=== PATIENT | male | born 1930 | race Caucasian/White ===

== ENCOUNTER 2016-08-15 06:58 | Emergency (ER) | payer MEDICARE, MEDICAID ==
[2016-08-15] MEDS ORDERED: Nitroglycerin 0.4 MG Tab.SL SL ONE (07:30)
[2016-08-15] MEDS ORDERED: Sodium Chloride 0.9% 1,000 ML IV ONE (07:30)
[2016-08-15] MEDS: Sodium Chloride 0.9% 5 ML Syringe FLUSH PRN ×2 (07:40→08:25)
[2016-08-15] MEDS ORDERED: Nitroglycerin 0.4 MG Tab.SL ONE (07:45)
[2016-08-15] MEDS ORDERED: Morphine 2 MG/ML Syringe IVPUSH ONE (08:07)
--- NOTE | 2016-08-15 08:24 | EDM.PDOC ---
ED HISTORY OF PRESENT ILLNESS - General Chief Complaint: Chest Pain Stated Complaint: CHEST PAIN Time Seen by Provider: 08/15/16 07:40 Source of Information: Reports: Patient History Limitations: Reports: No limitations - History of Present Illness INITIAL COMMENTS - FREE TEXT/NARRATIVE: PT STATES HE HAS HAD INTERMITTENT LEFT SIDED CHEST PAIN RADIATING TO LEFT ARM. DESCRIBED PRESSURE. TOOK NITRO AT HOME WITHOUT RELIEF. DENIES SOB, N/V/D, MORRISON , FEVER, ABD PAIN, OR DYSURIA. SIMILAR PAIN WHEN HE HAD CP AND CARDIAC STENT PLACED LAST YEAR Symptom Onset Date: 08/14/16 Timing/Duration: Reports: Day(s): Severity: mild Location, General: Reports: chest Quality: Reports: Pressure Improves with: Reports: None Worsens with: Reports: None Context, General: Reports: Other (AT REST) Associated Symptoms (General): Reports: cough, cough w sputum. Denies: fever/ chills, nausea/vomiting, shortness of breath Treatments SECOND CUTTER: Reports: Nitroglycerin - Related Data Allergies/ADRs: Allergies Allergy/AdvReac Type Severity Reaction Status Date / Time atorvastatin calcium Allergy Cannot Verified 08/15/16 07:28 [From Lipitor] Remember ezetimibe [From Zetia] Allergy Joint Pain Verified 08/15/16 07:28 gabapentin Allergy Airway Verified 08/15/16 07:28 Tightness pregabalin [From Lyrica] Allergy Bronchospas Verified 08/15/16 07:28 ms roflumilast [From Daliresp] Allergy Stomach Verified 08/15/16 07:28 Upset Kyeeqjw-Pto-Oip Reductase Allergy Muscle Verified 08/15/16 07:28 Inhibitor Weakness Sulfa (Sulfonamide Allergy Cannot Verified 08/15/16 07:28 Antibiotics) Remember tramadol Allergy Cannot Verified 08/15/16 07:28 Remember Home Meds: Home Meds Albuterol/Ipratropium [DuoNeb 3.0-0.5 MG/3 ML] 1 ampule INH Q6H PRN 03/22/14 [ History] Arformoterol [Brovana] 1 ampule INH BID 03/22/14 [History] Diltiazem [Cardizem CD] 180 mg PO DAILY 03/22/14 [History] Finasteride 5 mg PO DAILY 03/22/14 [History] Furosemide 40 mg PO DAILY 03/22/14 [History] Nitroglycerin [Nitrostat] 0.4 mg SL ASDIRECTED PRN 03/22/14 [History] Tamsulosin [Flomax] 0.4 mg PO BEDTIME 09/10/14 [History] Cholecalciferol (Vitamin D3) [Vitamin D3] 5,000 units PO BEDTIME 01/26/15 [ History] Psyllium with Sucrose [Metamucil] 1 tbsp PO BEDTIME 01/26/15 [History] Warfarin [Coumadin] 2.5 mg PO SUMOTUWETHSA 02/21/15 [History] Clopidogrel [Plavix] 75 mg PO DAILY 04/01/16 [History] Hydrocodone/Acetaminophen [Hydrocodon-Acetaminophen 5-325] 1 each PO BID [History] Meclizine [Antivert] 25 mg PO Q6H PRN 04/01/16 [History] Warfarin [Coumadin] 1.25 mg PO FR 04/01/16 [History] Prednisone [IJD: Prednisone] 10 mg PO DAILY 08/15/16 [History] Past Medical History HEENT History: Reports: Cataract, Impaired vision Cardiovascular History: Reports: Afib, Hypertension, Stents Respiratory History: Reports: Asthma, COPD Other Respiratory History: Home O2. Gastrointestinal History: Reports: Cholelithiasis, Chronic constipation, GERD, Hemorrhoids Genitourinary History: Reports: BPH, Prostate disorder Musculoskeletal History: Reports: Arthritis, Back pain, chronic Other Musculoskeletal History: Paget's disease Endocrine/Metabolic History: Reports: Vitamin D deficiency Hematologic History: Reports: Anemia, Blood transfusion(s) Oncologic (Cancer) History: Reports: Other (see below) Other Oncologic History: previous removal of lump and lymph nodes from neck. 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." Dermatologic History: Reports: Cellulitis - Infectious Disease History Infectious Disease History: Reports: Chicken pox, Measles, Mumps - Past Surgical History HEENT Surgical History: Reports: Cataract surgery Cardiovascular Surgical History: Reports: Carotid stents GI Surgical History: Reports: Cholecystectomy Male Surgical History: Reports: Other (see below) Other Male Surgeries/Procedures: cystoscopy Musculoskeletal Surgical History: Reports: Arthroscopic knee, Knee replacement Social & Family History - Family History Cardiac: Reports: [place] GI: Reports: None : Reports: None Oncologic: Reports: Breast - Tobacco Use Smoking Status *Q: Former Smoker Years of Tobacco use: 50 Packs/Tins Daily: 1 Used Tobacco, but Quit: Yes Month Tobacco Last Used: Quit in 1984 Second Hand Smoke Exposure: No - Caffeine Use Caffeine Use: Reports: Coffee - Alcohol Use Days Per Week of Alcohol Use: 1 Number of Drinks Per Day: 2 Total Drinks Per Week: 2 - Recreational Drug Use Recreational Drug Use: No - Living Situation & Occupation Living situation: Reports: ED ROS GENERAL - Review of Systems Review Of Systems: ROS reveals no pertinent complaints other than HPI. Constitutional: Reports: no symptoms HEENT: Reports: No symptoms Respiratory: Reports: No Symptoms Cardiovascular: Reports: Chest pain Endocrine: Reports: no symptoms GI/Abdominal: Reports: No symptoms : Reports: no symptoms Musculoskeletal: Reports: no symptoms Skin: Reports: no symptoms Neurological: Reports: No Symptoms Psychiatric: Reports: No symptoms Hematologic/Lymphatic: Reports: no symptoms Immunologic: Reports: no symptoms ED EXAM, GENERAL - Physical Exam Exam: See Below Exam Limited By: No limitations General Appearance: alert, WD/WN, no apparent distress Eye Exam: bilateral eye: normal inspection Nose: normal inspection, normal mucosa, no blood Throat/Mouth: Normal inspection, Normal oropharynx, No airway compromise Head: atraumatic, normocephalic Neck: normal inspection, supple, non-tender Respiratory/Chest: no respiratory distress, rhonchi Cardiovascular: regular rate, rhythm, no murmur GI/Abdominal: normal bowel sounds, soft, non tender, no organomegaly, no distention, no abnormal bruit, no mass Back Exam: normal inspection. No: CVA tenderness (L), CVA tenderness (R) Extremities: normal inspection, non-tender, no pedal edema Neurological: alert, oriented, normal cognition Psychiatric: normal affect, normal mood Skin Exam: Warm, Dry, Intact, Normal color, No rash Lymphatic: no adenopathy EKG INTERPRETATION EKG Date: 08/15/16 Time: 07:40 Rate (beats/min): 85 EKG Interpretation Comments: PACED RYTHM AT 85 Course - Vital Signs Last Recorded V/S: Last Vital Signs Temp 99.6 F 08/15/16 07:20 Pulse 87 08/15/16 07:58 Resp 18 08/15/16 07:58 BP 124/68 08/15/16 07:58 Pulse Ox 95 08/15/16 07:58 - Orders/Labs/Meds Orders: Active Orders 24 hr Category Date Time Status Cardiac Monitoring [RC] . DIRECTED Care 08/15/16 07:24 Active EKG Documentation Completion [RC] ASDIRECTED Care 08/15/16 07:27 Active Oxygen Therapy [RC] PRN Care 08/15/16 07:24 Active Chest 1V Frontal [CR] Stat Exams 08/15/16 07:27 Taken B-TYPE NATRIURETIC PEPTIDE,BNP [CHEM] Stat Lab 08/15/16 08:07 Ordered CK W CKMB [CHEM] Stat Lab 08/15/16 07:23 Received COMPREHENSIVE METABOLIC PN,CMP [CHEM] Stat Lab 08/15/16 07:23 Received LIPASE [CHEM] Stat Lab 08/15/16 07:23 Received TROPONIN I [CHEM] Stat Lab 08/15/16 07:23 Received Sodium Chloride 0.9% [Syrex Flush] Med 08/15/16 07:24 Active 5 ml FLUSH Q8HR PRN Saline Lock Insert [OM.PC] Stat Oth 08/15/16 07:24 Ordered EKG 12 Lead [EK] Stat Ther 08/15/16 07:27 Ordered Medication Orders Sodium Chloride (Syrex Flush) 5 ml FLUSH Q8HR PRN PRN Reason: Keep Vein Open Last Admin: 08/15/16 07:40 Dose: 5 ml Labs: Laboratory Tests 08/15/16 08/15/16 Range/Units 07:23 07:23 WBC 15.0 H (5.0-10.0) 10^3/uL RBC 4.56 (4.50-6.00) 10^6/uL Hgb 11.2 L (13.0-17.0) g/dL Hct 34.8 L (40.0-52.0) % MCV 76.3 L (82.0-92.0) fL MCH 24.6 L (27.0-31.0) pg MCHC 32.2 (32.0-36.0) g/dL RDW 17.1 H (11.5-14.5) % Plt Count 249 (150-300) 10^3/uL MPV 8.4 (7.4-10.4) fL Neut % (Auto) 90.4 H (50.0-70.0) % Lymph % (Auto) 5.1 L (20.0-40.0) % Starke % (Auto) 4.0 (2.0-8.0) % Eos % (Auto) 0.4 L (1.0-3.0) % Baso % (Auto) 0.1 (0.0-1.0) % Neut # (Auto) 13.5 H (2.5-7.0) 10^3/uL Lymph # (Auto) 0.8 L (1.0-4.0) 10^3/uL Starke # (Auto) 0.6 (0.1-0.8) 10^3/uL Eos # (Auto) 0.1 (0.1-0.3) 10^3/uL Baso # (Auto) 0.0 (0.0-0.1) 10^3/uL PT 13.1 H (8.9-11.4) SEC INR 1.3 H (0.9-1.1) Meds: Medications Generic Name Dose Route Start Last Admin Trade Name Freq PRN Reason Stop Dose Admin Sodium Chloride 5 ml 08/15/16 07:24 08/15/16 07:40 Syrex Flush FLUSH 5 ml Q8HR PRN Administration Keep Vein Open Discontinued Medications Generic Name Dose Route Start Last Admin Trade Name Freq PRN Reason Stop Dose Admin Morphine Sulfate 2 mg 08/15/16 08:07 Morphine IVPUSH 08/15/16 08:08 ONETIME ONE Nitroglycerin Confirm 08/15/16 07:45 08/15/16 07:50 Nitrostat Administered 08/15/16 07:46 0.4 mg Dose Administration 0.4 mg .ROUTE .STK-MED ONE - Re-Assessments/Exams Free Text/Narrative Re-Assessment/Exam: 08/15/16 08:49 PT AFEBRILE, NONTOXIC APPEARING, PAIN DOWN TO 2/10 FOLLOWING MORPHINE. DISCUSSED CASE WITH DR POE, CARDIOLOGY, AND DR ADAIR, HOSPITALIST AT [facility]. WILL ACCEPT TRANSFER OF CARE Departure - Departure Time of Disposition: 08:52 Disposition: DC/Tfer to [facility] Reason for Transfer *Q: Primary PCI Indicated Condition: fair Clinical Impression: Acute myocardial infarction Qualifiers: Myocardial infarction ST status: non-ST elevation myocardial infarction Qualified Code(s): I21.4 - Non-ST elevation (NSTEMI) myocardial infarction Chest pain Qualifiers: Chest pain type: chest pain due to myocardial ischemia Ischemic chest pain type : unspecified angina pectoris type Qualified Code(s): I20.9 - Angina pectoris, unspecified Forms: ED Department Discharge - My Orders Last 24 Hours: My Active Orders 08/15/16 07:23 CK W CKMB [CHEM] Stat COMPREHENSIVE METABOLIC PN,CMP [CHEM] Stat LIPASE [CHEM] Stat TROPONIN I [CHEM] Stat 08/15/16 07:24 Cardiac Monitoring [RC] . DIRECTED Oxygen Therapy [RC] PRN Sodium Chloride 0.9% [Syrex Flush] 5 ml FLUSH Q8HR PRN Saline Lock Insert [OM.PC] Stat 08/15/16 07:27 EKG Documentation Completion [RC] ASDIRECTED Chest 1V Frontal [CR] Stat EKG 12 Lead [EK] Stat 08/15/16 08:07 B-TYPE NATRIURETIC PEPTIDE,BNP [CHEM] Stat - Assessment/Plan Last 24 Hours: My Active Orders 08/15/16 07:23 CK W CKMB [CHEM] Stat COMPREHENSIVE METABOLIC PN,CMP [CHEM] Stat LIPASE [CHEM] Stat TROPONIN I [CHEM] Stat 08/15/16 07:24 Cardiac Monitoring [RC] . DIRECTED Oxygen Therapy [RC] PRN Sodium Chloride 0.9% [Syrex Flush] 5 ml FLUSH Q8HR PRN Saline Lock Insert [OM.PC] Stat 08/15/16 07:27 EKG Documentation Completion [RC] ASDIRECTED Chest 1V Frontal [CR] Stat EKG 12 Lead [EK] Stat 08/15/16 08:07 B-TYPE NATRIURETIC PEPTIDE,BNP [CHEM] Stat Assessment:: CHEST PAIN / NONSTEMI HI Plan: TRANSFER VIA EMS TO [facility]
[2016-08-15 08:25] LABS: CHLORIDE,CL 101 mmol/L (98-115); SODIUM,NA 140 mmol/L (136-145)
[2016-08-15 08:49] VITALS: BP 143/57
[2016-08-15] MEDS ORDERED: Heparin Sodium 5,000 Units/ML Vial IVPUSH ONE (08:54)
[2016-08-15] MEDS ORDERED: Heparin Sodium 5,000 Units/ML Vial ONE (08:54)
[2016-08-15] MEDS ORDERED: Aspirin 81 MG Tab.Chew PO ONE (09:05)
[2016-08-15] MEDS ORDERED: Sodium Chloride 0.9% 1,000 ML ONE (09:25)
== END 2016-08-15 09:15 ==
LOC: KA.ED 06:58
DX: I21.4 Non-ST elevation (NSTEMI) myocardial infarction (principal); I20.9 Angina pectoris, unspecified; I48.91 Unspecified atrial fibrillation; I10 Essential (primary) hypertension; J45.909 Unspecified asthma, uncomplicated; J44.9 Chronic obstructive pulmonary disease, unspecified; K21.9 Gastro-esophageal reflux disease without esophagitis; M19.90 Unspecified osteoarthritis, unspecified site; Z98.49 Cataract extraction status, unspecified eye; Z90.49 Acquired absence of other specified parts of digestive tract; Z79.01 Long term (current) use of anticoagulants; Z79.899 Other long term (current) drug therapy; Z88.5 Allergy status to narcotic agent; Z88.8 Allergy status to other drugs, medicaments and biological substances; Z86.2 Personal history of diseases of the blood and blood-forming organs and certain disorders involving the immune mechanism; Z87.891 Personal history of nicotine dependence
CPT/HCPCS: 36415; 71010; 80053; 82550; 82553; 83690; 83880; 84484; 85025; 85610; 93005; 96374; 96375; 99285; A9270; J1644; J2270

== ENCOUNTER 2017-08-01 03:28 | Inpatient (IN) | payer MEDICARE, MEDICAID ==
--- NOTE | 2017-08-01 03:59 | EDM.PDOC ---
ED HPI GENERAL MEDICAL PROBLEM - General Chief Complaint: Respiratory Problem Stated Complaint: short of breath Time Seen by Provider: 08/01/17 03:49 Source of Information: Reports: Patient History Limitations: Reports: No Limitations - History of Present Illness INITIAL COMMENTS - FREE TEXT/NARRATIVE: Patient is an 86-year-old gentleman who presents to the emergency department this morning for complaint of shortness of breath. He came with his son and [id number], and states that he woke from sleep at 2 a.m. and had a hard time catching his breath. According to his son he was fine throughout the day and had no recent illness. Patient states that he does have left-sided chest discomfort, but that is of a chronic nature. Patient has a strong cardiac history with multiple stents placed and He was transferred from this emergency department July 2016 for non-STEMI [place]. Patient states that he took 20 mg prednisone this morning, but did not help. Patient does have a history of severe COPD, CHF, hypertension, and pacemaker. Patient denies fever, nausea, vomiting, diarrhea, headache, head injury, blurry vision, or dizziness. 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 Treatments - Related Data Allergies Allergy/AdvReac Type Severity Reaction Status Date / Time atorvastatin calcium Allergy Cannot Verified 08/01/17 03:54 [From Lipitor] Remember ezetimibe [From Zetia] Allergy Joint Pain Verified 08/01/17 03:54 gabapentin Allergy Airway Verified 08/01/17 03:54 Tightness pregabalin [From Lyrica] Allergy Bronchospas Verified 08/01/17 03:54 ms roflumilast [From Daliresp] Allergy Stomach Verified 08/01/17 03:54 Upset Mrpgasn-Rge-Bjy Reductase Allergy Muscle Verified 08/01/17 03:54 Inhibitor Weakness Sulfa (Sulfonamide Allergy Cannot Verified 08/01/17 03:54 Antibiotics) Remember tramadol Allergy Cannot Verified 08/01/17 03:54 Remember Home Meds: Home Meds Albuterol/Ipratropium [DuoNeb 3.0-0.5 MG/3 ML] 1 ampule INH Q6H PRN 03/22/14 [ History] Arformoterol [Brovana] 1 ampule INH BID 03/22/14 [History] Diltiazem [Cardizem CD] 180 mg PO DAILY 03/22/14 [History] Finasteride 5 mg PO DAILY 03/22/14 [History] Furosemide 40 mg PO DAILY 03/22/14 [History] Nitroglycerin [Nitrostat] 0.4 mg SL ASDIRECTED PRN 03/22/14 [History] Tamsulosin [Flomax] 0.4 mg PO BEDTIME 09/10/14 [History] Cholecalciferol (Vitamin D3) [Vitamin D3] 5,000 units PO BEDTIME 01/26/15 [ History] Psyllium with Sucrose [Metamucil] 1 tbsp PO BEDTIME PRN 01/26/15 [History] Warfarin [Coumadin] 2.5 mg PO SUMOTUWETHSA 02/21/15 [History] Clopidogrel [Plavix] 75 mg PO DAILY 04/01/16 [History] Hydrocodone/Acetaminophen [Hydrocodon-Acetaminophen 5-325] 1 each PO BID [History] Meclizine [Antivert] 25 mg PO Q6H PRN 04/01/16 [History] Prednisone [IJD: Prednisone] 10 mg PO DAILY 08/15/16 [History] Past Medical History HEENT History: Reports: Cataract, Impaired Vision Cardiovascular History: Reports: Afib, Hypertension, Stents Respiratory History: Reports: Asthma, COPD Other Respiratory History: Home O2. Gastrointestinal History: Reports: Cholelithiasis, Chronic Constipation, GERD, Hemorrhoids Genitourinary History: Reports: BPH, Prostate Disorder Musculoskeletal History: Reports: Arthritis, Back Pain, Chronic Other Musculoskeletal History: Paget's disease Endocrine/Metabolic History: Reports: Vitamin D Deficiency Hematologic History: Reports: Anemia, Blood Transfusion(s) Oncologic (Cancer) History: Reports: Other (See Below) Other Oncologic History: previous removal of lump and lymph nodes from neck. 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." Dermatologic History: Reports: Cellulitis - Infectious Disease History Infectious Disease History: Reports: Chicken Pox, Measles, Mumps - Past Surgical History HEENT Surgical History: Reports: Cataract Surgery Cardiovascular Surgical History: Reports: Carotid Stents Male Surgical History: Reports: Other (See Below) Musculoskeletal Surgical History: Reports: Arthroscopic Knee, Knee Replacement Social & Family History - Family History Cardiac: Reports: [place] GI: Reports: None : Reports: None Oncologic: Reports: Breast - Tobacco Use Smoking Status *Q: Former Smoker Years of Tobacco use: 50 Packs/Tins Daily: 1 Used Tobacco, but Quit: Yes Month/Year Tobacco Last Used: Quit in 1984 Second Hand Smoke Exposure: No - Caffeine Use Caffeine Use: Reports: Coffee - Alcohol Use Days Per Week of Alcohol Use: 1 Number of Drinks Per Day: 2 Total Drinks Per Week: 2 - Recreational Drug Use Recreational Drug Use: No - Living Situation & Occupation Living situation: Reports: ED ROS GENERAL - Review of Systems Review Of Systems: ROS reveals no pertinent complaints other than HPI. Constitutional: Reports: No Symptoms HEENT: Reports: No Symptoms Respiratory: Reports: Shortness of Breath, Cough Cardiovascular: Reports: Chest Pain Endocrine: Reports: No Symptoms GI/Abdominal: Reports: No Symptoms : Reports: No Symptoms Musculoskeletal: Reports: No Symptoms Skin: Reports: No Symptoms Neurological: Reports: No Symptoms Psychiatric: Reports: No Symptoms Hematologic/Lymphatic: Reports: No Symptoms Immunologic: Reports: No Symptoms ED EXAM, GENERAL - Physical Exam Exam: See Below Exam Limited By: No Limitations General Appearance: Alert, WD/WN, Mild Distress Eye Exam: Bilateral Eye: Normal Inspection Nose: Normal Inspection, Normal Mucosa, No Blood Throat/Mouth: Normal Inspection, Normal Oropharynx, No Airway Compromise Head: Atraumatic, Normocephalic Neck: Normal Inspection Respiratory/Chest: No Respiratory Distress, Decreased Breath Sounds, Rales ( Basilar), Wheezing Cardiovascular: Regular Rate, Rhythm, No Murmur GI/Abdominal: Normal Bowel Sounds, Soft, Non-Tender, No Organomegaly, No Abnormal Bruit Back Exam: Normal Inspection. No: CVA Tenderness (L), CVA Tenderness (R) Extremities: Pedal Edema (2+ bilateral) Neurological: Alert, Oriented, Normal Cognition Psychiatric: Normal Affect, Normal Mood Skin Exam: Warm, Dry, Intact, Normal Color, No Rash EKG INTERPRETATION EKG Date: 08/01/17 Time: 04:05 Rhythm: Other (Paced) Rate (Beats/Min): 71 Course - Orders/Labs/Meds Orders: Active Orders 24 hr Category Date Time Status EKG Documentation Completion [RC] ASDIRECTED Care 08/01/17 03:35 Active Chest 1V Frontal [CR] Stat Exams 08/01/17 03:35 Ordered B-TYPE NATRIURETIC PEPTIDE,BNP [CHEM] Stat Lab 08/01/17 03:33 Ordered CBC WITH AUTO DIFF [HEME] Stat Lab 08/01/17 03:33 Ordered CMP [COMPREHENSIVE METABOLIC PN,CMP] [CHEM] Stat Lab 08/01/17 03:33 Ordered INFLUENZA A+B AG SCREEN [RM] Stat Lab 08/01/17 03:49 Ordered INR,PT,PROTHROMBIN TIME [COAG] Stat Lab 08/01/17 03:49 Ordered TROPONIN I [CHEM] Stat Lab 08/01/17 03:33 Ordered EKG 12 Lead [EK] Routine Ther 08/01/17 03:34 Ordered - Radiology Interpretation Free Text/Narrative:: Chest x-ray shows bilateral lower lobe pneumonia - Re-Assessments/Exams Free Text/Narrative Re-Assessment/Exam: 08/01/17 05:14 Patient afebrile, nontoxic appearing, vital signs stable. Patient given 1 g Rocephin IV and 500 mg Zithromax IV. Discussed case with Dr. Carmencita rivera and patient will be admitted inpatient and followed. Departure - Departure Time of Disposition: 05:18 Disposition: Admitted As Inpatient 66 Condition: Fair Clinical Impression: Pneumonia Qualifiers: Pneumonia type: due to unspecified organism Laterality: right Lung location: lower lobe of lung Qualified Code(s): J18.1 - Lobar pneumonia, unspecified organism Congestive heart failure Qualifiers: Heart failure type: unspecified Heart failure chronicity: acute on chronic Qualified Code(s): I50.9 - Heart failure, unspecified - Discharge Information - My Orders Last 24 Hours: My Active Orders 08/01/17 03:33 B-TYPE NATRIURETIC PEPTIDE,BNP [CHEM] Stat CBC WITH AUTO DIFF [HEME] Stat CMP [COMPREHENSIVE METABOLIC PN,CMP] [CHEM] Stat TROPONIN I [CHEM] Stat 08/01/17 03:34 EKG 12 Lead [EK] Routine 08/01/17 03:35 EKG Documentation Completion [RC] ASDIRECTED Chest 1V Frontal [CR] Stat 08/01/17 03:49 INFLUENZA A+B AG SCREEN [RM] Stat INR,PT,PROTHROMBIN TIME [COAG] Stat - Assessment/Plan Last 24 Hours: My Active Orders 08/01/17 03:33 B-TYPE NATRIURETIC PEPTIDE,BNP [CHEM] Stat CBC WITH AUTO DIFF [HEME] Stat CMP [COMPREHENSIVE METABOLIC PN,CMP] [CHEM] Stat TROPONIN I [CHEM] Stat 08/01/17 03:34 EKG 12 Lead [EK] Routine 08/01/17 03:35 EKG Documentation Completion [RC] ASDIRECTED Chest 1V Frontal [CR] Stat 08/01/17 03:49 INFLUENZA A+B AG SCREEN [RM] Stat INR,PT,PROTHROMBIN TIME [COAG] Stat Assessment:: Pneumonia Plan: Admit inpatient
[2017-08-01] MEDS ORDERED: Albuterol/Ipratropium 3.0-0.5 MG/3 ML Neb Soln NEB ONE (04:06)
[2017-08-01] MEDS ORDERED: Albuterol/Ipratropium 3.0-0.5 MG/3 ML Neb Soln ONE (04:06)
[2017-08-01] MEDS ORDERED: cefTRIAXone 1 GM Vial IVPUSH ONE (04:37)
[2017-08-01] MEDS ORDERED: Azithromycin 500 MG in Sodium Chloride 0.9% 250 ML IV ONE (04:37)
[2017-08-01 04:46] LABS: SODIUM,NA 139 mmol/L (136-145)
[2017-08-01 04:47] LABS: CHLORIDE,CL 99 mmol/L (98-115)
[2017-08-01] MEDS ORDERED: Meclizine 25 MG Tab PO PRN (08:28)
[2017-08-01] MEDS ORDERED: Psyllium Husk Powder Sugar Free 5.85 GM Packet PO PRN (08:28)
[2017-08-01] MEDS ORDERED: Nitroglycerin 0.4 MG Tab.SL SL PRN (08:28)
[2017-08-01] MEDS: Arformoterol 15 MCG/2 ML Neb Soln INH SCH ×2 (11:08→22:08)
[2017-08-01] MEDS: Diltiazem 180 MG Cap.CD PO SCH (11:09)
[2017-08-01] MEDS: Finasteride 5 MG Tab PO SCH (11:10)
[2017-08-01] MEDS: Clopidogrel 75 MG Tab PO SCH (11:10)
[2017-08-01] MEDS: Acetaminophen/HYDROcodone 325-5 MG Tab PO SCH ×2 (11:10→22:06)
[2017-08-01] MEDS: predniSONE 20 MG Tab PO SCH (11:10)
[2017-08-01] MEDS: Furosemide 20 MG Tab PO SCH (11:10)
--- NOTE | 2017-08-01 11:34 | PCM.HP ---
H&P History of Present Illness - General Date of Service: 08/01/17 Admit Problem/Dx: Admission Diagnosis/Problem Admission Diagnosis/Problem Pneumonia Source of Information: Patient, Family, Old Records, Provider (STANISLAV Tijerina (ED provider)), RN, RN Notes Reviewed History Limitations: Reports: No Limitations - History of Present Illness Initial Comments - Free Text/Narative: Mr. Brown reports being in his baseline state of health until 7-10 days ago when he developed some congestions, rhinorrhea, and increased cough from baseline. About 2 weeks ago, his and he has since had decreased amount of rest with several family members around. He states that he has been coping well with the grief and trying to take care of himself, but feels he got a little run down. Last night, he developed shortness of breath and worsening cough so his family brought him into the [facility] ED. In the ED, he was noted to have a borderline low oxygen which improved to the low 90s with 3lpm via nasal cannula. Work-up was notable for WBC 21 and CXR with bilateral lower lobe infiltrates, clinically consistent with pneumonia. He was given IV ceftriaxone and azithromycin. Since admission, Mr. Brown states he has improved, but "isn't up to par yet. " His shortness of breath and wheezing is improved. Cough is productive of dark colored sputum. He denies any chest pain since arrival. Tolerating oral intake without difficulty. Denies any new concerns. Family at bedside states that he seems to be feeling better than last night. No nursing concerns. Left Shoulder Pain Score (Numeric/FACES): 3 - Related Data Allergies/Adverse Reactions: Allergies Allergy/AdvReac Type Severity Reaction Status Date / Time atorvastatin calcium Allergy Cannot Verified 08/01/17 03:54 [From Lipitor] Remember ezetimibe [From Zetia] Allergy Joint Pain Verified 08/01/17 03:54 gabapentin Allergy Airway Verified 08/01/17 03:54 Tightness pregabalin [From Lyrica] Allergy Bronchospas Verified 08/01/17 03:54 ms roflumilast [From Daliresp] Allergy Stomach Verified 08/01/17 03:54 Upset Yfrshlv-Sey-Usw Reductase Allergy Muscle Verified 08/01/17 03:54 Inhibitor Weakness Sulfa (Sulfonamide Allergy Cannot Verified 08/01/17 03:54 Antibiotics) Remember tramadol Allergy Cannot Verified 08/01/17 03:54 Remember Home Medications: Home Meds Albuterol/Ipratropium [DuoNeb 3.0-0.5 MG/3 ML] 1 ampule INH Q6H PRN 03/22/14 [ History] Arformoterol [Brovana] 1 ampule INH BID 03/22/14 [History] Diltiazem [Cardizem CD] 180 mg PO DAILY 03/22/14 [History] Finasteride 5 mg PO DAILY 03/22/14 [History] Furosemide 60 mg PO DAILY 03/22/14 [History] Nitroglycerin [Nitrostat] 0.4 mg SL ASDIRECTED PRN 03/22/14 [History] Tamsulosin [Flomax] 0.4 mg PO BEDTIME 09/10/14 [History] Cholecalciferol (Vitamin D3) [Vitamin D3] 5,000 units PO BEDTIME 01/26/15 [ History] Psyllium with Sucrose [Metamucil] 1 tbsp PO BEDTIME PRN 01/26/15 [History] Warfarin [Coumadin] 2.5 mg PO DAILY 02/21/15 [History] Clopidogrel [Plavix] 75 mg PO DAILY 04/01/16 [History] Hydrocodone/Acetaminophen [Hydrocodon-Acetaminophen 5-325] 1 each PO BID [History] Meclizine [Antivert] 25 mg PO Q6H PRN 04/01/16 [History] Prednisone [IJD: Prednisone] 10 mg PO DAILY 08/15/16 [History] Past Medical History HEENT History: Reports: Cataract, Impaired Vision Cardiovascular History: Reports: Afib, Hypertension, Pacemaker, Stents Respiratory History: Reports: Asthma, COPD Other Respiratory History: Home O2. Gastrointestinal History: Reports: Cholelithiasis, Chronic Constipation, GERD, Hemorrhoids Genitourinary History: Reports: BPH, Prostate Disorder Musculoskeletal History: Reports: Arthritis, Back Pain, Chronic Other Musculoskeletal History: Paget's disease Endocrine/Metabolic History: Reports: Vitamin D Deficiency Hematologic History: Reports: Anemia, Blood Transfusion(s) Immunologic History: Reports: None Oncologic (Cancer) History: Reports: Other (See Below) Other Oncologic History: previous removal of lump and lymph nodes from neck. 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." Dermatologic History: Reports: Cellulitis - Infectious Disease History Infectious Disease History: Reports: Chicken Pox, Measles, Mumps - Past Surgical History HEENT Surgical History: Reports: Cataract Surgery Cardiovascular Surgical History: Reports: Carotid Stents Respiratory Surgical History: Reports: None Musculoskeletal Surgical History: Reports: Arthroscopic Knee, Knee Replacement Social & Family History - Family History Family Medical History: Unobtainable Cardiac: Reports: [place] GI: Reports: None : Reports: None Oncologic: Reports: Breast - Tobacco Use Smoking Status *Q: Former Smoker Years of Tobacco use: 50 Packs/Tins Daily: 1 Used Tobacco, but Quit: Yes Month/Year Tobacco Last Used: Quit in 1984 Second Hand Smoke Exposure: No - Caffeine Use Caffeine Use: Reports: Coffee - Alcohol Use Days Per Week of Alcohol Use: 1 Number of Drinks Per Day: 2 Total Drinks Per Week: 2 - Recreational Drug Use Recreational Drug Use: No - Living Situation & Occupation Living situation: Reports: H&P Review of Systems - Review of Systems: Review Of Systems: See Below General: Reports: Fever, Chills, Malaise, Weakness, Fatigue, Decreased Appetite HEENT: Reports: Rhinitis, Sinus Congestion. Denies: Ear Pain, Headaches, Sore Throat Pulmonary: Reports: Shortness of Breath, Wheezing, Cough, Sputum. Denies: Pleuritic Chest Pain, Hemoptysis Cardiovascular: Reports: Dyspnea on Exertion. Denies: Chest Pain, Palpitations , Orthopnea, PND, Edema, Lightheadedness, Syncope Gastrointestinal: Reports: Constipation. Denies: Abdominal Pain, Diarrhea Genitourinary: Reports: Frequency. Denies: Dysuria, Pain Musculoskeletal: Reports: Joint Pain Skin: Denies: Rash, Wound, Lesions Psychiatric: Reports: Other (grief s/p 's recent ). Denies: Confusion , Depression, Anxiety, Agitation Neurological: Denies: Headache Hematologic/Lymphatic: Reports: Easy Bleeding, Easy Bruising Exam - Exam Exam: See Below - Vital Signs Vital Signs: Last Vital Signs Temp 37.9 C 08/01/17 05:19 Pulse 71 08/01/17 11:09 Resp 36 H 08/01/17 06:55 BP 133/57 L 08/01/17 11:09 Pulse Ox 93 L 08/01/17 06:55 Weight: 84.368 kg - Exam Physical Exam Comments:: GENERAL: Elderly white male lying in hospital bed with mild tachypnea, but otherwise not in any acute distress. HEENT: Normocephalic, atraumatic. L eyelids closed. R conjunctiva clear. Mild clear rhinorrhea and bilateral nasal turbinate erythema. Mucous membranes moist , posterior pharynx unremarkable. NECK: Supple, well healed scars of left neck. CV: Regular rate and rhythm, no murmurs, rubs, or gallops. 2+ radial pulses. PULMONARY: Mild tachypnea; following nebulizer treatment, he has faint scattered end expiratory wheezes and diffuse rhonchi without any crackles. ABDOMEN: Positive bowel sounds, soft, nontender, nondistended. EXTREMITIES: No edema, cyanosis, or clubbing. MUSCULOSKELETAL: Moves all extremities well. NEUROLOGICAL: No obvious deficits. DERMATOLOGIC: Bilateral forearms with diffuse bruising. PSYCHIATRIC: Alert, interactive, appropriate affect. - Patient Data Lab Results Last 24 hrs: Laboratory Results - last 24 hr 08/01/17 08/01/17 08/01/17 Range/Units 03:47 03:47 03:47 WBC 21.1 H (5.0-10.0) 10^3/uL RBC 4.85 (4.50-6.00) 10^6/uL Hgb 12.5 L (13.0-17.0) g/dL Hct 38.8 L (40.0-52.0) % MCV 80.0 L D (82.0-92.0) fL MCH 25.7 L (27.0-31.0) pg MCHC 32.1 (32.0-36.0) g/dL RDW 17.2 H (11.5-14.5) % Plt Count 305 H (150-300) 10^3/uL MPV 8.3 (7.4-10.4) fL Neut % (Auto) 92.2 H (50.0-70.0) % Lymph % (Auto) 3.7 L (20.0-40.0) % Divide % (Auto) 2.2 (2.0-8.0) % Eos % (Auto) 1.8 (1.0-3.0) % Baso % (Auto) 0.1 (0.0-1.0) % Neut # (Auto) 19.4 H (2.5-7.0) 10^3/uL Lymph # (Auto) 0.8 L (1.0-4.0) 10^3/uL Divide # (Auto) 0.5 (0.1-0.8) 10^3/uL Eos # (Auto) 0.4 H (0.1-0.3) 10^3/uL Baso # (Auto) 0.0 (0.0-0.1) 10^3/uL PT 23.6 H D (8.9-11.4) SEC INR 2.4 H (0.9-1.1) Sodium 139 (136-145) mmol/L Potassium 3.7 (3.3-5.3) mmol/L Chloride 99 (98-115) mmol/L Carbon Dioxide 27.0 (21.0-32.0) mmol/L BUN 26 H (6-25) mg/dL Creatinine 1.00 (0.51-1.17) mg/dL Est Cr Clr Drug Dosing 54.75 mL/min Estimated GFR (MDRD) > 60 mL/min Glucose 126 H (70-110) mg/dL Calcium 8.8 (8.7-10.3) mg/dL Total Bilirubin 0.5 (0.2-1.0) mg/dL AST 23 (15-37) U/L ALT 18 (12-78) U/L Alkaline Phosphatase 57 (46-116) IU/L Troponin I 0.04 (0.00-0.070) ng/mL B-Natriuretic Peptide 226 H (0-100) pg/mL Total Protein 6.9 (6.4-8.2) g/dL Albumin 3.20 (3.00-4.80) g/dL Result Diagrams: 08/01/17 03:47 08/01/17 03:47 Anderson Results Last 24 hrs: Microbiology 08/01/17 03:49 Influenza Type A Antigen Screen - Final Nasal Aspirate, Unspecified NEGATIVE INFLUENZA A VIRUS AG Influenza Type B Antigen Screen - Final NEGATIVE INFLUENZA B VIRUS AG Problem List Initiated/Reviewed/Updated: Yes Orders Last 24hrs: Active Orders 24 hr Category Date Time Status Patient Status [ADT] Routine ADT 08/01/17 05:19 Ordered EKG Documentation Completion [RC] ASDIRECTED Care 08/01/17 03:35 Active Oxygen Therapy [RC] PRN Care 08/01/17 05:19 Active RT Aerosol Therapy [RC] ASDIRECTED Care 08/01/17 08:26 Active VTE/DVT Education [RC] PER UNIT ROUTINE Care 08/01/17 05:19 Active Vital Signs [RC] Q4H Care 08/01/17 05:19 Active Chest 1V Frontal [CR] Stat Exams 08/01/17 03:35 Ordered BASIC METABOLIC PANEL,BMP [CHEM] AM Lab 08/02/17 05:11 Ordered CBC WITH AUTO DIFF [HEME] AM Lab 08/02/17 05:11 Ordered CULTURE BLOOD [BC] Stat Lab 08/01/17 05:13 Ordered CULTURE BLOOD [BC] Stat Lab 08/01/17 05:13 Ordered CULTURE SPUTUM + SMEAR [RM] Stat Lab 08/01/17 05:15 Ordered INR,PT,PROTHROMBIN TIME [COAG] AM Lab 08/02/17 05:11 Ordered Acetaminophen [Tylenol] Med 08/01/17 11:28 Ordered 650 mg PO Q6H PRN Acetaminophen/HYDROcodone [[place] 325-5 MG] Med 08/01/17 09:00 Active 1 tab PO BID Albuterol/Ipratropium [DuoNeb 3.0-0.5 MG/3 ML] Med 08/01/17 08:26 Active 3 ml NEB Q4HRRT PRN Arformoterol [Brovana] Med 08/01/17 08:45 Active 15 mcg INH BIDRT Cholecalciferol (Vitamin D3) [Vitamin D3] Med 08/01/17 21:00 Active 5,000 units PO BEDTIME Clopidogrel [Plavix] Med 08/01/17 09:00 Active 75 mg PO DAILY Diltiazem [Cardizem CD] Med 08/01/17 09:00 Active 180 mg PO DAILY Finasteride [Proscar] Med 08/01/17 09:00 Active 5 mg PO DAILY Furosemide [Lasix] Med 08/01/17 09:00 Active 60 mg PO DAILY Levofloxacin/Dextrose 5%-Water [Levaquin in D5W 500 MG/ Med 08/01/17 18:00 Ordered 100 ML] 500 mg Premix Bag 1 bag IV Q24H Meclizine [Antivert] Med 08/01/17 08:28 Active 25 mg PO Q6H PRN Nitroglycerin [Nitrostat] Med 08/01/17 08:28 Active 0.4 mg SL ASDIRECTED PRN Psyllium Husk/Aspartame [Metamucil Sugar Free] Med 08/01/17 08:28 Active 0 pkt PO BEDTIME PRN Tamsulosin [Flomax] Med 08/01/17 21:00 Active 0.4 mg PO BEDTIME Warfarin [Coumadin] Med 08/01/17 18:00 Active 2.5 mg PO DAILY@1800 predniSONE Med 08/01/17 10:30 Active 40 mg PO WITHBREAKFAST Blood Culture x2 Reflex Set [OM.PC] Stat Oth 08/01/17 05:12 Ordered Resuscitation Status Routine Resus Stat 08/01/17 05:19 Ordered EKG 12 Lead [EK] Routine Ther 08/01/17 03:34 Ordered Medication Orders Acetaminophen (Tylenol) 650 mg PO Q6H PRN PRN Reason: Fever Hydrocodone Bitart/Acetaminophen ([place] 325-5 Mg) 1 tab PO BID [facility] Last Admin: 08/01/17 11:10 Dose: 1 tab Albuterol/Ipratropium (Duoneb 3.0-0.5 Mg/3 Ml) 3 ml NEB Q4HRRT PRN PRN Reason: Shortness of Breath Arformoterol Tartrate (Brovana) 15 mcg INH BIDRT [facility] Last Admin: 08/01/17 11:08 Dose: 15 mcg Cholecalciferol (Vitamin D3) 5,000 units PO BEDTIME [facility] Clopidogrel Bisulfate (Plavix) 75 mg PO DAILY [facility] Last Admin: 08/01/17 11:10 Dose: 75 mg Diltiazem HCl (Cardizem Cd) 180 mg PO DAILY [facility] Last Admin: 08/01/17 11:09 Dose: 180 mg Finasteride (Proscar) 5 mg PO DAILY [facility] Last Admin: 08/01/17 11:10 Dose: 5 mg Furosemide (Lasix) 60 mg PO DAILY [facility] Last Admin: 08/01/17 11:10 Dose: 60 mg Levofloxacin/Dextrose 500 mg/ (Premix) 100 mls @ 100 mls/hr IV Q24H [facility] Meclizine HCl (Antivert) 25 mg PO Q6H PRN PRN Reason: Dizziness Nitroglycerin (Nitrostat) 0.4 mg SL ASDIRECTED PRN PRN Reason: Chest Pain Prednisone (Prednisone) 40 mg PO WITHBREAKFAST [facility] Last Admin: 08/01/17 11:10 Dose: 40 mg Psyllium Husk (Metamucil Sugar Free) 0 pkt PO BEDTIME PRN PRN Reason: Constipation Tamsulosin HCl (Flomax) 0.4 mg PO BEDTIME [facility] Warfarin Sodium (Coumadin) 2.5 mg PO DAILY@1800 [facility] Assessment/Plan Comment:: HPI summary: 86yoM with history notable for COPD/asthma, chronic nocturnal hypoxia, and CAD, who was in his baseline state of health until 7-10 days prior to admission when he developed some congestions, rhinorrhea, and increased cough from baseline. About 2 weeks ago, his and he has since had decreased amount of rest with several family members around. He states that he has been coping well with the grief and trying to take care of himself, but feels he got a little run down. In the hogshead filler hours of the day of admission, he developed shortness of breath and worsening cough so his family brought him into the [facility] ED. ED course: He was noted to have a borderline low oxygen which improved to the low 90s with 3lpm via nasal cannula. Work-up was notable for WBC 21, troponin < 0.04, BNP in the 200s, EKG with paced rhythm, and CXR with bilateral lower lobe infiltrates and mild pulmonary vascular congestion, which as a whole was clinically consistent with pneumonia. He was given IV ceftriaxone and azithromycin. He was admitted for pneumonia with associated acute hypoxic respiratory failure. Interval hospital course: Developed fever of 100.4 this morning, but overall improved respiratory status. No new symptoms or concerns. Chart review revealed a recent rx for metoprolol for improved medical management of chronic angina, but the patient state he has not begun this. Hospitalization problems: # Acute hypoxic respiratory failure superimposed on chronic nocturnal hypoxic respiratory failure # Pneumonia, bilateral lower lobes, community acquired, suspect pneumococcal vs. pseudomonal pathogen # COPD/asthma with acute exacerbation # CAD: Most recent stent 08/16/16 # HFpEF: Grade I diastolic dysfunction and EF 55% on most recent echo 08/15/16 # HTN # Atrial fibrillation # Generalized weakness Requiring inpatient monitoring and management given oxygen requirement and CURB- 65 = 2 in addition to chronic medical conditions increasing risk. No evidence of sepsis or acute coronary syndrome and he is volume neutral without overt exam , laboratory or imaging evidence of fluid overload. Generalized weakness may be related to acute issues or from underlying deconditioning. - Supplemental oxygen to keep oxygen saturation >90% - Levofloxacin 500mg IV daily - Prednisone 40mg daily - DuoNebs q4h - Mucinex 500mg BID - Continue outpatient clopidogrel, furosemide, diltiazem, and warfarin - VS q4h - Strict I/O - Blood and sputum cultures - Repeat CBC, BMP, and INR tomorrow - Consider physical therapy if ongoing generalized weakness noted following improvement in acute condition Chronic conditions: # S/p pacemaker for prior AV node ablation # Constipation: Metamucil prn. # BPH: Finasteride, tamsulosin. # OA: [place]. # Vitamin D deficiency: D3. # Chronic vertigo: Meclizine prn. Hospitalization details: # FEN: No IVF. Electrolytes normal; recheck tomorrow. Regular diet. # PPX: DVT ppx covered by therapeutic INR on warfarin. # Code status: DNR/DNI. # Emergency contact: Son, Ofelia Brown, who was updated at bedside on rounds. # Disposition: Admit to inpatient [facility]. Anticipate discharge to home following at least 48 hour stay for monitoring and management of above.
[2017-08-01] MEDS: Acetaminophen 325 MG Tab PO PRN (12:13)
[2017-08-01] MEDS: guaiFENesin 600 MG Tab.ER PO SCH ×2 (12:13→22:06)
[2017-08-01] MEDS: Albuterol/Ipratropium 3.0-0.5 MG/3 ML Neb Soln NEB PRN ×2 (13:51→22:02)
[2017-08-01] MEDS: Levofloxacin/Dextrose 5%-Water 500 MG in Premix Bag 1 BAG IV SCH (17:59)
[2017-08-01] MEDS: Warfarin 2.5 MG Tab PO SCH (17:59)
[2017-08-01] MEDS: Tamsulosin 0.4 MG Cap.ER PO SCH (22:02)
[2017-08-01] MEDS: Cholecalciferol (Vitamin D3) 1,000 Unit Tab PO SCH (22:08)
[2017-08-02] MEDS ORDERED: cefTRIAXone 1 GM Vial IVPUSH SCH (05:00)
[2017-08-02] MEDS ORDERED: Azithromycin 500 MG in Sodium Chloride 0.9% 250 ML IV SCH (05:00)
[2017-08-02] MEDS: Arformoterol 15 MCG/2 ML Neb Soln INH SCH ×2 (07:26→20:16)
[2017-08-02 07:43] LABS: CHLORIDE,CL 105 mmol/L (98-115); SODIUM,NA 145 mmol/L (136-145)
[2017-08-02] MEDS: Acetaminophen/HYDROcodone 325-5 MG Tab PO SCH ×3 (07:45→20:23)
[2017-08-02] MEDS ORDERED: predniSONE 20 MG Tab PO SCH (08:00)
[2017-08-02] MEDS: Diltiazem 180 MG Cap.CD PO SCH (08:41)
[2017-08-02] MEDS: Clopidogrel 75 MG Tab PO SCH (08:42)
[2017-08-02] MEDS: guaiFENesin 600 MG Tab.ER PO SCH ×2 (08:42→20:23)
[2017-08-02] MEDS: Finasteride 5 MG Tab PO SCH (08:42)
[2017-08-02] MEDS: Furosemide 20 MG Tab PO SCH (08:42)
[2017-08-02] MEDS: predniSONE 20 MG Tab PO SCH (08:43)
--- NOTE | 2017-08-02 10:38 | PCM.PN ---
- General Info Date of Service: 08/02/17 Admission Dx/Problem (Free Text): Pneumonia Subjective Update: Mr. Brown reports ongoing improvement in his respiratory status. Shortness of breath improved with resolution at rest. Cough improved, but continuing to be productive. Tolerating oral intake without difficulty. Denies any new concerns, recurrent fever, chills, headache, chest pain, abdominal pain, edema. No nursing concerns. - Patient Data Vitals - Most Recent: Last Vital Signs Temp 35.7 C 08/02/17 06:24 Pulse 74 08/02/17 08:41 Resp 18 08/02/17 06:24 BP 121/59 L 08/02/17 08:41 Pulse Ox 96 08/02/17 09:09 Weight - Most Recent: 84.368 kg I&O - Last 24 Hours: Intake & Output 08/01/17 08/02/17 08/02/17 22:59 06:59 14:59 Intake Total 400 150 Output Total 350 400 Balance 50 -250 Lab Results Last 24 Hours: Laboratory Results - last 24 hr 08/02/17 08/02/17 08/02/17 Range/Units 07:00 07:00 07:00 WBC 13.1 H (5.0-10.0) 10^3/uL RBC 3.92 L (4.50-6.00) 10^6/uL Hgb 10.2 L D (13.0-17.0) g/dL Hct 31.3 L (40.0-52.0) % MCV 79.9 L (82.0-92.0) fL MCH 26.0 L (27.0-31.0) pg MCHC 32.5 (32.0-36.0) g/dL RDW 17.2 H (11.5-14.5) % Plt Count 194 D (150-300) 10^3/uL MPV 8.4 (7.4-10.4) fL Neut % (Auto) 89.5 H (50.0-70.0) % Lymph % (Auto) 6.4 L (20.0-40.0) % Perkins % (Auto) 3.2 (2.0-8.0) % Eos % (Auto) 0.6 L (1.0-3.0) % Baso % (Auto) 0.3 (0.0-1.0) % Neut # (Auto) 11.8 H (2.5-7.0) 10^3/uL Lymph # (Auto) 0.8 L (1.0-4.0) 10^3/uL Perkins # (Auto) 0.4 (0.1-0.8) 10^3/uL Eos # (Auto) 0.1 (0.1-0.3) 10^3/uL Baso # (Auto) 0.0 (0.0-0.1) 10^3/uL PT 22.4 H (8.9-11.4) SEC INR 2.3 H (0.9-1.1) Sodium 145 (136-145) mmol/L Potassium 3.8 (3.3-5.3) mmol/L Chloride 105 (98-115) mmol/L Carbon Dioxide 34.0 H (21.0-32.0) mmol/L BUN 30 H (6-25) mg/dL Creatinine 0.98 (0.51-1.17) mg/dL Est Cr Clr Drug Dosing 55.87 mL/min Estimated GFR (MDRD) > 60 mL/min Glucose 99 (70-110) mg/dL Calcium 8.2 L (8.7-10.3) mg/dL Med Orders - Current: Current Medications Acetaminophen (Tylenol) 650 mg PO Q6H PRN PRN Reason: Fever Last Admin: 08/01/17 12:13 Dose: 650 mg Hydrocodone Bitart/Acetaminophen ([place] 325-5 Mg) 1 tab PO BID [facility] Last Admin: 08/02/17 08:42 Dose: Not Given Albuterol/Ipratropium (Duoneb 3.0-0.5 Mg/3 Ml) 3 ml NEB Q4HRRT PRN PRN Reason: Shortness of Breath Last Admin: 08/01/17 22:02 Dose: 3 ml Arformoterol Tartrate (Brovana) 15 mcg INH BIDRT [facility] Last Admin: 08/02/17 07:26 Dose: 15 mcg Cholecalciferol (Vitamin D3) 5,000 units PO BEDTIME [facility] Last Admin: 08/01/17 22:08 Dose: Not Given Clopidogrel Bisulfate (Plavix) 75 mg PO DAILY [facility] Last Admin: 08/02/17 08:42 Dose: 75 mg Diltiazem HCl (Cardizem Cd) 180 mg PO DAILY [facility] Last Admin: 08/02/17 08:41 Dose: 180 mg Finasteride (Proscar) 5 mg PO DAILY [facility] Last Admin: 08/02/17 08:42 Dose: 5 mg Furosemide (Lasix) 60 mg PO DAILY [facility] Last Admin: 08/02/17 08:42 Dose: 60 mg Guaifenesin (Mucinex) 600 mg PO BID [facility] Last Admin: 08/02/17 08:42 Dose: 600 mg Levofloxacin/Dextrose 500 mg/ (Premix) 100 mls @ 100 mls/hr IV Q24H [facility] Last Admin: 08/01/17 17:59 Dose: 100 mls/hr Meclizine HCl (Antivert) 25 mg PO Q6H PRN PRN Reason: Dizziness Nitroglycerin (Nitrostat) 0.4 mg SL ASDIRECTED PRN PRN Reason: Chest Pain Prednisone (Prednisone) 40 mg PO WITHBREAKFAST [facility] Last Admin: 08/02/17 08:43 Dose: 40 mg Psyllium Husk (Metamucil Sugar Free) 0 pkt PO BEDTIME PRN PRN Reason: Constipation Tamsulosin HCl (Flomax) 0.4 mg PO BEDTIME [facility] Last Admin: 08/01/17 22:02 Dose: 0.4 mg Warfarin Sodium (Coumadin) 2.5 mg PO DAILY@1800 [facility] Last Admin: 08/01/17 17:59 Dose: 2.5 mg Discontinued Medications Albuterol/Ipratropium (Duoneb 3.0-0.5 Mg/3 Ml) 3 ml NEB ONETIME ONE Stop: 08/01/17 04:07 Last Admin: 08/01/17 06:54 Dose: Not Given Albuterol/Ipratropium (Duoneb 3.0-0.5 Mg/3 Ml) Confirm Administered Dose 3 ml .ROUTE .STK-MED ONE Stop: 08/01/17 04:07 Last Admin: 08/01/17 04:10 Dose: 3 ml Ceftriaxone Sodium (Rocephin) 1 gm IVPUSH ONETIME ONE Stop: 08/01/17 04:38 Last Admin: 08/01/17 05:00 Dose: 1 gm Ceftriaxone Sodium (Rocephin) 1 gm IVPUSH Q24H [facility] Azithromycin 500 mg/ Sodium (Chloride) 250 mls @ 250 mls/hr IV ONETIME ONE Stop: 08/01/17 05:36 Last Admin: 08/01/17 05:56 Dose: 250 mls/hr Azithromycin 500 mg/ Sodium (Chloride) 250 mls @ 250 mls/hr IV Q24H [facility] Prednisone (Prednisone) 40 mg PO WITHBREAKFAST EMA - Exam Physical Findings Comments:: GENERAL: Elderly white male lying in hospital bed in no acute distress. HEENT: Normocephalic, atraumatic. L eyelids closed. R conjunctiva clear. Mild clear rhinorrhea and bilateral nasal turbinate erythema. Mucous membranes moist , posterior pharynx unremarkable. NECK: Supple. CV: Regular rate and rhythm, no murmurs, rubs, or gallops. 2+ radial pulses. PULMONARY: Normal effort, faint scattered end expiratory wheezes and scattered rhonchi in bases without any crackles. ABDOMEN: Positive bowel sounds, soft, nontender, nondistended. EXTREMITIES: No edema, cyanosis, or clubbing. MUSCULOSKELETAL: Moves all extremities well. NEUROLOGICAL: No obvious deficits. DERMATOLOGIC: Bilateral forearms with diffuse bruising. PSYCHIATRIC: Alert, interactive, appropriate affect. - Problem List Review Problem List Initiated/Reviewed/Updated: Yes - My Orders Last 24 Hours: My Active Orders 08/01/17 10:30 predniSONE 40 mg PO WITHBREAKFAST 08/01/17 11:15 RESPIRATORY CULT [MREF] Routine 08/01/17 11:28 Acetaminophen [Tylenol] 650 mg PO Q6H PRN 08/01/17 12:00 guaiFENesin [Mucinex] 600 mg PO BID 08/01/17 14:58 Intake and Output [RC] Q8HR 08/01/17 18:00 Levofloxacin/Dextrose 5%-Water [Levaquin in D5W 500 MG/100 ML] 500 mg Premix Bag 1 bag IV Q24H Warfarin [Coumadin] 2.5 mg PO DAILY@1800 08/01/17 21:00 Cholecalciferol (Vitamin D3) [Vitamin D3] 5,000 units PO BEDTIME Tamsulosin [Flomax] 0.4 mg PO BEDTIME 08/02/17 09:46 Consult to Physical Therapy [PT Evaluation and Treatment] [CONS] Routine 08/02/17 Breakfast Regular Diet [DIET] 08/03/17 05:11 BASIC METABOLIC PANEL,BMP [CHEM] AM CBC WITH AUTO DIFF [HEME] AM - Plan Plan:: HPI summary: 86yoM with history notable for COPD/asthma, chronic nocturnal hypoxia, and CAD, who was in his baseline state of health until 7-10 days prior to admission when he developed some congestions, rhinorrhea, and increased cough from baseline. About 2 weeks ago, his and he has since had decreased amount of rest with several family members around. He states that he has been coping well with the grief and trying to take care of himself, but feels he got a little run down. 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 ED course: He was noted to have a borderline low oxygen which improved to the low 90s with 3lpm via nasal cannula. Work-up was notable for WBC 21, troponin < 0.04, BNP in the 200s, EKG with paced rhythm, and CXR with bilateral lower lobe infiltrates and mild pulmonary vascular congestion, which as a whole was clinically consistent with pneumonia. He was given IV ceftriaxone and azithromycin. He was admitted for pneumonia with associated acute hypoxic respiratory failure. Hospital course: Requiring inpatient monitoring and management given oxygen requirement and CURB-65 = 2 in addition to chronic medical conditions increasing risk. No evidence of sepsis or acute coronary syndrome and volume neutral status without overt exam, laboratory or imaging evidence of fluid overload. Fever on 08/01/17 @ 1000 without recurrence since. Ongoing improvement in respiratory status. No new symptoms or concerns. Chart review revealed a recent rx for metoprolol for improved medical management of chronic angina, but the patient state he has not begun this. Hospitalization problems: # Acute hypoxic respiratory failure superimposed on chronic nocturnal hypoxic respiratory failure # Pneumonia, bilateral lower lobes, community acquired, suspect pneumococcal vs. pseudomonal pathogen # COPD/asthma with acute exacerbation # CAD: Most recent stent 08/16/16 # HFpEF: Grade I diastolic dysfunction and EF 55% on most recent echo 08/15/16 # HTN # Atrial fibrillation # Generalized weakness/deconditioning Improvement with supplemental oxygen, IV antibiotics, glucocorticoid therapy, and bronchodilator treatments. - Supplemental oxygen to keep oxygen saturation >90%; wean as tolerated today - Continue levofloxacin 500mg IV daily for planned 7 day course, prednisone 40mg daily for planned 5 day burst, DuoNebs q4h, and Mucinex 500mg BID - Continue outpatient clopidogrel, furosemide, diltiazem, and warfarin - Blood and sputum culture surveillance; no report thus far - Repeat CBC, BMP, and INR tomorrow - Physical therapy consultation Chronic conditions: # S/p pacemaker for prior AV node ablation # Constipation: Metamucil prn. # BPH: Finasteride, tamsulosin. # OA: [place]. # Vitamin D deficiency: D3. # Chronic vertigo: Meclizine prn. Hospitalization details: # FEN: No IVF. Electrolytes normal; recheck tomorrow. Regular diet. # PPX: DVT ppx covered by therapeutic INR on warfarin. # Code status: DNR/DNI. # Emergency contact: Son, Ofelia Brown, who was updated at bedside on rounds along with other family members at bedside. # Disposition: Continue on inpatient alvarez. Anticipate discharge to home following ongoing clinical improvement; He also may potentially benefit from swing bed stay given deconditioning for which physical therapy has been consulted.
[2017-08-02] MEDS: Albuterol/Ipratropium 3.0-0.5 MG/3 ML Neb Soln NEB PRN ×2 (11:35→14:48)
[2017-08-02] MEDS: Acetaminophen 325 MG Tab PO PRN (14:58)
[2017-08-02] MEDS: Levofloxacin/Dextrose 5%-Water 500 MG in Premix Bag 1 BAG IV SCH (18:07)
[2017-08-02] MEDS: Warfarin 2.5 MG Tab PO SCH (18:07)
[2017-08-02] MEDS: Tamsulosin 0.4 MG Cap.ER PO SCH (20:22)
[2017-08-02] MEDS: Cholecalciferol (Vitamin D3) 1,000 Unit Tab PO SCH (20:23)
[2017-08-03] MEDS: Acetaminophen/HYDROcodone 325-5 MG Tab PO SCH ×4 (05:29→20:29)
[2017-08-03] MEDS: Albuterol/Ipratropium 3.0-0.5 MG/3 ML Neb Soln NEB PRN ×2 (06:00→12:49)
[2017-08-03] MEDS: Arformoterol 15 MCG/2 ML Neb Soln INH SCH ×2 (07:33→20:30)
[2017-08-03 08:00] LABS: CHLORIDE,CL 103 mmol/L (98-115); SODIUM,NA 145 mmol/L (136-145)
[2017-08-03] MEDS: predniSONE 20 MG Tab PO SCH (08:16)
[2017-08-03] MEDS: Diltiazem 180 MG Cap.CD PO SCH (08:17)
[2017-08-03] MEDS: Furosemide 20 MG Tab PO SCH (08:17)
[2017-08-03] MEDS: Clopidogrel 75 MG Tab PO SCH (08:18)
[2017-08-03] MEDS: Finasteride 5 MG Tab PO SCH (08:18)
[2017-08-03] MEDS: guaiFENesin 600 MG Tab.ER PO SCH ×2 (08:18→20:23)
--- NOTE | 2017-08-03 09:40 | PCM.PN ---
- General Info Date of Service: 08/03/17 Functional Status: Reports: Pain Controlled - Review of Systems General: Reports: Weakness. Denies: Fever HEENT: Reports: No Symptoms Pulmonary: Reports: Shortness of Breath (Chronic shortness of breath), Cough Cardiovascular: Reports: Dyspnea on Exertion, Edema. Denies: Chest Pain, Palpitations, Orthopnea Gastrointestinal: Reports: No Symptoms Genitourinary: Reports: No Symptoms Musculoskeletal: Reports: No Symptoms Skin: Reports: Dryness, Bruising Neurological: Reports: No Symptoms Psychiatric: Reports: No Symptoms - Patient Data Vitals - Most Recent: Last Vital Signs Temp 98.2 F 08/03/17 07:00 Pulse 71 08/03/17 08:17 Resp 16 08/03/17 07:00 BP 117/54 L 08/03/17 08:17 Pulse Ox 96 08/03/17 08:46 Weight - Most Recent: 186 lb I&O - Last 24 Hours: Intake & Output 08/02/17 08/03/17 08/03/17 22:59 06:59 14:59 Intake Total 520 200 Output Total 500 400 Balance 20 -200 Lab Results Last 24 Hours: Laboratory Results - last 24 hr 08/03/17 08/03/17 08/03/17 Range/Units 07:05 07:05 07:05 WBC 12.1 H (5.0-10.0) 10^3/uL RBC 3.68 L (4.50-6.00) 10^6/uL Hgb 9.4 L (13.0-17.0) g/dL Hct 29.4 L (40.0-52.0) % MCV 79.9 L (82.0-92.0) fL MCH 25.6 L (27.0-31.0) pg MCHC 32.1 (32.0-36.0) g/dL RDW 17.0 H (11.5-14.5) % Plt Count 204 (150-300) 10^3/uL MPV 8.7 (7.4-10.4) fL Neut % (Auto) 87.5 H (50.0-70.0) % Lymph % (Auto) 7.2 L (20.0-40.0) % Allen % (Auto) 4.0 (2.0-8.0) % Eos % (Auto) 0.9 L (1.0-3.0) % Baso % (Auto) 0.4 (0.0-1.0) % Neut # (Auto) 10.6 H (2.5-7.0) 10^3/uL Lymph # (Auto) 0.9 L (1.0-4.0) 10^3/uL Allen # (Auto) 0.5 (0.1-0.8) 10^3/uL Eos # (Auto) 0.1 (0.1-0.3) 10^3/uL Baso # (Auto) 0.0 (0.0-0.1) 10^3/uL PT 22.9 H (8.9-11.4) SEC INR 2.3 H (0.9-1.1) Sodium 145 (136-145) mmol/L Potassium 3.5 (3.3-5.3) mmol/L Chloride 103 (98-115) mmol/L Carbon Dioxide 32.0 (21.0-32.0) mmol/L BUN 34 H (6-25) mg/dL Creatinine 0.94 (0.51-1.17) mg/dL Est Cr Clr Drug Dosing 58.24 mL/min Estimated GFR (MDRD) > 60 mL/min Glucose 102 (70-110) mg/dL Calcium 8.5 L (8.7-10.3) mg/dL Med Orders - Current: Current Medications Acetaminophen (Tylenol) 650 mg PO Q6H PRN PRN Reason: Fever Last Admin: 08/02/17 14:58 Dose: 650 mg Hydrocodone Bitart/Acetaminophen ([place] 325-5 Mg) 1 tab PO BID [facility] Last Admin: 08/03/17 05:29 Dose: 1 tab Albuterol/Ipratropium (Duoneb 3.0-0.5 Mg/3 Ml) 3 ml NEB Q4HRRT PRN PRN Reason: Shortness of Breath Last Admin: 08/03/17 06:00 Dose: 3 ml Arformoterol Tartrate (Brovana) 15 mcg INH BIDRT [facility] Last Admin: 08/03/17 07:33 Dose: 15 mcg Cholecalciferol (Vitamin D3) 5,000 units PO BEDTIME [facility] Last Admin: 08/02/17 20:23 Dose: 5,000 units Clopidogrel Bisulfate (Plavix) 75 mg PO DAILY [facility] Last Admin: 08/03/17 08:18 Dose: 75 mg Diltiazem HCl (Cardizem Cd) 180 mg PO DAILY [facility] Last Admin: 08/03/17 08:17 Dose: 180 mg Finasteride (Proscar) 5 mg PO DAILY [facility] Last Admin: 08/03/17 08:18 Dose: 5 mg Furosemide (Lasix) 60 mg PO DAILY [facility] Last Admin: 08/03/17 08:17 Dose: 60 mg Guaifenesin (Mucinex) 600 mg PO BID [facility] Last Admin: 08/03/17 08:18 Dose: 600 mg Levofloxacin/Dextrose 500 mg/ (Premix) 100 mls @ 100 mls/hr IV Q24H [facility] Last Admin: 08/02/17 18:07 Dose: 100 mls/hr Meclizine HCl (Antivert) 25 mg PO Q6H PRN PRN Reason: Dizziness Nitroglycerin (Nitrostat) 0.4 mg SL ASDIRECTED PRN PRN Reason: Chest Pain Prednisone (Prednisone) 40 mg PO WITHBREAKFAST [facility] Last Admin: 08/03/17 08:16 Dose: 40 mg Psyllium Husk (Metamucil Sugar Free) 0 pkt PO BEDTIME PRN PRN Reason: Constipation Tamsulosin HCl (Flomax) 0.4 mg PO BEDTIME [facility] Last Admin: 08/02/17 20:22 Dose: 0.4 mg Warfarin Sodium (Coumadin) 2.5 mg PO DAILY@1800 [facility] Last Admin: 08/02/17 18:07 Dose: 2.5 mg Discontinued Medications Albuterol/Ipratropium (Duoneb 3.0-0.5 Mg/3 Ml) 3 ml NEB ONETIME ONE Stop: 08/01/17 04:07 Last Admin: 08/01/17 06:54 Dose: Not Given Albuterol/Ipratropium (Duoneb 3.0-0.5 Mg/3 Ml) Confirm Administered Dose 3 ml .ROUTE .STK-MED ONE Stop: 08/01/17 04:07 Last Admin: 08/01/17 04:10 Dose: 3 ml Ceftriaxone Sodium (Rocephin) 1 gm IVPUSH ONETIME ONE Stop: 08/01/17 04:38 Last Admin: 08/01/17 05:00 Dose: 1 gm Ceftriaxone Sodium (Rocephin) 1 gm IVPUSH Q24H [facility] Azithromycin 500 mg/ Sodium (Chloride) 250 mls @ 250 mls/hr IV ONETIME ONE Stop: 08/01/17 05:36 Last Admin: 08/01/17 05:56 Dose: 250 mls/hr Azithromycin 500 mg/ Sodium (Chloride) 250 mls @ 250 mls/hr IV Q24H [facility] Prednisone (Prednisone) 40 mg PO WITHBREAKFAST EMA - Exam Quality Assessment: Supplemental Oxygen General: Alert, Oriented, No Acute Distress Neck: No JVD Lungs: Decreased Breath Sounds. No: Wheezing Cardiovascular: Regular Rate, Regular Rhythm GI/Abdominal Exam: Soft (Male) Exam: Deferred Back Exam: No: CVA Tenderness (L), CVA Tenderness (R) Extremities: Other (1+ edema right lower extremity) Skin: Other (Gennaro, severe brawniness bilateral upper extremities) Neurological: No New Focal Deficit Psy/Mental Status: Alert, Normal Affect, Normal Mood - Problem List Review Problem List Initiated/Reviewed/Updated: Yes - Plan Plan:: HPI summary: 86yoM with history notable for COPD/asthma, chronic nocturnal hypoxia, and CAD, who was in his baseline state of health until 7-10 days prior to admission when he developed some congestions, rhinorrhea, and increased cough from baseline. About 2 weeks ago, his and he has since had decreased amount of rest with several family members around. He states that he has been coping well with the grief and trying to take care of himself, but feels he got a little run down. 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 ED. ED course: He was noted to have a borderline low oxygen which improved to the low 90s with 3lpm via nasal cannula. Work-up was notable for WBC 21, troponin < 0.04, BNP in the 200s, EKG with paced rhythm, and CXR with bilateral lower lobe infiltrates and mild pulmonary vascular congestion, He was given IV ceftriaxone and azithromycin. He was admitted for pneumonia with associated acute hypoxic respiratory failure. Hospital course: Requiring inpatient monitoring and management given oxygen requirement and CURB-65 = 2 in addition to chronic medical conditions increasing risk. No evidence of sepsis or acute coronary syndrome and volume neutral status without overt exam, laboratory or imaging evidence of fluid overload. Fever on 08/01/17 @ 1000 without recurrence since. Ongoing improvement in respiratory status. No new symptoms or concerns. Chart review revealed a recent rx for metoprolol for improved medical management of chronic angina, but the patient state he has not begun this. Hospitalization problems: # Acute hypoxic respiratory failure superimposed on chronic nocturnal hypoxic respiratory failure # Pneumonia, bilateral lower lobes, CAP; suspect pneumococcal vs. pseudomonal pathogen # COPD/asthma with acute exacerbation # CAD: Most recent stent 08/16/16 # HFpEF: Grade I diastolic dysfunction and EF 55% on most recent echo 08/15/16 # HTN # Atrial fibrillation # Generalized weakness/deconditioning, PT consult placed. Improvement with supplemental oxygen, IV antibiotics, glucocorticoid therapy, and bronchodilator treatments. - Supplemental oxygen to keep oxygen saturation >90%; wean as tolerated today - Continue levofloxacin 500mg IV daily for planned 7 day course, prednisone 40mg daily for planned 5 day burst, DuoNebs q4h, and Mucinex 500mg BID - Continue outpatient clopidogrel, furosemide, diltiazem, and warfarin - Blood and sputum culture surveillance; negative influenza. - Repeat CBC, BMP, and INR tomorrow - Physical therapy consultation Chronic conditions: # S/p pacemaker for prior AV node ablation # Constipation: Metamucil prn. # BPH: Finasteride, tamsulosin. # OA: [place]. # Vitamin D deficiency: D3. # Chronic vertigo: Meclizine prn. Hospitalization details: # FEN: No IVF. Electrolytes normal; recheck tomorrow. Regular diet. # PPX: DVT ppx covered by therapeutic INR on warfarin. # Code status: DNR/DNI. # Emergency contact: Son, Ofelia Brown, who was updated at bedside on rounds along with other family members at bedside. # Disposition: Continue on inpatient alvarez for today. PT will evaluate patient today for possible SN/stay given deconditioning.
[2017-08-03] MEDS: Pantoprazole 40 MG Tab.CR PO SCH (17:36)
[2017-08-03] MEDS: Warfarin 2.5 MG Tab PO SCH (17:36)
[2017-08-03] MEDS: Levofloxacin 500 MG Tab PO SCH (17:36)
[2017-08-03] MEDS: Cholecalciferol (Vitamin D3) 1,000 Unit Tab PO SCH (20:24)
[2017-08-03] MEDS: Tamsulosin 0.4 MG Cap.ER PO SCH (20:28)
[2017-08-04] MEDS: Albuterol/Ipratropium 3.0-0.5 MG/3 ML Neb Soln NEB PRN ×2 (06:18→12:52)
[2017-08-04] MEDS: Arformoterol 15 MCG/2 ML Neb Soln INH SCH ×2 (07:34→19:53)
[2017-08-04] MEDS: Pantoprazole 40 MG Tab.CR PO SCH (07:50)
[2017-08-04] MEDS: guaiFENesin 600 MG Tab.ER PO SCH ×2 (08:22→20:26)
[2017-08-04] MEDS: Clopidogrel 75 MG Tab PO SCH (08:23)
[2017-08-04] MEDS: Furosemide 20 MG Tab PO SCH (08:23)
[2017-08-04] MEDS: predniSONE 20 MG Tab PO SCH (08:23)
[2017-08-04] MEDS: Finasteride 5 MG Tab PO SCH (08:24)
[2017-08-04] MEDS: Diltiazem 180 MG Cap.CD PO SCH (08:24)
[2017-08-04] MEDS: Acetaminophen/HYDROcodone 325-5 MG Tab PO SCH ×3 (08:24→20:26)
--- NOTE | 2017-08-04 09:35 | PCM.PN ---
- General Info Date of Service: 08/04/17 Functional Status: Reports: Pain Controlled, Tolerating Diet, Ambulating, Incentive Spirometry. Denies: New Symptoms - Review of Systems General: Denies: Fever, Weakness HEENT: Reports: No Symptoms Pulmonary: Reports: Cough, Sputum (sputum back to baseline) Cardiovascular: Reports: Edema Gastrointestinal: Reports: No Symptoms Genitourinary: Reports: No Symptoms Musculoskeletal: Reports: No Symptoms Skin: Reports: Dryness, Bruising Neurological: Reports: No Symptoms Psychiatric: Reports: No Symptoms - Patient Data Vitals - Most Recent: Last Vital Signs Temp 97.4 F 08/04/17 06:19 Pulse 76 08/04/17 08:24 Resp 20 08/04/17 06:19 BP 144/66 H 08/04/17 08:24 Pulse Ox 96 08/04/17 08:59 Weight - Most Recent: 186 lb I&O - Last 24 Hours: Intake & Output 08/03/17 08/04/17 08/04/17 22:59 06:59 14:59 Intake Total 450 200 Output Total 200 400 Balance 250 -200 Lab Results Last 24 Hours: Laboratory Results - last 24 hr 08/04/17 08/04/17 Range/Units 07:15 07:15 WBC 10.9 H (5.0-10.0) 10^3/uL RBC 3.85 L (4.50-6.00) 10^6/uL Hgb 9.7 L (13.0-17.0) g/dL Hct 30.6 L (40.0-52.0) % MCV 79.5 L (82.0-92.0) fL MCH 25.3 L (27.0-31.0) pg MCHC 31.8 L (32.0-36.0) g/dL RDW 16.5 H (11.5-14.5) % Plt Count 228 (150-300) 10^3/uL MPV 7.8 (7.4-10.4) fL Neut % (Auto) 85.0 H (50.0-70.0) % Lymph % (Auto) 8.2 L (20.0-40.0) % [place] % (Auto) 5.4 (2.0-8.0) % Eos % (Auto) 0.9 L (1.0-3.0) % Baso % (Auto) 0.5 (0.0-1.0) % Neut # (Auto) 9.2 H (2.5-7.0) 10^3/uL Lymph # (Auto) 0.9 L (1.0-4.0) 10^3/uL [place] # (Auto) 0.6 (0.1-0.8) 10^3/uL Eos # (Auto) 0.1 (0.1-0.3) 10^3/uL Baso # (Auto) 0.1 (0.0-0.1) 10^3/uL PT 33.9 H D (8.9-11.4) SEC INR 3.4 H (0.9-1.1) [place] Results Last 24 Hours: Microbiology 08/01/17 11:15 - Final Sputum - Expectorated Med Orders - Current: Current Medications Acetaminophen (Tylenol) 650 mg PO Q6H PRN PRN Reason: Fever Last Admin: 08/02/17 14:58 Dose: 650 mg Hydrocodone Bitart/Acetaminophen ([place] 325-5 Mg) 1 tab PO TID [facility] Last Admin: 08/04/17 08:24 Dose: 1 tab Albuterol/Ipratropium (Duoneb 3.0-0.5 Mg/3 Ml) 3 ml NEB Q4HRRT PRN PRN Reason: Shortness of Breath Last Admin: 08/04/17 06:18 Dose: 3 ml Arformoterol Tartrate (Brovana) 15 mcg INH BIDRT [facility] Last Admin: 08/04/17 07:34 Dose: 15 mcg Cholecalciferol (Vitamin D3) 5,000 units PO BEDTIME [facility] Last Admin: 08/03/17 20:24 Dose: 5,000 units Clopidogrel Bisulfate (Plavix) 75 mg PO DAILY [facility] Last Admin: 08/04/17 08:23 Dose: 75 mg Diltiazem HCl (Cardizem Cd) 180 mg PO DAILY [facility] Last Admin: 08/04/17 08:24 Dose: 180 mg Finasteride (Proscar) 5 mg PO DAILY [facility] Last Admin: 08/04/17 08:24 Dose: 5 mg Furosemide (Lasix) 60 mg PO DAILY [facility] Last Admin: 08/04/17 08:23 Dose: 60 mg Guaifenesin (Mucinex) 600 mg PO BID [facility] Last Admin: 08/04/17 08:22 Dose: 600 mg Levofloxacin (Levaquin) 500 mg PO Q24H [facility] Last Admin: 08/03/17 17:36 Dose: 500 mg Meclizine HCl (Antivert) 25 mg PO Q6H PRN PRN Reason: Dizziness Nitroglycerin (Nitrostat) 0.4 mg SL ASDIRECTED PRN PRN Reason: Chest Pain Pantoprazole Sodium (Protonix) 40 mg PO ACBREAKFAST [facility] Last Admin: 08/04/17 07:50 Dose: 40 mg Prednisone (Prednisone) 40 mg PO WITHBREAKFAST [facility] Last Admin: 08/04/17 08:23 Dose: 40 mg Psyllium Husk (Metamucil Sugar Free) 0 pkt PO BEDTIME PRN PRN Reason: Constipation Tamsulosin HCl (Flomax) 0.4 mg PO BEDTIME [facility] Last Admin: 08/03/17 20:28 Dose: 0.4 mg Warfarin Sodium (Coumadin) 2.5 mg PO DAILY@1800 [facility] Last Admin: 08/03/17 17:36 Dose: 2.5 mg Discontinued Medications Hydrocodone Bitart/Acetaminophen ([place] 325-5 Mg) 1 tab PO BID [facility] Last Admin: 08/03/17 10:46 Dose: Not Given Albuterol/Ipratropium (Duoneb 3.0-0.5 Mg/3 Ml) 3 ml NEB ONETIME ONE Stop: 08/01/17 04:07 Last Admin: 08/01/17 06:54 Dose: Not Given Albuterol/Ipratropium (Duoneb 3.0-0.5 Mg/3 Ml) Confirm Administered Dose 3 ml .ROUTE .STK-MED ONE Stop: 08/01/17 04:07 Last Admin: 08/01/17 04:10 Dose: 3 ml Ceftriaxone Sodium (Rocephin) 1 gm IVPUSH ONETIME ONE Stop: 08/01/17 04:38 Last Admin: 08/01/17 05:00 Dose: 1 gm Ceftriaxone Sodium (Rocephin) 1 gm IVPUSH Q24H [facility] Azithromycin 500 mg/ Sodium (Chloride) 250 mls @ 250 mls/hr IV ONETIME ONE Stop: 08/01/17 05:36 Last Admin: 08/01/17 05:56 Dose: 250 mls/hr Azithromycin 500 mg/ Sodium (Chloride) 250 mls @ 250 mls/hr IV Q24H [facility] Levofloxacin/Dextrose 500 mg/ (Premix) 100 mls @ 100 mls/hr IV Q24H [facility] Last Admin: 08/02/17 18:07 Dose: 100 mls/hr Prednisone (Prednisone) 40 mg PO WITHBREAKFAST E[facility] - Exam Quality Assessment: Supplemental Oxygen (O2 down to 2-3 liters. ) General: Alert, Oriented, No Acute Distress Neck: Supple Lungs: Decreased Breath Sounds Cardiovascular: Regular Rhythm, Irregular Rhythm GI/Abdominal Exam: Soft (Male) Exam: Deferred Extremities: Pedal Edema (very slight pedal edema-more at ankles. ) Skin: Other (extreme brawniness thinness upper extremities) Neurological: No New Focal Deficit Psy/Mental Status: Alert, Normal Affect, Normal Mood - Problem List Review Problem List Initiated/Reviewed/Updated: Yes - My Orders Last 24 Hours: My Active Orders 08/03/17 13:12 Guaiac [OCCULT BLOOD DIAGNOSTIC] [OP] Routine 08/03/17 14:00 Acetaminophen/HYDROcodone [[place] 325-5 MG] 1 tab PO TID 08/03/17 17:30 Pantoprazole [ProTONIX] 40 mg PO ACBREAKFAST - Plan Plan:: HPI summary: 86yoM with history notable for COPD/asthma, chronic nocturnal hypoxia, and CAD, who was in his baseline state of health until 7-10 days prior to admission when he developed some congestions, rhinorrhea, and increased cough from baseline. About 2 weeks ago, his and he has since had decreased amount of rest with several family members around. He states that he has been coping well with the grief and trying to take care of himself, but feels he got a little run down. In the underwriting consultant hours of the day of admission, he developed shortness of breath and worsening cough so his family brought him into the [facility] ED. ED course: He was noted to have a borderline low oxygen which improved to the low 90s with 3lpm via nasal cannula. Work-up was notable for WBC 21, troponin < 0.04, BNP in the 200s, EKG with paced rhythm, and CXR with bilateral lower lobe infiltrates and mild pulmonary vascular congestion, He was given IV ceftriaxone and azithromycin. He was admitted for pneumonia with associated acute hypoxic respiratory failure. Hospital course: Requiring inpatient monitoring and management given oxygen requirement and CURB-65 = 2 in addition to chronic medical conditions increasing risk. No evidence of sepsis or acute coronary syndrome and volume neutral status without overt exam, laboratory or imaging evidence of fluid overload. Fever on 08/01/17 @ 1000 without recurrence since. Ongoing improvement in respiratory status. No new symptoms or concerns. Chart review revealed a recent rx for metoprolol for improved medical management of chronic angina, but the patient state he has not begun this. Hospitalization problems: Acute hypoxic respiratory failure superimposed on chronic nocturnal hypoxic respiratory failure Pneumonia, bilateral lower lobes, CAP; suspect pneumococcal vs. pseudomonal pathogen COPD/asthma with acute exacerbation Anemia, (new) added PPI, guiac stools, likely infectious induced. will monitor. CAD: Most recent stent 08/16/16 HFpEF: Grade I diastolic dysfunction and EF 55% on most recent echo 08/15/16 HTN Atrial fibrillation, chronic, Generalized weakness/deconditioning, patient is refusing swing bed status. we will benefit from outpatient physical therapy Improvement with supplemental oxygen, IV antibiotics, glucocorticoid therapy, and bronchodilator treatments. - Supplemental oxygen to keep oxygen saturation >90%; wean as tolerated. - Continue levofloxacin 500mg IV daily for planned 7 day course, prednisone 40mg daily for planned 5 day burst, DuoNebs q4h, and Mucinex 500mg BID - Continue outpatient clopidogrel, furosemide, diltiazem, and warfarin - Blood and sputum culture surveillance; negative influenza. - Repeat CBC, BMP, and INR tomorrow Chronic conditions: S/p pacemaker for prior AV node ablation Constipation: Metamucil prn. BPH: Finasteride, tamsulosin. OA: [place]. Vitamin D deficiency: D3. Chronic vertigo: Meclizine prn. DVT ppx covered warfarin hold tonight's dose as INR 3.4. Code status: DNR/DNI. Emergency contact: Son, Ofelia Brown, who was updated at bedside on rounds along with other family members at bedside. Disposition: Continue on inpatient alvarez for today. PT will evaluate patient today for possible SN/stay given deconditioning. overall disposition, patient is refusing swing bed status, likely discharge within 24-48 hrs. Continue IV antibiotics, hold Coumadin dose tonight.
[2017-08-04 11:34] LABS: CHLORIDE,CL 102 mmol/L (98-115); SODIUM,NA 133 mmol/L (136-145)
[2017-08-04] MEDS: Levofloxacin 500 MG Tab PO SCH (18:23)
[2017-08-04] MEDS: Tamsulosin 0.4 MG Cap.ER PO SCH (20:26)
[2017-08-04] MEDS: Cholecalciferol (Vitamin D3) 1,000 Unit Tab PO SCH (20:26)
[2017-08-05] MEDS: Albuterol/Ipratropium 3.0-0.5 MG/3 ML Neb Soln NEB PRN (05:40)
[2017-08-05 06:04] VITALS: BP 130/65
[2017-08-05] MEDS: Pantoprazole 40 MG Tab.CR PO SCH (06:40)
[2017-08-05] MEDS ORDERED: Sodium Chloride 0.9% 5 ML Syringe FLUSH PRN (06:42)
[2017-08-05] MEDS: Arformoterol 15 MCG/2 ML Neb Soln INH SCH (07:14)
[2017-08-05] MEDS: guaiFENesin 600 MG Tab.ER PO SCH (08:10)
[2017-08-05] MEDS: Acetaminophen/HYDROcodone 325-5 MG Tab PO SCH (08:10)
[2017-08-05] MEDS: Furosemide 20 MG Tab PO SCH (08:11)
[2017-08-05] MEDS: predniSONE 20 MG Tab PO SCH (08:11)
[2017-08-05] MEDS: Diltiazem 180 MG Cap.CD PO SCH (08:12)
[2017-08-05] MEDS: Finasteride 5 MG Tab PO SCH (08:12)
[2017-08-05] MEDS: Clopidogrel 75 MG Tab PO SCH (08:13)
--- NOTE | 2017-08-05 10:31 | PCM.DCSUM1 ---
Discharge Summary - Hospital Course Free Text/Narrative:: Date of admission: 08/01/17 Date of discharge: 08/05/17 Admission diagnoses: 1. Acute hypoxic respiratory failure superimposed on chronic nocturnal hypoxic respiratory failure 2. Pneumonia, bilateral lower lobes, community acquired, suspect pneumococcal vs. pseudomonal pathogen 3. COPD/asthma with acute exacerbation 4. CAD 5. HFpEF 6. HTN 7. Atrial fibrillation 8. Generalized weakness/deconditioning Discharge diagnoses: 1. Acute hypoxic respiratory failure superimposed on chronic nocturnal hypoxic respiratory failure 2. Pneumonia, bilateral lower lobes, community acquired, suspect pneumococcal vs. pseudomonal pathogen 3. COPD/asthma with acute exacerbation 4. CAD 5. HFpEF 6. HTN 7. Atrial fibrillation 8. Generalized weakness/deconditioning 9. Supratherapeutic INR 10. Anemia Consultations: Physical therapy Procedures: None Hospital course: HPI summary: 86yoM with history notable for COPD/asthma, chronic nocturnal hypoxia, and CAD, who was in his baseline state of health until 7-10 days prior to admission when he developed some congestions, rhinorrhea, and increased cough from baseline. About 2 weeks ago, his and he has since had decreased amount of rest with several family members around. He states that he has been coping well with the grief and trying to take care of himself, but feels he got a little run down. In the health director hours of the day of admission, he developed shortness of breath and worsening cough so his family brought him into the [facility] ED. ED course: He was noted to have a borderline low oxygen which improved to the low 90s with 3lpm via nasal cannula. Work-up was notable for WBC 21, troponin < 0.04, BNP in the 200s, EKG with paced rhythm, and CXR with bilateral lower lobe infiltrates and mild pulmonary vascular congestion. He was given IV ceftriaxone and azithromycin. He was admitted for pneumonia with associated acute hypoxic respiratory failure requiring inpatient monitoring and management given oxygen requirement and CURB-65 = 2 in addition to chronic medical conditions increasing risk. Inpatient course: Improvement with supplemental oxygen, levofloxacin, prednisone burst, and bronchodilator treatments. No evidence of sepsis or acute coronary syndrome and volume neutral status without overt exam, laboratory or imaging evidence of fluid overload. Fever on 08/01/17 @ 1000 without recurrence since. Steady improvement in respiratory status and weaning to baseline supplementary oxygen. Sputum culture grew group A strep ramos-sensitive to beta- lactam antibiotics. Anemia was noted and he was started on PPI therapy for possible GI etiology and FOBT ordered but not obtained prior to discharge. Warfarin was held on the night prior to discharge due to supratherapeutic INR. He was continued on other medications for chronic medical conditions. Of note, chart review revealed a recent rx for metoprolol for improved medical management of chronic angina, but the patient state he has not begun this. He was deemed ready for discharge back to home with the following instructions: - Augmentin BID x2 days to complete 7 day antibiotic course - Prednisone 20mg daily x3 days, then back to baseline dose of 10mg daily - Pantoprazole 40mg daily x14 days - Hold warfarin tonight and INR check tomorrow with further adjustments per [facility]tico[facility] - Resume all other home medications - Outpatient physical therapy - Follow-up appointment in 5-7 days with recheck of H/H with FOBT if indicated - Discharge Data Discharge Date: 08/05/17 Discharge Disposition: Home, Self-Care 01 Condition: Good - Patient Summary/Data Consults: Consultations 08/02/17 09:46 Consult to Physical Therapy [PT Evaluation and Treatment] [CONS] Routine - Patient Instructions Diet: Usual Diet as Tolerated Showering/Bathing: May Shower Notify Provider of: Fever - Discharge Plan Prescriptions/Med Rec: Amoxicillin/Potassium Clav [Augmentin 875-125 Tablet] 1 each PO BID 2 Days #4 tablet Pantoprazole [ProTONIX] 40 mg PO ACBREAKFAST 14 Days #14 tab.cr Home Medications: Home Meds Albuterol/Ipratropium [DuoNeb 3.0-0.5 MG/3 ML] 1 ampule INH Q6H PRN 03/22/14 [ History] Arformoterol [Brovana] 1 ampule INH BID 03/22/14 [History] Finasteride 5 mg PO DAILY 03/22/14 [History] Furosemide 60 mg PO DAILY 03/22/14 [History] Nitroglycerin [Nitrostat] 0.4 mg SL ASDIRECTED PRN 03/22/14 [History] Tamsulosin [Flomax] 0.4 mg PO BEDTIME 09/10/14 [History] Cholecalciferol (Vitamin D3) [Vitamin D3] 5,000 units PO BEDTIME 01/26/15 [ History] Psyllium with Sucrose [Metamucil] 1 tbsp PO BEDTIME PRN 01/26/15 [History] Warfarin [Coumadin] 2.5 mg PO DAILY 02/21/15 [History] Clopidogrel [Plavix] 75 mg PO DAILY 04/01/16 [History] Hydrocodone/Acetaminophen [Hydrocodon-Acetaminophen 5-325] 1 each PO TID [History] Meclizine [Antivert] 25 mg PO Q6H PRN 04/01/16 [History] Diltiazem HCl [Cartia Xt] 180 mg PO DAILY 08/04/17 [History] Amoxicillin/Potassium Clav [Augmentin 875-125 Tablet] 1 each PO BID 2 Days #4 tablet 08/05/17 [Rx] Pantoprazole [ProTONIX] 40 mg PO ACBREAKFAST 14 Days #14 tab.cr 08/05/17 [Rx] Prednisone [IJD: Prednisone] 10 mg PO DAILY #0 08/05/17 [Rx] Prednisone [IJD: predniSONE] 20 mg PO WITHBREAKFAST 3 Days tablet 08/05/17 [Rx] Referrals: Kirstie Ellis MD [Physician] - (Next week.) [facility] - 08/06/17 - Discharge Summary/Plan Comment DC Time >30 min.: Yes - General Info Subjective Update: Mr. Brown reports ongoing improvement in his respiratory status, now reporting 90% of his baseline. Minimal cough and shortness of breath. Tolerating oral intake without difficulty. Desires discharge to home. No nursing concerns. - Patient Data Vitals - Most Recent: Last Vital Signs Temp 36.6 C 08/05/17 06:03 Pulse 76 08/05/17 08:12 Resp 24 H 08/05/17 06:03 BP 130/65 08/05/17 08:12 Pulse Ox 97 08/05/17 07:47 Weight - Most Recent: 84.368 kg I&O - Last 24 hours: Intake & Output 08/04/17 08/05/17 08/05/17 22:59 06:59 14:59 Intake Total 420 600 Output Total 500 400 Balance -80 200 Lab Results - Last 24 hrs: Laboratory Results - last 24 hr 08/04/17 08/05/17 08/05/17 Range/Units 07:15 07:10 07:10 WBC 10.8 H (5.0-10.0) 10^3/uL RBC 3.85 L (4.50-6.00) 10^6/uL Hgb 9.9 L (13.0-17.0) g/dL Hct 30.4 L (40.0-52.0) % MCV 78.9 L (82.0-92.0) fL MCH 25.6 L (27.0-31.0) pg MCHC 32.4 (32.0-36.0) g/dL RDW 16.2 H (11.5-14.5) % Plt Count 238 (150-300) 10^3/uL MPV 8.2 (7.4-10.4) fL Neut % (Auto) 83.6 H (50.0-70.0) % Lymph % (Auto) 8.6 L (20.0-40.0) % [place] % (Auto) 6.5 (2.0-8.0) % Eos % (Auto) 0.8 L (1.0-3.0) % Baso % (Auto) 0.5 (0.0-1.0) % Neut # (Auto) 9.0 H (2.5-7.0) 10^3/uL Lymph # (Auto) 0.9 L (1.0-4.0) 10^3/uL [place] # (Auto) 0.7 (0.1-0.8) 10^3/uL Eos # (Auto) 0.1 (0.1-0.3) 10^3/uL Baso # (Auto) 0.1 (0.0-0.1) 10^3/uL PT 33.5 H (8.9-11.4) SEC INR 3.4 H (0.9-1.1) Sodium 133 L D (136-145) mmol/L Potassium 3.8 (3.3-5.3) mmol/L Chloride 102 (98-115) mmol/L Carbon Dioxide 33.9 H (21.0-32.0) mmol/L BUN 34 H (6-25) mg/dL Creatinine 0.93 (0.51-1.17) mg/dL Est Cr Clr Drug Dosing 58.87 mL/min Estimated GFR (MDRD) > 60 mL/min Glucose 93 (70-110) mg/dL Calcium 8.5 L (8.7-10.3) mg/dL SLOANE Results - Last 24 hrs: Microbiology 08/01/17 11:15 Respiratory Culture - Preliminary Sputum - Expectorated Beta Streptococcus Group A - Final Med Orders - Current: Current Medications Acetaminophen (Tylenol) 650 mg PO Q6H PRN PRN Reason: Fever Last Admin: 08/02/17 14:58 Dose: 650 mg Hydrocodone Bitart/Acetaminophen ([place] 325-5 Mg) 1 tab PO TID [facility] Last Admin: 08/05/17 08:10 Dose: 1 tab Albuterol/Ipratropium (Duoneb 3.0-0.5 Mg/3 Ml) 3 ml NEB Q4HRRT PRN PRN Reason: Shortness of Breath Last Admin: 08/05/17 05:40 Dose: 3 ml Arformoterol Tartrate (Brovana) 15 mcg INH BIDRT [facility] Last Admin: 08/05/17 07:14 Dose: 15 mcg Cholecalciferol (Vitamin D3) 5,000 units PO BEDTIME [facility] Last Admin: 08/04/17 20:26 Dose: 5,000 units Clopidogrel Bisulfate (Plavix) 75 mg PO DAILY [facility] Last Admin: 08/05/17 08:13 Dose: 75 mg Diltiazem HCl (Cardizem Cd) 180 mg PO DAILY [facility] Last Admin: 08/05/17 08:12 Dose: 180 mg Finasteride (Proscar) 5 mg PO DAILY [facility] Last Admin: 08/05/17 08:12 Dose: 5 mg Furosemide (Lasix) 60 mg PO DAILY [facility] Last Admin: 08/05/17 08:11 Dose: 60 mg Guaifenesin (Mucinex) 600 mg PO BID [facility] Last Admin: 08/05/17 08:10 Dose: 600 mg Levofloxacin (Levaquin) 500 mg PO Q24H [facility] Last Admin: 08/04/17 18:23 Dose: 500 mg Meclizine HCl (Antivert) 25 mg PO Q6H PRN PRN Reason: Dizziness Nitroglycerin (Nitrostat) 0.4 mg SL ASDIRECTED PRN PRN Reason: Chest Pain Pantoprazole Sodium (Protonix) 40 mg PO ACBREAKFAST [facility] Last Admin: 08/05/17 06:40 Dose: 40 mg Prednisone (Prednisone) 40 mg PO WITHBREAKFAST [facility] Last Admin: 08/05/17 08:11 Dose: 40 mg Psyllium Husk (Metamucil Sugar Free) 0 pkt PO BEDTIME PRN PRN Reason: Constipation Sodium Chloride (Syrex Flush) 5 ml FLUSH Q8HR PRN PRN Reason: IV Use Tamsulosin HCl (Flomax) 0.4 mg PO BEDTIME [facility] Last Admin: 08/04/17 20:26 Dose: 0.4 mg Warfarin Sodium (Coumadin) 2.5 mg PO DAILY@1800 [facility] Last Admin: 08/03/17 17:36 Dose: 2.5 mg Discontinued Medications Hydrocodone Bitart/Acetaminophen ([place] 325-5 Mg) 1 tab PO BID [facility] Last Admin: 08/03/17 10:46 Dose: Not Given Albuterol/Ipratropium (Duoneb 3.0-0.5 Mg/3 Ml) 3 ml NEB ONETIME ONE Stop: 08/01/17 04:07 Last Admin: 08/01/17 06:54 Dose: Not Given Albuterol/Ipratropium (Duoneb 3.0-0.5 Mg/3 Ml) Confirm Administered Dose 3 ml .ROUTE .STK-MED ONE Stop: 08/01/17 04:07 Last Admin: 08/01/17 04:10 Dose: 3 ml Ceftriaxone Sodium (Rocephin) 1 gm IVPUSH ONETIME ONE Stop: 08/01/17 04:38 Last Admin: 08/01/17 05:00 Dose: 1 gm Ceftriaxone Sodium (Rocephin) 1 gm IVPUSH Q24H [facility] Azithromycin 500 mg/ Sodium (Chloride) 250 mls @ 250 mls/hr IV ONETIME ONE Stop: 08/01/17 05:36 Last Admin: 08/01/17 05:56 Dose: 250 mls/hr Azithromycin 500 mg/ Sodium (Chloride) 250 mls @ 250 mls/hr IV Q24H [facility] Levofloxacin/Dextrose 500 mg/ (Premix) 100 mls @ 100 mls/hr IV Q24H [facility] Last Admin: 08/02/17 18:07 Dose: 100 mls/hr Prednisone (Prednisone) 40 mg PO WITHBREAKFAST [facility] - Exam Physical Findings Comments:: GENERAL: Elderly white male sitting in bedside chair in no acute distress. HEENT: Normocephalic, atraumatic. L eyelids closed. R conjunctiva clear. Nasal cannula in place. Mucous membranes moist, posterior pharynx unremarkable. NECK: Supple. CV: Regular rate and rhythm, no murmurs, rubs, or gallops. 2+ radial pulses. PULMONARY: Normal effort, clear to auscultation bilaterally. ABDOMEN: Positive bowel sounds, soft, nontender, nondistended. EXTREMITIES: No edema, cyanosis, or clubbing. MUSCULOSKELETAL: Moves all extremities well. NEUROLOGICAL: No obvious deficits. DERMATOLOGIC: Bilateral forearms with diffuse bruising. PSYCHIATRIC: Alert, interactive, appropriate affect.
== END 2017-08-05 12:20 | disposition home or self-care (01) | DRG 193 ==
LOC: KA.ED 03:28 → KA.MS 05:15
PROVIDERS: ADMIT Family Medicine; ATTEND Family Medicine
DX: J18.9 Pneumonia, unspecified organism (principal); J13 Pneumonia due to Streptococcus pneumoniae; I50.9 Heart failure, unspecified; J96.21 Acute and chronic respiratory failure with hypoxia; J44.0 Chronic obstructive pulmonary disease with (acute) lower respiratory infection; J45.901 Unspecified asthma with (acute) exacerbation; I50.32 Chronic diastolic (congestive) heart failure; J44.1 Chronic obstructive pulmonary disease with (acute) exacerbation; I25.119 Atherosclerotic heart disease of native coronary artery with unspecified angina pectoris; R53.1 Weakness; I11.0 Hypertensive heart disease with heart failure; K59.09 Other constipation; I48.91 Unspecified atrial fibrillation; K21.9 Gastro-esophageal reflux disease without esophagitis; N40.0 Benign prostatic hyperplasia without lower urinary tract symptoms; M19.90 Unspecified osteoarthritis, unspecified site; G89.29 Other chronic pain; M54.9 Dorsalgia, unspecified; M88.9 Osteitis deformans of unspecified bone; E55.9 Vitamin D deficiency, unspecified; H54.7 Unspecified visual loss; D64.9 Anemia, unspecified; I25.2 Old myocardial infarction; Z85.89 Personal history of malignant neoplasm of other organs and systems; Z96.649 Presence of unspecified artificial hip joint; Z88.2 Allergy status to sulfonamides; Z88.8 Allergy status to other drugs, medicaments and biological substances; Z99.81 Dependence on supplemental oxygen; R05 Cough; R06.02 Shortness of breath; Z79.52 Long term (current) use of systemic steroids; Z79.01 Long term (current) use of anticoagulants; Z79.899 Other long term (current) drug therapy; Z95.0 Presence of cardiac pacemaker; Z95.5 Presence of coronary angioplasty implant and graft; Z87.891 Personal history of nicotine dependence; Z95.828 Presence of other vascular implants and grafts; R79.1 Abnormal coagulation profile; R42 Dizziness and giddiness; Z66 Do not resuscitate
CPT/HCPCS: 36415; 71045; 80048; 80053; 83880; 84484; 85025; 85610; 87070; 87205; 87804; 93005; 94640; 94760; 96374; 97110-GP; 97161-GP; 99284; 99285; A9270-GY; J0456; J0696; J1956; J7050

== ENCOUNTER 2017-12-15 20:30 | Inpatient (IN) | payer MEDICARE, MEDICAID ==
--- NOTE | 2017-12-15 21:23 | EDM.PDOC ---
ED HPI GENERAL MEDICAL PROBLEM - General Stated Complaint: SHORT OF BREATH Time Seen by Provider: 12/15/17 21:02 Source of Information: Reports: Patient, Family (son and dtr-n-law) History Limitations: Reports: No Limitations - History of Present Illness INITIAL COMMENTS - FREE TEXT/NARRATIVE: Patient presents with chest pain and shortness of breath for the last 24 hours. He's also had a fever and weakness. A week ago he had a large hematoma in left forearm and was on cephalexin. Otherwise the last antibiotic was about 4 months ago when he was hospitalized with pneumonia. He is on oxygen at 2.5 liters at home but now in ER he is requiring 4 liters to maintain 90%. He has known COPD and has had 7 cardiac stents placed. He is on warfarin and plavix. - Related Data Allergies Allergy/AdvReac Type Severity Reaction Status Date / Time atorvastatin calcium Allergy Cannot Verified 12/15/17 21:37 [From Lipitor] Remember ezetimibe [From Zetia] Allergy Joint Pain Verified 12/15/17 21:37 gabapentin Allergy Airway Verified 12/15/17 21:37 Tightness pregabalin [From Lyrica] Allergy Bronchospas Verified 12/15/17 21:37 ms roflumilast [From Daliresp] Allergy Stomach Verified 12/15/17 21:37 Upset [id number] Reductase Allergy Muscle Verified 12/15/17 21:37 Inhibitor Weakness Sulfa (Sulfonamide Allergy Cannot Verified 12/15/17 21:37 Antibiotics) Remember tramadol Allergy Cannot Verified 12/15/17 21:37 Remember Home Meds: Home Meds Albuterol/Ipratropium [DuoNeb 3.0-0.5 MG/3 ML] 1 ampule INH Q6H PRN 03/22/14 [ History] Arformoterol [Brovana] 1 ampule INH BID 03/22/14 [History] Finasteride 5 mg PO DAILY 03/22/14 [History] Furosemide 60 mg PO DAILY 03/22/14 [History] Nitroglycerin [Nitrostat] 0.4 mg SL ASDIRECTED PRN 03/22/14 [History] Tamsulosin [Flomax] 0.4 mg PO BEDTIME 09/10/14 [History] Cholecalciferol (Vitamin D3) [Vitamin D3] 5,000 units PO BEDTIME 01/26/15 [ History] Psyllium with Sucrose [Metamucil] 1 tbsp PO BEDTIME PRN 01/26/15 [History] Warfarin [Coumadin] 2.5 mg PO DAILY 02/21/15 [History] Clopidogrel [Plavix] 75 mg PO DAILY 04/01/16 [History] Hydrocodone/Acetaminophen [Hydrocodon-Acetaminophen 5-325] 1 each PO TID [History] Meclizine [Antivert] 25 mg PO Q6H PRN 04/01/16 [History] Diltiazem HCl [Cartia Xt] 180 mg PO DAILY 08/04/17 [History] Amoxicillin/Potassium Clav [Augmentin 875-125 Tablet] 1 each PO BID 2 Days #4 tablet 08/05/17 [Rx] Pantoprazole [ProTONIX] 40 mg PO ACBREAKFAST 14 Days #14 tab.cr 08/05/17 [Rx] Prednisone [IJD: Prednisone] 10 mg PO DAILY #0 08/05/17 [Rx] Prednisone [IJD: predniSONE] 20 mg PO WITHBREAKFAST 3 Days tablet 08/05/17 [Rx] Past Medical History HEENT History: Reports: Cataract, Impaired Vision Cardiovascular History: Reports: Afib, Hypertension, Pacemaker, Stents Respiratory History: Reports: Asthma, COPD Other Respiratory History: Home O2. Gastrointestinal History: Reports: Cholelithiasis, Chronic Constipation, GERD, Hemorrhoids Genitourinary History: Reports: BPH, Prostate Disorder Musculoskeletal History: Reports: Arthritis, Back Pain, Chronic Other Musculoskeletal History: Paget's disease Endocrine/Metabolic History: Reports: Vitamin D Deficiency Hematologic History: Reports: Anemia, Blood Transfusion(s) Immunologic History: Reports: None Oncologic (Cancer) History: Reports: Other (See Below) Other Oncologic History: previous removal of lump and lymph nodes from neck. 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." Dermatologic History: Reports: Cellulitis - Infectious Disease History Infectious Disease History: Reports: Chicken Pox, Measles, Mumps - Past Surgical History HEENT Surgical History: Reports: Cataract Surgery Cardiovascular Surgical History: Reports: Carotid Stents Respiratory Surgical History: Reports: None Musculoskeletal Surgical History: Reports: Arthroscopic Knee, Knee Replacement Social & Family History - Family History Family Medical History: Unobtainable Cardiac: Reports: OR GI: Reports: None : Reports: None Oncologic: Reports: Breast - Caffeine Use Caffeine Use: Reports: Coffee - Living Situation & Occupation Living situation: Reports: ED ROS GENERAL - Review of Systems Review Of Systems: See Below Constitutional: Reports: Fever (100 in clinic two days ago but was otherwise feeling okay then), Chills, Weakness HEENT: Reports: No Symptoms Respiratory: Reports: Shortness of Breath, Wheezing, Cough Cardiovascular: Reports: Chest Pain. Denies: Lightheadedness, Syncope GI/Abdominal: Denies: Abdominal Pain, Diarrhea, Nausea, Vomiting : Denies: Dysuria, Flank Pain Musculoskeletal: Reports: No Symptoms Skin: Denies: Cyanosis, Jaundice, Mottled, Pallor, Diaphoresis Neurological: Reports: Weakness. Denies: Confusion, Seizure, Syncope, Trouble Speaking Psychiatric: Denies: Agitation, Anxiety, Confusion ED EXAM, GENERAL - Physical Exam Exam: See Below Exam Limited By: No Limitations General Appearance: Alert, No Apparent Distress, Thin Eye Exam: Bilateral Eye: EOMI, Normal Inspection, PERRL Ears: Normal External Exam, Hearing Grossly Normal Nose: Normal Inspection, No Blood Throat/Mouth: Normal Inspection, Normal Lips, Normal Voice, No Airway Compromise Head: Atraumatic, Normocephalic Neck: Normal Inspection, Supple, Non-Tender. No: Carotid Bruit Respiratory/Chest: Respiratory Distress, Decreased Breath Sounds, Crackles, Wheezing (inspiratory), Other (patient observed pursing his lips with exhalation ) Cardiovascular: Normal Peripheral Pulses, Regular Rate, Rhythm, No Murmur Peripheral Pulses: 2+: Carotid (L), Carotid (R), Radial (L), Radial (R), Posterior Tibial (L), Posterior Tibial (R) GI/Abdominal: Normal Bowel Sounds, Soft, Non-Tender, No Organomegaly, No Distention Back Exam: Normal Inspection, Full Range of Motion. No: CVA Tenderness (L), CVA Tenderness (R) Extremities: Non-Tender, Pedal Edema Neurological: Alert, Oriented, Normal Cognition, No Motor/Sensory Deficits Psychiatric: Normal Affect, Normal Mood Skin Exam: Warm, Dry, Intact, Normal Color, No Rash Course - Vital Signs Last Recorded V/S: Last Vital Signs Temp 102.5 F H 12/15/17 20:35 Pulse 71 12/15/17 20:35 Resp 29 H 12/15/17 20:35 BP 152/40 H 12/15/17 20:35 Pulse Ox 77 L 12/15/17 20:35 - Orders/Labs/Meds Orders: Active Orders 24 hr Category Date Time Status Patient Status [ADT] Routine ADT 12/15/17 21:51 Ordered EKG Documentation Completion [RC] ASDIRECTED Care 12/15/17 20:52 Active RT Aerosol Therapy [RC] ASDIRECTED Care 12/15/17 21:28 Active Chest 2V [CR] Stat Exams 12/15/17 20:50 Ordered CULTURE BLOOD [BC] Stat Lab 12/15/17 20:48 Ordered CULTURE BLOOD [BC] Stat Lab 12/15/17 21:27 Ordered Blood Culture x2 Reflex Set [OM.PC] Stat Oth 12/15/17 21:27 Ordered EKG 12 Lead [EK] Routine Ther 12/15/17 20:52 Ordered Labs: Laboratory Tests 12/15/17 12/15/17 12/15/17 Range/Units 21:15 21:15 21:15 WBC 13.75 H (5.00-10.00) 10^3/uL RBC 4.20 L (4.50-6.00) 10^6/uL Hgb 9.8 L (13.0-17.0) g/dL Hct 32.6 L (40.0-52.0) % MCV 77.6 L (82.0-92.0) fL MCH 23.3 L (27.0-31.0) pg MCHC 30.1 L (32.0-36.0) g/dL RDW 18.4 H (11.5-14.5) % Plt Count 265 (150-400) 10^3/uL MPV 10.4 (7.4-10.4) fL Immature Gran % (Auto) 0.5 (0.0-5.0) % Neut % (Auto) 81.1 H (50.0-70.0) % Lymph % (Auto) 10.7 L (20.0-40.0) % Garza % (Auto) 5.1 (2.0-8.0) % Eos % (Auto) 2.4 (1.0-3.0) % Baso % (Auto) 0.2 (0.0-1.0) % Immature Gran # (Auto) 0.07 (0.00-0.50) 10^3/uL Neut # (Auto) 11.15 H (2.50-7.00) 10^3/uL Lymph # (Auto) 1.47 (1.00-4.00) 10^3/uL Garza # (Auto) 0.70 (0.10-0.80) 10^3/uL Eos # (Auto) 0.33 H (0.10-0.30) 10^3/uL Baso # (Auto) 0.03 (0.00-0.10) 10^3/uL PT (8.9-11.4) SEC INR (0.9-1.1) Sodium 140 (136-145) mmol/L Potassium 3.6 (3.3-5.3) mmol/L Chloride 101 (98-115) mmol/L Carbon Dioxide 31.4 (21.0-32.0) mmol/L Anion Gap 11.2 (5-15) mmol/L BUN 25 (6-25) mg/dL Creatinine 1.18 H (0.51-1.17) mg/dL Est Cr Clr Drug Dosing 45.54 mL/min Estimated GFR (MDRD) 58 mL/min Glucose 80 mg/dL Lactic Acid 1.5 (0.4-2.0) mmol/L Calcium 8.2 L (8.7-10.3) mg/dL Total Bilirubin 0.6 (0.2-1.0) mg/dL AST 16 (15-37) U/L ALT 15 (12-78) U/L Alkaline Phosphatase 51 (46-116) IU/L Troponin I 0.05 (0.00-0.070) ng/mL B-Natriuretic Peptide (0-100) pg/mL Total Protein 5.9 L (6.4-8.2) g/dL Albumin 2.69 L (3.00-4.80) g/dL 12/15/17 12/15/17 Range/Units 21:15 21:15 WBC (5.00-10.00) 10^3/uL RBC (4.50-6.00) 10^6/uL Hgb (13.0-17.0) g/dL Hct (40.0-52.0) % MCV (82.0-92.0) fL MCH (27.0-31.0) pg MCHC (32.0-36.0) g/dL RDW (11.5-14.5) % Plt Count (150-400) 10^3/uL MPV (7.4-10.4) fL Immature Gran % (Auto) (0.0-5.0) % Neut % (Auto) (50.0-70.0) % Lymph % (Auto) (20.0-40.0) % Garza % (Auto) (2.0-8.0) % Eos % (Auto) (1.0-3.0) % Baso % (Auto) (0.0-1.0) % Immature Gran # (Auto) (0.00-0.50) 10^3/uL Neut # (Auto) (2.50-7.00) 10^3/uL Lymph # (Auto) (1.00-4.00) 10^3/uL Garza # (Auto) (0.10-0.80) 10^3/uL Eos # (Auto) (0.10-0.30) 10^3/uL Baso # (Auto) (0.00-0.10) 10^3/uL PT 13.3 H D (8.9-11.4) SEC INR 1.3 H (0.9-1.1) Sodium (136-145) mmol/L Potassium (3.3-5.3) mmol/L Chloride (98-115) mmol/L Carbon Dioxide (21.0-32.0) mmol/L Anion Gap (5-15) mmol/L BUN (6-25) mg/dL Creatinine (0.51-1.17) mg/dL Est Cr Clr Drug Dosing mL/min Estimated GFR (MDRD) mL/min Glucose mg/dL Lactic Acid (0.4-2.0) mmol/L Calcium (8.7-10.3) mg/dL Total Bilirubin (0.2-1.0) mg/dL AST (15-37) U/L ALT (12-78) U/L Alkaline Phosphatase (46-116) IU/L Troponin I (0.00-0.070) ng/mL B-Natriuretic Peptide 183 H (0-100) pg/mL Total Protein (6.4-8.2) g/dL Albumin (3.00-4.80) g/dL Meds: Medications Discontinued Medications Generic Name Dose Route Start Last Admin Trade Name [place] PRN Reason Stop Dose Admin Albuterol/Ipratropium Confirm 12/15/17 21:30 Duoneb 3.0-0.5 Mg/3 Ml Administered 12/15/17 21:31 Dose 3 ml .ROUTE .STK-MED ONE Albuterol/Ipratropium 3 ml 12/15/17 21:28 12/15/17 21:47 Duoneb 3.0-0.5 Mg/3 Ml NEB 12/15/17 21:29 3 ml ONETIME ONE Administration Ceftriaxone Sodium 2 gm 12/15/17 21:55 Rocephin IVPUSH 12/15/17 21:56 ONETIME ONE - Re-Assessments/Exams Free Text/Narrative Re-Assessment/Exam: 12/15/17 22:03 Elevated WBC and ANC. CXR shows bilat atelectasis vs pneumonia. 12/15/17 22:08 Discussed case with STANISLAV Schmid who accepted for admission to . Rocephin 2 gm is administered in ER. Duoneb didn't provide noticeable improvement. Discussed findings and treatment plan with patient and his family who agree with plan. Departure - Departure Time of Disposition: 22:22 Disposition: Admitted As Inpatient 66 Condition: Fair Clinical Impression: Acute neutrophilia, Hypoxemia, Fever and chills, COPD exacerbation, Generalized weakness CAP (community acquired pneumonia) Qualifiers: Laterality: unspecified laterality Qualified Code(s): J18.9 - Pneumonia, unspecified organism CHF (congestive heart failure) Qualifiers: Heart failure type: unspecified Heart failure chronicity: acute on chronic Qualified Code(s): I50.9 - Heart failure, unspecified - Discharge Information Referrals: Oneyda Marie NP [Primary Care Provider] - - My Orders Last 24 Hours: My Active Orders 12/15/17 20:48 CULTURE BLOOD [BC] Stat 12/15/17 20:50 Chest 2V [CR] Stat 12/15/17 20:52 EKG Documentation Completion [RC] ASDIRECTED EKG 12 Lead [EK] Routine 12/15/17 21:27 CULTURE BLOOD [BC] Stat Blood Culture x2 Reflex Set [OM.PC] Stat 12/15/17 21:28 RT Aerosol Therapy [RC] ASDIRECTED 12/15/17 21:51 Patient Status [ADT] Routine - Assessment/Plan Last 24 Hours: My Active Orders 12/15/17 20:48 CULTURE BLOOD [BC] Stat 12/15/17 20:50 Chest 2V [CR] Stat 12/15/17 20:52 EKG Documentation Completion [RC] ASDIRECTED EKG 12 Lead [EK] Routine 12/15/17 21:27 CULTURE BLOOD [BC] Stat Blood Culture x2 Reflex Set [OM.PC] Stat 12/15/17 21:28 RT Aerosol Therapy [RC] ASDIRECTED 12/15/17 21:51 Patient Status [ADT] Routine
[2017-12-15] MEDS ORDERED: Albuterol/Ipratropium 3.0-0.5 MG/3 ML Neb Soln NEB ONE (21:28)
[2017-12-15] MEDS: Albuterol/Ipratropium 3.0-0.5 MG/3 ML Neb Soln ONE ×2 (21:47→22:30)
[2017-12-15] MEDS ORDERED: cefTRIAXone 2 GM Vial IVPUSH ONE (21:55)
[2017-12-15 22:03] LABS: ANION GAP 11.2 mmol/L (5-15)
[2017-12-15] MEDS ORDERED: methylPREDNISolone Sodium Succinate 125 MG/2 ML SDV IVPUSH ONE (22:21)
[2017-12-15] MEDS ORDERED: cefTRIAXone 1 GM Vial ONE (22:33)
[2017-12-15] MEDS ORDERED: Acetaminophen/HYDROcodone 325-5 MG Tab PO PRN (23:22)
[2017-12-15] MEDS ORDERED: Dextrose 5%-0.45% NaCl 1,000 ML IV SCH (23:30)
[2017-12-15] MEDS ORDERED: traZODone 50 MG Tab PO ONE (23:47)
[2017-12-16] MEDS: Acetaminophen 325 MG Tab PO PRN (00:02)
[2017-12-16] MEDS: Albuterol/Ipratropium 3.0-0.5 MG/3 ML Neb Soln NEB SCH ×4 (05:42→22:49)
[2017-12-16] MEDS ORDERED: Arformoterol 15 MCG/2 ML Neb Soln INH SCH (08:00)
--- NOTE | 2017-12-16 09:05 | PCM.HP ---
H&P History of Present Illness - General Date of Service: 12/16/17 Admit Problem/Dx: Admission Diagnosis/Problem Admission Diagnosis/Problem CAP (community acquired pneumonia) due to MSSA ( methicillin sensitive Staphylococcus aureus) Source of Information: Patient, Old Records, RN History Limitations: Reports: No Limitations - History of Present Illness Initial Comments - Free Text/Narative: Maninder is an 87-year-old gentleman who presented to the ED due to chest pain and more shortness of breath over the past 24 hours. He had not been feeling well a couple days prior with diaphoresis, weakness, fatigue, decreased appetite along with chills. He does have multiple past admissions for either COPD exacerbation and/or pneumonia and is on chronic home oxygen. Left Chest Pain Score (Numeric/FACES): 2 - Related Data Allergies/Adverse Reactions: Allergies Allergy/AdvReac Type Severity Reaction Status Date / Time atorvastatin calcium Allergy Cannot Verified 12/15/17 21:37 [From Lipitor] Remember ezetimibe [From Zetia] Allergy Joint Pain Verified 12/15/17 21:37 gabapentin Allergy Airway Verified 12/15/17 21:37 Tightness pregabalin [From Lyrica] Allergy Bronchospas Verified 12/15/17 21:37 ms roflumilast [From Daliresp] Allergy Stomach Verified 12/15/17 21:37 Upset Dzmpxuk-Ulz-Ywm Reductase Allergy Muscle Verified 12/15/17 21:37 Inhibitor Weakness Sulfa (Sulfonamide Allergy Cannot Verified 12/15/17 21:37 Antibiotics) Remember tramadol Allergy Cannot Verified 12/15/17 21:37 Remember Home Medications: Home Meds Albuterol/Ipratropium [DuoNeb 3.0-0.5 MG/3 ML] 1 ampule INH Q6H 03/22/14 [ History] Arformoterol [Brovana] 1 ampule INH BID 03/22/14 [History] Finasteride 5 mg PO DAILY 03/22/14 [History] Furosemide 60 mg PO DAILY@0700 03/22/14 [History] Nitroglycerin [Nitrostat] 0.4 mg SL ASDIRECTED PRN 03/22/14 [History] Tamsulosin [Flomax] 0.4 mg PO BEDTIME 09/10/14 [History] Cholecalciferol (Vitamin D3) [Vitamin D3] 5,000 units PO BEDTIME 01/26/15 [ History] Warfarin [Coumadin] 2.5 mg PO SUTUWETHSA 02/21/15 [History] Clopidogrel [Plavix] 75 mg PO DAILY 04/01/16 [History] Hydrocodone/Acetaminophen [Hydrocodon-Acetaminophen 5-325] 1 each PO TID PRN [History] Meclizine [Antivert] 25 mg PO Q6H PRN 04/01/16 [History] Diltiazem HCl [Cartia Xt] 180 mg PO DAILY 08/04/17 [History] Prednisone [IJD: Prednisone] 10 mg PO DAILY #0 08/05/17 [Rx] Warfarin [Coumadin] 1.25 mg PO DAILY 12/15/17 [History] Furosemide [Lasix] 20 mg PO DAILY@1500 12/16/17 [History] Polyethylene Glycol 3350 [MiraLAX] 17 gm PO BEDTIME PRN 12/16/17 [History] Past Medical History HEENT History: Reports: Cataract, Impaired Vision Cardiovascular History: Reports: Afib, Hypertension, Pacemaker, Stents Respiratory History: Reports: Asthma, COPD Other Respiratory History: Home O2. Gastrointestinal History: Reports: Cholelithiasis, Chronic Constipation, GERD, Hemorrhoids Genitourinary History: Reports: BPH, Prostate Disorder Musculoskeletal History: Reports: Arthritis, Back Pain, Chronic Other Musculoskeletal History: Paget's disease Endocrine/Metabolic History: Reports: Vitamin D Deficiency Hematologic History: Reports: Anemia, Blood Transfusion(s) Immunologic History: Reports: None Oncologic (Cancer) History: Reports: Other (See Below) Other Oncologic History: previous removal of lump and lymph nodes from neck. 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." Dermatologic History: Reports: Cellulitis - Infectious Disease History Infectious Disease History: Reports: Chicken Pox, Measles, Mumps - Past Surgical History HEENT Surgical History: Reports: Cataract Surgery Cardiovascular Surgical History: Reports: Carotid Stents Respiratory Surgical History: Reports: None Musculoskeletal Surgical History: Reports: Arthroscopic Knee, Knee Replacement Social & Family History - Family History HEENT: Reports: None, Macular Degeneration Cardiac: Reports: HI Respiratory: Reports: COPD GI: Reports: None : Reports: None OBGYN: Reports: None Musculoskeletal: Reports: Arthritis Neurological: Reports: None Psychiatric: Reports: None Endocrine/Metabolic: Reports: Diabetes, type II Hematologic: Reports: None Oncologic: Reports: Breast - Tobacco Use Tobacco Use Comment: did not ask - Caffeine Use Caffeine Use: Reports: Coffee - Living Situation & Occupation Living situation: Reports: H&P Review of Systems - Review of Systems: Review Of Systems: See Below General: Reports: No Symptoms HEENT: Reports: Rhinitis Pulmonary: Reports: Shortness of Breath, Cough, Sputum Cardiovascular: Reports: Dyspnea on Exertion. Denies: Chest Pain, Palpitations , Orthopnea, Blood Pressure Problem Gastrointestinal: Reports: Constipation, Decreased Appetite. Denies: Diarrhea, Distension, Nausea, Vomiting Genitourinary: Reports: No Symptoms Musculoskeletal: Reports: No Symptoms Skin: Reports: Dryness, Bruising Psychiatric: Denies: Confusion Neurological: Reports: Tremors, Weakness. Denies: Confusion Hematologic/Lymphatic: Reports: Anemia, Easy Bleeding, Easy Bruising Immunologic: Reports: No Symptoms Exam - Exam Exam: See Below - Vital Signs Vital Signs: Last Vital Signs Temp 97.4 F 12/16/17 06:57 Pulse 72 12/16/17 07:39 Resp 20 12/16/17 06:57 BP 134/64 12/16/17 06:57 Pulse Ox 96 12/16/17 07:39 Weight: 179 lb 6.4 oz - Exam Quality Assessment: Supplemental Oxygen, DVT Prophylaxis (SCD's, DAPT) General: Alert, Oriented, Mild Distress HEENT: Mucosa Moist & [place] Neck: Supple Lungs: Decreased Breath Sounds Cardiovascular: Irregular Rhythm GI/Abdominal Exam: Soft (Male) Exam: Deferred Rectal (Males) Exam: Deferred Back Exam: No: CVA Tenderness (L), CVA Tenderness (R) Extremities: Pedal Edema (1+ edema left lower leg/ankle). No: Slow Capillary Refill Peripheral Pulses: 1+: Radial (L) Skin: Other (Dry skin thin skin, brawniness) Neurological: Cranial Nerves Intact Neuro Extensive - Mental Status: Alert, Normal Mood/Affect, Normal Cognition Neuro Extensive - Motor, Sensory, Reflexes: CN II-XII Intact Psychiatric: Alert, Normal Affect, Normal Mood - Patient Data Lab Results Last 24 hrs: Laboratory Results - last 24 hr 12/15/17 12/15/17 12/15/17 Range/Units 21:15 21:15 21:15 WBC 13.75 H (5.00-10.00) 10^3/uL RBC 4.20 L (4.50-6.00) 10^6/uL Hgb 9.8 L (13.0-17.0) g/dL Hct 32.6 L (40.0-52.0) % MCV 77.6 L (82.0-92.0) fL MCH 23.3 L (27.0-31.0) pg MCHC 30.1 L (32.0-36.0) g/dL RDW 18.4 H (11.5-14.5) % Plt Count 265 (150-400) 10^3/uL MPV 10.4 (7.4-10.4) fL Immature Gran % (Auto) 0.5 (0.0-5.0) % Neut % (Auto) 81.1 H (50.0-70.0) % Lymph % (Auto) 10.7 L (20.0-40.0) % Wilkinson % (Auto) 5.1 (2.0-8.0) % Eos % (Auto) 2.4 (1.0-3.0) % Baso % (Auto) 0.2 (0.0-1.0) % Immature Gran # (Auto) 0.07 (0.00-0.50) 10^3/uL Neut # (Auto) 11.15 H (2.50-7.00) 10^3/uL Lymph # (Auto) 1.47 (1.00-4.00) 10^3/uL Wilkinson # (Auto) 0.70 (0.10-0.80) 10^3/uL Eos # (Auto) 0.33 H (0.10-0.30) 10^3/uL Baso # (Auto) 0.03 (0.00-0.10) 10^3/uL Add Manual Diff Neutrophils % (Manual) (50-70) % Lymphocytes % (Manual) (20-40) % Monocytes % (Manual) (2-8) % Absolute Neutrophils Lymphocytes # (Manual) Monocytes # (Manual) Anisocytosis Elliptocytes Schistocytes PT (8.9-11.4) SEC INR (0.9-1.1) Sodium 140 (136-145) mmol/L Potassium 3.6 (3.3-5.3) mmol/L Chloride 101 (98-115) mmol/L Carbon Dioxide 31.4 (21.0-32.0) mmol/L Anion Gap 11.2 (5-15) mmol/L BUN 25 (6-25) mg/dL Creatinine 1.18 H (0.51-1.17) mg/dL Est Cr Clr Drug Dosing 45.54 mL/min Estimated GFR (MDRD) 58 mL/min Glucose 80 mg/dL Lactic Acid 1.5 (0.4-2.0) mmol/L Calcium 8.2 L (8.7-10.3) mg/dL Total Bilirubin 0.6 (0.2-1.0) mg/dL AST 16 (15-37) U/L ALT 15 (12-78) U/L Alkaline Phosphatase 51 (46-116) IU/L Troponin I 0.05 (0.00-0.070) ng/mL B-Natriuretic Peptide (0-100) pg/mL Total Protein 5.9 L (6.4-8.2) g/dL Albumin 2.69 L (3.00-4.80) g/dL 12/15/17 12/15/17 12/16/17 Range/Units 21:15 21:15 07:10 WBC (5.00-10.00) 10^3/uL RBC (4.50-6.00) 10^6/uL Hgb (13.0-17.0) g/dL Hct (40.0-52.0) % MCV (82.0-92.0) fL MCH (27.0-31.0) pg MCHC (32.0-36.0) g/dL RDW (11.5-14.5) % Plt Count (150-400) 10^3/uL MPV (7.4-10.4) fL Immature Gran % (Auto) (0.0-5.0) % Neut % (Auto) (50.0-70.0) % Lymph % (Auto) (20.0-40.0) % Wilkinson % (Auto) (2.0-8.0) % Eos % (Auto) (1.0-3.0) % Baso % (Auto) (0.0-1.0) % Immature Gran # (Auto) (0.00-0.50) 10^3/uL Neut # (Auto) (2.50-7.00) 10^3/uL Lymph # (Auto) (1.00-4.00) 10^3/uL Wilkinson # (Auto) (0.10-0.80) 10^3/uL Eos # (Auto) (0.10-0.30) 10^3/uL Baso # (Auto) (0.00-0.10) 10^3/uL Add Manual Diff Neutrophils % (Manual) (50-70) % Lymphocytes % (Manual) (20-40) % Monocytes % (Manual) (2-8) % Absolute Neutrophils Lymphocytes # (Manual) Monocytes # (Manual) Anisocytosis Elliptocytes Schistocytes PT 13.3 H D 12.3 H (8.9-11.4) SEC INR 1.3 H 1.2 H (0.9-1.1) Sodium (136-145) mmol/L Potassium (3.3-5.3) mmol/L Chloride (98-115) mmol/L Carbon Dioxide (21.0-32.0) mmol/L Anion Gap (5-15) mmol/L BUN (6-25) mg/dL Creatinine (0.51-1.17) mg/dL Est Cr Clr Drug Dosing mL/min Estimated GFR (MDRD) mL/min Glucose mg/dL Lactic Acid (0.4-2.0) mmol/L Calcium (8.7-10.3) mg/dL Total Bilirubin (0.2-1.0) mg/dL AST (15-37) U/L ALT (12-78) U/L Alkaline Phosphatase (46-116) IU/L Troponin I (0.00-0.070) ng/mL B-Natriuretic Peptide 183 H (0-100) pg/mL Total Protein (6.4-8.2) g/dL Albumin (3.00-4.80) g/dL 12/16/17 Range/Units 07:10 WBC 9.22 (5.00-10.00) 10^3/uL RBC 4.29 L (4.50-6.00) 10^6/uL Hgb 10.0 L (13.0-17.0) g/dL Hct 33.4 L (40.0-52.0) % MCV 77.9 L (82.0-92.0) fL MCH 23.3 L (27.0-31.0) pg MCHC 29.9 L (32.0-36.0) g/dL RDW 18.2 H (11.5-14.5) % Plt Count 244 (150-400) 10^3/uL MPV 10.2 (7.4-10.4) fL Immature Gran % (Auto) (0.0-5.0) % Neut % (Auto) (50.0-70.0) % Lymph % (Auto) (20.0-40.0) % Wilkinson % (Auto) (2.0-8.0) % Eos % (Auto) (1.0-3.0) % Baso % (Auto) (0.0-1.0) % Immature Gran # (Auto) (0.00-0.50) 10^3/uL Neut # (Auto) (2.50-7.00) 10^3/uL Lymph # (Auto) (1.00-4.00) 10^3/uL Wilkinson # (Auto) (0.10-0.80) 10^3/uL Eos # (Auto) (0.10-0.30) 10^3/uL Baso # (Auto) (0.00-0.10) 10^3/uL Add Manual Diff Yes Neutrophils % (Manual) 95 H (50-70) % Lymphocytes % (Manual) 4 L (20-40) % Monocytes % (Manual) 1 L (2-8) % Absolute Neutrophils 8.7590 Lymphocytes # (Manual) 0.3688 Monocytes # (Manual) 0.0922 Anisocytosis 1+ slight Elliptocytes Occasional Schistocytes 1+ slight PT (8.9-11.4) SEC INR (0.9-1.1) Sodium (136-145) mmol/L Potassium (3.3-5.3) mmol/L Chloride (98-115) mmol/L Carbon Dioxide (21.0-32.0) mmol/L Anion Gap (5-15) mmol/L BUN (6-25) mg/dL Creatinine (0.51-1.17) mg/dL Est Cr Clr Drug Dosing mL/min Estimated GFR (MDRD) mL/min Glucose mg/dL Lactic Acid (0.4-2.0) mmol/L Calcium (8.7-10.3) mg/dL Total Bilirubin (0.2-1.0) mg/dL AST (15-37) U/L ALT (12-78) U/L Alkaline Phosphatase (46-116) IU/L Troponin I (0.00-0.070) ng/mL B-Natriuretic Peptide (0-100) pg/mL Total Protein (6.4-8.2) g/dL Albumin (3.00-4.80) g/dL Result Diagrams: 12/17/17 07:10 12/17/17 07:10 Problem List Initiated/Reviewed/Updated: Yes Orders Last 24hrs: Active Orders 24 hr Category Date Time Status Patient Status [ADT] Routine ADT 12/15/17 21:51 Ordered Patient Status [ADT] Routine ADT 12/15/17 23:23 Ordered Bedrest Bedside Commode [RC] ASDIRECTED Care 12/15/17 23:22 Active Cardiac Monitoring [RC] 0300,0700,1100,1500,1900,2300 Care 12/15/17 23:26 Active Intake and Output [RC] 1400,2200,0600 Care 12/15/17 23:26 Active Oxygen Therapy [RC] PRN Care 12/15/17 23:23 Active RT Aerosol Therapy [RC] ASDIRECTED Care 12/15/17 21:28 Active RT Aerosol Therapy [RC] ASDIRECTED Care 12/15/17 23:38 Active RT Aerosol Therapy [RC] ASDIRECTED Care 12/15/17 23:39 Active VTE/DVT Education [RC] PER UNIT ROUTINE Care 12/15/17 23:23 Active Vital Signs [RC] 0300,0700,1100,1500,1900,2300 Care 12/15/17 23:23 Active Consult to Historic Sites Registrar [CONS] Routine Cons 12/15/17 23:22 Active Respiratory Care Assess and Treatment [CONS] Routine Cons 12/15/17 23:22 Active Regular Diet [DIET] Diet 12/16/17 Breakfast Active Chest 2V [CR] Stat Exams 12/15/17 20:50 Taken CULTURE BLOOD [BC] Stat Lab 12/15/17 21:15 Received CULTURE BLOOD [BC] Stat Lab 12/15/17 21:52 Received CULTURE SPUTUM + SMEAR [RM] Stat Lab 12/15/17 23:22 Ordered CULTURE WOUND [RM] Routine Lab 12/16/17 08:37 Ordered VANCOMYCIN TROUGH [CHEM] Timed Lab 12/19/17 23:30 Ordered Acetaminophen [Tylenol] Med 12/15/17 23:22 Active 650 mg PO Q6H PRN Acetaminophen/HYDROcodone [Downing 325-5 MG] Med 12/15/17 23:22 Active 1 tab PO TID PRN Albuterol/Ipratropium [DuoNeb 3.0-0.5 MG/3 ML] Med 12/16/17 05:00 Active 3 ml NEB Q6HRRT Arformoterol [Brovana] Med 12/16/17 08:00 Active 15 mcg INH BIDRT Dextrose 5%-0.45% NaCl [Dextrose 5%-1/2 NS] 1,000 ml Med 12/15/17 23:30 Active IV ASDIRECTED Vancomycin 1.25 gm Med 12/16/17 00:00 Active Sodium Chloride 0.9% [Normal Saline] 250 ml IV Q24H Vancomycin Pharmacy to Dose [Pharmacy to Dose - Med 12/15/17 23:45 Pending Vancomycin] 1 dose .XX ASDIRECTED cefTRIAXone [Rocephin] Med 12/16/17 21:00 Active 2 gm IVPUSH Q24H Blood Culture x2 Reflex Set [OM.PC] Stat Oth 12/15/17 21:27 Ordered Sequential Compression Device [OM.PC] Per Unit Routine Oth 12/15/17 23:28 Ordered Resuscitation Status Routine Resus Stat 12/15/17 23:22 Ordered EKG 12 Lead [EK] Routine Ther 12/15/17 20:52 Ordered Medication Orders Acetaminophen (Tylenol) 650 mg PO Q6H PRN PRN Reason: Pain (Mild 1-3)/fever Last Admin: 12/16/17 00:02 Dose: 650 mg Hydrocodone Bitart/Acetaminophen (Downing 325-5 Mg) 1 tab PO TID PRN PRN Reason: Pain (moderate 4-6) Albuterol/Ipratropium (Duoneb 3.0-0.5 Mg/3 Ml) 3 ml NEB Q6HRRT [facility] [place] Last Admin: 12/16/17 05:42 Dose: 3 ml Arformoterol Tartrate (Brovana) 15 mcg INH BIDRT EMA Last Admin: 12/16/17 07:39 Dose: 15 mcg Ceftriaxone Sodium (Rocephin) 2 gm IVPUSH Q24H [facility] [place] Dextrose/Sodium Chloride (Dextrose 5%-1/2 Ns) 1,000 mls @ 50 mls/hr IV ASDIRECTED [facility] [place] Vancomycin HCl 1.25 gm/ Sodium (Chloride) 250 mls @ 166.667 mls/hr IV Q24H [facility] [place] Last Admin: 12/16/17 00:23 Dose: 166.667 mls/hr Vancomycin HCl (Pharmacy To Dose - Vancomycin) 1 dose .XX ASDIRECTED [facility] [place] Assessment/Plan Comment:: HISTORY OF PRESENT ILLNESS Maninder is an 87-year-old gentleman who presented to the ED due to chest pain and more shortness of breath over the past 24 hours. He had not been feeling well a couple days prior with diaphoresis, weakness, fatigue, decreased appetite along with chills with increase in mucus production along with consistency and color. He does have multiple past admissions for either COPD exacerbation and/or pneumonia and is on chronic home oxygen. He had recently been on cephalosporin due to an infection in his left arm. Patient did receive Shingrex Vaccination Patient required further intervention upon arrival to the floor including medication reconciliation, chest x-ray review, medication adjustments. Pertinent ED findings/workup T 101.3 POX 92% Review BC, 13.7/neutrophilia Rocephin administered BC Primary hospital problems: Pneumonia, suspect left upper lobe. CAP with recent ABX use. Doubtful if pseudomonal pathogen--no hx of VAP, or central catheters. COPD/asthma with mild acute exacerbation Hypokalemia--likely diuretic and steroid-induced Generalized weakness, deconditioning Sub-optimal anticoagulation Chronic steroid use Multiple allergies Chronic conditions: Atrial fibrillation, [id number] 5, DAPT CAD: Most recent stent 08/16/16, DAPT, no ischemic picture HFpEF: Grade I diastolic dysfunction and EF 55% HTN, stable, no s/s sepsis S/p pacemaker, hx AV node ablation BPH: Finasteride, tamsulosin. OA: COT Vitamin D deficiency, D3. Chronic vertigo, Meclizine prn. DVT prophylaxis, DAPT and SCD. Code status: DO NOT RESUSCITATE MDM,/disposition, continue inpatient, Cont Rocephin, Added Azithromycin, DC Vancomycin on 12/16. No MRSA Hx, Hold LABA, O2 TKS >90%, Prednisone 40mg daily, change DuoNebs to Q8h. Mucinex 600mg BID, favorable procalcitonin level, Correct potassium, discontinue telemetry, Adjust Coumadin, I/O, Sputum/BC surveillance. Repeat CBC, BMP, and INR in am. Patient is doing well clinically anticipate discharge likely in the a.m. Restart back is LABA upon discharge
[2017-12-16] MEDS ORDERED: Polyethylene Glycol 3350 Powder 17 GM Packet PO PRN (09:24)
[2017-12-16] MEDS ORDERED: Meclizine 25 MG Tab PO PRN (09:24)
[2017-12-16] MEDS ORDERED: EPINEPHrine 1:10,000 1 MG/10 ML Syringe IVPUSH PRN (09:26)
[2017-12-16] MEDS ORDERED: Lidocaine 2% 100 MG/5 ML Syringe IVPUSH PRN (09:26)
[2017-12-16] MEDS ORDERED: Nitroglycerin 0.4 MG Tab.SL SL PRN (09:26)
[2017-12-16] MEDS ORDERED: Atropine 0.1 MG/ML 10 ML Syringe IVPUSH PRN (09:26)
[2017-12-16] MEDS ORDERED: Sodium Chloride 0.9% 5 ML Syringe FLUSH PRN (09:44)
[2017-12-16] MEDS: guaiFENesin 600 MG Tab.ER PO SCH ×2 (10:42→20:45)
[2017-12-16] MEDS: Finasteride 5 MG Tab PO SCH (11:27)
[2017-12-16] MEDS: Diltiazem 180 MG Cap.CD PO SCH (11:27)
[2017-12-16] MEDS: Clopidogrel 75 MG Tab PO SCH (11:27)
[2017-12-16] MEDS: Azithromycin 500 MG in Sodium Chloride 0.9% 250 ML IV SCH (11:27)
[2017-12-16] MEDS ORDERED: predniSONE 10 MG Tab PO SCH (11:30)
[2017-12-16] MEDS ORDERED: Furosemide 20 MG Tab PO SCH (11:30)
[2017-12-16] MEDS: predniSONE 20 MG Tab PO SCH (11:39)
[2017-12-16] MEDS ORDERED: Acetaminophen/HYDROcodone 325-5 MG Tab PO SCH (14:00)
[2017-12-16] MEDS: Furosemide 20 MG Tab PO SCH (14:44)
[2017-12-16] MEDS ORDERED: Warfarin 2.5 MG Tab PO SCH (18:00)
[2017-12-16] MEDS: Cholecalciferol (Vitamin D3) 1,000 Unit Tab PO SCH (20:45)
[2017-12-16] MEDS: Tamsulosin 0.4 MG Cap.ER PO SCH (20:45)
[2017-12-16] MEDS: cefTRIAXone 2 GM Vial IVPUSH SCH (20:45)
[2017-12-17] MEDS: Albuterol/Ipratropium 3.0-0.5 MG/3 ML Neb Soln NEB SCH ×5 (05:45→23:31)
[2017-12-17] MEDS: Furosemide 20 MG Tab PO SCH ×2 (06:27→15:31)
[2017-12-17 07:52] LABS: ANION GAP 9.1 mmol/L (5-15); CHLORIDE,CL 104 mmol/L (98-115); SODIUM,NA 140 mmol/L (136-145)
[2017-12-17] MEDS: predniSONE 20 MG Tab PO SCH (08:04)
[2017-12-17] MEDS: Diltiazem 180 MG Cap.CD PO SCH (08:05)
[2017-12-17] MEDS: guaiFENesin 600 MG Tab.ER PO SCH ×2 (08:05→20:51)
[2017-12-17] MEDS: Finasteride 5 MG Tab PO SCH (08:05)
[2017-12-17] MEDS: Clopidogrel 75 MG Tab PO SCH (08:05)
--- NOTE | 2017-12-17 09:07 | PCM.PN ---
- General Info Date of Service: 12/17/17 Functional Status: Reports: Pain Controlled, Tolerating Diet, Incentive Spirometry, Other (States he feels much better, no fever chills or diaphoresis, more energy, less shortness of breath). Denies: New Symptoms - Review of Systems General: Denies: Fever, Weakness, Fatigue, Malaise, Chills, Night Sweats HEENT: Reports: No Symptoms Pulmonary: Reports: Shortness of Breath (Chronic), Cough. Denies: Wheezing Cardiovascular: Reports: Dyspnea on Exertion. Denies: Orthopnea, Edema Gastrointestinal: Reports: No Symptoms Genitourinary: Reports: No Symptoms Musculoskeletal: Reports: No Symptoms Skin: Reports: Dryness, Bruising Neurological: Reports: Difficulty Walking. Denies: Confusion, Dizziness, Change in Speech, Gait Disturbance Psychiatric: Reports: No Symptoms - Patient Data Vitals - Most Recent: Last Vital Signs Temp 99.4 F 12/17/17 06:21 Pulse 91 12/17/17 08:05 Resp 20 12/17/17 06:21 BP 135/72 12/17/17 08:05 Pulse Ox 95 12/17/17 06:21 Weight - Most Recent: 179 lb 6.4 oz I&O - Last 24 Hours: Intake & Output 12/16/17 12/17/17 12/17/17 22:59 06:59 14:59 Intake Total 300 500 Balance 300 500 Lab Results Last 24 Hours: Laboratory Results - last 24 hr 12/16/17 12/17/17 12/17/17 Range/Units 07:10 07:10 07:10 WBC 14.97 H (5.00-10.00) 10^3/uL RBC 4.12 L (4.50-6.00) 10^6/uL Hgb 9.8 L (13.0-17.0) g/dL Hct 31.7 L (40.0-52.0) % MCV 76.9 L (82.0-92.0) fL MCH 23.8 L (27.0-31.0) pg MCHC 30.9 L (32.0-36.0) g/dL RDW 18.2 H (11.5-14.5) % Plt Count 247 (150-400) 10^3/uL MPV 10.0 (7.4-10.4) fL Add Manual Diff Yes Neutrophils % (Manual) 90 H (50-70) % Band Neutrophils % 1 L (4-12) % Lymphocytes % (Manual) 6 L (20-40) % Monocytes % (Manual) 3 (2-8) % Eosinophils % (Manual) 0 L (1-3) % Basophils % (Manual) 0 (0-1) % Absolute Neutrophils 13.47 Band Neutrophils # 0.15 Lymphocytes # (Manual) 0.90 Monocytes # (Manual) 0.45 PT 15.9 H (8.9-11.4) SEC INR 1.6 H (0.9-1.1) Sodium (136-145) mmol/L Potassium (3.3-5.3) mmol/L Chloride (98-115) mmol/L Carbon Dioxide (21.0-32.0) mmol/L Anion Gap (5-15) mmol/L BUN (6-25) mg/dL Creatinine (0.51-1.17) mg/dL Est Cr Clr Drug Dosing mL/min Estimated GFR (MDRD) mL/min Glucose mg/dL Calcium (8.7-10.3) mg/dL Procalcitonin 0.26 H (<0.10) ng/mL 12/17/17 Range/Units 07:10 WBC (5.00-10.00) 10^3/uL RBC (4.50-6.00) 10^6/uL Hgb (13.0-17.0) g/dL Hct (40.0-52.0) % MCV (82.0-92.0) fL MCH (27.0-31.0) pg MCHC (32.0-36.0) g/dL RDW (11.5-14.5) % Plt Count (150-400) 10^3/uL MPV (7.4-10.4) fL Add Manual Diff Neutrophils % (Manual) (50-70) % Band Neutrophils % (4-12) % Lymphocytes % (Manual) (20-40) % Monocytes % (Manual) (2-8) % Eosinophils % (Manual) (1-3) % Basophils % (Manual) (0-1) % Absolute Neutrophils Band Neutrophils # Lymphocytes # (Manual) Monocytes # (Manual) PT (8.9-11.4) SEC INR (0.9-1.1) Sodium 140 (136-145) mmol/L Potassium 3.2 L (3.3-5.3) mmol/L Chloride 104 (98-115) mmol/L Carbon Dioxide 30.1 (21.0-32.0) mmol/L Anion Gap 9.1 (5-15) mmol/L BUN 34 H (6-25) mg/dL Creatinine 0.93 (0.51-1.17) mg/dL Est Cr Clr Drug Dosing 57.78 mL/min Estimated GFR (MDRD) > 60 mL/min Glucose 138 mg/dL Calcium 8.5 L (8.7-10.3) mg/dL Procalcitonin (<0.10) ng/mL [place] Results Last 24 Hours: Microbiology 12/16/17 08:30 Gram Stain - Final Wound - Arm, Left 12/15/17 21:52 Aerobic Blood Culture - Preliminary Blood - Venous NO GROWTH AFTER 1 DAY Anaerobic Blood Culture - Preliminary NO GROWTH AFTER 1 DAY 12/15/17 21:15 Aerobic Blood Culture - Preliminary Blood NO GROWTH AFTER 1 DAY Anaerobic Blood Culture - Preliminary NO GROWTH AFTER 1 DAY Med Orders - Current: Current Medications Acetaminophen (Tylenol) 650 mg PO Q6H PRN PRN Reason: Pain (Mild 1-3)/fever Last Admin: 12/16/17 00:02 Dose: 650 mg Hydrocodone Bitart/Acetaminophen ([place] 325-5 Mg) 1 tab PO TID PRN PRN Reason: Pain (moderate 4-6) Albuterol/Ipratropium (Duoneb 3.0-0.5 Mg/3 Ml) 3 ml NEB Q6HRRT [facility] Last Admin: 12/17/17 05:45 Dose: 3 ml Arformoterol Tartrate (Brovana) 15 mcg INH BIDRT [facility] Last Admin: 12/16/17 07:39 Dose: 15 mcg Atropine Sulfate (Atropine 0.1 Mg/Ml) 0 mg IVPUSH ASDIRECTED PRN PRN Reason: Heart Ceftriaxone Sodium (Rocephin) 2 gm IVPUSH Q24H [facility] Last Admin: 12/16/17 20:45 Dose: 2 gm Cholecalciferol (Vitamin D3) 5,000 units PO BEDTIME [facility] Last Admin: 12/16/17 20:45 Dose: 5,000 units Clopidogrel Bisulfate (Plavix) 75 mg PO DAILY [facility] Last Admin: 12/17/17 08:05 Dose: 75 mg Diltiazem HCl (Cardizem Cd) 180 mg PO DAILY [facility] Last Admin: 12/17/17 08:05 Dose: 180 mg Epinephrine HCl (Epinephrine 1:10,000) 1 mg IVPUSH ASDIRECTED PRN PRN Reason: Heart Finasteride (Proscar) 5 mg PO DAILY [facility] Last Admin: 12/17/17 08:05 Dose: 5 mg Furosemide (Lasix) 60 mg PO DAILY@0700 [facility] Last Admin: 12/17/17 06:27 Dose: 60 mg Furosemide (Lasix) 20 mg PO DAILY@1500 [facility] Last Admin: 12/16/17 14:44 Dose: 20 mg Guaifenesin (Mucinex) 600 mg PO BID [facility] Last Admin: 12/17/17 08:05 Dose: 600 mg Azithromycin 500 mg/ Sodium (Chloride) 250 mls @ 250 mls/hr IV Q24H [facility] Last Admin: 12/16/17 11:27 Dose: 250 mls/hr Sodium Chloride (Normal Saline) 50 mls @ 250 mls/hr IV DAILY@1100 [facility] Lidocaine HCl (Xylocaine 2%) 0 mg IVPUSH ASDIRECTED PRN PRN Reason: Heart Meclizine HCl (Antivert) 25 mg PO Q6H PRN PRN Reason: Dizziness Nitroglycerin (Nitrostat) 0.4 mg SL ASDIRECTED PRN PRN Reason: Heart Polyethylene Glycol (Miralax) 17 gm PO BEDTIME PRN PRN Reason: Constipation Prednisone (Prednisone) 40 mg PO WITHBREAKFAST [facility] Last Admin: 12/17/17 08:04 Dose: 40 mg Sodium Chloride (Syrex Flush) 5 ml FLUSH Q8HR PRN PRN Reason: Keep Vein Open Tamsulosin HCl (Flomax) 0.4 mg PO BEDTIME [facility] Last Admin: 12/16/17 20:45 Dose: 0.4 mg Warfarin Sodium (Coumadin) 1.25 mg PO DAILY@1800 [facility] Warfarin Sodium (Coumadin) 2.5 mg PO SuTuWeThSa@1800 [facility] Discontinued Medications Albuterol/Ipratropium (Duoneb 3.0-0.5 Mg/3 Ml) Confirm Administered Dose 3 ml .ROUTE .STK-MED ONE Stop: 12/15/17 21:31 Last Admin: 12/15/17 21:47 Dose: Not Given Albuterol/Ipratropium (Duoneb 3.0-0.5 Mg/3 Ml) 3 ml NEB ONETIME ONE Stop: 12/15/17 21:29 Last Admin: 12/15/17 21:47 Dose: 3 ml Ceftriaxone Sodium (Rocephin) 2 gm IVPUSH ONETIME ONE Stop: 12/15/17 21:56 Last Admin: 12/16/17 00:02 Dose: Not Given Ceftriaxone Sodium (Rocephin) Confirm Administered Dose 2 gm .ROUTE .STK-MED ONE Stop: 12/15/17 22:34 Last Admin: 12/15/17 23:01 Dose: 2 gm Furosemide (Lasix) 60 mg PO DAILY [facility] Last Admin: 12/16/17 11:39 Dose: 60 mg Dextrose/Sodium Chloride (Dextrose 5%-1/2 Ns) 1,000 mls @ 50 mls/hr IV ASDIRECTED [facility] Vancomycin HCl 1.25 gm/ Sodium (Chloride) 250 mls @ 166.667 mls/hr IV Q24H [facility] Last Admin: 12/16/17 00:23 Dose: 166.667 mls/hr Methylprednisolone Sodium Succinate (Solu-Medrol) 125 mg IVPUSH ONETIME ONE Stop: 12/15/17 22:22 Last Admin: 12/15/17 22:33 Dose: 125 mg Prednisone (Prednisone) 10 mg PO WITHBREAKFAST [facility] Trazodone HCl (Trazodone) 50 mg PO ONETIME ONE Stop: 12/15/17 23:48 Last Admin: 12/16/17 00:02 Dose: 50 mg Vancomycin HCl (Pharmacy To Dose - Vancomycin) 1 dose .XX ASDIRECTED [facility] Warfarin Sodium 2 mg/ Warfarin (Sodium 5 mg) 7 mg PO DAILY [facility] Stop: 12/16/17 23:00 Last Admin: 12/16/17 10:42 Dose: 7 mg - Exam Quality Assessment: Supplemental Oxygen General: Alert, Oriented, Cooperative Neck: No JVD Lungs: Decreased Breath Sounds. No: Crackles, Rales, Wheezing Cardiovascular: Regular Rate, Regular Rhythm GI/Abdominal Exam: Soft (Male) Exam: Deferred Back Exam: No: CVA Tenderness (L) Extremities: No Pedal Edema Peripheral Pulses: 1+: Radial (R), 2+: Radial (L) Skin: Other (brawniness) Psy/Mental Status: Alert, Normal Affect, Normal Mood - Problem List Review Problem List Initiated/Reviewed/Updated: Yes - My Orders Last 24 Hours: My Active Orders 12/16/17 09:24 Meclizine [Antivert] 25 mg PO Q6H PRN Polyethylene Glycol 3350 [MiraLAX] 17 gm PO BEDTIME PRN 12/16/17 09:44 Sodium Chloride 0.9% [Syrex Flush] 5 ml FLUSH Q8HR PRN Convert IV to Saline Lock [OM.PC] Routine 12/16/17 10:30 guaiFENesin [Mucinex] 600 mg PO BID 12/16/17 11:00 Azithromycin [Zithromax] 500 mg Sodium Chloride 0.9% [Normal Saline] 250 ml IV Q24H 12/16/17 11:30 Clopidogrel [Plavix] 75 mg PO DAILY Diltiazem [Cardizem CD] 180 mg PO DAILY Finasteride [Proscar] 5 mg PO DAILY predniSONE 40 mg PO WITHBREAKFAST 12/16/17 15:00 Furosemide [Lasix] 20 mg PO DAILY@1500 12/16/17 18:00 Warfarin [Coumadin] 1.25 mg PO DAILY@1800 12/16/17 21:00 Cholecalciferol (Vitamin D3) [Vitamin D3] 5,000 units PO BEDTIME Tamsulosin [Flomax] 0.4 mg PO BEDTIME 12/16/17 Lunch Heart Healthy Diet [DIET] 12/17/17 07:00 Furosemide [Lasix] 60 mg PO DAILY@0700 12/17/17 11:00 Sodium Chloride 0.9% [Normal Saline] 50 ml IV DAILY@1100 12/18/17 18:00 Warfarin [Coumadin] 2.5 mg PO SuTuWeThSa@1800 - Plan Plan:: HISTORY OF PRESENT ILLNESS Maninder is an 87-year-old gentleman who presented to the ED due to chest pain and more shortness of breath over the past 24 hours. He had not been feeling well a couple days prior with diaphoresis, weakness, fatigue, decreased appetite along with chills with increase in mucus production along with consistency and color. He does have multiple past admissions for either COPD exacerbation and/or pneumonia and is on chronic home oxygen. He had recently been on cephalosporin due to an infection in his left arm. Patient did receive Shingrex Vaccination Patient required further intervention upon arrival to the floor including medication reconciliation, chest x-ray review, medication adjustments. Pertinent ED findings/workup T 101.3 POX 92% Review BC, 13.7/neutrophilia Rocephin administered BC Primary hospital problems: Pneumonia, suspect left upper lobe. CAP with recent ABX use. Possible pseudomonal pathogen however no hx of VAP, or central catheters. COPD/asthma with mild acute exacerbation Generalized weakness, deconditioning Sub-optimal anticoagulation Chronic steroid use Multiple allergies Chronic conditions: Atrial fibrillation, [id number] 5, DAPT CAD: Most recent stent 08/16/16, DAPT, no ischemic picture HFpEF: Grade I diastolic dysfunction and EF 55% HTN, stable, no s/s sepsis S/p pacemaker, hx AV node ablation BPH: Finasteride, tamsulosin. OA: COT Vitamin D deficiency, D3. Chronic vertigo, Meclizine prn. DVT prophylaxis, DAPT and SCD. Code status: DO NOT RESUSCITATE MDM,/disposition, continue inpatient, Cont Rocephin, Add Azithromycin, DC Vancomycin, No MRSA Hx, Hold LABA, O2 TKS >90%, Prednisone 40mg daily, DuoNebs q6h, saline lock IV, Mucinex 600mg BID, Adjust Coumadin, I/O, Sputum/BC surveillance Repeat CBC, BMP, and INR in am.
[2017-12-17] MEDS: Sodium Chloride 0.9% 50 ML IV SCH (11:28)
[2017-12-17] MEDS: Azithromycin 500 MG in Sodium Chloride 0.9% 250 ML IV SCH (11:28)
[2017-12-17] MEDS ORDERED: Warfarin 5 MG Tab PO ONE (12:00)
[2017-12-17] MEDS ORDERED: Potassium Bicarbonate/Potassium Chloride 25 MEQ Tab.Eff PO ONE ×2 (12:00→17:00)
[2017-12-17] MEDS: Tamsulosin 0.4 MG Cap.ER PO SCH (20:51)
[2017-12-17] MEDS: Cholecalciferol (Vitamin D3) 1,000 Unit Tab PO SCH (20:52)
[2017-12-17] MEDS: cefTRIAXone 2 GM Vial IVPUSH SCH (20:55)
[2017-12-17] MEDS: Acetaminophen 325 MG Tab PO PRN (21:05)
[2017-12-18] MEDS: Albuterol/Ipratropium 3.0-0.5 MG/3 ML Neb Soln NEB SCH ×2 (05:10→10:50)
[2017-12-18] MEDS: Furosemide 20 MG Tab PO SCH (07:12)
[2017-12-18] MEDS: Acetaminophen 325 MG Tab PO PRN (07:30)
[2017-12-18 07:47] LABS: ANION GAP 15.1 mmol/L (5-15); CHLORIDE,CL 106 mmol/L (98-115); SODIUM,NA 149 mmol/L (136-145)
[2017-12-18] MEDS: Diltiazem 180 MG Cap.CD PO SCH (08:51)
[2017-12-18] MEDS: predniSONE 20 MG Tab PO SCH (08:51)
[2017-12-18] MEDS: Clopidogrel 75 MG Tab PO SCH (08:52)
[2017-12-18] MEDS: Finasteride 5 MG Tab PO SCH (08:52)
[2017-12-18] MEDS: guaiFENesin 600 MG Tab.ER PO SCH (08:52)
[2017-12-18 08:53] VITALS: BP 115/54
[2017-12-18] MEDS: Azithromycin 500 MG in Sodium Chloride 0.9% 250 ML IV SCH (10:42)
[2017-12-18] MEDS: Sodium Chloride 0.9% 50 ML IV SCH (10:43)
--- NOTE | 2017-12-18 11:49 | PCM.DCSUM1 ---
Discharge Summary - Hospital Course Free Text/Narrative:: Maninder is an 87-year-old gentleman who was admitted through ER on 12/15/17 with chest pain and more shortness of breath over the previous 24 hours. He had not been feeling well a couple days prior with diaphoresis, weakness, fatigue, decreased appetite along with chills with increase in mucus production along with consistency and color. He does have multiple past admissions for either COPD exacerbation and/or pneumonia and is on chronic home oxygen. He had recently been on cephalosporin due to cellulitis of left arm. PT was admitted with CAP and COPD exacerbation. He was treated with rocephin and azithromycin IV as well as his DuoNebs and Brovana. He had been on prednisone 10 mg daily at home. He received solumedrol and oral steroid boost of Prednisone 40 mg daily while hospitalized. Will begin prednisone taper if appropriate at time of clinic follow up on Wednesday. He had leukocytosis with WBC 13.75 on admission. On day of discharge leukocytes continue elevated at 14.64 with Neutrophils 87.6. He is feeling well and wanting to go home. No wheezing, chronic shortness of breath which he states is at his baseline and occasional cough. Leukocytosis is being attributed to increased steroids. Pt has Diastolic and systolic CHF. BNP was mildly elevated at 183 on admission. He is on lasix 60 mg in am and 20 mg in afternoon at home. This was unchanged in the hospital. He had no increased pedal edema. Edema trace on discharge. Pt has AFib and is on anticoagulation with coumadin 2.5 mg 5 days a week with 1.25 mg Wednesday and Wednesday. His INR on discharge was 3.1. He is to take coumadin 1.25 mg tonight, then resume his regular schedule and recheck INR on Wednesday at clinic follow up. PT has CAD with PVD and is on plavix and cardizem. He had no complaints of chest pain during hospital stay. PT has BPH managed with flomax and Proscar. HPI Initial Comments: . Brief History: . Diagnosis: Stroke: No - Discharge Data Discharge Date: 12/18/17 Discharge Disposition: Home, Self-Care 01 Condition: Good - Discharge Diagnosis/Problem(s) (1) COPD exacerbation SNOMED Code(s): 835865776 ICD Code: J44.1 - CHRONIC OBSTRUCTIVE PULMONARY DISEASE W (ACUTE) EXACERBATION Status: Acute Current Visit: Yes (2) CAP (community acquired pneumonia) SNOMED Code(s): 357203476 ICD Code: J18.9 - PNEUMONIA, UNSPECIFIED ORGANISM Status: Acute Current Visit: Yes Qualifiers: Laterality: unspecified laterality Qualified Code(s): J18.9 - Pneumonia, unspecified organism - Patient Summary/Data Consults: Consultations 12/15/17 23:22 Consult to Filtration Supervisor [CONS] Routine Respiratory Care Assess and Treatment [CONS] Routine - Patient Instructions Diet: Heart Healthy Diet Activity: As Tolerated Showering/Bathing: August Shower - Discharge Plan *PRESCRIPTION DRUG MONITORING PROGRAM REVIEWED*: Yes *COPY OF PRESCRIPTION DRUG MONITORING REPORT IN PATIENT SHALOM: Yes (reviewed in [place] chart 07/30/17) Prescriptions/Med Rec: Amoxicillin/Clavulanate K [Augmentin 875-125 MG] 1 tab PO BID #10 tablet Azithromycin [Zithromax] 250 mg PO DAILY 4 Days tab Home Medications: Home Meds Albuterol/Ipratropium [DuoNeb 3.0-0.5 MG/3 ML] 1 ampule INH Q6H 03/22/14 [ History] Arformoterol [Brovana] 1 ampule INH BID 03/22/14 [History] Finasteride 5 mg PO DAILY 03/22/14 [History] Furosemide 60 mg PO DAILY@0700 03/22/14 [History] Nitroglycerin [Nitrostat] 0.4 mg SL ASDIRECTED PRN 03/22/14 [History] Tamsulosin [Flomax] 0.4 mg PO BEDTIME 09/10/14 [History] Cholecalciferol (Vitamin D3) [Vitamin D3] 5,000 units PO BEDTIME 01/26/15 [ History] Warfarin [Coumadin] 2.5 mg PO SUTUWETHSA 02/21/15 [History] Clopidogrel [Plavix] 75 mg PO DAILY 04/01/16 [History] Hydrocodone/Acetaminophen [Hydrocodon-Acetaminophen 5-325] 1 each PO TID PRN [History] Meclizine [Antivert] 25 mg PO Q6H PRN 04/01/16 [History] Diltiazem HCl [Cartia Xt] 180 mg PO DAILY 08/04/17 [History] Prednisone [IJD: Prednisone] 10 mg PO DAILY #0 08/05/17 [Rx] Furosemide [Lasix] 20 mg PO DAILY@1500 12/16/17 [History] Polyethylene Glycol 3350 [MiraLAX] 17 gm PO BEDTIME PRN 12/16/17 [History] Acetaminophen [Tylenol] 650 mg PO Q6H PRN tablet 12/18/17 [Rx] Acetaminophen/HYDROcodone [[place] 325-5 MG] 1 tab PO TID PRN tablet 12/18/17 [Rx ] Albuterol/Ipratropium [DuoNeb 3.0-0.5 MG/3 ML] 3 ml NEB Q6HRRT neb 12/18/17 [Rx ] Amoxicillin/Clavulanate K [Augmentin 875-125 MG] 1 tab PO BID #10 tablet [Rx] Arformoterol [Brovana] 15 mcg INH BIDRT neb 12/18/17 [Rx] Azithromycin [Zithromax] 250 mg PO DAILY 4 Days tab 12/18/17 [Rx] Furosemide [Lasix] 20 mg PO DAILY@1500 tablet 12/18/17 [Rx] Nitroglycerin [Nitrostat] 0.4 mg SL ASDIRECTED PRN tab.sl 12/18/17 [Rx] Polyethylene Glycol 3350 [MiraLAX] 17 gm PO BEDTIME PRN packet 12/18/17 [Rx] Warfarin [Coumadin] 1.25 mg PO DAILY #0 12/18/17 [Rx] guaiFENesin [Mucinex] 600 mg PO BID tab.er 12/18/17 [Rx] predniSONE 40 mg PO WITHBREAKFAST tablet 12/18/17 [Rx] Other Amb Orders: Warfarin Coumadin Justification [AST] Location: None Selected Forms: ED Department Discharge Referrals: Nikos Acosta NP [Nurse Practitioner] - 12/21/17 2:20 pm - General Info Date of Service: 12/18/17 Admission Dx/Problem (Free Text: Admission Diagnosis/Problem Admission Diagnosis/Problem CAP (community acquired pneumonia) due to MSSA ( methicillin sensitive Staphylococcus aureus) Functional Status: Reports: Tolerating Diet, Ambulating - Review of Systems General: Reports: No Symptoms HEENT: Reports: No Symptoms Pulmonary: Reports: Shortness of Breath (chronic shortness of breath which he states is his normal.), Cough (occasional cough). Denies: Wheezing Cardiovascular: Reports: Edema (mild chronic edema). Denies: Chest Pain, Palpitations Gastrointestinal: Reports: No Symptoms Genitourinary: Reports: No Symptoms Neurological: Reports: No Symptoms - Patient Data Vitals - Most Recent: Last Vital Signs Temp 97.8 F 12/18/17 06:39 Pulse 72 12/18/17 10:53 Resp 20 12/18/17 06:39 BP 115/54 L 12/18/17 08:51 Pulse Ox 99 12/18/17 10:53 Weight - Most Recent: 179 lb 6.4 oz I&O - Last 24 hours: Intake & Output 12/17/17 12/18/17 12/18/17 22:59 06:59 14:59 Intake Total 800 200 Balance 800 200 Lab Results - Last 24 hrs: Laboratory Results - last 24 hr 12/18/17 12/18/17 12/18/17 Range/Units 07:10 07:10 07:10 WBC 14.64 H (5.00-10.00) 10^3/uL RBC 4.43 L (4.50-6.00) 10^6/uL Hgb 10.2 L (13.0-17.0) g/dL Hct 34.8 L (40.0-52.0) % MCV 78.6 L (82.0-92.0) fL MCH 23.0 L (27.0-31.0) pg MCHC 29.3 L (32.0-36.0) g/dL RDW 18.4 H (11.5-14.5) % Plt Count 303 (150-400) 10^3/uL MPV 9.8 (7.4-10.4) fL Immature Gran % (Auto) 0.5 (0.0-5.0) % Neut % (Auto) 87.6 H (50.0-70.0) % Lymph % (Auto) 7.0 L (20.0-40.0) % [place] % (Auto) 4.8 (2.0-8.0) % Eos % (Auto) 0.1 L (1.0-3.0) % Baso % (Auto) 0.0 (0.0-1.0) % Immature Gran # (Auto) 0.07 (0.00-0.50) 10^3/uL Neut # (Auto) 12.82 H (2.50-7.00) 10^3/uL Lymph # (Auto) 1.03 (1.00-4.00) 10^3/uL [place] # (Auto) 0.71 (0.10-0.80) 10^3/uL Eos # (Auto) 0.01 L (0.10-0.30) 10^3/uL Baso # (Auto) 0.00 (0.00-0.10) 10^3/uL PT 31.8 H D (8.9-11.4) SEC INR 3.2 H (0.9-1.1) Sodium 149 H (136-145) mmol/L Potassium 3.8 (3.3-5.3) mmol/L Chloride 106 (98-115) mmol/L Carbon Dioxide 31.7 (21.0-32.0) mmol/L Anion Gap 15.1 H (5-15) mmol/L BUN 31 H (6-25) mg/dL Creatinine 0.93 (0.51-1.17) mg/dL Est Cr Clr Drug Dosing 57.78 mL/min Estimated GFR (MDRD) > 60 mL/min Glucose 89 mg/dL Calcium 8.5 L (8.7-10.3) mg/dL [facility] Results - Last 24 hrs: Microbiology 12/16/17 08:30 Miscellaneous Reference Culture - Preliminary Wound - Arm, Left YEAST Gram Stain - Final 12/16/17 12:10 - Final Sputum - Expectorated 12/15/17 21:52 Aerobic Blood Culture - Preliminary Blood - Venous NO GROWTH AFTER 2 DAYS Anaerobic Blood Culture - Preliminary NO GROWTH AFTER 2 DAYS 12/15/17 21:15 Aerobic Blood Culture - Preliminary Blood NO GROWTH AFTER 2 DAYS Anaerobic Blood Culture - Preliminary NO GROWTH AFTER 2 DAYS Med Orders - Current: Current Medications Acetaminophen (Tylenol) 650 mg PO Q6H PRN PRN Reason: Pain (Mild 1-3)/fever Last Admin: 12/18/17 07:30 Dose: 650 mg Hydrocodone Bitart/Acetaminophen ([place] 325-5 Mg) 1 tab PO TID PRN PRN Reason: Pain (moderate 4-6) Albuterol/Ipratropium (Duoneb 3.0-0.5 Mg/3 Ml) 3 ml NEB Q6HRRT ON [facility] OF [facility] Last Admin: 12/18/17 10:50 Dose: 3 ml Arformoterol Tartrate (Brovana) 15 mcg INH BIDRT ON [facility] OF [facility] Last Admin: 12/16/17 07:39 Dose: 15 mcg Atropine Sulfate (Atropine 0.1 Mg/Ml) 0 mg IVPUSH ASDIRECTED PRN PRN Reason: Heart Ceftriaxone Sodium (Rocephin) 2 gm IVPUSH Q24H ON [facility] OF [facility] Last Admin: 12/17/17 20:55 Dose: 2 gm Cholecalciferol (Vitamin D3) 5,000 units PO BEDTIME [facility] Last Admin: 12/17/17 20:52 Dose: 5,000 units Clopidogrel Bisulfate (Plavix) 75 mg PO DAILY [facility] Last Admin: 12/18/17 08:52 Dose: 75 mg Diltiazem HCl (Cardizem Cd) 180 mg PO DAILY [facility] Last Admin: 12/18/17 08:51 Dose: 180 mg Epinephrine HCl (Epinephrine 1:10,000) 1 mg IVPUSH ASDIRECTED PRN PRN Reason: Heart Finasteride (Proscar) 5 mg PO DAILY [facility] Last Admin: 12/18/17 08:52 Dose: 5 mg Furosemide (Lasix) 60 mg PO DAILY@0700 [facility] Last Admin: 12/18/17 07:12 Dose: 60 mg Furosemide (Lasix) 20 mg PO DAILY@1500 [facility] Last Admin: 12/17/17 15:31 Dose: 20 mg Guaifenesin (Mucinex) 600 mg PO BID ON [facility] Last Admin: 12/18/17 08:52 Dose: 600 mg Azithromycin 500 mg/ Sodium (Chloride) 250 mls @ 250 mls/hr IV Q24H ON [facility] Last Admin: 12/18/17 10:42 Dose: 250 mls/hr Sodium Chloride (Normal Saline) 50 mls @ 250 mls/hr IV DAILY@1100 ON [facility] Last Admin: 12/18/17 10:43 Dose: 250 mls/hr Lidocaine HCl (Xylocaine 2%) 0 mg IVPUSH ASDIRECTED PRN PRN Reason: Heart Meclizine HCl (Antivert) 25 mg PO Q6H PRN PRN Reason: Dizziness Nitroglycerin (Nitrostat) 0.4 mg SL ASDIRECTED PRN PRN Reason: Heart Polyethylene Glycol (Miralax) 17 gm PO BEDTIME PRN PRN Reason: Constipation Prednisone (Prednisone) 40 mg PO WITHBREAKFAST ON [facility] OF [facility] Last Admin: 12/18/17 08:51 Dose: 40 mg Sodium Chloride (Syrex Flush) 5 ml FLUSH Q8HR PRN PRN Reason: Keep Vein Open Last Admin: 12/17/17 20:57 Dose: 5 ml Tamsulosin HCl (Flomax) 0.4 mg PO BEDTIME ON [facility] Last Admin: 12/17/17 20:51 Dose: 0.4 mg Warfarin Sodium (Coumadin) 1.25 mg PO DAILY@1800 [facility] Warfarin Sodium (Coumadin) 2.5 mg PO SuTuWeThSa@1800 [facility] Discontinued Medications Albuterol/Ipratropium (Duoneb 3.0-0.5 Mg/3 Ml) Confirm Administered Dose 3 ml .ROUTE .STK-MED ONE Stop: 12/15/17 21:31 Last Admin: 12/15/17 21:47 Dose: Not Given Albuterol/Ipratropium (Duoneb 3.0-0.5 Mg/3 Ml) 3 ml NEB ONETIME ONE Stop: 12/15/17 21:29 Last Admin: 12/15/17 21:47 Dose: 3 ml Ceftriaxone Sodium (Rocephin) 2 gm IVPUSH ONETIME ONE Stop: 12/15/17 21:56 Last Admin: 12/16/17 00:02 Dose: Not Given Ceftriaxone Sodium (Rocephin) Confirm Administered Dose 2 gm .ROUTE .STK-MED ONE Stop: 12/15/17 22:34 Last Admin: 12/15/17 23:01 Dose: 2 gm Furosemide (Lasix) 60 mg PO DAILY [facility] Last Admin: 12/16/17 11:39 Dose: 60 mg Dextrose/Sodium Chloride (Dextrose 5%-1/2 Ns) 1,000 mls @ 50 mls/hr IV ASDIRECTED ON LICENSE OF [facility] Vancomycin HCl 1.25 gm/ Sodium (Chloride) 250 mls @ 166.667 mls/hr IV Q24H ON [facility] OF [facility] Last Admin: 12/16/17 00:23 Dose: 166.667 mls/hr Methylprednisolone Sodium Succinate (Solu-Medrol) 125 mg IVPUSH ONETIME ONE Stop: 12/15/17 22:22 Last Admin: 12/15/17 22:33 Dose: 125 mg Potassium Bicarb/Potassium Chloride (Potassium Chloride, Effervescent) 25 meq PO ONETIME@1200 ONE Stop: 12/17/17 12:01 Last Admin: 12/17/17 12:30 Dose: 25 meq Potassium Bicarb/Potassium Chloride (Potassium Chloride, Effervescent) 25 meq PO ONETIME@1700 ONE Stop: 12/17/17 17:01 Last Admin: 12/17/17 17:36 Dose: 25 meq Prednisone (Prednisone) 10 mg PO WITHBREAKFAST ON LICENSE OF [facility] Trazodone HCl (Trazodone) 50 mg PO ONETIME ONE Stop: 12/15/17 23:48 Last Admin: 12/16/17 00:02 Dose: 50 mg Vancomycin HCl (Pharmacy To Dose - Vancomycin) 1 dose .XX ASDIRECTED ON LICENSE OF [facility] Warfarin Sodium 2 mg/ Warfarin (Sodium 5 mg) 7 mg PO DAILY ON LICENSE OF [facility] Stop: 12/16/17 23:00 Last Admin: 12/16/17 10:42 Dose: 7 mg Warfarin Sodium (Coumadin) 5 mg PO ONETIME@1200 ONE Stop: 12/17/17 12:01 Last Admin: 12/17/17 12:30 Dose: 5 mg - Exam Quality Assessment: Reports: Supplemental Oxygen General: Reports: Alert, Oriented Lungs: Reports: Clear to Auscultation, Decreased Breath Sounds, Other ( supplemental oxygen in place). Denies: Wheezing Cardiovascular: Reports: Regular Rate GI/Abdominal Exam: Soft, Non-Tender Extremities: Pedal Edema (trace pedal edema to ankles) Psy/Mental Status: Reports: Alert, Normal Affect, Normal Mood
[2017-12-18] MEDS ORDERED: Warfarin 2.5 MG Tab PO SCH (18:00)
== END 2017-12-18 12:50 | disposition home or self-care (01) | DRG 178 ==
LOC: KA.ED 20:30 → KA.MS 22:30 → UNDOADMIN 22:30
PROVIDERS: ADMIT Physician Assistant Surgical; ATTEND Family Medicine
DX: J18.9 Pneumonia, unspecified organism (principal); J15.211 Pneumonia due to Methicillin susceptible Staphylococcus aureus; J44.0 Chronic obstructive pulmonary disease with (acute) lower respiratory infection; J44.1 Chronic obstructive pulmonary disease with (acute) exacerbation; J45.901 Unspecified asthma with (acute) exacerbation; I50.9 Heart failure, unspecified; I50.42 Chronic combined systolic (congestive) and diastolic (congestive) heart failure; R09.02 Hypoxemia; I11.0 Hypertensive heart disease with heart failure; I48.91 Unspecified atrial fibrillation; K21.9 Gastro-esophageal reflux disease without esophagitis; K59.09 Other constipation; N40.0 Benign prostatic hyperplasia without lower urinary tract symptoms; M19.90 Unspecified osteoarthritis, unspecified site; E55.9 Vitamin D deficiency, unspecified; D64.9 Anemia, unspecified; D72.0 Genetic anomalies of leukocytes; H54.7 Unspecified visual loss; E87.6 Hypokalemia; T50.2X5A Adverse effect of carbonic-anhydrase inhibitors, benzothiadiazides and other diuretics, initial encounter; T38.0X5A Adverse effect of glucocorticoids and synthetic analogues, initial encounter; I25.10 Atherosclerotic heart disease of native coronary artery without angina pectoris; R42 Dizziness and giddiness; I73.9 Peripheral vascular disease, unspecified; Z66 Do not resuscitate; Z79.52 Long term (current) use of systemic steroids; Z85.89 Personal history of malignant neoplasm of other organs and systems; Z95.5 Presence of coronary angioplasty implant and graft; R50.9 Fever, unspecified; R07.9 Chest pain, unspecified; R06.02 Shortness of breath; R53.1 Weakness; Z79.01 Long term (current) use of anticoagulants; Z79.02 Long term (current) use of antithrombotics/antiplatelets; Z99.81 Dependence on supplemental oxygen; Z88.6 Allergy status to analgesic agent; Z88.2 Allergy status to sulfonamides; Z95.0 Presence of cardiac pacemaker; Z88.8 Allergy status to other drugs, medicaments and biological substances; Z79.899 Other long term (current) drug therapy; Z96.659 Presence of unspecified artificial knee joint; Z95.828 Presence of other vascular implants and grafts
CPT/HCPCS: 36415; 71046; 80048; 80053; 83605; 83880; 84145; 84484; 85025; 85610; 87040; 87070; 87205; 93005; 94640; 96374; 99285; A9270-GY; J0456; J0696; J2930; J3370; J7050; J7620-GY

== ENCOUNTER 2018-01-22 12:10 | Inpatient (IN) | payer MEDICARE, MEDICAID ==
[2018-01-22] MEDS ORDERED: Albuterol/Ipratropium 3.0-0.5 MG/3 ML Neb Soln NEB ONE (13:16)
[2018-01-22] MEDS ORDERED: methylPREDNISolone Sodium Succinate 125 MG/2 ML SDV IVPUSH ONE (13:16)
[2018-01-22 13:20] LABS: ANION GAP 10.6 mmol/L (5-15); CHLORIDE,CL 102 mmol/L (98-115); SODIUM,NA 142 mmol/L (136-145)
--- NOTE | 2018-01-22 13:24 | EDM.PDOC ---
ED HPI GENERAL MEDICAL PROBLEM - General Chief Complaint: General Stated Complaint: SHORTNESS OF BREATH Time Seen by Provider: 01/22/18 13:03 Source of Information: Reports: Patient, Family History Limitations: Reports: No Limitations - History of Present Illness INITIAL COMMENTS - FREE TEXT/NARRATIVE: Patient brought to ER with dyspnea and cough. This is a chronic problem for him but worse today. He uses oxygen at home 24/7 at 2.5 liter/min. He doesn't know if he has had a fever. He uses Duoneb 4x/day and Brovana bid and is on prednisone 10 mg/day. - Related Data Allergies Allergy/AdvReac Type Severity Reaction Status Date / Time atorvastatin calcium Allergy Cannot Verified 01/22/18 12:49 [From Lipitor] Remember ezetimibe [From Zetia] Allergy Joint Pain Verified 01/22/18 12:49 gabapentin Allergy Airway Verified 01/22/18 12:49 Tightness pregabalin [From Lyrica] Allergy Bronchospas Verified 01/22/18 12:49 ms roflumilast [From Daliresp] Allergy Stomach Verified 01/22/18 12:49 Upset Fmxojtg-Zyx-Rod Reductase Allergy Muscle Verified 01/22/18 12:49 Inhibitor Weakness Sulfa (Sulfonamide Allergy Cannot Verified 01/22/18 12:49 Antibiotics) Remember tramadol Allergy Cannot Verified 01/22/18 12:49 Remember Home Meds: Home Meds Arformoterol [Brovana] 1 ampule INH BID 03/22/14 [History] Finasteride 5 mg PO DAILY 03/22/14 [History] Furosemide 60 mg PO DAILY@0700 03/22/14 [History] Nitroglycerin [Nitrostat] 0.4 mg SL ASDIRECTED PRN 03/22/14 [History] Tamsulosin [Flomax] 0.4 mg PO BEDTIME 09/10/14 [History] Warfarin [Coumadin] 2.5 mg PO SUTUTHSA 02/21/15 [History] Clopidogrel [Plavix] 75 mg PO DAILY 04/01/16 [History] Hydrocodone/Acetaminophen [Hydrocodon-Acetaminophen 5-325] 1 each PO TID PRN [History] Diltiazem HCl [Cartia Xt] 180 mg PO DAILY 08/04/17 [History] Prednisone [IJD: Prednisone] 10 mg PO DAILY #0 04/19/18 [Rx] Albuterol/Ipratropium [DuoNeb 3.0-0.5 MG/3 ML] 3 ml NEB Q6HRRT neb 12/18/17 [Rx ] Furosemide [Lasix] 20 mg PO DAILY@1500 tablet 12/18/17 [Rx] Polyethylene Glycol 3350 [MiraLAX] 17 gm PO BEDTIME PRN packet 12/18/17 [Rx] Warfarin [Coumadin] 1.25 mg PO MOWEFR 01/22/18 [History] Past Medical History HEENT History: Reports: Cataract, Impaired Vision Cardiovascular History: Reports: Afib, Hypertension, Pacemaker, Stents Respiratory History: Reports: Asthma, COPD Other Respiratory History: Home O2. Gastrointestinal History: Reports: Cholelithiasis, Chronic Constipation, GERD, Hemorrhoids Genitourinary History: Reports: BPH, Prostate Disorder Musculoskeletal History: Reports: Arthritis, Back Pain, Chronic Other Musculoskeletal History: Paget's disease Endocrine/Metabolic History: Reports: Vitamin D Deficiency Hematologic History: Reports: Anemia, Blood Transfusion(s) Immunologic History: Reports: None Oncologic (Cancer) History: Reports: Other (See Below) Other Oncologic History: previous removal of lump and lymph nodes from neck. 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." Dermatologic History: Reports: Cellulitis - Infectious Disease History Infectious Disease History: Reports: Chicken Pox, Measles, Mumps - Past Surgical History HEENT Surgical History: Reports: Cataract Surgery Cardiovascular Surgical History: Reports: Carotid Stents Respiratory Surgical History: Reports: None Musculoskeletal Surgical History: Reports: Arthroscopic Knee, Knee Replacement Social & Family History - Family History Family Medical History: Unobtainable HEENT: Reports: None, Macular Degeneration Cardiac: Reports: IA Respiratory: Reports: COPD GI: Reports: None : Reports: None OBGYN: Reports: None Musculoskeletal: Reports: Arthritis Neurological: Reports: None Psychiatric: Reports: None Endocrine/Metabolic: Reports: Diabetes, type II Hematologic: Reports: None Oncologic: Reports: Breast - Caffeine Use Caffeine Use: Reports: Coffee - Living Situation & Occupation Living situation: Reports: ED ROS GENERAL - Review of Systems Review Of Systems: See Below Constitutional: Denies: Diaphoresis HEENT: Reports: No Symptoms Respiratory: Reports: Shortness of Breath, Cough, Sputum Cardiovascular: Denies: Chest Pain, Syncope GI/Abdominal: Denies: Abdominal Pain, Vomiting : Reports: No Symptoms Musculoskeletal: Reports: No Symptoms Skin: Reports: No Symptoms Neurological: Denies: Confusion, Headache, Seizure, Syncope Psychiatric: Denies: Agitation, Anxiety, Confusion ED EXAM, GENERAL - Physical Exam Exam: See Below Exam Limited By: No Limitations General Appearance: Alert, WD/WN, No Apparent Distress Eye Exam: Bilateral Eye: EOMI, Normal Inspection, PERRL Ears: Normal External Exam, Hearing Grossly Normal Nose: Normal Inspection, No Blood Throat/Mouth: Normal Inspection, Normal Lips, Normal Voice, No Airway Compromise Head: Atraumatic, Normocephalic Neck: Normal Inspection, Supple, Full Range of Motion Respiratory/Chest: No Accessory Muscle Use (and pursing lips), Decreased Breath Sounds, Crackles, Wheezing Cardiovascular: Regular Rate, Rhythm, No Murmur GI/Abdominal: Soft, Non-Tender, No Distention Back Exam: Normal Inspection, Full Range of Motion. No: CVA Tenderness (L), CVA Tenderness (R) Extremities: Normal Inspection, Non-Tender, No Pedal Edema Neurological: Alert, Oriented, Normal Cognition, No Motor/Sensory Deficits Psychiatric: Normal Affect, Normal Mood Skin Exam: Warm, Dry, Intact, Normal Color, No Rash Course - Vital Signs Last Recorded V/S: Last Vital Signs Temp 99.7 F 01/22/18 15:19 Pulse 76 01/22/18 15:19 Resp 20 01/22/18 15:19 BP 125/60 01/22/18 15:19 Pulse Ox 97 01/22/18 15:19 - Orders/Labs/Meds Orders: Active Orders 24 hr Category Date Time Status Chest 2V [CR] Stat Exams 01/22/18 12:37 Ordered CULTURE BLOOD [BC] Stat Lab 01/22/18 13:54 Ordered CULTURE BLOOD [BC] Stat Lab 01/22/18 13:54 Ordered Medication Orders Hydrocodone Bitart/Acetaminophen ([place] 325-5 Mg) tab PO TID PRN PRN Reason: severe pain Albuterol/Ipratropium (Duoneb 3.0-0.5 Mg/3 Ml) 3 ml NEB Q6HRRT EMA Arformoterol Tartrate (Brovana) mcg INH BID EMA Clopidogrel Bisulfate (Plavix) 75 mg PO DAILY EMA Diltiazem HCl (Cardizem Cd) 180 mg PO DAILY [facility] Finasteride (Proscar) 5 mg PO DAILY [facility] Furosemide (Lasix) 60 mg PO DAILY@0700 EMA Furosemide (Lasix) 20 mg PO DAILY@1500 [facility] [place] Nitroglycerin (Nitrostat) 0.4 mg SL ASDIRECTED PRN PRN Reason: Chest Pain Ondansetron HCl (Zofran Odt) 4 mg PO Q6H PRN PRN Reason: nausea, able to take PO Polyethylene Glycol (Miralax) 17 gm PO BEDTIME PRN PRN Reason: Constipation Prednisone (Prednisone) 10 mg PO DAILY [facility] Tamsulosin HCl (Flomax) 0.4 mg PO BEDTIME [facility] Warfarin Sodium (Coumadin) 1.25 mg PO MOWEFR [facility] [place] Warfarin Sodium (Coumadin) 2.5 mg PO SUTUTHSA [facility] Labs: Laboratory Tests 01/22/18 01/22/18 Range/Units 12:45 12:45 WBC 17.84 H (5.00-10.00) 10^3/uL RBC 4.99 (4.50-6.00) 10^6/uL Hgb 11.7 L D (13.0-17.0) g/dL Hct 39.6 L (40.0-52.0) % MCV 79.4 L (82.0-92.0) fL MCH 23.4 L (27.0-31.0) pg MCHC 29.5 L (32.0-36.0) g/dL RDW 18.4 H (11.5-14.5) % Plt Count 310 (150-400) 10^3/uL MPV 9.7 (7.4-10.4) fL Add Manual Diff Yes Neutrophils % (Manual) 90 H (50-70) % Lymphocytes % (Manual) 5 L (20-40) % Monocytes % (Manual) 4 (2-8) % Eosinophils % (Manual) 1 (1-3) % Absolute Neutrophils 16.0560 Lymphocytes # (Manual) 0.8920 Monocytes # (Manual) 0.7136 Eosinophils # (Manual) 0.1784 Sodium 142 (136-145) mmol/L Potassium 3.8 (3.3-5.3) mmol/L Chloride 102 (98-115) mmol/L Carbon Dioxide 33.2 H (21.0-32.0) mmol/L Anion Gap 10.6 (5-15) mmol/L BUN 19 (6-25) mg/dL Creatinine 0.98 (0.51-1.17) mg/dL Est Cr Clr Drug Dosing 54.83 mL/min Estimated GFR (MDRD) > 60 mL/min Glucose 84 mg/dL Calcium 8.5 L (8.7-10.3) mg/dL Total Bilirubin 0.4 (0.2-1.0) mg/dL AST 16 (15-37) U/L ALT 4 L (12-78) U/L Alkaline Phosphatase 62 (46-116) IU/L Total Protein 6.7 (6.4-8.2) g/dL Albumin 2.82 L (3.00-4.80) g/dL Meds: Medications Generic Name Dose Route Start Last Admin Trade Name Freq PRN Reason Stop Dose Admin Hydrocodone Bitart/Acetaminophen tab 01/22/18 15:19 [place] 325-5 Mg PO TID PRN severe pain Albuterol/Ipratropium 3 ml 01/22/18 17:00 Duoneb 3.0-0.5 Mg/3 Ml NEB Q6HRRT [facility] Arformoterol Tartrate mcg 01/22/18 21:00 Brovana INH BID [facility] [place] Clopidogrel Bisulfate 75 mg 01/23/18 09:00 Plavix PO DAILY [facility] [place] Diltiazem HCl 180 mg 01/23/18 09:00 Cardizem Cd PO DAILY [facility] [place] Finasteride 5 mg 01/23/18 09:00 Proscar PO DAILY [facility] [place] Furosemide 60 mg 01/23/18 07:00 Lasix PO DAILY@0700 [facility] Furosemide 20 mg 01/22/18 15:19 Lasix PO DAILY@1500 [facility] Nitroglycerin 0.4 mg 01/22/18 15:19 Nitrostat SL ASDIRECTED PRN Chest Pain Ondansetron HCl 4 mg 01/22/18 15:19 Zofran Odt PO Q6H PRN nausea, able to take PO Polyethylene Glycol 17 gm 01/22/18 15:19 Miralax PO BEDTIME PRN Constipation Prednisone 10 mg 01/23/18 09:00 Prednisone PO DAILY [facility] [place] Tamsulosin HCl 0.4 mg 01/22/18 21:00 Flomax PO BEDTIME [facility] Warfarin Sodium 1.25 mg 01/24/18 14:33 Coumadin PO MOWEFR [facility] [place] Warfarin Sodium 2.5 mg 01/22/18 15:19 Coumadin PO SUTUTHSA [facility] Discontinued Medications Generic Name Dose Route Start Last Admin Trade Name [place] PRN Reason Stop Dose Admin Albuterol/Ipratropium 3 ml 01/22/18 13:16 01/22/18 13:23 Duoneb 3.0-0.5 Mg/3 Ml NEB 01/22/18 13:17 3 ml ONETIME ONE Administration Ceftriaxone Sodium 2 gm 01/22/18 14:31 Rocephin IVPUSH 01/22/18 14:32 ONETIME ONE Azithromycin 500 mg/ Sodium 250 mls @ 250 mls/hr 01/22/18 14:31 Chloride IV 01/22/18 15:30 ONETIME ONE Methylprednisolone Sodium Succinate 125 mg 01/22/18 13:16 01/22/18 13:23 Solu-Medrol IVPUSH 01/22/18 13:17 125 mg ONETIME ONE Administration - Re-Assessments/Exams Free Text/Narrative Re-Assessment/Exam: 01/22/18 14:41 Discussed findings with patient and his family. There is a right lower lobe pneumonia. He had an upper lobe pneumonia about 5 weeks ago and was treated with rocephin and vanco but vanco was dc'd and zithromax was started while inpatient so will use that regimen. Starting antibiotic coverage in ER immediately after blood cultures drawn. I discussed case with STANISLAV Sol who accepted for admission. Patient is stable and breathing easier after the Duoneb and Solumedrol. Departure - Departure Time of Disposition: 14:41 Disposition: Admitted As Inpatient 66 Condition: Fair Clinical Impression: CAP (community acquired pneumonia) Qualifiers: Laterality: unspecified laterality Qualified Code(s): J18.9 - Pneumonia, unspecified organism COPD (chronic obstructive pulmonary disease) Qualifiers: COPD type: emphysema Emphysema type: unspecified Qualified Code(s): J43.9 - Emphysema, unspecified Pneumonia Qualifiers: Pneumonia type: due to unspecified organism Laterality: right Lung location: lower lobe of lung Qualified Code(s): J18.1 - Lobar pneumonia, unspecified organism - Discharge Information - My Orders Last 24 Hours: My Active Orders 01/22/18 12:37 Chest 2V [CR] Stat 01/22/18 13:54 CULTURE BLOOD [BC] Stat CULTURE BLOOD [BC] Stat - Assessment/Plan Last 24 Hours: My Active Orders 01/22/18 12:37 Chest 2V [CR] Stat 01/22/18 13:54 CULTURE BLOOD [BC] Stat CULTURE BLOOD [BC] Stat
[2018-01-22] MEDS ORDERED: Azithromycin 500 MG in Sodium Chloride 0.9% 250 ML IV ONE (14:31)
[2018-01-22] MEDS ORDERED: cefTRIAXone 2 GM Vial IVPUSH ONE (14:31)
[2018-01-22] MEDS ORDERED: Acetaminophen/HYDROcodone 325-5 MG Tab PO PRN (15:19)
[2018-01-22] MEDS ORDERED: Polyethylene Glycol 3350 Powder 17 GM Packet PO PRN (15:19)
[2018-01-22] MEDS ORDERED: Ondansetron 4 MG Tab.DIS PO PRN (15:19)
[2018-01-22] MEDS ORDERED: Nitroglycerin 0.4 MG Tab.SL SL PRN (15:19)
[2018-01-22] MEDS: Furosemide 20 MG Tab PO SCH (17:17)
[2018-01-22] MEDS: Warfarin 2.5 MG Tab PO SCH (17:17)
[2018-01-22] MEDS: Albuterol/Ipratropium 3.0-0.5 MG/3 ML Neb Soln NEB SCH ×2 (17:18→23:30)
[2018-01-22] MEDS: Arformoterol 15 MCG/2 ML Neb Soln INH SCH (21:46)
[2018-01-22] MEDS: Tamsulosin 0.4 MG Cap.ER PO SCH (21:46)
[2018-01-23] MEDS: Albuterol/Ipratropium 3.0-0.5 MG/3 ML Neb Soln NEB SCH ×4 (04:49→22:10)
[2018-01-23] MEDS: Omeprazole 20 MG Cap.CR PO SCH (06:30)
[2018-01-23] MEDS: Furosemide 20 MG Tab PO SCH ×2 (06:30→15:00)
[2018-01-23 08:19] LABS: ANION GAP 7.2 mmol/L (5-15); CHLORIDE,CL 103 mmol/L (98-115); SODIUM,NA 139 mmol/L (136-145)
[2018-01-23] MEDS: Arformoterol 15 MCG/2 ML Neb Soln INH SCH ×2 (08:57→22:00)
[2018-01-23] MEDS: Potassium Chloride 10 MEQ Tab.ER PO SCH (08:58)
[2018-01-23] MEDS: Diltiazem 180 MG Cap.CD PO SCH (08:58)
[2018-01-23] MEDS: Clopidogrel 75 MG Tab PO SCH (08:59)
[2018-01-23] MEDS: Ferrous Sulfate 325 MG Tab PO SCH (08:59)
[2018-01-23] MEDS: Finasteride 5 MG Tab PO SCH (09:00)
[2018-01-23] MEDS ORDERED: predniSONE 10 MG Tab PO SCH ×2 (09:00)
[2018-01-23] MEDS: Pravastatin 20 MG Tab PO SCH (10:10)
[2018-01-23] MEDS ORDERED: cefTRIAXone 1 GM Vial IVPUSH ONE (10:18)
[2018-01-23] MEDS ORDERED: methylPREDNISolone Sodium Succinate 125 MG/2 ML SDV IVPUSH ONE (10:18)
[2018-01-23] MEDS ORDERED: Azithromycin 250 MG in Sodium Chloride 0.9% 250 ML IV ONE (10:18)
[2018-01-23] MEDS ORDERED: Azithromycin 250 MG Tab PO ONE (11:47)
[2018-01-23] MEDS ORDERED: Azithromycin 250 MG Tab ONE (12:09)
[2018-01-23] MEDS: Warfarin 2.5 MG Tab PO SCH (17:41)
[2018-01-23] MEDS: Tamsulosin 0.4 MG Cap.ER PO SCH (22:07)
--- NOTE | 2018-01-24 03:14 | HP ---
PATIENT PROFILE: This is an elderly, ill-appearing male. CHIEF COMPLAINT: Respiratory illness. HISTORY OF PRESENT ILLNESS: This patient initially presented to the emergency room with cough and dyspnea. He does have chronic respiratory illness, but he felt that his symptoms had exacerbated today. He uses home oxygen 24 hours a day at 2.5 L. He is unaware of any fever or chills prior to his presentation to the hospital. ER COURSE: The patient was treated with IV Rocephin and Zithromax. He was also given Solu-Medrol 125 mg in the ER. PAST MEDICAL HISTORY: His past medical history is quite extensive including COPD, paroxysmal atrial fib, spinal stenosis, essential hypertension, coronary atherosclerosis of the [place] coronary artery, Paget disease of the bone, iron- deficient anemia, hypercholesterolemia, peripheral neuropathy, PVD, osteoporosis, lower extremity edema, osteoarthritis of the right knee, ischial bursitis, dermatitis, history of angina, history of [id number]-iooxvrfas [place], lumbar radiculitis, basal cell carcinoma, combined systolic and diastolic CHF. PAST SURGICAL HISTORY: Past surgical history is also extensive. He has a pacemaker. He has had an angiogram, left TKA, left eye removal, left carpal tunnel release, removal of a cancerous tumor from his neck, cholecystectomy, hemorrhoid surgery, right cataract extraction, history of colonoscopy, upper endoscopy, and stent placement. MEDICATIONS: Home Medications: Brovana b.i.d. inhalations; finasteride 5 mg daily; furosemide 60 mg daily; Nitrostat sublingual p.r.n.; Flomax 0.4 at bedtime; Coumadin 2.5 on Wednesday, Wednesday, , and Wednesday and then as an 1.25 on Wednesday, Wednesday, and Wednesday; Plavix 75 mg daily; hydrocodone/acetaminophen 5/325 p.o. t.i.d. p.r.n.; diltiazem HCl 180 daily; prednisone 10 daily; DuoNebs q.6 hours; Lasix 20 mg daily; and MiraLAX 17 g at bedtime p.r.n. ALLERGIES: His allergies are numerous and are as follows: Gabapentin, Lyrica, Daliresp, duloxetine, statins, sulfa drugs, tramadol, and Zetia. SOCIAL/PERSONAL HISTORY: Negative for any drug or smoking. He has an occasional alcohol beverage. FAMILY HISTORY: Noncontributory. REVIEW OF SYSTEMS: HEENT: No headache, ear discomfort, nasal drainage, or sore throat. RESPIRATORY: He complains of cough, congestion, and shortness of breath. CARDIOVASCULAR: No chest pain or palpitations. GASTROINTESTINAL: No nausea or vomiting. MUSCULOSKELETAL: No complaints of muscle or joint pain. SKIN: No rashes, sores, or moles. NEUROLOGIC: No headache or confusion. PHYSICAL EXAMINATION: CONSTITUTIONAL: This is an ill-appearing male. VITAL SIGNS: Stable. HEENT: Head is normocephalic. Conjunctivae clear. No nasal drainage. RESPIRATORY: Noted diminished air exchange throughout. He does have coarse lung sounds with intermittent crackles and wheezing. CARDIOVASCULAR: Heart rate and rhythm are regular. S1, S2. ABDOMEN: Soft, nontender. Bowel sounds are present. EXTREMITIES: Noted no lower extremity edema. NEUROLOGICAL: He is alert and oriented. Responds to questions appropriately. LABORATORY DATA: Labs and Diagnostics: The patient did have lab work completed in the emergency room with followup lab work this morning. Initially, his white count was 17.5 with improvement to 9.4 this morning. Hemoglobin was 11.7 with today's hemoglobin at 10.3. INR is 2.7 today. Blood cultures and sputum cultures have been obtained, results are pending. His influenza screens were negative. IMPRESSION/PLAN: Community-acquired pneumonia. Received initial dose of Rocephin and Zithromax in the ED. We will continue with Rocephin at 1 g daily and Zithromax at 250 mg daily. We will decrease his Solu-Medrol to 80 mg on a daily basis. We are going to hold his oral prednisone and obtain a CBC, BMP, and an INR tomorrow. COPD. Agnieszka Thapa. HTN. Diltiazem A fib. Coumadin. /[id number]/MODL MTDD
[2018-01-24] MEDS: Albuterol/Ipratropium 3.0-0.5 MG/3 ML Neb Soln NEB SCH ×4 (05:55→22:36)
[2018-01-24] MEDS: Omeprazole 20 MG Cap.CR PO SCH (06:09)
[2018-01-24] MEDS: Furosemide 20 MG Tab PO SCH ×2 (06:54→14:41)
[2018-01-24 08:22] LABS: ANION GAP 14.9 mmol/L (5-15); CHLORIDE,CL 101 mmol/L (98-115); SODIUM,NA 143 mmol/L (136-145)
[2018-01-24] MEDS: Potassium Chloride 10 MEQ Tab.ER PO SCH (08:30)
[2018-01-24] MEDS: Clopidogrel 75 MG Tab PO SCH (08:30)
[2018-01-24] MEDS: Ferrous Sulfate 325 MG Tab PO SCH (08:30)
[2018-01-24] MEDS: Finasteride 5 MG Tab PO SCH (08:30)
[2018-01-24] MEDS: Pravastatin 20 MG Tab PO SCH (08:39)
[2018-01-24] MEDS: Diltiazem 180 MG Cap.CD PO SCH (08:39)
[2018-01-24] MEDS: Arformoterol 15 MCG/2 ML Neb Soln INH SCH (10:34)
[2018-01-24] MEDS ORDERED: cefTRIAXone 1 GM Vial IVPUSH SCH (11:00)
[2018-01-24] MEDS ORDERED: Azithromycin 250 MG in Sodium Chloride 0.9% 250 ML IV SCH (11:00)
[2018-01-24] MEDS ORDERED: predniSONE 20 MG Tab PO ONE (12:00)
--- NOTE | 2018-01-24 15:44 | PN ---
01/24/2018 PATIENT NAME: MECHELLE LOUIS CHIEF COMPLAINT: He is feeling overall better regarding his respiratory status. BRIEF HISTORY: This elderly polite gentleman who recently was discharged from the hospital due to pneumonia, re-presented himself to the ED due to increase in respiratory distress with a cough and shortness of breath. PERTINENT ED FINDINGS: White count 17,000, neutrophilia 90%, temperature 100.3, blood pressure 113/58, respiratory rate 24, O2 sats 97% on 3 L. Chest x-ray demonstrates infiltrate or atelectasis, right lower lobe pneumonia, however, no definitive consolidation. Influenza negative. Blood cultures were drawn before antibiotics, was treated with beta-lactam Rocephin and Zithromax in the ED along with Solu-Medrol 125 mg. REVIEW OF SYSTEMS: RESPIRATORY: Mild cough, however, less shortness of breath, but does have pursed lip breathing. CARDIOVASCULAR: No chest pain. GI: No nausea, vomiting, or diarrhea. SKIN: Very thin, brawny in appearance. PHYSICAL EXAMINATION: VITAL SIGNS: Blood pressure 122/54, O2 sats 96% on 2.5 L, temperature 97.7, heart rate 74, paced rhythm. Weight, BMI 24%. RESPIRATORY: Throughout does have decreased air exchange. No wheezes, slight anterior rhonchi. CV: Paced rhythm. S1, S2. ABDOMEN: Soft, nontender. Good bowel tones. EXTREMITIES: No pedal edema noted. INTEGUMENTARY: Very thin, extremely brawny appearance in his upper extremities and hands. Skin is dry. LABORATORY DATA: This morning; white count 19,000, hemoglobin 9.9, hematocrit 33%. Manual diff shows 95% neutrophilia. No bandemia, lymphocytes are low. PT 43, INR 4.4, BUN 36, creatinine 0.95, estimated GFR greater than 60, albumin 2.49, calcium 8.4, pseudo. IMPRESSION AND PLAN: 1. Pneumonia, present on admission, community acquired possible atypical either Staph or suspect pseudomonal component. We will discuss with respiratory therapists about de-suction sputum sample. Very important that we get that. At this time, we will continue with beta-lactam Rocephin 1 g along with azithromycin 250 mg daily. Changed to oral prednisone, decreased to 40 mg today. 2. Chronic obstructive pulmonary disease with asthma, mild acute exacerbation. Hold his LABA, Brovana. Continue DuoNebs q.6 hours scheduled. 3. Hypercoagulation. The patient received 2 doses of Coumadin on day of admission. Hold Coumadin tonight, T 43.2, INR 4.4. 4. Chronic steroid use. The patient is at high risk for atypical pathogens. 5. Multiple allergies. 6. Chronic problems, atrial fibrillation, CHADS2-VASc score 5. The patient on dual antiplatelet therapy (DAPT). 7. Coronary artery disease, most recent stent 07/2016, DAPT. 8. Heart failure with preserved ejection fraction, grade 1, diastolic dysfunction with EF of 55%. 9. Hypertension, stable. No signs or symptoms of sepsis. Blood cultures, no growth after 1 day. 10.Status post pacemaker, history of atrial fibrillation and AV node ablation. 11.BPH. He is on dual therapy of tamsulosin and finasteride. 12.Osteoarthritis. He is on chronic opioid therapy. 13.Vitamin D deficiency, D3. 14.Chronic vertigo. Meclizine p.r.n. 15.DVT prophylaxis. He is on dual-antiplatelet therapy. 16.Code status is do not resuscitate. DISPOSITION: The patient will remain inpatient today, likely discharged tomorrow. Recommend senior living facility due to multiple admissions and predispositions at home. The patient is refusing this. Doubtful he will agree to respiratory rehab. We will continue with his oxygen. Monitor him carefully for any signs and symptoms of sepsis or worsening pulmonary exacerbation. We will hold his Coumadin today. Reassess labs in the morning. Respiratory Therapy to induce a sputum collection today, high risk for Staph pneumoniae, Legionella, and pseudomonal risk with MRSA component, Imm UTD. /[id number]/MODL MTDD
[2018-01-24] MEDS ORDERED: Warfarin 2.5 MG Tab PO SCH (18:00)
[2018-01-24] MEDS: Tamsulosin 0.4 MG Cap.ER PO SCH (20:35)
[2018-01-25] MEDS: Albuterol/Ipratropium 3.0-0.5 MG/3 ML Neb Soln NEB SCH (05:46)
[2018-01-25] MEDS: Omeprazole 20 MG Cap.CR PO SCH (06:06)
[2018-01-25] MEDS: Furosemide 20 MG Tab PO SCH (06:07)
[2018-01-25 06:23] VITALS: BP 154/78
[2018-01-25 07:50] LABS: ANION GAP 12.7 mmol/L (5-15); CHLORIDE,CL 102 mmol/L (98-115); SODIUM,NA 142 mmol/L (136-145)
[2018-01-25] MEDS: Potassium Chloride 10 MEQ Tab.ER PO SCH (08:46)
[2018-01-25] MEDS: Finasteride 5 MG Tab PO SCH (08:46)
[2018-01-25] MEDS: Diltiazem 180 MG Cap.CD PO SCH (08:46)
[2018-01-25] MEDS: Clopidogrel 75 MG Tab PO SCH (08:46)
[2018-01-25] MEDS ORDERED: predniSONE 20 MG Tab PO ONE (09:40)
--- NOTE | 2018-01-25 09:50 | PCM.DCSUM1 ---
Discharge Summary - Hospital Course Diagnosis: Stroke: No - Discharge Data Discharge Date: 01/25/18 Discharge Disposition: Home, Self-Care 01 Condition: Fair - Patient Instructions Activity: As Tolerated, Cough & Deep Breathe, Rest and Relax Today Showering/Bathing: May Shower Notify Provider of: Fever Other/Special Instructions: Report any increase in mucus production or increase in shortness of breath - Discharge Plan *PRESCRIPTION DRUG MONITORING PROGRAM REVIEWED*: No *COPY OF PRESCRIPTION DRUG MONITORING REPORT IN PATIENT SHALOM: No Prescriptions/Med Rec: levoFLOXacin [Levaquin] 750 mg PO DAILY #10 tab Home Medications: Home Meds Arformoterol [Brovana] 1 ampule INH BID 03/22/14 [History] Finasteride 5 mg PO DAILY 03/22/14 [History] Furosemide 60 mg PO DAILY@0700 03/22/14 [History] Nitroglycerin [Nitrostat] 0.4 mg SL ASDIRECTED PRN 03/22/14 [History] Tamsulosin [Flomax] 0.4 mg PO DAILY 09/10/14 [History] Warfarin [Coumadin] 2.5 mg PO SUTUTHSA 02/21/15 [History] Clopidogrel [Plavix] 75 mg PO DAILY 04/01/16 [History] Hydrocodone/Acetaminophen [Hydrocodon-Acetaminophen 5-325] 1 each PO TID PRN [History] Diltiazem HCl [Cartia Xt] 180 mg PO DAILY 08/04/17 [History] Albuterol/Ipratropium [DuoNeb 3.0-0.5 MG/3 ML] 3 ml NEB Q6HRRT neb 12/18/17 [Rx ] Furosemide [Lasix] 20 mg PO DAILY@1500 tablet 12/18/17 [Rx] Polyethylene Glycol 3350 [MiraLAX] 17 gm PO BEDTIME PRN packet 12/18/17 [Rx] Ferrous Sulfate [Ferosul] 325 mg PO Q48H 01/22/18 [History] Omeprazole 20 mg PO DAILY 01/22/18 [History] Potassium Chloride 10 meq PO DAILY 01/22/18 [History] Sennosides/Docusate Sodium [Senna-S] 1 each PO DAILY 01/22/18 [History] Warfarin [Coumadin] 1.25 mg PO MOWEFR 01/22/18 [History] predniSONE [Prednisone] 10 mg PO DAILY 01/22/18 [History] levoFLOXacin [Levaquin] 750 mg PO DAILY #10 tab 01/25/18 [Rx] Referrals: Nikos Acosta ARCHITECTURAL SUPERINTENDENT [Primary Care Provider] - 01/27/18 - Discharge Summary/Plan Comment DC Time >30 min.: Yes Discharge Summary/Plan Comment: Final diagnosis Pneumonia, CAP with recent ABX use. Possible pseudomonal pathogen however no hx of VAP, or central catheters. COPD/asthma with mild acute exacerbation Hypercoagulation, holding Coumadin until follow-up Chronic steroid use Multiple allergies MDRO likely Chronic problems Atrial fibrillation, [id number] 5, DAPT CAD: stent 08/16/16, DAPT, no ischemic picture HFpEF: Grade I diastolic dysfunction and EF 55% HTN, stable, no s/s sepsis S/p pacemaker, hx AV node ablation BPH: Finasteride, tamsulosin. OA: COT Vitamin D deficiency, D3. Chronic vertigo, Meclizine prn. History 87-year-old gentleman was recently discharged from [facility] approximate 3 weeks ago due to pneumonia repeat presented himself to the ED due to increase in rest for distress, shortness of breath and cough. He was admitted for pneumonia and started IV antibiotics. Hospital course Hospital course went quite well, he was given high-dose IV steroids which were tapered down to orals, Rocephin and azithromycin were started, Coumadin had to be held due to hypercoagulation however no active signs of bleeding. Vitamin K was withheld, he improved on his respiratory status, sputum culture was taken and was pending upon discharge, he had a high white count of 17,000 with neutrophilia 90% with a temperature 100.3 on admission. He was afebrile on discharge. Chest x-ray demonstrated infiltrate or atelectasis right lower lobe pneumonia however there was no definitive consolidation. His influenza was negative blood cultures were negative so far 2. ICS was encouraged. He refused ongoing hospitalization and/or swing bed. He is refusing alf facility so far. Medications adjustments upon discharge Hold Coumadin until follow-up Discontinue atorvastatin Levaquin 750 mg by mouth daily 10 days. Recommendations at follow-up Inflammatory marker follow-up on sputum culture Follow-up on blood cultures CBC, BMP, INR - General Info Functional Status: Reports: Pain Controlled, Tolerating Diet, Ambulating, Urinating, Incentive Spirometry. Denies: New Symptoms - Review of Systems General: Reports: No Symptoms HEENT: Reports: No Symptoms Pulmonary: Reports: Shortness of Breath (Her slit breathing however back to baseline). Denies: Cough, Sputum, Wheezing Cardiovascular: Reports: Dyspnea on Exertion. Denies: Chest Pain, Orthopnea, Edema Gastrointestinal: Reports: No Symptoms Genitourinary: Reports: No Symptoms Musculoskeletal: Reports: No Symptoms Skin: Reports: Dryness Neurological: Reports: No Symptoms Psychiatric: Reports: No Symptoms - Patient Data Vitals - Most Recent: Last Vital Signs Temp 98.2 F 01/25/18 06:22 Pulse 98 01/25/18 08:46 Resp 18 01/25/18 06:22 BP 154/78 H 01/25/18 08:46 Pulse Ox 98 01/25/18 06:22 Weight - Most Recent: 172 lb 12.8 oz I&O - Last 24 hours: Intake & Output 01/24/18 01/25/18 01/25/18 22:59 06:59 14:59 Intake Total 670 50 Output Total 600 600 Balance 70 -550 Lab Results - Last 24 hrs: Laboratory Results - last 24 hr 01/25/18 01/25/18 01/25/18 Range/Units 07:10 07:10 07:10 WBC 18.23 H (5.00-10.00) 10^3/uL RBC 4.25 L (4.50-6.00) 10^6/uL Hgb 10.0 L (13.0-17.0) g/dL Hct 33.8 L (40.0-52.0) % MCV 79.5 L (82.0-92.0) fL MCH 23.5 L (27.0-31.0) pg MCHC 29.6 L (32.0-36.0) g/dL RDW 18.2 H (11.5-14.5) % Plt Count 281 (150-400) 10^3/uL MPV 10.0 (7.4-10.4) fL Immature Gran % (Auto) [employer]shore [employer] Operations Manager Neut % (Auto) Offshore Wind Operations Manager Lymph % (Auto) Offshore Wind Operations Manager [place] % (Auto) Offshore Wind Operations Manager Eos % (Auto) Offshore Wind Operations Manager Baso % (Auto) [employer]shore [employer] Operations Manager Immature Gran # (Auto) Offshore Wind Operations Manager Neut # (Auto) Offshore Wind Operations Manager Lymph # (Auto) Offshore Wind Operations Manager [place] # (Auto) Offshore Wind Operations Manager Eos # (Auto) Offshore Wind Operations Manager Baso # (Auto) Offshore Wind Operations Manager Add Manual Diff Yes Neutrophils % (Manual) 93 H (50-70) % Band Neutrophils % 2 L (4-12) % Lymphocytes % (Manual) 4 L (20-40) % Monocytes % (Manual) 1 L (2-8) % Absolute Neutrophils 17.3185 Lymphocytes # (Manual) 0.7292 Monocytes # (Manual) 0.1823 PT 42.7 H (8.9-11.4) SEC INR 4.4 H* (0.9-1.1) Sodium 142 (136-145) mmol/L Potassium 4.0 (3.3-5.3) mmol/L Chloride 102 (98-115) mmol/L Carbon Dioxide 31.3 (21.0-32.0) mmol/L Anion Gap 12.7 (5-15) mmol/L BUN 34 H (6-25) mg/dL Creatinine 0.87 (0.51-1.17) mg/dL Est Cr Clr Drug Dosing 61.77 mL/min Estimated GFR (MDRD) > 60 mL/min Glucose 108 mg/dL Calcium 8.1 L (8.7-10.3) mg/dL SLOANE Results - Last 24 hrs: Microbiology 01/22/18 14:50 Aerobic Blood Culture - Preliminary Blood - Venous - Lab Draw NO GROWTH AFTER 2 DAYS Anaerobic Blood Culture - Preliminary NO GROWTH AFTER 2 DAYS 01/22/18 14:45 Aerobic Blood Culture - Preliminary Blood - Venous NO GROWTH AFTER 2 DAYS Anaerobic Blood Culture - Preliminary NO GROWTH AFTER 2 DAYS Med Orders - Current: Current Medications Hydrocodone Bitart/Acetaminophen ([place] 325-5 Mg) 1 tab PO TID PRN PRN Reason: severe pain Last Admin: 01/25/18 01:02 Dose: 1 tab Albuterol/Ipratropium (Duoneb 3.0-0.5 Mg/3 Ml) 3 ml NEB Q6HRRT [facility] Last Admin: 01/25/18 05:46 Dose: 3 ml Arformoterol Tartrate (Brovana) 15 mcg INH BID [facility] Last Admin: 01/24/18 10:34 Dose: Not Given Ceftriaxone Sodium (Rocephin) 1 gm IVPUSH Q24H [facility] Last Admin: 01/24/18 11:39 Dose: 1 gm Clopidogrel Bisulfate (Plavix) 75 mg PO DAILY [facility] Last Admin: 01/25/18 08:46 Dose: 75 mg Diltiazem HCl (Cardizem Cd) 180 mg PO DAILY [facility] Last Admin: 01/25/18 08:46 Dose: 180 mg Ferrous Sulfate (Ferrous Sulfate) 325 mg PO Q48H [facility] Finasteride (Proscar) 5 mg PO DAILY [facility] Last Admin: 01/25/18 08:46 Dose: 5 mg Furosemide (Lasix) 60 mg PO DAILY@0700 [facility] Last Admin: 01/25/18 06:07 Dose: 60 mg Furosemide (Lasix) 20 mg PO DAILY@1500 [facility] Last Admin: 01/24/18 14:41 Dose: 20 mg Azithromycin 250 mg/ Sodium (Chloride) 250 mls @ 250 mls/hr IV Q24H [facility] Last Admin: 01/24/18 12:37 Dose: 250 mls/hr Nitroglycerin (Nitrostat) 0.4 mg SL ASDIRECTED PRN PRN Reason: Chest Pain Omeprazole (Omeprazole) 20 mg PO ACBRK [facility] Last Admin: 01/25/18 06:06 Dose: 20 mg Ondansetron HCl (Zofran Odt) 4 mg PO Q6H PRN PRN Reason: nausea, able to take PO Polyethylene Glycol (Miralax) 17 gm PO BEDTIME PRN PRN Reason: Constipation Potassium Chloride (Klor-Con 10) 10 meq PO DAILY [facility] Last Admin: 01/25/18 08:46 Dose: 10 meq Prednisone (Prednisone) 10 mg PO DAILY [facility] Last Admin: 01/23/18 09:00 Dose: 10 mg Prednisone (Prednisone) 30 mg PO ONETIME ONE Stop: 01/25/18 09:41 Senna/Docusate Sodium (Senna Plus) 1 tab PO DAILY [facility] Last Admin: 01/25/18 08:46 Dose: 1 tab Tamsulosin HCl (Flomax) 0.4 mg PO BEDTIME [facility] Last Admin: 01/24/18 20:35 Dose: 0.4 mg Warfarin Sodium (Coumadin) 1.25 mg PO MoWeFr@1800 [facility] Warfarin Sodium (Coumadin) 2.5 mg PO SuTuThSa@1800 [facility] Last Admin: 01/23/18 17:41 Dose: 2.5 mg Discontinued Medications Albuterol/Ipratropium (Duoneb 3.0-0.5 Mg/3 Ml) 3 ml NEB ONETIME ONE Stop: 01/22/18 13:17 Last Admin: 01/22/18 13:23 Dose: 3 ml Azithromycin (Zithromax) 250 mg PO ONETIME ONE Stop: 01/23/18 11:48 Last Admin: 01/23/18 12:16 Dose: 250 mg Azithromycin (Zithromax) Confirm Administered Dose 250 mg .ROUTE .STK-MED ONE Stop: 01/23/18 12:10 Last Admin: 01/23/18 12:17 Dose: Not Given Ceftriaxone Sodium (Rocephin) 2 gm IVPUSH ONETIME ONE Stop: 01/22/18 14:32 Last Admin: 01/22/18 17:08 Dose: 2 gm Ceftriaxone Sodium (Rocephin) 1 gm IVPUSH ONETIME ONE Stop: 01/23/18 10:19 Last Admin: 01/23/18 11:03 Dose: 1 gm Ferrous Sulfate (Ferrous Sulfate) 325 mg PO DAILY [facility] Last Admin: 01/24/18 08:30 Dose: 325 mg Azithromycin 500 mg/ Sodium (Chloride) 250 mls @ 250 mls/hr IV ONETIME ONE Stop: 01/22/18 15:30 Last Admin: 01/22/18 17:09 Dose: 250 mls/hr Azithromycin 250 mg/ Sodium (Chloride) 250 mls @ 250 mls/hr IV ONETIME ONE Stop: 01/23/18 11:17 Last Admin: 01/23/18 12:17 Dose: Not Given Methylprednisolone Sodium Succinate (Solu-Medrol) 125 mg IVPUSH ONETIME ONE Stop: 01/22/18 13:17 Last Admin: 01/22/18 13:23 Dose: 125 mg Methylprednisolone Sodium Succinate (Solu-Medrol) 80 mg IVPUSH ONETIME ONE Stop: 01/23/18 10:19 Last Admin: 01/23/18 11:02 Dose: 80 mg Pravastatin Sodium (Pravachol) 10 mg PO DAILY [facility] Last Admin: 01/24/18 08:39 Dose: Not Given Prednisone (Prednisone) 10 mg PO DAILY [facility] Prednisone (Prednisone) 40 mg PO ONETIME ONE Stop: 01/24/18 12:01 Last Admin: 01/24/18 11:39 Dose: 40 mg - Exam Quality Assessment: Reports: Supplemental Oxygen, DVT Prophylaxis. Denies: Skin Breakdown General: Reports: Alert, Oriented Neck: Reports: Supple Lungs: Reports: Decreased Breath Sounds. Denies: Wheezing Cardiovascular: Reports: Regular Rate, Regular Rhythm GI/Abdominal Exam: Soft, No Distention (Male) Exam: Deferred Rectal (Males) Exam: Deferred Back Exam: Denies: CVA Tenderness (L), CVA Tenderness (R) Extremities: No Pedal Edema Skin: Reports: Other (Pheresed thin skin and brawniness) Neurological: Reports: No New Focal Deficit Psy/Mental Status: Reports: Alert, Normal Affect, Normal Mood
[2018-01-26] MEDS ORDERED: Ferrous Sulfate 325 MG Tab PO SCH (08:30)
== END 2018-01-25 10:30 | disposition home or self-care (01) | DRG 194 ==
LOC: KA.ED 12:10 → KA.MS 14:32
PROVIDERS: ADMIT Physician Assistant Surgical; ATTEND Family Medicine
DX: J18.9 Pneumonia, unspecified organism (principal); J43.9 Emphysema, unspecified; J44.0 Chronic obstructive pulmonary disease with (acute) lower respiratory infection; I10 Essential (primary) hypertension; J44.1 Chronic obstructive pulmonary disease with (acute) exacerbation; K21.9 Gastro-esophageal reflux disease without esophagitis; D68.9 Coagulation defect, unspecified; I50.30 Unspecified diastolic (congestive) heart failure; D64.9 Anemia, unspecified; I48.91 Unspecified atrial fibrillation; I25.10 Atherosclerotic heart disease of native coronary artery without angina pectoris; I11.0 Hypertensive heart disease with heart failure; N40.0 Benign prostatic hyperplasia without lower urinary tract symptoms; M19.90 Unspecified osteoarthritis, unspecified site; Z79.899 Other long term (current) drug therapy; Z79.01 Long term (current) use of anticoagulants; M88.9 Osteitis deformans of unspecified bone; E55.9 Vitamin D deficiency, unspecified; R42 Dizziness and giddiness; M48.00 Spinal stenosis, site unspecified; D50.9 Iron deficiency anemia, unspecified; E78.00 Pure hypercholesterolemia, unspecified; G62.9 Polyneuropathy, unspecified; M81.0 Age-related osteoporosis without current pathological fracture; R60.9 Edema, unspecified; M17.11 Unilateral primary osteoarthritis, right knee; M70.70 Other bursitis of hip, unspecified hip; L30.9 Dermatitis, unspecified; M54.16 Radiculopathy, lumbar region; I25.2 Old myocardial infarction; Z79.52 Long term (current) use of systemic steroids; Z88.2 Allergy status to sulfonamides; Z88.8 Allergy status to other drugs, medicaments and biological substances; Z95.5 Presence of coronary angioplasty implant and graft; Z95.0 Presence of cardiac pacemaker; Z99.81 Dependence on supplemental oxygen; Z85.828 Personal history of other malignant neoplasm of skin; Z96.652 Presence of left artificial knee joint; Z90.01 Acquired absence of eye
CPT/HCPCS: 36415; 71046; 80053; 85025; 94640; 96374; 99284; 99285; J2930; 80048; 85610; 87040; 87070; 87077; 87205; 87804; A9270-GY; J0456; J0696; J7050; J7620-GY

== ENCOUNTER 2018-11-11 08:09 | Inpatient (IN) | payer MEDICARE, MEDICAID ==
--- NOTE | 2018-11-11 08:37 | EDM.PDOC ---
ED HPI GENERAL MEDICAL PROBLEM - General Chief Complaint: General Stated Complaint: SOB WEAKNESS Time Seen by Provider: 11/11/18 08:29 Source of Information: Reports: Patient - History of Present Illness INITIAL COMMENTS - FREE TEXT/NARRATIVE: 87 YO WM presents to ER with complaints of shortness of breath which became worse yesterday. Pt reports he has required use of his home O2 more frequently as well as increased orthopnea and lower extremity edema. Pt believes he has fluid on his lungs and CHF. Pt denies chest pain, diaphoresis, nausea/vomiting or fever chills. Pt reports productive cough with white sputum. Onset Date: 11/10/18 Duration: Chronic, Getting Worse, Recurring Location: Reports: Generalized Severity: Mild Improves with: Reports: Rest Worsens with: Reports: Breathing, Movement Associated Symptoms: Reports: cough w sputum, Shortness of Breath, Weakness. Denies: Confusion, Chest Pain, Cough, Diaphoresis, Fever/Chills, Headaches, Loss of Appetite, Nausea/Vomiting, Rash, Seizure, Syncope Treatments PBX REPAIRER: Reports: Oxygen - Related Data Allergies Allergy/AdvReac Type Severity Reaction Status Date / Time atorvastatin calcium Allergy Cannot Verified 11/11/18 08:43 [From Lipitor] Remember ezetimibe [From Zetia] Allergy Joint Pain Verified 11/11/18 08:43 gabapentin Allergy Airway Verified 11/11/18 08:43 Tightness pregabalin [From Lyrica] Allergy Bronchospas Verified 11/11/18 08:43 ms roflumilast [From Daliresp] Allergy Stomach Verified 11/11/18 08:43 Upset Vnwsitb-Ggy-Uth Reductase Allergy Muscle Verified 11/11/18 08:43 Inhibitor Weakness Sulfa (Sulfonamide Allergy Cannot Verified 11/11/18 08:43 Antibiotics) Remember tramadol Allergy Cannot Verified 11/11/18 08:43 Remember Home Meds: Home Meds Arformoterol [Brovana] 1 ampule INH BID 03/22/14 [History] Finasteride 5 mg PO DAILY 03/22/14 [History] Furosemide 60 mg PO DAILY@0700 03/22/14 [History] Nitroglycerin [Nitrostat] 0.4 mg SL ASDIRECTED PRN 03/22/14 [History] Tamsulosin [Flomax] 0.4 mg PO DAILY 09/10/14 [History] Warfarin [Coumadin] 2.5 mg PO SUTUTHSA 02/21/15 [History] Clopidogrel [Plavix] 75 mg PO DAILY 04/01/16 [History] Hydrocodone/Acetaminophen [Hydrocodon-Acetaminophen 5-325] 1 each PO TID PRN [History] Diltiazem HCl [Cartia Xt] 180 mg PO DAILY 08/04/17 [History] Albuterol/Ipratropium [DuoNeb 3.0-0.5 MG/3 ML] 3 ml NEB Q6HRRT neb 12/18/17 [Rx ] Polyethylene Glycol 3350 [MiraLAX] 17 gm PO BEDTIME PRN packet 12/18/17 [Rx] Ferrous Sulfate [Ferosul] 325 mg PO Q48H 01/22/18 [History] Potassium Chloride 10 meq PO DAILY 01/22/18 [History] Sennosides/Docusate Sodium [Senna-S] 1 each PO DAILY 01/22/18 [History] Warfarin [Coumadin] 1.25 mg PO MOWEFR 01/22/18 [History] predniSONE [Prednisone] 10 mg PO DAILY 01/22/18 [History] Past Medical History HEENT History: Reports: Cataract, Impaired Vision Cardiovascular History: Reports: Afib, Hypertension, Pacemaker, Stents Respiratory History: Reports: Asthma, COPD Other Respiratory History: Home O2. Gastrointestinal History: Reports: Cholelithiasis, Chronic Constipation, GERD, Hemorrhoids Genitourinary History: Reports: BPH, Prostate Disorder Musculoskeletal History: Reports: Arthritis, Back Pain, Chronic Other Musculoskeletal History: Paget's disease Endocrine/Metabolic History: Reports: Vitamin D Deficiency Hematologic History: Reports: Anemia, Blood Transfusion(s) Immunologic History: Reports: None Oncologic (Cancer) History: Reports: Other (See Below) Other Oncologic History: previous removal of lump and lymph nodes from neck. 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." Dermatologic History: Reports: Cellulitis - Infectious Disease History Infectious Disease History: Reports: Chicken Pox, Measles, Mumps - Past Surgical History HEENT Surgical History: Reports: Cataract Surgery Cardiovascular Surgical History: Reports: Carotid Stents Respiratory Surgical History: Reports: None Musculoskeletal Surgical History: Reports: Arthroscopic Knee, Knee Replacement Social & Family History - Family History Family Medical History: Unobtainable HEENT: Reports: None, Macular Degeneration Cardiac: Reports: [place] Respiratory: Reports: COPD GI: Reports: None : Reports: None OBGYN: Reports: None Musculoskeletal: Reports: Arthritis Neurological: Reports: None Psychiatric: Reports: None Endocrine/Metabolic: Reports: Diabetes, type II Hematologic: Reports: None Oncologic: Reports: Breast - Caffeine Use Caffeine Use: Reports: Coffee - Living Situation & Occupation Living situation: Reports: ED ROS GENERAL - Review of Systems Review Of Systems: See Below Constitutional: Reports: No Symptoms HEENT: Reports: No Symptoms Respiratory: Reports: Shortness of Breath, Cough Cardiovascular: Reports: Dyspnea on Exertion, Edema, Orthopnea, PND. Denies: Chest Pain, Blood Pressure Problem, Claudication, Lightheadedness, Palpitations , Syncope Endocrine: Reports: No Symptoms GI/Abdominal: Reports: No Symptoms : Reports: No Symptoms Musculoskeletal: Reports: No Symptoms Skin: Reports: No Symptoms Neurological: Reports: No Symptoms Psychiatric: Reports: No Symptoms Hematologic/Lymphatic: Reports: No Symptoms Immunologic: Reports: No Symptoms ED EXAM, GENERAL - Physical Exam Exam: See Below Exam Limited By: No Limitations General Appearance: Alert, WD/WN, No Apparent Distress Head: Atraumatic, Normocephalic Neck: Normal Inspection, Supple, Non-Tender, Full Range of Motion Respiratory/Chest: No Respiratory Distress, No Accessory Muscle Use, Chest Non- Tender, Decreased Breath Sounds. No: Accessory Muscle Use, Retractions, Splinting, Prolonged Expiration Cardiovascular: Normal Peripheral Pulses, Regular Rate, Rhythm, No Edema, No Gallop, No JVD, No Murmur, No Rub GI/Abdominal: Normal Bowel Sounds, Soft, Non-Tender, No Organomegaly, No Distention, No Abnormal Bruit, No Mass Back Exam: Normal Inspection, Full Range of Motion, NT Extremities: Normal Range of Motion, Non-Tender, Normal Capillary Refill, Pedal Edema Neurological: Alert, Oriented, CN II-XII Intact, Normal Cognition, Normal Gait, Normal Reflexes, No Motor/Sensory Deficits Psychiatric: Normal Affect, Normal Mood Skin Exam: Warm, Dry, Intact, Normal Color, No Rash Lymphatic: No Adenopathy EKG INTERPRETATION EKG Date: 11/11/18 Time: 08:20 Rhythm: NSR Rate (Beats/Min): 77 [place]: Normal P-Wave: Present QRS: Normal ST-T: Normal QT: Normal Comparison: No Change EKG Interpretation Comments: 100% AV paced Course - Vital Signs Last Recorded V/S: Last Vital Signs Temp 36.0 C 11/11/18 08:22 Pulse 76 11/11/18 08:51 Resp 29 H 11/11/18 08:51 BP 141/58 H 11/11/18 08:51 Pulse Ox 95 11/11/18 08:51 - Orders/Labs/Meds Orders: Active Orders 24 hr Category Date Time Status EKG Documentation Completion [RC] ASDIRECTED Care 11/11/18 08:26 Active Peripheral IV Care [RC] . DIRECTED Care 11/11/18 08:28 Ordered INR,PT,PROTHROMBIN TIME [COAG] Stat Lab 11/11/18 08:27 Ordered PTT,PARTIAL THROMBOPLSTIN TIME [COAG] Stat Lab 11/11/18 08:27 Ordered Sodium Chloride 0.9% [Saline Flush] Med 11/11/18 08:27 Ordered 10 ml FLUSH Q8HR PRN Peripheral IV Insertion Adult [OM.PC] Routine Oth 11/11/18 08:27 Ordered EKG 12 Lead [EK] Routine Ther 11/11/18 08:26 Ordered Medication Orders Sodium Chloride (Saline Flush) 10 ml FLUSH Q8HR PRN PRN Reason: keep vein open Labs: Laboratory Tests 11/11/18 11/11/18 Range/Units 08:20 08:20 WBC 10.74 H (5.00-10.00) 10^3/uL RBC 4.11 L (4.50-6.00) 10^6/uL Hgb 10.8 L (13.0-17.0) g/dL Hct 35.6 L (40.0-52.0) % MCV 86.6 D (82.0-92.0) fL MCH 26.3 L (27.0-31.0) pg MCHC 30.3 L (32.0-36.0) g/dL RDW 17.9 H (11.5-14.5) % Plt Count 203 D (150-400) 10^3/uL MPV 10.4 (7.4-10.4) fL Immature Gran % (Auto) 1.1 (0.0-5.0) % Neut % (Auto) 81.3 H (50.0-70.0) % Lymph % (Auto) 13.0 L (20.0-40.0) % [place] % (Auto) 2.8 (2.0-8.0) % Eos % (Auto) 1.6 (1.0-3.0) % Baso % (Auto) 0.2 (0.0-1.0) % Immature Gran # (Auto) 0.12 (0.00-0.50) 10^3/uL Neut # (Auto) 8.73 H (2.50-7.00) 10^3/uL Lymph # (Auto) 1.40 (1.00-4.00) 10^3/uL [place] # (Auto) 0.30 (0.10-0.80) 10^3/uL Eos # (Auto) 0.17 (0.10-0.30) 10^3/uL Baso # (Auto) 0.02 (0.00-0.10) 10^3/uL Sodium 138 (136-145) mmol/L Potassium 3.4 (3.3-5.3) mmol/L Chloride 99 (98-115) mmol/L Carbon Dioxide 34.8 H (21.0-32.0) mmol/L Anion Gap 7.6 (5-15) mmol/L BUN 25 (6-25) mg/dL Creatinine 0.97 (0.51-1.17) mg/dL Est Cr Clr Drug Dosing 55.40 mL/min Estimated GFR (MDRD) > 60 mL/min Glucose 72 L (75 - 99) mg/dL Calcium 8.2 L (8.7-10.3) mg/dL Total Bilirubin 0.6 (0.2-1.0) mg/dL AST 22 (15-37) U/L ALT 20 (12-78) U/L Alkaline Phosphatase 48 (46-116) IU/L Creatine Kinase 37 (26-276) U/L CK-MB (CK-2) 1.50 (0.00-4.30) ng/mL Troponin I 0.07 (0.00-0.070) ng/mL B-Natriuretic Peptide 187 H (0-100) pg/mL Total Protein 5.8 L (6.4-8.2) g/dL Albumin 2.49 L (3.00-4.80) g/dL Meds: Medications Generic Name Dose Route Start Last Admin Trade Name Freq PRN Reason Stop Dose Admin Sodium Chloride 10 ml 11/11/18 08:27 Saline Flush FLUSH Q8HR PRN keep vein open Discontinued Medications Generic Name Dose Route Start Last Admin Trade Name Freq PRN Reason Stop Dose Admin Bumetanide 1 mg 11/11/18 08:59 Bumex IVPUSH 11/11/18 09:00 ONETIME ONE - Radiology Interpretation Free Text/Narrative:: CXR- bilateral pleural effusions and pulmonary congestion Departure - Departure Time of Disposition: 09:20 Disposition: Admitted As Inpatient 66 Condition: Fair Clinical Impression: Acute exacerbation of congestive heart failure Qualifiers: Heart failure type: unspecified Qualified Code(s): I50.9 - Heart failure, unspecified - Discharge Information Referrals: Nikos Acosta, DICTAPHONE TECHNICIAN [Primary Care Provider] - Forms: ED Department Discharge - My Orders Last 24 Hours: My Active Orders 11/11/18 08:26 EKG Documentation Completion [RC] ASDIRECTED EKG 12 Lead [EK] Routine 11/11/18 08:27 INR,PT,PROTHROMBIN TIME [COAG] Stat PTT,PARTIAL THROMBOPLSTIN TIME [COAG] Stat Sodium Chloride 0.9% [Saline Flush] 10 ml FLUSH Q8HR PRN Peripheral IV Insertion Adult [OM.PC] Routine 11/11/18 08:28 Peripheral IV Care [RC] . DIRECTED - Assessment/Plan Last 24 Hours: My Active Orders 11/11/18 08:26 EKG Documentation Completion [RC] ASDIRECTED EKG 12 Lead [EK] Routine 11/11/18 08:27 INR,PT,PROTHROMBIN TIME [COAG] Stat PTT,PARTIAL THROMBOPLSTIN TIME [COAG] Stat Sodium Chloride 0.9% [Saline Flush] 10 ml FLUSH Q8HR PRN Peripheral IV Insertion Adult [OM.PC] Routine 11/11/18 08:28 Peripheral IV Care [RC] . DIRECTED Assessment:: 1. CHF exacerbation 2. Bilateral pleural effusions Plan: 1. Admit to medicine- Nikos JIMENEZ 2. bumex 1mg IV 3. supportive care
--- NOTE | 2018-11-11 08:53 | CR ---
[id number] RAD/RAD Chest PA or AP 1V EXAM: RAD Chest PA or AP 1V INDICATION: COUGH,SHORTNESS OF BREATH. COMPARISON: January 22, 2018. DISCUSSION: Evaluation is limited secondary to technique. Low lung volumes associated vascular crowding. Bibasilar subsegmental atelectasis with small bilateral pleural effusions. Cardiomediastinal silhouette is enlarged but likely stable. Left chest wall cardiac conduction device. IMPRESSION: Small bilateral pleural effusions. Low lung volumes associated vascular crowding. Rinku Rowe DO 11/11/18 0852 Thank you for allowing us to participate in the care of your patient.
[2018-11-11 08:57] LABS: ANION GAP 7.6 mmol/L (5-15); CHLORIDE,CL 99 mmol/L (98-115); SODIUM,NA 138 mmol/L (136-145)
[2018-11-11] MEDS ORDERED: Bumetanide 1 MG/4 ML MDV IVPUSH ONE (08:59)
[2018-11-11] MEDS: Sodium Chloride 0.9% 10 ML Syringe FLUSH PRN ×3 (09:16→21:08)
--- NOTE | 2018-11-11 11:02 | PCM.HP ---
H&P History of Present Illness - General Date of Service: 11/11/18 Admit Problem/Dx: Admission Diagnosis/Problem Admission Diagnosis/Problem CHF, Congestive heart failure Source of Information: Patient, Old Records, Provider, RN - History of Present Illness Initial Comments - Free Text/Narative: Patient is a 78 pleasant gentleman was admitted through the ED when he came in due to increase SOB with productive cough (worse on lying down and above baseline) lower extremity swelling and right arm edema Pt reports he has required use of his home O2 more frequently, He does have CHF and denotes " fluid on my lungs". ROS in ED was neg for chest pain, diaphoresis, nausea/ vomiting or fever chills. - Related Data Allergies/Adverse Reactions: Allergies Allergy/AdvReac Type Severity Reaction Status Date / Time atorvastatin calcium Allergy Cannot Verified 11/11/18 08:43 [From Lipitor] Remember ezetimibe [From Zetia] Allergy Joint Pain Verified 11/11/18 08:43 gabapentin Allergy Airway Verified 11/11/18 08:43 Tightness pregabalin [From Lyrica] Allergy Bronchospas Verified 11/11/18 08:43 ms roflumilast [From Daliresp] Allergy Stomach Verified 11/11/18 08:43 Upset [id number] Reductase Allergy Muscle Verified 11/11/18 08:43 Inhibitor Weakness Sulfa (Sulfonamide Allergy Cannot Verified 11/11/18 08:43 Antibiotics) Remember tramadol Allergy Cannot Verified 11/11/18 08:43 Remember Home Medications: Home Meds Arformoterol [Brovana] 1 ampule INH BID 03/22/14 [History] Finasteride 5 mg PO DAILY 03/22/14 [History] Furosemide 80 mg PO DAILY@0700 03/22/14 [History] Nitroglycerin [Nitrostat] 0.4 mg SL ASDIRECTED PRN 03/22/14 [History] Tamsulosin [Flomax] 0.4 mg PO DAILY 09/10/14 [History] Warfarin [Coumadin] 2.5 mg PO MOFR 02/21/15 [History] Clopidogrel [Plavix] 75 mg PO DAILY 04/01/16 [History] Hydrocodone/Acetaminophen [Hydrocodon-Acetaminophen 5-325] 1 each PO TID PRN [History] Diltiazem HCl [Cartia Xt] 180 mg PO DAILY 08/04/17 [History] Albuterol/Ipratropium [DuoNeb 3.0-0.5 MG/3 ML] 3 ml NEB Q6HRRT neb 12/18/17 [Rx ] Polyethylene Glycol 3350 [MiraLAX] 17 gm PO BEDTIME PRN packet 12/18/17 [Rx] Ferrous Sulfate [Ferosul] 325 mg PO DAILY 01/22/18 [History] Potassium Chloride 10 meq PO DAILY 01/22/18 [History] Sennosides/Docusate Sodium [Senna-S] 1 each PO BID 01/22/18 [History] Warfarin [Coumadin] 1.25 mg PO SUTUWETHSA 01/22/18 [History] predniSONE [Prednisone] 20 mg PO DAILY 01/22/18 [History] Potassium Chloride [Klor-Con 10] 20 meq PO DAILY #90 tab.er 11/14/18 [Rx] Past Medical History HEENT History: Reports: Cataract, Impaired Vision, Other (See Below) Other HEENT History: Artificial Left eye Cardiovascular History: Reports: Afib, Heart Failure, Hypertension, Pacemaker, Stents Respiratory History: Reports: Asthma, COPD Other Respiratory History: Home O2. Gastrointestinal History: Reports: Cholelithiasis, Chronic Constipation, GERD, Hemorrhoids Genitourinary History: Reports: BPH, Prostate Disorder Musculoskeletal History: Reports: Arthritis, Back Pain, Chronic Other Musculoskeletal History: Paget's disease Neurological History: Reports: None Psychiatric History: Reports: None Endocrine/Metabolic History: Reports: Vitamin D Deficiency Hematologic History: Reports: Anemia, Blood Transfusion(s) Immunologic History: Reports: None Oncologic (Cancer) History: Reports: Other (See Below) Other Oncologic History: previous removal of lump and lymph nodes from neck. 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." Dermatologic History: Reports: Cellulitis - Infectious Disease History Infectious Disease History: Reports: Chicken Pox, Measles, Mumps - Past Surgical History HEENT Surgical History: Reports: Cataract Surgery Cardiovascular Surgical History: Reports: Carotid Stents Respiratory Surgical History: Reports: None GI Surgical History: Reports: None Male Surgical History: Reports: None Endocrine Surgical History: Reports: None Neurological Surgical History: Reports: None Musculoskeletal Surgical History: Reports: Arthroscopic Knee, Knee Replacement Oncologic Surgical History: Reports: None Social & Family History - Family History HEENT: Reports: None, Macular Degeneration Cardiac: Reports: [place] Respiratory: Reports: COPD GI: Reports: None : Reports: None OBGYN: Reports: None Musculoskeletal: Reports: Arthritis Neurological: Reports: None Psychiatric: Reports: None Endocrine/Metabolic: Reports: Diabetes, type II Hematologic: Reports: None Oncologic: Reports: Breast - Tobacco Use Smoking Status *Q: Former Smoker Used Tobacco, but Quit: Yes Month/Year Tobacco Last Used: quit 1984 Second Hand Smoke Exposure: No - Caffeine Use Caffeine Use: Reports: Coffee Other Caffeine Use: Mostly decafe per son - Recreational Drug Use Recreational Drug Use: No - Living Situation & Occupation Living situation: Reports: H&P Review of Systems - Review of Systems: Review Of Systems: See Below General: Reports: Weakness, Other (edema right arm. ) HEENT: Reports: No Symptoms Pulmonary: Reports: Shortness of Breath, Wheezing Cardiovascular: Reports: Edema Gastrointestinal: Reports: No Symptoms Genitourinary: Reports: No Symptoms Musculoskeletal: Reports: No Symptoms Skin: Reports: Dryness, Rash Psychiatric: Denies: Confusion, Depression Neurological: Reports: Gait Disturbance. Denies: Confusion Hematologic/Lymphatic: Reports: Easy Bruising. Denies: Easy Bleeding Immunologic: Reports: No Symptoms Exam - Exam Exam: See Below - Vital Signs Vital Signs: Last Vital Signs Temp 99.1 F 11/11/18 09:52 Pulse 75 11/11/18 09:52 Resp 22 H 11/11/18 09:52 BP 152/65 H 11/11/18 09:52 Pulse Ox 99 11/11/18 09:52 Weight: 179 lb - Exam Quality Assessment: Supplemental Oxygen. No: Central Line/PICC, Urinary Catheter General: Mild Distress HEENT: Conjunctiva Clear, Hearing Intact Neck: JVD Lungs: Crackles, Rhonchi Cardiovascular: Regular Rate, Regular Rhythm GI/Abdominal Exam: Distended, Tender (umbilica area). No: Rigid, Rebound (Male) Exam: Deferred Rectal (Males) Exam: Deferred Back Exam: No: CVA Tenderness (R) Extremities: Pedal Edema (3+bilateral, pressure blister RLL), Slow Capillary Refill. No: Daxa's Sign Peripheral Pulses: 2+: Radial (L), Radial (R) Skin: Other (extreme brawniness bilateral upper extremities, skin thin, Right arm, edema. ) Neuro Extensive - Mental Status: Alert, Oriented x3, Normal Mood/Affect, Normal Cognition Neuro Extensive - Motor, Sensory, Reflexes: CN II-XII Intact, Normal Gait, Normal Reflexes Psychiatric: Alert, Normal Mood, Labile Mood. No: Anxious - Patient Data Lab Results Last 24 hrs: Laboratory Results - last 24 hr 11/11/18 11/11/18 11/11/18 Range/Units 08:20 08:20 08:20 WBC 10.74 H (5.00-10.00) 10^3/uL RBC 4.11 L (4.50-6.00) 10^6/uL Hgb 10.8 L (13.0-17.0) g/dL Hct 35.6 L (40.0-52.0) % MCV 86.6 D (82.0-92.0) fL MCH 26.3 L (27.0-31.0) pg MCHC 30.3 L (32.0-36.0) g/dL RDW 17.9 H (11.5-14.5) % Plt Count 203 D (150-400) 10^3/uL MPV 10.4 (7.4-10.4) fL Immature Gran % (Auto) 1.1 (0.0-5.0) % Neut % (Auto) 81.3 H (50.0-70.0) % Lymph % (Auto) 13.0 L (20.0-40.0) % [place] % (Auto) 2.8 (2.0-8.0) % Eos % (Auto) 1.6 (1.0-3.0) % Baso % (Auto) 0.2 (0.0-1.0) % Immature Gran # (Auto) 0.12 (0.00-0.50) 10^3/uL Neut # (Auto) 8.73 H (2.50-7.00) 10^3/uL Lymph # (Auto) 1.40 (1.00-4.00) 10^3/uL [place] # (Auto) 0.30 (0.10-0.80) 10^3/uL Eos # (Auto) 0.17 (0.10-0.30) 10^3/uL Baso # (Auto) 0.02 (0.00-0.10) 10^3/uL PT 17.0 H D (8.9-11.4) SEC INR 1.7 H (0.9-1.1) APTT 32.5 H (23.1-31.3) SEC Sodium 138 (136-145) mmol/L Potassium 3.4 (3.3-5.3) mmol/L Chloride 99 (98-115) mmol/L Carbon Dioxide 34.8 H (21.0-32.0) mmol/L Anion Gap 7.6 (5-15) mmol/L BUN 25 (6-25) mg/dL Creatinine 0.97 (0.51-1.17) mg/dL Est Cr Clr Drug Dosing 55.40 mL/min Estimated GFR (MDRD) > 60 mL/min Glucose 72 L (75 - 99) mg/dL Calcium 8.2 L (8.7-10.3) mg/dL Total Bilirubin 0.6 (0.2-1.0) mg/dL AST 22 (15-37) U/L ALT 20 (12-78) U/L Alkaline Phosphatase 48 (46-116) IU/L Creatine Kinase 37 (26-276) U/L CK-MB (CK-2) 1.50 (0.00-4.30) ng/mL Troponin I 0.07 (0.00-0.070) ng/mL B-Natriuretic Peptide 187 H (0-100) pg/mL Total Protein 5.8 L (6.4-8.2) g/dL Albumin 2.49 L (3.00-4.80) g/dL Result Diagrams: 11/13/18 07:20 11/13/18 07:20 Problem List Initiated/Reviewed/Updated: Yes Orders Last 24hrs: Active Orders 24 hr Category Date Time Status Peripheral IV Insertion Adult [OM.PC] Routine Oth 11/11/18 08:27 Ordered EKG 12 Lead [EK] Routine Ther 11/11/18 08:26 Stop Req Assessment/Plan Comment:: History of present illness Patient is a 78 pleasant gentleman was admitted through the ED when he came in due to increase SOB with productive cough (worse on lying down and above baseline) lower extremity swelling and right arm edema Pt reports he has required use of his home O2 more frequently, He does have CHF and denotes " fluid on my lungs". ROS in ED was neg for chest pain, diaphoresis, nausea/ vomiting or fever chills. Primary hospital Problems --HFrEF exacerbation, acute on chronic, combined --Bilateral pleural effusions Chronic Problems --Atrial fibrillation --COPD --CAD/PVD --HTN --S/p pacemaker, hx AV node ablation --Obesity --BPH --OA, spinal stenosis, on COT and pain mgt contract --Vitamin D deficiency, Pagets Dz --Chronic vertigo PULMONARY: Pulmonary status below baseline, rales throughout, now on 2 L nasal cannula, pox 97%, PH 7.42 Co2, 50,P02 73 HC03 33, obesity contributory, B2 agonist, Change Lasix to 40mg IV TID, monitor BP carefully, CxR small bilateral pleural effusions with atelectetasis. Hold LABA, Cont KAT/AARON, Add Acapella CV: A. fib, chronic [id number] 5, DAPT, Rate control strategy with CCB, telemetry today, MAP good, although significant rales, BNP 187, diuretics, may quickly become euvolemic, monitor BUN, Grade I diastolic dysfunction and EF 55%, Consider starting ACEI upon more stability, EKG, adequate pacer tracing HEMATOLOGY: Hgb/Hct 10.8/35.6, Mixed ACD/SANTIAGO, on iron, change to QOD FLUIDS, ELECTROLYTES, AND RENAL: No IV fluids, Assess I/O, no vomiting, increase and change Lasix, Monitor electrolytes however add K+ to augment 2/2 ongoing diuretic therapy. BUN/Creat ration 27:1, Calcium 8.2, sodium 138, Oral fluids despite diuretic therapy. ENDOCRINE: Non diabetic, however chronic with recent injection and PO burst of steroids, will assess blood sugar levels BID and cover PRN GI/: No vomiting, Low sodium diet, Finasteride, tamsulosin. INFECTIOUS DISEASE: mild white count elevation with neutrophilia without platelet thrombocytosis, no infectious process however high risk for infection due to altered skin integrity and pulmonary compromise, Add Acapella, HEALTH MAINTENANCE: DVT prophylaxis-- DAPT, Skin care, Kade score, GI stress -add H2, Falls, precautions taken, up with assist
[2018-11-11] MEDS ORDERED: Nitroglycerin 0.4 MG Tab.SL SL PRN ×2 (11:10→11:48)
[2018-11-11] MEDS ORDERED: EPINEPHrine 1:10,000 1 MG/10 ML Syringe IVPUSH PRN (11:10)
[2018-11-11] MEDS ORDERED: Atropine 0.1 MG/ML 10 ML Syringe IVPUSH PRN (11:10)
[2018-11-11] MEDS ORDERED: Lidocaine 2% 100 MG/5 ML Syringe IVPUSH PRN (11:10)
[2018-11-11] MEDS ORDERED: Ondansetron 4 MG Tab.DIS PO PRN (11:41)
[2018-11-11] MEDS ORDERED: Furosemide 40 MG/4 ML VIAL IVPUSH ONE (11:46)
[2018-11-11] MEDS ORDERED: Polyethylene Glycol 3350 Powder 17 GM Packet PO PRN (11:48)
[2018-11-11] MEDS ORDERED: Acetaminophen/HYDROcodone 325-5 MG Tab PO PRN (11:48)
[2018-11-11 12:28] LABS: BASE EXCESS ARTERIAL 8 mmol/L (-2-3); BICARBONATE,ARTERIAL 32.6 mmol/L (22-26); O2 DELIVERY DEVICE NASAL CANNULA; O2 SATURATION ARTERIAL 94 % (95-98); PCO2 ARTERIAL 50 mmHG (35-45); PO2 ARTERIAL 73 mmHG (80-105)
[2018-11-11] MEDS ORDERED: Ferrous Sulfate 325 MG Tab PO SCH (12:30)
[2018-11-11] MEDS ORDERED: Potassium Chloride 10 MEQ Tab.ER PO SCH (12:30)
[2018-11-11] MEDS ORDERED: Potassium Bicarbonate 25 MEQ Tab.EFF PO SCH (12:30)
[2018-11-11] MEDS ORDERED: Potassium Bicarbonate 25 MEQ Tab.EFF PO ONE (12:45)
[2018-11-11] MEDS: predniSONE 10 MG Tab PO SCH (13:26)
[2018-11-11] MEDS: Finasteride 5 MG Tab PO SCH (13:26)
[2018-11-11] MEDS: Albuterol/Ipratropium 3.0-0.5 MG/3 ML Neb Soln NEB SCH ×3 (13:26→23:58)
[2018-11-11] MEDS: Diltiazem 180 MG Cap.CD PO SCH (13:26)
[2018-11-11] MEDS: Clopidogrel 75 MG Tab PO SCH (13:26)
[2018-11-11] MEDS: Tamsulosin 0.4 MG Cap.ER PO SCH (14:14)
[2018-11-11] MEDS ORDERED: Warfarin 2.5 MG Tab PO SCH (18:00)
[2018-11-12] MEDS: Albuterol/Ipratropium 3.0-0.5 MG/3 ML Neb Soln NEB SCH ×3 (05:44→18:05)
[2018-11-12 08:24] LABS: ANION GAP 7.5 mmol/L (5-15); CHLORIDE,CL 100 mmol/L (98-115); SODIUM,NA 139 mmol/L (136-145)
[2018-11-12] MEDS: Tamsulosin 0.4 MG Cap.ER PO SCH (08:43)
[2018-11-12] MEDS: predniSONE 10 MG Tab PO SCH (08:43)
[2018-11-12] MEDS: Potassium Chloride 10 MEQ Tab.ER PO SCH (08:43)
[2018-11-12] MEDS: Finasteride 5 MG Tab PO SCH (08:43)
[2018-11-12] MEDS: Clopidogrel 75 MG Tab PO SCH (08:44)
[2018-11-12] MEDS: Diltiazem 180 MG Cap.CD PO SCH (08:44)
[2018-11-12] MEDS: Ferrous Sulfate 325 MG Tab PO SCH (08:46)
--- NOTE | 2018-11-12 12:48 | PCM.PN ---
- General Info Date of Service: 11/12/18 Admission Dx/Problem (Free Text): Admission Diagnosis/Problem Admission Diagnosis/Problem CHF, Congestive heart failure - Review of Systems General: Reports: Weakness. Denies: Fever, Malaise, Chills HEENT: Reports: No Symptoms Pulmonary: Reports: Shortness of Breath, Cough (chronic), Sputum Cardiovascular: Reports: Edema. Denies: Chest Pain, Palpitations Gastrointestinal: Reports: Other (patient states he has had 2 loose stools today ). Denies: Abdominal Pain, Constipation, Decreased Appetite, Nausea, Vomiting Genitourinary: Reports: No Symptoms. Denies: Dysuria, Frequency, Burning, Pain , Urgency Musculoskeletal: Reports: No Symptoms Skin: Reports: Bruising, Rash Neurological: Reports: Confusion, Dizziness, Headache Psychiatric: Reports: No Symptoms - Patient Data Vitals - Most Recent: Last Vital Signs Temp 99.0 F 11/12/18 11:00 Pulse 73 11/12/18 11:39 Resp 20 11/12/18 11:00 BP 124/62 11/12/18 11:00 Pulse Ox 100 11/12/18 11:00 Weight - Most Recent: 179 lb I&O - Last 24 Hours: Intake & Output 11/11/18 11/12/18 11/12/18 22:59 06:59 14:59 Intake Total 270 0 Balance 270 0 Lab Results Last 24 Hours: Laboratory Results - last 24 hr 11/11/18 11/12/18 11/12/18 Range/Units 17:57 06:34 07:40 WBC 8.12 (5.00-10.00) 10^3/uL RBC 3.62 L (4.50-6.00) 10^6/uL Hgb 9.5 L (13.0-17.0) g/dL Hct 30.5 L (40.0-52.0) % MCV 84.3 (82.0-92.0) fL MCH 26.2 L (27.0-31.0) pg MCHC 31.1 L (32.0-36.0) g/dL RDW 17.2 H (11.5-14.5) % Plt Count 173 (150-400) 10^3/uL MPV 9.6 (7.4-10.4) fL Immature Gran % (Auto) 1.6 (0.0-5.0) % Neut % (Auto) 84.8 H (50.0-70.0) % Lymph % (Auto) 9.9 L (20.0-40.0) % [place] % (Auto) 3.1 (2.0-8.0) % Eos % (Auto) 0.5 L (1.0-3.0) % Baso % (Auto) 0.1 (0.0-1.0) % Immature Gran # (Auto) 0.13 (0.00-0.50) 10^3/uL Neut # (Auto) 6.89 (2.50-7.00) 10^3/uL Lymph # (Auto) 0.80 L (1.00-4.00) 10^3/uL [place] # (Auto) 0.25 (0.10-0.80) 10^3/uL Eos # (Auto) 0.04 L (0.10-0.30) 10^3/uL Baso # (Auto) 0.01 (0.00-0.10) 10^3/uL Sodium (136-145) mmol/L Potassium (3.3-5.3) mmol/L Chloride (98-115) mmol/L Carbon Dioxide (21.0-32.0) mmol/L Anion Gap (5-15) mmol/L BUN (6-25) mg/dL Creatinine (0.51-1.17) mg/dL Est Cr Clr Drug Dosing mL/min Estimated GFR (MDRD) mL/min Glucose (75 - 99) mg/dL POC Glucose 109 H 120 H (74-106) mg/dl Calcium (8.7-10.3) mg/dL Magnesium (1.8-2.4) mg/dL Total Bilirubin (0.2-1.0) mg/dL AST (15-37) U/L ALT (12-78) U/L Alkaline Phosphatase (46-116) IU/L Total Protein (6.4-8.2) g/dL Albumin (3.00-4.80) g/dL 11/12/18 Range/Units 07:40 WBC (5.00-10.00) 10^3/uL RBC (4.50-6.00) 10^6/uL Hgb (13.0-17.0) g/dL Hct (40.0-52.0) % MCV (82.0-92.0) fL MCH (27.0-31.0) pg MCHC (32.0-36.0) g/dL RDW (11.5-14.5) % Plt Count (150-400) 10^3/uL MPV (7.4-10.4) fL Immature Gran % (Auto) (0.0-5.0) % Neut % (Auto) (50.0-70.0) % Lymph % (Auto) (20.0-40.0) % [place] % (Auto) (2.0-8.0) % Eos % (Auto) (1.0-3.0) % Baso % (Auto) (0.0-1.0) % Immature Gran # (Auto) (0.00-0.50) 10^3/uL Neut # (Auto) (2.50-7.00) 10^3/uL Lymph # (Auto) (1.00-4.00) 10^3/uL [place] # (Auto) (0.10-0.80) 10^3/uL Eos # (Auto) (0.10-0.30) 10^3/uL Baso # (Auto) (0.00-0.10) 10^3/uL Sodium 139 (136-145) mmol/L Potassium 2.9 L (3.3-5.3) mmol/L Chloride 100 (98-115) mmol/L Carbon Dioxide 34.4 H (21.0-32.0) mmol/L Anion Gap 7.5 (5-15) mmol/L BUN 25 (6-25) mg/dL Creatinine 0.94 (0.51-1.17) mg/dL Est Cr Clr Drug Dosing 57.17 mL/min Estimated GFR (MDRD) > 60 mL/min Glucose 97 (75 - 99) mg/dL POC Glucose (74-106) mg/dl Calcium 8.0 L (8.7-10.3) mg/dL Magnesium 1.9 (1.8-2.4) mg/dL Total Bilirubin 0.5 (0.2-1.0) mg/dL AST 13 L (15-37) U/L ALT 16 (12-78) U/L Alkaline Phosphatase 44 L (46-116) IU/L Total Protein 5.3 L (6.4-8.2) g/dL Albumin 2.20 L (3.00-4.80) g/dL Med Orders - Current: Current Medications Hydrocodone Bitart/Acetaminophen ([place] 325-5 Mg) 1 tab PO TID PRN PRN Reason: severe pain Albuterol/Ipratropium (Duoneb 3.0-0.5 Mg/3 Ml) 3 ml NEB Q6HRRT [facility] Last Admin: 11/12/18 11:38 Dose: 3 ml Atropine Sulfate (Atropine 0.1 Mg/Ml) 0 mg IVPUSH ASDIRECTED PRN PRN Reason: Heart Clopidogrel Bisulfate (Plavix) 75 mg PO DAILY [facility] Last Admin: 11/12/18 08:44 Dose: 75 mg Diltiazem HCl (Cardizem Cd) 180 mg PO DAILY [facility] Last Admin: 11/12/18 08:44 Dose: 180 mg Epinephrine HCl (Epinephrine 1:10,000) 1 mg IVPUSH ASDIRECTED PRN PRN Reason: Heart Ferrous Sulfate (Ferrous Sulfate) 325 mg PO Q48H [facility] Last Admin: 11/12/18 08:46 Dose: 325 mg Finasteride (Proscar) 5 mg PO DAILY [facility] Last Admin: 11/12/18 08:43 Dose: 5 mg Furosemide (Lasix) 40 mg IVPUSH BID [facility] Lidocaine HCl (Xylocaine 2%) 0 mg IVPUSH ASDIRECTED PRN PRN Reason: Heart Nitroglycerin (Nitrostat) 0.4 mg SL ASDIRECTED PRN PRN Reason: Heart Ondansetron HCl (Zofran Odt) 4 mg PO Q4H PRN PRN Reason: nausea, able to take PO Polyethylene Glycol (Miralax) 17 gm PO BEDTIME PRN PRN Reason: Constipation Potassium Bicarbonate (Klor-Con Ef) 25 meq PO DAILY [facility] Potassium Chloride (Klor-Con 10) 10 meq PO DAILY [facility] Last Admin: 11/12/18 08:43 Dose: 10 meq Prednisone (Prednisone) 20 mg PO DAILY [facility] Last Admin: 11/12/18 08:43 Dose: 20 mg Ranitidine HCl (Zantac) 150 mg PO DAILY [facility] Last Admin: 11/12/18 08:43 Dose: 150 mg Senna/Docusate Sodium (Senna Plus) 1 tab PO BID [facility] Last Admin: 11/12/18 08:43 Dose: 1 tab Sodium Chloride (Saline Flush) 10 ml FLUSH Q8HR PRN PRN Reason: keep vein open Last Admin: 11/11/18 21:08 Dose: 10 ml Tamsulosin HCl (Flomax) 0.4 mg PO DAILY [facility] Last Admin: 11/12/18 08:43 Dose: 0.4 mg Warfarin Sodium (Coumadin) 1.25 mg PO [id number]@[email or web address] [facility] Warfarin Sodium (Coumadin) 2.5 mg PO [email or web address] [facility] Last Admin: 11/11/18 17:11 Dose: 2.5 mg Discontinued Medications Bumetanide (Bumex) 1 mg IVPUSH ONETIME ONE Stop: 11/11/18 09:00 Last Admin: 11/11/18 09:16 Dose: 1 mg Ferrous Sulfate (Ferrous Sulfate) 325 mg PO DAILY [facility] Last Admin: 11/11/18 14:14 Dose: Not Given Furosemide (Lasix) 40 mg IVPUSH TID ONE Stop: 11/11/18 11:47 Last Admin: 11/11/18 12:48 Dose: 40 mg Nitroglycerin (Nitrostat) 0.4 mg SL ASDIRECTED PRN PRN Reason: Chest Pain Potassium Bicarbonate (Klor-Con Ef) 25 meq PO ONETIME [facility] Potassium Bicarbonate (Klor-Con Ef) 25 meq PO ONETIME ONE Stop: 11/11/18 12:46 Last Admin: 11/11/18 13:26 Dose: 25 meq Potassium Chloride (Klor-Con 10) 10 meq PO DAILY [facility] Sodium Chloride (Saline Flush) 10 ml FLUSH Q8HR PRN PRN Reason: keep vein open Last Admin: 11/11/18 09:17 Dose: 10 ml - Exam Quality Assessment: Supplemental Oxygen General: Alert, Oriented, No Acute Distress HEENT: Pupils Equal Neck: Supple, JVD Lungs: Crackles (crackles noted to the BLL), Rhonchi Cardiovascular: Irregular Rhythm GI/Abdominal Exam: Soft, No Distention, Other (mild abdominal tenderness near umbilicus) Back Exam: Normal Inspection Extremities: Pedal Edema, Other (2+ pretibial and ankle pitting edema. ) Skin: Warm, Other (thin skin. scattered ecchymosis. Brawniness in appearance. ) Neurological: No New Focal Deficit Psy/Mental Status: Alert, Normal Affect, Normal Mood - Problem List Review Problem List Initiated/Reviewed/Updated: Yes - My Orders Last 24 Hours: My Active Orders 11/12/18 12:30 Furosemide [Lasix] 40 mg IVPUSH BID 11/12/18 12:45 Potassium Bicarbonate [Klor-Con EF] 25 meq PO DAILY 11/13/18 05:11 B-TYPE NATRIURETIC PEPTIDE,BNP [CHEM] AM CBC WITH AUTO DIFF [HEME] AM COMPREHENSIVE METABOLIC PN,CMP [CHEM] AM - Plan Plan:: History of present illness Patient is a 78 pleasant gentleman was admitted through the ED when he came in due to increase SOB with productive cough (worse on lying down and above baseline) lower extremity swelling and right arm edema Pt reports he has required use of his home O2 more frequently, He does have CHF and denotes " fluid on my lungs". ROS in ED was neg for chest pain, diaphoresis, nausea/ vomiting or fever chills. Primary hospital Problems --HFrEF exacerbation, acute on chronic, combined --Bilateral pleural effusions Chronic Problems --Atrial fibrillation --COPD --CAD/PVD --HTN --S/p pacemaker, hx AV node ablation --Obesity --BPH --OA, spinal stenosis, on COT and pain mgt contract --Vitamin D deficiency, Pagets Dz --Chronic vertigo PULMONARY: Pulmonary status below baseline, rales throughout, now on 2 L nasal cannula, pox 97%, PH 7.42 Co2, 50,P02 73 HC03 33, obesity contributory, B2 agonist, Change Lasix to 40mg IV TID, monitor BP carefully, CxR small bilateral pleural effusions with atelectetasis. Hold LABA, Cont KAT/AARON, Add Acapella CV: A. fib, chronic [id number] 5, DAPT, Rate control strategy with CCB, telemetry today, MAP good, although significant rales, BNP 187, diuretics, may quickly become euvolemic, monitor BUN, Grade I diastolic dysfunction and EF 55%, Consider starting ACEI upon more stability, EKG, adequate pacer tracing HEMATOLOGY: Hgb/Hct 10.8/35.6, Mixed ACD/SANTIAGO, on iron, change to QOD FLUIDS, ELECTROLYTES, AND RENAL: No IV fluids, Assess I/O, no vomiting, increase and change Lasix, Monitor electrolytes however add K+ to augment 2/2 ongoing diuretic therapy. BUN/Creat ration 27:1, Calcium 8.2, sodium 138, Oral fluids despite diuretic therapy. ENDOCRINE: Non diabetic, however chronic with recent injection and PO burst of steroids, will assess blood sugar levels BID and cover PRN GI/: No vomiting, Low sodium diet, Finasteride, tamsulosin. INFECTIOUS DISEASE: mild white count elevation with neutrophilia without platelet thrombocytosis, no infectious process however high risk for infection due to altered skin integrity and pulmonary compromise, Add Acapella, HEALTH MAINTENANCE: DVT prophylaxis-- DAPT, Skin care, Kade score, GI stress -add H2, Falls, precautions taken, up with assist
[2018-11-12] MEDS: Furosemide 40 MG/4 ML VIAL IVPUSH SCH ×2 (13:07→18:05)
[2018-11-12] MEDS: Sodium Chloride 0.9% 10 ML Syringe FLUSH PRN (13:07)
[2018-11-12] MEDS: Potassium Bicarbonate 25 MEQ Tab.EFF PO SCH (13:07)
[2018-11-12] MEDS: Warfarin 2.5 MG Tab PO SCH (18:05)
[2018-11-13] MEDS: Albuterol/Ipratropium 3.0-0.5 MG/3 ML Neb Soln NEB SCH ×5 (00:03→22:07)
[2018-11-13 08:42] LABS: ANION GAP 8.3 mmol/L (5-15); CHLORIDE,CL 100 mmol/L (98-115); SODIUM,NA 139 mmol/L (136-145)
--- NOTE | 2018-11-13 10:14 | PCM.PN ---
- General Info Date of Service: 11/13/18 Admission Dx/Problem (Free Text): Admission Diagnosis/Problem Admission Diagnosis/Problem CHF, Congestive heart failure Functional Status: Reports: Pain Controlled, Incentive Spirometry. Denies: New Symptoms - Review of Systems General: Reports: No Symptoms HEENT: Reports: No Symptoms Pulmonary: Reports: Shortness of Breath (improving), Cough (chronic ), Sputum ( clear/white phlegm, denies increase in quantity or purulence) Cardiovascular: Denies: Chest Pain, Palpitations, Orthopnea Gastrointestinal: Reports: Other (loose stools). Denies: Abdominal Pain, Constipation, Nausea, Vomiting Genitourinary: Reports: No Symptoms Skin: Reports: Bruising (thin skin. brawny in color) Neurological: Denies: Confusion, Dizziness, Headache, Numbness Psychiatric: Reports: No Symptoms - Patient Data Vitals - Most Recent: Last Vital Signs Temp 98.6 F 11/13/18 06:01 Pulse 81 11/13/18 06:01 Resp 20 11/13/18 06:01 BP 130/65 11/13/18 06:01 Pulse Ox 96 11/13/18 06:01 Weight - Most Recent: 174 lb 12.8 oz I&O - Last 24 Hours: Intake & Output 11/12/18 11/13/18 11/13/18 22:59 06:59 14:59 Intake Total 540 200 Balance 540 200 Lab Results Last 24 Hours: Laboratory Results - last 24 hr 11/12/18 11/13/18 11/13/18 Range/Units 18:07 06:06 07:20 WBC 10.44 H (5.00-10.00) 10^3/uL RBC 3.67 L (4.50-6.00) 10^6/uL Hgb 9.6 L (13.0-17.0) g/dL Hct 31.6 L (40.0-52.0) % MCV 86.1 (82.0-92.0) fL MCH 26.2 L (27.0-31.0) pg MCHC 30.4 L (32.0-36.0) g/dL RDW 17.2 H (11.5-14.5) % Plt Count 222 (150-400) 10^3/uL MPV 10.5 H (7.4-10.4) fL Immature Gran % (Auto) 1.0 (0.0-5.0) % Neut % (Auto) 84.0 H (50.0-70.0) % Lymph % (Auto) 10.5 L (20.0-40.0) % [place] % (Auto) 3.5 (2.0-8.0) % Eos % (Auto) 0.9 L (1.0-3.0) % Baso % (Auto) 0.1 (0.0-1.0) % Immature Gran # (Auto) 0.10 (0.00-0.50) 10^3/uL Neut # (Auto) 8.77 H (2.50-7.00) 10^3/uL Lymph # (Auto) 1.10 (1.00-4.00) 10^3/uL [place] # (Auto) 0.37 (0.10-0.80) 10^3/uL Eos # (Auto) 0.09 L (0.10-0.30) 10^3/uL Baso # (Auto) 0.01 (0.00-0.10) 10^3/uL Sodium (136-145) mmol/L Potassium (3.3-5.3) mmol/L Chloride (98-115) mmol/L Carbon Dioxide (21.0-32.0) mmol/L Anion Gap (5-15) mmol/L BUN (6-25) mg/dL Creatinine (0.51-1.17) mg/dL Est Cr Clr Drug Dosing mL/min Estimated GFR (MDRD) mL/min Glucose (75 - 99) mg/dL POC Glucose 139 H 95 (74-106) mg/dl Calcium (8.7-10.3) mg/dL Total Bilirubin (0.2-1.0) mg/dL AST (15-37) U/L ALT (12-78) U/L Alkaline Phosphatase (46-116) IU/L B-Natriuretic Peptide (0-100) pg/mL Total Protein (6.4-8.2) g/dL Albumin (3.00-4.80) g/dL 11/13/18 Range/Units 07:20 WBC (5.00-10.00) 10^3/uL RBC (4.50-6.00) 10^6/uL Hgb (13.0-17.0) g/dL Hct (40.0-52.0) % MCV (82.0-92.0) fL MCH (27.0-31.0) pg MCHC (32.0-36.0) g/dL RDW (11.5-14.5) % Plt Count (150-400) 10^3/uL MPV (7.4-10.4) fL Immature Gran % (Auto) (0.0-5.0) % Neut % (Auto) (50.0-70.0) % Lymph % (Auto) (20.0-40.0) % [place] % (Auto) (2.0-8.0) % Eos % (Auto) (1.0-3.0) % Baso % (Auto) (0.0-1.0) % Immature Gran # (Auto) (0.00-0.50) 10^3/uL Neut # (Auto) (2.50-7.00) 10^3/uL Lymph # (Auto) (1.00-4.00) 10^3/uL [place] # (Auto) (0.10-0.80) 10^3/uL Eos # (Auto) (0.10-0.30) 10^3/uL Baso # (Auto) (0.00-0.10) 10^3/uL Sodium 139 (136-145) mmol/L Potassium 3.3 (3.3-5.3) mmol/L Chloride 100 (98-115) mmol/L Carbon Dioxide 34.0 H (21.0-32.0) mmol/L Anion Gap 8.3 (5-15) mmol/L BUN 26 H (6-25) mg/dL Creatinine 0.97 (0.51-1.17) mg/dL Est Cr Clr Drug Dosing 55.40 mL/min Estimated GFR (MDRD) > 60 mL/min Glucose 89 (75 - 99) mg/dL POC Glucose (74-106) mg/dl Calcium 8.5 L (8.7-10.3) mg/dL Total Bilirubin 0.5 (0.2-1.0) mg/dL AST 15 (15-37) U/L ALT 17 (12-78) U/L Alkaline Phosphatase 46 (46-116) IU/L B-Natriuretic Peptide 162 H (0-100) pg/mL Total Protein 5.7 L (6.4-8.2) g/dL Albumin 2.37 L (3.00-4.80) g/dL Med Orders - Current: Current Medications Hydrocodone Bitart/Acetaminophen ([place] 325-5 Mg) 1 tab PO TID PRN PRN Reason: severe pain Last Admin: 11/13/18 00:16 Dose: 1 tab Albuterol/Ipratropium (Duoneb 3.0-0.5 Mg/3 Ml) 3 ml NEB Q6HRRT [facility] Last Admin: 11/13/18 06:00 Dose: 3 ml Atropine Sulfate (Atropine 0.1 Mg/Ml) 0 mg IVPUSH ASDIRECTED PRN PRN Reason: Heart Clopidogrel Bisulfate (Plavix) 75 mg PO DAILY [facility] Last Admin: 11/12/18 08:44 Dose: 75 mg Diltiazem HCl (Cardizem Cd) 180 mg PO DAILY [facility] Last Admin: 11/12/18 08:44 Dose: 180 mg Epinephrine HCl (Epinephrine 1:10,000) 1 mg IVPUSH ASDIRECTED PRN PRN Reason: Heart Ferrous Sulfate (Ferrous Sulfate) 325 mg PO Q48H [facility] Last Admin: 11/12/18 08:46 Dose: 325 mg Finasteride (Proscar) 5 mg PO DAILY [facility] Last Admin: 11/12/18 08:43 Dose: 5 mg Furosemide (Lasix) 40 mg IVPUSH BIDDIURETIC [facility] Last Admin: 11/12/18 18:05 Dose: 40 mg Lidocaine HCl (Xylocaine 2%) 0 mg IVPUSH ASDIRECTED PRN PRN Reason: Heart Nitroglycerin (Nitrostat) 0.4 mg SL ASDIRECTED PRN PRN Reason: Heart Ondansetron HCl (Zofran Odt) 4 mg PO Q4H PRN PRN Reason: nausea, able to take PO Polyethylene Glycol (Miralax) 17 gm PO BEDTIME PRN PRN Reason: Constipation Potassium Bicarbonate (Klor-Con Ef) 25 meq PO DAILY [facility] Last Admin: 11/12/18 13:07 Dose: 25 meq Potassium Chloride (Klor-Con 10) 10 meq PO DAILY [facility] Last Admin: 11/12/18 08:43 Dose: 10 meq Prednisone (Prednisone) 20 mg PO DAILY [facility] Last Admin: 11/12/18 08:43 Dose: 20 mg Ranitidine HCl (Zantac) 150 mg PO DAILY [facility] Last Admin: 11/12/18 08:43 Dose: 150 mg Senna/Docusate Sodium (Senna Plus) 1 tab PO BID [facility] Last Admin: 11/12/18 20:38 Dose: 1 tab Sodium Chloride (Saline Flush) 10 ml FLUSH Q8HR PRN PRN Reason: keep vein open Last Admin: 11/12/18 13:07 Dose: 10 ml Tamsulosin HCl (Flomax) 0.4 mg PO DAILY [facility] Last Admin: 11/12/18 08:43 Dose: 0.4 mg Warfarin Sodium (Coumadin) 1.25 mg PO [email or web address] [facility] Last Admin: 11/12/18 18:05 Dose: 1.25 mg Warfarin Sodium (Coumadin) 2.5 mg PO MoFr@1800 [facility] Last Admin: 11/11/18 17:11 Dose: 2.5 mg Discontinued Medications Bumetanide (Bumex) 1 mg IVPUSH ONETIME ONE Stop: 11/11/18 09:00 Last Admin: 11/11/18 09:16 Dose: 1 mg Ferrous Sulfate (Ferrous Sulfate) 325 mg PO DAILY [facility] Last Admin: 11/11/18 14:14 Dose: Not Given Furosemide (Lasix) 40 mg IVPUSH TID ONE Stop: 11/11/18 11:47 Last Admin: 11/11/18 12:48 Dose: 40 mg Nitroglycerin (Nitrostat) 0.4 mg SL ASDIRECTED PRN PRN Reason: Chest Pain Potassium Bicarbonate (Klor-Con Ef) 25 meq PO ONETIME [facility] Potassium Bicarbonate (Klor-Con Ef) 25 meq PO ONETIME ONE Stop: 11/11/18 12:46 Last Admin: 11/11/18 13:26 Dose: 25 meq Potassium Chloride (Klor-Con 10) 10 meq PO DAILY [facility] Sodium Chloride (Saline Flush) 10 ml FLUSH Q8HR PRN PRN Reason: keep vein open Last Admin: 11/11/18 09:17 Dose: 10 ml - Exam Quality Assessment: Supplemental Oxygen, DVT Prophylaxis (DAPT) General: Alert, Oriented. No: No Acute Distress Neck: Supple (mild crackles to the BLE, improved.), No JVD Lungs: Normal Respiratory Effort, Crackles (mild crackles to bilateral lower lobes, improved. ). No: Rhonchi GI/Abdominal Exam: Normal Bowel Sounds, Soft, Non-Tender (Male) Exam: Deferred Back Exam: Normal Inspection Extremities: Pedal Edema (2+ pitting ankle and foot edema. ), Other Skin: Warm, Dry (improved edema to the RUE. mild residual edema to the LUE.), Intact Neurological: No New Focal Deficit Psy/Mental Status: Alert Physical Findings Comments:: Lung sound notably improved today. Respiratory effort is also improved. - Problem List Review Problem List Initiated/Reviewed/Updated: Yes - My Orders Last 24 Hours: My Active Orders 11/12/18 12:30 Furosemide [Lasix] 40 mg IVPUSH BIDDIURETIC 11/12/18 12:45 Potassium Bicarbonate [Klor-Con EF] 25 meq PO DAILY - Plan Plan:: History of present illness Patient is a 78 pleasant gentleman was admitted through the ED when he came in due to increase SOB with productive cough (worse on lying down and above baseline) lower extremity swelling and right arm edema. Pt reports he has required use of his home O2 more frequently. He does have CHF and denotes "fluid on my lungs". ROS in ED was neg for chest pain, diaphoresis, nausea/ vomiting or fever chills. Pertinent ED work-up: WBC 10.74 HGB/HCT 10.8/35.6 Plt 203 BNP-187 Trop- negative CK-MB normal CxR small bilateral pleural effusions with atelectasis. Primary hospital Problems --HFrEF exacerbation, acute on chronic, combined- Grade I diastolic dysfunction and EF 55%. Patient is down overall 5 pounds since admission. Pulmonary assessment markedly improved. Some continued peripheral edema, question some dependency component to edema. Consider ACEI upon mor stability --Bilateral pleural effusions- long sounds improved overall today. mild increase in WBC from yesterday. no infectious process however high risk for infection due to altered skin integrity and pulmonary compromise. Denies increase in sputum production and purulence. Continue Acapella, Chronic Problems --Atrial fibrillation- DAPT. rate control with CCB --COPD- improved pulmonary status. On 1.5L NC. ABGs: PH 7.42 Co2, 50,P02 73 HC03 33, Continue Lasix to 40mg IV BID, monitor BP carefully, Cont KAT/AARON, continue Acapella --HTN --S/p pacemaker, hx AV node ablation --Anemia- Mixed ACD/SANTIAGO. on oral iron. dosing change to QOD. --Obesity --BPH-Finasteride, tamsulosin. --OA, spinal stenosis, on COT and pain mgt contract --Vitamin D deficiency, Pagets Dz --Chronic vertigo FEN: No IV fluids, Assess I/O, daily weights no vomiting, resume current lasix dosing. K+ improved today, mildly decreased yesterday. Will add supplemental K+ given ongoing diuretic therapy. GFR>60. Non diabetic, however chronic with recent injection and PO burst of steroids, will assess blood sugar levels BID and cover PRN PPX: DVT prophylaxis-- DAPT, Skin care, Kade score, GI stress-add H2, Falls , precautions taken, up with assist Disposition:Continue inpatient. Likely discharge tomorrow given interval improvement and near baseline cardiopulmonary status.
[2018-11-13] MEDS: Diltiazem 180 MG Cap.CD PO SCH (10:22)
[2018-11-13] MEDS: Potassium Bicarbonate 25 MEQ Tab.EFF PO SCH (10:23)
[2018-11-13] MEDS: Potassium Chloride 10 MEQ Tab.ER PO SCH (10:23)
[2018-11-13] MEDS: Furosemide 40 MG/4 ML VIAL IVPUSH SCH ×2 (10:23→17:27)
[2018-11-13] MEDS: Finasteride 5 MG Tab PO SCH (10:24)
[2018-11-13] MEDS: Tamsulosin 0.4 MG Cap.ER PO SCH (10:24)
[2018-11-13] MEDS: predniSONE 10 MG Tab PO SCH (10:24)
[2018-11-13] MEDS: Clopidogrel 75 MG Tab PO SCH (10:24)
[2018-11-13] MEDS: Warfarin 2.5 MG Tab PO SCH (17:32)
[2018-11-13] MEDS ORDERED: Hydrocortisone 2.5% Crm 30 GM Tube TOP PRN (18:04)
[2018-11-14] MEDS: Albuterol/Ipratropium 3.0-0.5 MG/3 ML Neb Soln NEB SCH ×2 (05:16→10:46)
[2018-11-14] MEDS: Tamsulosin 0.4 MG Cap.ER PO SCH (09:04)
[2018-11-14] MEDS: Clopidogrel 75 MG Tab PO SCH (09:04)
[2018-11-14] MEDS: Finasteride 5 MG Tab PO SCH (09:04)
[2018-11-14] MEDS: Potassium Bicarbonate 25 MEQ Tab.EFF PO SCH (09:04)
[2018-11-14] MEDS: Diltiazem 180 MG Cap.CD PO SCH (09:04)
[2018-11-14] MEDS: Potassium Chloride 10 MEQ Tab.ER PO SCH (09:04)
[2018-11-14] MEDS: Furosemide 40 MG/4 ML VIAL IVPUSH SCH (09:04)
[2018-11-14] MEDS: predniSONE 10 MG Tab PO SCH (09:04)
[2018-11-14 09:05] VITALS: BP 117/53
[2018-11-14] MEDS: Ferrous Sulfate 325 MG Tab PO SCH (09:06)
--- NOTE | 2018-11-14 09:41 | PCM.DCSUM1 ---
Discharge Summary - Hospital Course Diagnosis: Stroke: No - Discharge Data Discharge Date: 11/14/18 Discharge Disposition: Home, Self-Care 01 Condition: Fair - Patient Instructions Diet: Usual Diet as Tolerated Activity: As Tolerated, Cough & Deep Breathe Showering/Bathing: May Shower Notify Provider of: Fever, Nausea and/or Vomiting - Discharge Plan *PRESCRIPTION DRUG MONITORING PROGRAM REVIEWED*: Not Applicable *COPY OF PRESCRIPTION DRUG MONITORING REPORT IN PATIENT SHALOM: Not Applicable Prescriptions/Med Rec: Potassium Chloride [Klor-Con 10] 20 meq PO DAILY #90 tab.er Home Medications: Home Meds Arformoterol [Brovana] 1 ampule INH BID 03/22/14 [History] Finasteride 5 mg PO DAILY 03/22/14 [History] Furosemide 80 mg PO DAILY@0700 03/22/14 [History] Nitroglycerin [Nitrostat] 0.4 mg SL ASDIRECTED PRN 03/22/14 [History] Tamsulosin [Flomax] 0.4 mg PO DAILY 09/10/14 [History] Warfarin [Coumadin] 2.5 mg PO MOFR 02/21/15 [History] Clopidogrel [Plavix] 75 mg PO DAILY 04/01/16 [History] Hydrocodone/Acetaminophen [Hydrocodon-Acetaminophen 5-325] 1 each PO TID PRN [History] Diltiazem HCl [Cartia Xt] 180 mg PO DAILY 08/04/17 [History] Albuterol/Ipratropium [DuoNeb 3.0-0.5 MG/3 ML] 3 ml NEB Q6HRRT neb 12/18/17 [Rx ] Polyethylene Glycol 3350 [MiraLAX] 17 gm PO BEDTIME PRN packet 12/18/17 [Rx] Ferrous Sulfate [Ferosul] 325 mg PO DAILY 01/22/18 [History] Potassium Chloride 10 meq PO DAILY 01/22/18 [History] Sennosides/Docusate Sodium [Senna-S] 1 each PO BID 01/22/18 [History] Warfarin [Coumadin] 1.25 mg PO SUTUWETHSA 01/22/18 [History] predniSONE [Prednisone] 20 mg PO DAILY 01/22/18 [History] Potassium Chloride [Klor-Con 10] 20 meq PO DAILY #90 tab.er 11/14/18 [Rx] Oxygen Therapy Mode: Nasal Cannula Referrals: Nikos Acosta, [employer] [Family Provider] - (later this week) - Discharge Summary/Plan Comment DC Time >30 min.: Yes Discharge Summary/Plan Comment: final diagnosis HFrEF exacerbation, acute on chronic, combined, Improved Bilateral pleural effusions Secondary final diagnosis --Atrial fibrillation --COPD --CAD/PVD --HTN --S/p pacemaker, hx AV node ablation --Obesity --BPH --OA, spinal stenosis, on COT and pain mgt contract --Vitamin D deficiency, Pagets Dz --Chronic vertigo history 78 pleasant Male admitted through the ED due to increase SOB with productive cough lower extremity swelling and right arm edema Pt reported he has required use of his home O2 more frequently, He does have CHF and denotes stated he had fluid on his lungs and he had gained weight over his bas He is quit dependent in wheelchair hospital course Went well, he was given diuretic therapy and lost approximate 5 pounds below his baseline weight. he did becom hypokalemia and this was replaced, normal on discharge. He had significant pedal edema long with bilateralr upper extremities however there were much improved upon discharge. Pulmonary status below baseline on admission rales throughout, pox 97%, PH 7.42 Co2, 50,P02 73 HC03 33, obesity contributory, he was given initiall Lasix to 40mg IV TID, and this was slowly titrated down. CxR small bilateral pleural effusions with atelectetasis. Home LABA was held. We continued KAT/AARON, Added Acapella. b/ Hct 10.8/35.6, change to QOD. mild white count elevation with neutrophilia without platelet thrombocytosis, no infectious process however high risk for infection due to altered skin integrity and pulmonary compromise. medication changes/adjustments upon discharge Increase potassium to 20 mg daily due to diuretic therapy Iron QOD Consider starting ACEI disposition Patient will be discharged with self-long term, close follow-up this week. May need to start ACEI at f/u. - General Info Functional Status: Reports: Pain Controlled - Review of Systems General: Reports: No Symptoms HEENT: Reports: No Symptoms, Other Pulmonary: Reports: Shortness of Breath (shortness of breath improved over baseline), Cough. Denies: Wheezing Cardiovascular: Reports: No Symptoms Gastrointestinal: Reports: No Symptoms Skin: Reports: Bruising Neurological: Denies: Confusion Psychiatric: Denies: Confusion - Patient Data Vitals - Most Recent: Last Vital Signs Temp 98.1 F 11/14/18 05:21 Pulse 77 11/14/18 09:04 Resp 16 11/14/18 05:21 BP 117/53 L 11/14/18 09:04 Pulse Ox 96 11/14/18 05:21 Weight - Most Recent: 179 lb I&O - Last 24 hours: Intake & Output 11/13/18 11/14/18 11/14/18 22:59 06:59 14:59 Intake Total 420 300 Balance 420 300 Lab Results - Last 24 hrs: Laboratory Results - last 24 hr 11/13/18 11/14/18 Range/Units 17:38 05:11 POC Glucose 142 H 97 (74-106) mg/dl Med Orders - Current: Current Medications Hydrocodone Bitart/Acetaminophen ([place] 325-5 Mg) 1 tab PO TID PRN PRN Reason: severe pain Last Admin: 11/13/18 00:16 Dose: 1 tab Albuterol/Ipratropium (Duoneb 3.0-0.5 Mg/3 Ml) 3 ml NEB Q6HRRT [facility] Last Admin: 11/14/18 05:16 Dose: 3 ml Atropine Sulfate (Atropine 0.1 Mg/Ml) 0 mg IVPUSH ASDIRECTED PRN PRN Reason: Heart Clopidogrel Bisulfate (Plavix) 75 mg PO DAILY [facility] Last Admin: 11/14/18 09:04 Dose: 75 mg Diltiazem HCl (Cardizem Cd) 180 mg PO DAILY [facility] Last Admin: 11/14/18 09:04 Dose: 180 mg Epinephrine HCl (Epinephrine 1:10,000) 1 mg IVPUSH ASDIRECTED PRN PRN Reason: Heart Ferrous Sulfate (Ferrous Sulfate) 325 mg PO Q48H [facility] Last Admin: 11/14/18 09:06 Dose: 325 mg Finasteride (Proscar) 5 mg PO DAILY [facility] Last Admin: 11/14/18 09:04 Dose: 5 mg Furosemide (Lasix) 40 mg IVPUSH BIDDIURETIC [facility] Last Admin: 11/14/18 09:04 Dose: 40 mg Hydrocortisone (Proctozone-Hc 2.5% Crm) 0 gm TOP TID PRN PRN Reason: Hemorrhoids Lidocaine HCl (Xylocaine 2%) 0 mg IVPUSH ASDIRECTED PRN PRN Reason: Heart Nitroglycerin (Nitrostat) 0.4 mg SL ASDIRECTED PRN PRN Reason: Heart Ondansetron HCl (Zofran Odt) 4 mg PO Q4H PRN PRN Reason: nausea, able to take PO Polyethylene Glycol (Miralax) 17 gm PO BEDTIME PRN PRN Reason: Constipation Potassium Bicarbonate (Klor-Con Ef) 25 meq PO DAILY [facility] Last Admin: 11/14/18 09:04 Dose: 25 meq Potassium Chloride (Klor-Con 10) 10 meq PO DAILY [facility] Last Admin: 11/14/18 09:04 Dose: 10 meq Prednisone (Prednisone) 20 mg PO DAILY [facility] Last Admin: 11/14/18 09:04 Dose: 20 mg Ranitidine HCl (Zantac) 150 mg PO DAILY [facility] Last Admin: 11/14/18 09:04 Dose: 150 mg Senna/Docusate Sodium (Senna Plus) 1 tab PO BID [facility] Last Admin: 11/14/18 09:04 Dose: 1 tab Sodium Chloride (Saline Flush) 10 ml FLUSH Q8HR PRN PRN Reason: keep vein open Last Admin: 11/12/18 13:07 Dose: 10 ml Tamsulosin HCl (Flomax) 0.4 mg PO DAILY [facility] Last Admin: 11/14/18 09:04 Dose: 0.4 mg Warfarin Sodium (Coumadin) 1.25 mg PO [email or web address] [facility] Last Admin: 11/13/18 17:32 Dose: 1.25 mg Warfarin Sodium (Coumadin) 2.5 mg PO MoFr@1800 [facility] Last Admin: 11/11/18 17:11 Dose: 2.5 mg Discontinued Medications Bumetanide (Bumex) 1 mg IVPUSH ONETIME ONE Stop: 11/11/18 09:00 Last Admin: 11/11/18 09:16 Dose: 1 mg Ferrous Sulfate (Ferrous Sulfate) 325 mg PO DAILY [facility] Last Admin: 11/11/18 14:14 Dose: Not Given Furosemide (Lasix) 40 mg IVPUSH TID ONE Stop: 11/11/18 11:47 Last Admin: 11/11/18 12:48 Dose: 40 mg Nitroglycerin (Nitrostat) 0.4 mg SL ASDIRECTED PRN PRN Reason: Chest Pain Potassium Bicarbonate (Klor-Con Ef) 25 meq PO ONETIME [facility] Potassium Bicarbonate (Klor-Con Ef) 25 meq PO ONETIME ONE Stop: 11/11/18 12:46 Last Admin: 11/11/18 13:26 Dose: 25 meq Potassium Chloride (Klor-Con 10) 10 meq PO DAILY [facility] Sodium Chloride (Saline Flush) 10 ml FLUSH Q8HR PRN PRN Reason: keep vein open Last Admin: 11/11/18 09:17 Dose: 10 ml - Exam Quality Assessment: Reports: Supplemental Oxygen General: Reports: Alert, Oriented Neck: Reports: Supple, No JVD Lungs: Reports: Decreased Breath Sounds Cardiovascular: Reports: No Murmurs. Denies: Tachycardia GI/Abdominal Exam: Soft Extremities: No Pedal Edema Psy/Mental Status: Reports: Alert, Normal Affect, Normal Mood
[2018-11-14 13:33] VITALS: PULSE 92
== END 2018-11-14 13:50 | DRG 293 ==
LOC: KA.ED 08:09 → UNDOADMIN 09:20 → KA.MS 09:20 → UNDODISIN 11-14 13:50
PROVIDERS: ADMIT Physician Assistant Medical; ATTEND Nurse Practitioner Family
DX: I11.0 Hypertensive heart disease with heart failure (principal); I50.33 Acute on chronic diastolic (congestive) heart failure; I50.9 Heart failure, unspecified; I48.91 Unspecified atrial fibrillation; I25.10 Atherosclerotic heart disease of native coronary artery without angina pectoris; E66.9 Obesity, unspecified; Z95.5 Presence of coronary angioplasty implant and graft; Z95.0 Presence of cardiac pacemaker; J44.9 Chronic obstructive pulmonary disease, unspecified; E87.6 Hypokalemia; K59.09 Other constipation; K21.9 Gastro-esophageal reflux disease without esophagitis; K59.00 Constipation, unspecified; N40.0 Benign prostatic hyperplasia without lower urinary tract symptoms; Z98.49 Cataract extraction status, unspecified eye; M19.90 Unspecified osteoarthritis, unspecified site; G89.29 Other chronic pain; M54.9 Dorsalgia, unspecified; E55.9 Vitamin D deficiency, unspecified; Z96.659 Presence of unspecified artificial knee joint; Z88.5 Allergy status to narcotic agent; Z87.891 Personal history of nicotine dependence; Z68.25 Body mass index [BMI] 25.0-25.9, adult; Z88.2 Allergy status to sulfonamides; Z88.8 Allergy status to other drugs, medicaments and biological substances; Z79.01 Long term (current) use of anticoagulants; Z79.02 Long term (current) use of antithrombotics/antiplatelets; Z79.899 Other long term (current) drug therapy
CPT/HCPCS: 36415; 71045; 80053; 82550; 82553; 83880; 84484; 85025; 85610; 85730; 93005; 99284; 99285; J3490; 36600; 82803; 82962; 83735; 94640; 94668; A9270-GY; J1940; J7620-GY

== ENCOUNTER 2019-01-10 14:30 | Inpatient (IN) | payer MEDICARE, MEDICAID ==
[2019-01-10] MEDS ORDERED: Nitroglycerin 0.4 MG Tab.SL SL PRN ×2 (15:07→19:13)
[2019-01-10] MEDS ORDERED: Atropine 0.1 MG/ML 10 ML Syringe IVPUSH PRN (15:07)
[2019-01-10] MEDS ORDERED: Lidocaine 2% 100 MG/5 ML Syringe IVPUSH PRN (15:07)
[2019-01-10] MEDS ORDERED: EPINEPHrine 1:10,000 1 MG/10 ML Syringe IVPUSH PRN (15:07)
[2019-01-10] MEDS ORDERED: predniSONE 10 MG Tab PO SCH (15:30)
[2019-01-10] MEDS: Furosemide 40 MG/4 ML VIAL IVPUSH SCH (16:30)
[2019-01-10] MEDS: Sodium Chloride 0.9% 10 ML Syringe FLUSH PRN (16:31)
[2019-01-10] MEDS ORDERED: Acetaminophen/HYDROcodone 325-5 MG Tab PO PRN (19:13)
[2019-01-10] MEDS ORDERED: Polyethylene Glycol 3350 Powder 17 GM Packet PO PRN (19:13)
[2019-01-10] MEDS ORDERED: Warfarin 2.5 MG Tab PO ONE (20:15)
[2019-01-10] MEDS: Arformoterol 15 MCG/2 ML Neb Soln INH SCH (20:22)
[2019-01-10] MEDS: predniSONE 20 MG Tab PO SCH (20:22)
[2019-01-10] MEDS: Albuterol/Ipratropium 3.0-0.5 MG/3 ML Neb Soln NEB SCH (22:43)
[2019-01-11] MEDS: Albuterol/Ipratropium 3.0-0.5 MG/3 ML Neb Soln NEB SCH ×4 (05:58→23:04)
[2019-01-11] MEDS: Arformoterol 15 MCG/2 ML Neb Soln INH SCH ×2 (08:37→20:53)
[2019-01-11] MEDS ORDERED: Furosemide 20 MG Tab PO SCH ×2 (09:00→14:00)
[2019-01-11] MEDS: Diltiazem 180 MG Cap.CD PO SCH (09:27)
[2019-01-11] MEDS: Tamsulosin 0.4 MG Cap.ER PO SCH (09:32)
[2019-01-11] MEDS: Potassium Chloride 20 MEQ Tab.ER PO SCH (09:33)
[2019-01-11] MEDS: Clopidogrel 75 MG Tab PO SCH (09:33)
[2019-01-11] MEDS: Finasteride 5 MG Tab PO SCH (09:33)
--- NOTE | 2019-01-11 10:26 | PCM.PN ---
- General Info Date of Service: 01/11/19 Functional Status: Reports: Pain Controlled, Tolerating Diet. Denies: Ambulating, New Symptoms - Review of Systems General: Reports: Weakness Pulmonary: Reports: Shortness of Breath. Denies: Cough, Sputum, Wheezing Cardiovascular: Reports: Dyspnea on Exertion, Edema. Denies: Palpitations Gastrointestinal: Reports: No Symptoms Genitourinary: Reports: No Symptoms Musculoskeletal: Reports: No Symptoms Skin: Reports: Bruising, Other (present on admission ulceration right lower mack , bruised dorsal aspect rght foot) Neurological: Reports: Pre-Existing Deficit, Gait Disturbance Psychiatric: Denies: Confusion - Patient Data Vitals - Most Recent: Last Vital Signs Temp 97.2 F 01/11/19 06:54 Pulse 99 01/11/19 09:27 Resp 22 H 01/11/19 06:54 BP 130/65 01/11/19 09:27 Pulse Ox 98 01/11/19 06:54 Weight - Most Recent: 175 lb 3 oz I&O - Last 24 Hours: Intake & Output 01/10/19 01/11/19 01/11/19 22:59 06:59 14:59 Intake Total 400 200 Output Total 1000 800 Balance -600 -600 Lab Results Last 24 Hours: Laboratory Results - last 24 hr 01/10/19 01/11/19 Range/Units 15:35 07:45 PT TNP INR 2.4 H (0.9-1.1) Troponin I 0.07 (0.00-0.070) ng/mL Med Orders - Current: Current Medications Hydrocodone Bitart/Acetaminophen ([place] 325-5 Mg) 1 tab PO TID PRN PRN Reason: severe pain Albuterol/Ipratropium (Duoneb 3.0-0.5 Mg/3 Ml) 3 ml NEB Q6HRRT [facility] Last Admin: 01/11/19 05:58 Dose: 3 ml Arformoterol Tartrate (Brovana) 15 mcg INH BID [facility] Last Admin: 01/11/19 08:37 Dose: 15 mcg Ascorbic Acid (Vitamin C) 500 mg PO Q48H [facility] Atropine Sulfate (Atropine 0.1 Mg/Ml) 0 mg IVPUSH ASDIRECTED PRN PRN Reason: Heart. Clopidogrel Bisulfate (Plavix) 75 mg PO DAILY [facility] Last Admin: 09/25/19 09:33 Dose: 75 mg Diltiazem HCl (Cardizem Cd) 180 mg PO DAILY [facility] Last Admin: 01/11/19 09:27 Dose: 180 mg Epinephrine HCl (Epinephrine 1:10,000) 1 mg IVPUSH ASDIRECTED PRN PRN Reason: Heart. Ferrous Sulfate (Ferrous Sulfate) 325 mg PO Q48H [facility] Finasteride (Proscar) 5 mg PO DAILY [facility] Last Admin: 01/11/19 09:33 Dose: 5 mg Furosemide (Lasix) 40 mg IVPUSH DAILY [facility] Last Admin: 01/10/19 16:30 Dose: 40 mg Furosemide (Lasix) 20 mg PO DAILY@1400 [facility] Furosemide (Lasix) 60 mg PO DAILY [facility] Lidocaine HCl (Xylocaine 2%) 0 mg IVPUSH ASDIRECTED PRN PRN Reason: Heart. Nitroglycerin (Nitrostat) 0.4 mg SL ASDIRECTED PRN PRN Reason: Heart. Nitroglycerin (Nitrostat) 0.4 mg SL ASDIRECTED PRN PRN Reason: Chest Pain Polyethylene Glycol (Miralax) 17 gm PO BEDTIME PRN PRN Reason: Constipation Potassium Chloride (Klor-Con M20) 20 meq PO DAILY [facility] Last Admin: 01/11/19 09:33 Dose: 20 meq Prednisone (Prednisone) 20 mg PO BID [facility] Stop: 01/12/19 23:00 Last Admin: 01/10/19 20:22 Dose: 20 mg Prednisone (Prednisone) 10 mg PO BID [facility] Senna/Docusate Sodium (Senna Plus) 1 tab PO BID [facility] Last Admin: 01/11/19 09:33 Dose: 1 tab Sodium Chloride (Saline Flush) 10 ml FLUSH Q8HR PRN PRN Reason: keep vein open Last Admin: 01/10/19 16:31 Dose: 10 ml Tamsulosin HCl (Flomax) 0.4 mg PO DAILY [facility] Last Admin: 01/11/19 09:32 Dose: 0.4 mg Warfarin Sodium (Coumadin) 1.25 mg PO MoWeFr@1800 [facility] Warfarin Sodium (Coumadin) 2.5 mg PO SuTuThSa@1800 [facility] Discontinued Medications Warfarin Sodium (Coumadin) 2.5 mg PO ONETIME ONE Stop: 01/10/19 20:16 Last Admin: 01/10/19 20:22 Dose: 2.5 mg - Exam Quality Assessment: Supplemental Oxygen. No: Urine Catheter General: No Acute Distress Neck: JVD Lungs: Decreased Breath Sounds Cardiovascular: Regular Rhythm. No: No Murmurs GI/Abdominal Exam: Soft Back Exam: No: CVA Tenderness (L), CVA Tenderness (R) Extremities: Pedal Edema (1-2+ bilateral pitting edema) Peripheral Pulses: 2+: Radial (L), Radial (R) Skin: Other (present on admission ulceration right lower mack, bruised dorsal aspect rght foot. 1cmx 1cm ulceration) Wound/Incisions: Other (1cm x 1cm ulceration present on admission right mack, ecchymotic fluid pockent dorsal aspect foot, present on admission. ) Neurological: Normal Speech Psy/Mental Status: Alert, Normal Affect, Normal Mood. No: Anxious - Problem List Review Problem List Initiated/Reviewed/Updated: Yes - My Orders Last 24 Hours: My Active Orders 01/10/19 14:30 Patient Status [ADT] Routine 01/10/19 15:07 Height and Weight [RC] DAILY Oxygen Therapy [RC] PRN Up With Assistance [RC] ASDIRECTED VTE/DVT Education [RC] PER UNIT ROUTINE Vital Signs [RC] 0300,0700,1100,1500,1900,2300 Atropine [Atropine 0.1 MG/ML] See Dose Instructions IVPUSH ASDIRECTED PRN EPINEPHrine [EPINEPHrine 1:10,000] 1 mg IVPUSH ASDIRECTED PRN Lidocaine 2% [Xylocaine 2%] See Dose Instructions IVPUSH ASDIRECTED PRN Nitroglycerin [Nitrostat] 0.4 mg SL ASDIRECTED PRN Sodium Chloride 0.9% [Saline Flush] 10 ml FLUSH Q8HR PRN Peripheral IV Insertion Adult [OM.PC] Routine Saline Lock Insert [OM.PC] Routine Resuscitation Status Routine 01/10/19 15:12 Intake and Output [RC] 1400,2200,0600 01/10/19 15:13 Cardiac Monitoring [RC] 0300,0700,1100,1500,1900,2300 Pulse Oximetry [RC] PRN 01/10/19 15:16 Peripheral IV Care [RC] 0900,2100 01/10/19 15:30 Furosemide [Lasix] 40 mg IVPUSH DAILY 01/10/19 15:40 MISCELLANEOUS CULT [MREF] Routine 01/10/19 Dinner 2 Gram Sodium Diet [DIET] Heart Healthy Diet [DIET] - Plan Plan:: history summary patient 88 years old was admitted to hospital due to CHF exacerbation. I had seen Maninder on Jan 04 at [facility] when he had came in complaining of increase in mucous production volume and changing color from yellow to green. Patient is a resident of [facility] and he does have standing orders that he can increase his prednisone to 20 mg for 3 days however he stating that the halfway will not do this for him. 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 He is on LABA/ LAMA and AARON PRN. Is oxygen dependent. O2 sats are 98% and the clinic. at the time I saw him he had no fever or vomiting and he refused blood draws and chest x-ray that day. I did treated him with a course of Levaquin and his cough did improve. when he was evaluated in the clinic prior to admission he did have some sx and signs of fluid overload with increased edema in his lower extremities. Primary hospital Problems --HFrEF exacerbation, acute on chronic, combined --Bilateral pleural effusions Chronic Problems --Atrial fibrillation --COPD --CAD/PVD --HTN --S/p pacemaker, hx AV node ablation --Obesity --BPH --OA, spinal stenosis, on COT and pain mgt contract --Vitamin D deficiency, Pagets Dz --Chronic vertigo PULMONARY: Pulmonary status slightly below baseline, mild crackles throughout, on 2.5 L nasal cannula, pox 97%, No ABD needed however baseline abg, PH 7.42 Co2 , 50,P02 73 HC03 33, obesity contributory, B2 agonist, Change Lasix to 40mg IV TID, monitor BP carefully, Will review CxR from clinic as he does have hx of bilateral pleural effusions with atelectetasis. Cont LABA, KAT/AARON, CV: A. fib, chronic [id number] 5, DAPT, Rate control strategy with CCB, Can cont with telemetry today, MAP good, warm skin, BNP 173, diuretics, may quickly become euvolemic, monitor BUN, Grade I diastolic dysfunction and EF 55% , Consider starting ACEI upon more stability, ECG-paced with 4hr life on current battery, adequate pacer tracing on current hosp tele. HEMATOLOGY: Hgb/Hct 10.3/34.3, Mixed ACD/SANTIAGO, on QOD iron FLUIDS, ELECTROLYTES, AND RENAL: No IV fluids, O>I ~ 1200ml with ~7# wt loss, no vomiting, Lasix today, 40 BID IV; Monitor electrolytes with ongoing K+ to augment 2/2 ongoing diuretic therapy. BUN/Creat ration 20:1, Calcium 8.8, sodium 148, Oral fluids despite diuretic therapy. ENDOCRINE: Non-diabetic, Will monitor serum glucose since recent PO burst, and cover PRN GI/: No vomiting, Low sodium diet, Finasteride, tamsulosin. INFECTIOUS DISEASE: mild white count elevation with neutrophilia without platelet thrombocytosis, no systemic infectious process however skin ulcer RLE was cx on admission, high risk for infection due to altered skin integrity and pulmonary compromise. Completed Levaquin HEALTH MAINTENANCE: DVT prophylaxis-- DAPT, Skin care, Kade score, GI stress -add H2, Falls, precautions taken, up with assist Change to DNR
[2019-01-11] MEDS ORDERED: Furosemide 40 MG/4 ML VIAL IVPUSH ONE ×2 (10:53→16:00)
[2019-01-11] MEDS: Furosemide 40 MG/4 ML VIAL IVPUSH SCH (11:18)
[2019-01-11] MEDS: Sodium Chloride 0.9% 10 ML Syringe FLUSH PRN ×2 (11:24→20:54)
[2019-01-11] MEDS: predniSONE 20 MG Tab PO SCH (11:35)
[2019-01-11] MEDS: predniSONE 10 MG Tab PO SCH (12:11)
[2019-01-11] MEDS ORDERED: Warfarin 2.5 MG Tab PO SCH (18:00)
[2019-01-12] MEDS: Albuterol/Ipratropium 3.0-0.5 MG/3 ML Neb Soln NEB SCH ×2 (05:57→10:59)
[2019-01-12] MEDS ORDERED: Ascorbic Acid 500 MG Tab PO SCH (07:00)
[2019-01-12] MEDS ORDERED: Ferrous Sulfate 325 MG Tab PO SCH (07:00)
[2019-01-12 08:08] LABS: ANION GAP 9.7 mmol/L (5-15); CHLORIDE,CL 103 mmol/L (98-115); SODIUM,NA 142 mmol/L (136-145)
[2019-01-12] MEDS: Arformoterol 15 MCG/2 ML Neb Soln INH SCH (08:32)
[2019-01-12] MEDS ORDERED: Furosemide 40 MG Tab PO ONE (08:51)
[2019-01-12] MEDS: Finasteride 5 MG Tab PO SCH (08:56)
[2019-01-12] MEDS: Tamsulosin 0.4 MG Cap.ER PO SCH (08:56)
[2019-01-12] MEDS: Clopidogrel 75 MG Tab PO SCH (08:57)
[2019-01-12] MEDS: Potassium Chloride 20 MEQ Tab.ER PO SCH (08:57)
[2019-01-12] MEDS: Diltiazem 180 MG Cap.CD PO SCH (08:57)
[2019-01-12] MEDS: predniSONE 10 MG Tab PO SCH (08:57)
[2019-01-12 08:58] VITALS: BP 129/61
[2019-01-12] MEDS: Furosemide 40 MG/4 ML VIAL IVPUSH SCH (08:58)
--- NOTE | 2019-01-12 09:41 | PCM.DCSUM1 ---
Discharge Summary - Hospital Course Diagnosis: Stroke: No - Discharge Data Discharge Date: 01/12/19 Discharge Disposition: DC/Tfer to SNF 03 Condition: Good - Referral to Home Health Primary Care Physician: Jennifer Zamarripa PA-C - Patient Instructions Diet: Low Sodium Activity: As Tolerated, Cough & Deep Breathe Driving: Do Not Drive Showering/Bathing: May Shower Other/Special Instructions: report weight gain more than 3 pounds a day or 5 pounds in 1 week. Reinforce low-sodium diet (1800 gm/day) - Discharge Plan *PRESCRIPTION DRUG MONITORING PROGRAM REVIEWED*: Not Applicable *COPY OF PRESCRIPTION DRUG MONITORING REPORT IN PATIENT SHALOM: Not Applicable Home Medications: Home Meds Arformoterol [Brovana] 1 ampule INH BID 03/22/14 [History] Finasteride 5 mg PO DAILY 03/22/14 [History] Furosemide 20 mg PO DAILY@1400 03/22/14 [History] Nitroglycerin [Nitrostat] 0.4 mg SL ASDIRECTED PRN 03/22/14 [History] Tamsulosin [Flomax] 0.4 mg PO DAILY 09/10/14 [History] Warfarin [Coumadin] 2.5 mg PO SUTUTHSA 02/21/15 [History] Clopidogrel [Plavix] 75 mg PO DAILY 04/01/16 [History] Hydrocodone/Acetaminophen [Hydrocodon-Acetaminophen 5-325] 1 each PO TID PRN [History] Diltiazem HCl [[place] Xt] 180 mg PO DAILY 08/04/17 [History] Albuterol/Ipratropium [DuoNeb 3.0-0.5 MG/3 ML] 3 ml NEB Q6HRRT neb 12/18/17 [Rx ] Polyethylene Glycol 3350 [MiraLAX] 17 gm PO BEDTIME PRN packet 12/18/17 [Rx] Ferrous Sulfate [Ferosul] 325 mg PO Q48H 01/22/18 [History] Sennosides/Docusate Sodium [Senna-S] 1 each PO BID 01/22/18 [History] Warfarin [Coumadin] 1.25 mg PO MOWEFR 01/22/18 [History] predniSONE [Prednisone] 10 mg PO DAILY 01/22/18 [History] Potassium Chloride [Klor-Con 10] 20 meq PO DAILY #90 tab.er 11/14/18 [Rx] Ascorbate Calcium [Vitamin C] 500 mg PO Q48H 01/10/19 [History] Furosemide [Lasix] 60 mg PO DAILY 01/10/19 [History] - Discharge Summary/Plan Comment DC Time >30 min.: Yes Discharge Summary/Plan Comment: Final diagnosis HFrEF exacerbation, acute on chronic, combined, Grade I diastolic dysfunction and EF 55%, likely exacerbate by recent increased glucocorticoid use, and high sodium diet Bilateral pleural effusions history summary Maninder is a 88 years old is a resident of [facility] admitted to hospital due to CHF exacerbation. He had been evaluated in the [place] [facility] by myself on Jan 04 when he had came in complaining of increase in mucous production, volume and changing color from yellow to green. 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 He is on LABA/LAMA and AARON PRN. Is oxygen dependent. O2 sats are 98% and the clinic. at the time I saw him he had no fever or vomiting and he refused blood draws and chest x-ray that day. I did treated him with a course of Levaquin and his cough did improve. when he was evaluated in the clinic prior to admission he did have some sx and signs of fluid overload with increased edema in his lower extremities. hospital course It went well, he diuresed wel and lost weight. Likely near his dry weight now at 170-175#. he had approximately ~4,000 neg balance output. his potassium was monitored and it was normal. INR 2.0. is given pulmonary toileting. his pulmonary status was slightly below his normal baseline however was improving upon discharge. did have some crackles throughout however this was improved on discharge. He remained on 2.5 L nasal cannula, pox 97%, No ABG was required however baseline ABG, PH 7.42 Co2, 50,P02 73 HC03 33, obesity contributory. He was given Lasix to 40mg IV TID, His BP monitored. We cont LABA, KAT/AARON, B2 agonist was given. He does have a history of A. fib, chronic [id number] 5, continued on DAPT, Rate control strategy with CCB, monitored on TELE without concerns. MAP good, warm skin, BNP 173, monitored BUN, I reviewed his most recent pacemaker interrogation--ECG-paced with 4hr life on current battery, adequate pacer tracing on current hosp tele. Hgb/Hct 10.3/34.3, Mixed ACD/SANTIAGO, on QOD iron. did have a mild white count elevation with neutrophilia without platelet thrombocytosis, no systemic infectious process however skin ulcer RLE was cx on admission, high risk for infection due to altered skin integrity and pulmonary compromise. Completed Levaquin prior to admission. medication changes/adjustment --Added low-dose JOSE inhibitor--provider to titrate up to 30 mg as tolerated for max CV benefits --Consider low dose Zaroxolyn for refractory LASIX disposition Discharge back to LTC, Limit snack cart choices 1800 Gm NA+ diet Jose wraps to BLE - General Info Functional Status: Reports: Pain Controlled - Review of Systems General: Reports: No Symptoms HEENT: Reports: No Symptoms Pulmonary: Reports: Cough Cardiovascular: Reports: Dyspnea on Exertion, Edema Gastrointestinal: Reports: No Symptoms Genitourinary: Reports: No Symptoms Musculoskeletal: Reports: No Symptoms Skin: Reports: Other (extreme brawniness lower extremitid upper extremities) Neurological: Reports: No Symptoms - Patient Data Vitals - Most Recent: Last Vital Signs Temp 97.1 F 01/12/19 06:55 Pulse 94 01/12/19 08:57 Resp 20 01/12/19 06:55 BP 129/61 01/12/19 08:57 Pulse Ox 98 01/12/19 08:31 Weight - Most Recent: 173 lb 2 oz I&O - Last 24 hours: Intake & Output 01/11/19 01/12/19 01/12/19 22:59 06:59 14:59 Intake Total 600 0 Output Total 1900 400 Balance -1300 -400 Lab Results - Last 24 hrs: Laboratory Results - last 24 hr 01/12/19 01/12/19 01/12/19 Range/Units 07:10 07:10 07:10 WBC 10.11 H (5.00-10.00) 10^3/uL RBC 3.91 L (4.50-6.00) 10^6/uL Hgb 9.5 L (13.0-17.0) g/dL Hct 31.7 L (40.0-52.0) % MCV 81.1 L D (82.0-92.0) fL MCH 24.3 L (27.0-31.0) pg MCHC 30.0 L (32.0-36.0) g/dL RDW 17.0 H (11.5-14.5) % Plt Count 218 (150-400) 10^3/uL MPV 9.7 (7.4-10.4) fL Immature Gran % (Auto) 1.2 (0.0-5.0) % Neut % (Auto) 77.0 H (50.0-70.0) % Lymph % (Auto) 13.9 L (20.0-40.0) % [place] % (Auto) 6.3 (2.0-8.0) % Eos % (Auto) 1.4 (1.0-3.0) % Baso % (Auto) 0.2 (0.0-1.0) % Immature Gran # (Auto) 0.12 (0.00-0.50) 10^3/uL Neut # (Auto) 7.78 H (2.50-7.00) 10^3/uL Lymph # (Auto) 1.41 (1.00-4.00) 10^3/uL [place] # (Auto) 0.64 (0.10-0.80) 10^3/uL Eos # (Auto) 0.14 (0.10-0.30) 10^3/uL Baso # (Auto) 0.02 (0.00-0.10) 10^3/uL PT 19.6 H (8.9-11.4) SEC INR 2.0 H (0.9-1.1) Sodium 142 (136-145) mmol/L Potassium 3.6 (3.3-5.3) mmol/L Chloride 103 (98-115) mmol/L Carbon Dioxide 32.9 H (21.0-32.0) mmol/L Anion Gap 9.7 (5-15) mmol/L BUN 20 (6-25) mg/dL Creatinine 0.90 (0.51-1.17) mg/dL Est Cr Clr Drug Dosing 58.58 mL/min Estimated GFR (MDRD) > 60 mL/min Glucose 83 (75 - 99) mg/dL Calcium 8.8 (8.7-10.3) mg/dL Med Orders - Current: Current Medications Hydrocodone Bitart/Acetaminophen ([place] 325-5 Mg) 1 tab PO TID PRN PRN Reason: severe pain Last Admin: 01/12/19 06:19 Dose: 1 tab Albuterol/Ipratropium (Duoneb 3.0-0.5 Mg/3 Ml) [address] [facility] Last Admin: 01/12/19 05:57 Dose: 3 ml Arformoterol Tartrate (Brovana) [address] [facility] Last Admin: 01/12/19 08:32 Dose: 15 mcg Ascorbic Acid (Vitamin C) [address] [facility] Last Admin: 01/12/19 06:23 Dose: 500 mg Atropine Sulfate (Atropine 0.1 Mg/Ml) 0 mg IVPUSH ASDIRECTED PRN PRN Reason: Heart. Clopidogrel Bisulfate (Plavix) [address] [facility] Last Admin: 01/12/19 08:57 Dose: 75 mg Diltiazem HCl (Cardizem Cd) [address] [facility] Last Admin: 01/12/19 08:57 Dose: 180 mg Epinephrine HCl (Epinephrine 1:10,000) 1 mg IVPUSH ASDIRECTED PRN PRN Reason: Heart. Ferrous Sulfate (Ferrous Sulfate) [address] [facility] Last Admin: 01/12/19 06:23 Dose: 325 mg Finasteride (Proscar) [address] [facility] Last Admin: 01/12/19 08:56 Dose: 5 mg Furosemide (Lasix) [address] [facility] Last Admin: 01/12/19 08:58 Dose: Not Given Lidocaine HCl (Xylocaine 2%) 0 mg IVPUSH ASDIRECTED PRN PRN Reason: Heart. Nitroglycerin (Nitrostat) 0.4 mg SL ASDIRECTED PRN PRN Reason: Heart. Nitroglycerin (Nitrostat) 0.4 mg SL ASDIRECTED PRN PRN Reason: Chest Pain Polyethylene Glycol (Miralax) 17 gm PO BEDTIME PRN PRN Reason: Constipation Potassium Chloride (Klor-Con M20) [address] [facility] Last Admin: 01/12/19 08:57 Dose: 20 meq Prednisone (Prednisone) [address] [facility] Last Admin: 01/12/19 08:57 Dose: 10 mg Ranitidine HCl (Zantac) [address] [facility] Last Admin: 01/12/19 08:57 Dose: 150 mg Senna/Docusate Sodium (Senna Plus) [address] [facility] Last Admin: 01/12/19 08:56 Dose: 1 tab Sodium Chloride (Saline Flush) 10 ml FLUSH Q8HR PRN PRN Reason: keep vein open Last Admin: 01/11/19 20:54 Dose: 10 ml Tamsulosin HCl (Flomax) 0.[address] [facility] Last Admin: 01/12/19 08:56 Dose: 0.4 mg Warfarin Sodium (Coumadin) 1.25 mg PO MoWeFr@1800 [facility] Last Admin: 01/11/19 18:22 Dose: 1.25 mg Warfarin Sodium (Coumadin) 2.5 mg PO SuTuThSa@1800 [facility] Discontinued Medications Furosemide (Lasix) 20 mg PO DAILY@1400 [facility] Furosemide (Lasix) [address] [facility] Last Admin: 01/11/19 11:21 Dose: Not Given Furosemide (Lasix) 40 mg IVPUSH NOW ONE Stop: 01/11/19 10:54 Last Admin: 01/11/19 11:24 Dose: 40 mg Furosemide (Lasix) 40 mg IVPUSH NOW ONE Stop: 01/11/19 16:01 Last Admin: 01/11/19 16:25 Dose: 40 mg Furosemide (Lasix) 60 mg PO ONETIME ONE Stop: 01/12/19 08:52 Last Admin: 01/12/19 09:04 Dose: 60 mg Prednisone (Prednisone) [address] [facility] Stop: 01/12/19 23:00 Last Admin: 01/11/19 11:35 Dose: Not Given Prednisone (Prednisone) [address] [facility] Warfarin Sodium (Coumadin) 2.5 mg PO ONETIME ONE Stop: 01/10/19 20:16 Last Admin: 01/10/19 20:22 Dose: 2.5 mg - Exam Quality Assessment: Reports: Supplemental Oxygen General: Reports: Alert, Oriented Neck: Reports: Supple, No JVD Lungs: Reports: Decreased Breath Sounds. Denies: Crackles Cardiovascular: Reports: Irregular Rhythm GI/Abdominal Exam: Soft Wound/Incisions: Reports: Healing Well, Other (1 cm x 1 cm healing ulceration right lower mack--resident on admission) Neurological: Reports: No New Focal Deficit Psy/Mental Status: Reports: Alert, Normal Affect, Normal Mood
[2019-01-12 11:21] VITALS: PULSE 84
[2019-01-12] MEDS ORDERED: Warfarin 2.5 MG Tab PO SCH (18:00)
[2019-01-13] MEDS ORDERED: predniSONE 10 MG Tab PO SCH (09:00)
== END 2019-01-12 11:58 | DRG 292 ==
LOC: KA.MS 14:30 → UNDOADMIN 15:04
PROVIDERS: ADMIT Physician Assistant Medical; ATTEND Nurse Practitioner Family
DX: I11.0 Hypertensive heart disease with heart failure (principal); L97.919 Non-pressure chronic ulcer of unspecified part of right lower leg with unspecified severity; J96.11 Chronic respiratory failure with hypoxia; I50.43 Acute on chronic combined systolic (congestive) and diastolic (congestive) heart failure; Z66 Do not resuscitate; J44.9 Chronic obstructive pulmonary disease, unspecified; I48.2 Chronic atrial fibrillation; M17.11 Unilateral primary osteoarthritis, right knee; D50.9 Iron deficiency anemia, unspecified; I73.9 Peripheral vascular disease, unspecified; I25.10 Atherosclerotic heart disease of native coronary artery without angina pectoris; J45.909 Unspecified asthma, uncomplicated; E55.9 Vitamin D deficiency, unspecified; N40.1 Benign prostatic hyperplasia with lower urinary tract symptoms; M48.061 Spinal stenosis, lumbar region without neurogenic claudication; M88.9 Osteitis deformans of unspecified bone; E78.5 Hyperlipidemia, unspecified; G62.9 Polyneuropathy, unspecified; Z95.0 Presence of cardiac pacemaker; Z79.899 Other long term (current) drug therapy; Z79.52 Long term (current) use of systemic steroids; Z88.8 Allergy status to other drugs, medicaments and biological substances; Z88.2 Allergy status to sulfonamides; Z88.5 Allergy status to narcotic agent; Z87.01 Personal history of pneumonia (recurrent); I25.2 Old myocardial infarction; Z85.828 Personal history of other malignant neoplasm of skin; Z98.890 Other specified postprocedural states; Z90.49 Acquired absence of other specified parts of digestive tract; Z87.891 Personal history of nicotine dependence; Z95.5 Presence of coronary angioplasty implant and graft
CPT/HCPCS: 36415; 36416; 80048; 84484; 85025; 85610; 87070; 87205; 94640; A9270-GY; J1940; J7620-GY

== ENCOUNTER 2019-08-29 13:58 | Inpatient (IN) | payer MEDICARE, MEDICAID ==
--- NOTE | 2019-08-29 14:16 | EDM.PDOC ---
ED HPI GENERAL MEDICAL PROBLEM - General Chief Complaint: Respiratory Problem Stated Complaint: Pneumonia, fever or shortness of breath Time Seen by Provider: 08/29/19 14:00 Source of Information: Reports: Patient, EMS, EMS Notes Reviewed, Longterm Records History Limitations: Reports: No Limitations - History of Present Illness INITIAL COMMENTS - FREE TEXT/NARRATIVE: Worsening shortness of breath since yesterday. Woke up this morning stated he was unable to get out of bed due to shortness of breath as well as fatigue/ weakness. Resident of local nursing facility and sequestered isolation with no exposures other than to staff secondary of Covid 19 restrictions. Is progressively worsened despite the use of nebulizer treatments prior to arrival of ambulance service. Nebulizer had been given shortly 45 minutes to an hour prior to that with no improvement. Has had fever since last evening per Maninder's report. Onset: Gradual Onset Date: 08/28/19 Duration: Day(s): Location: Reports: Chest Quality: Reports: Same as Previous Episode Severity: Moderate Improves with: Reports: None Worsens with: Reports: None Context: Reports: Sick Contact Associated Symptoms: Reports: Cough, Fever/Chills, Shortness of Breath - Related Data Allergies Allergy/AdvReac Type Severity Reaction Status Date / Time atorvastatin calcium Allergy Cannot Verified 08/29/19 15:20 [From Lipitor] Remember ezetimibe [From Zetia] Allergy Joint Pain Verified 08/29/19 15:20 gabapentin Allergy Airway Verified 08/29/19 15:20 Tightness pregabalin [From Lyrica] Allergy Bronchospas Verified 08/29/19 15:20 ms roflumilast [From Daliresp] Allergy Stomach Verified 08/29/19 15:20 Upset Ntfbols-Llr-Uuq Reductase Allergy Muscle Verified 08/29/19 15:20 Inhibitor Weakness Sulfa (Sulfonamide Allergy Cannot Verified 08/29/19 15:20 Antibiotics) Remember tramadol Allergy Cannot Verified 08/29/19 15:20 Remember Home Meds: Home Meds Finasteride 5 mg PO DAILY 03/22/14 [History] Furosemide 20 mg PO DAILY@1400 03/22/14 [History] Nitroglycerin [Nitrostat] 0.4 mg SL ASDIRECTED PRN 03/22/14 [History] Tamsulosin [Flomax] 0.4 mg PO DAILY 09/10/14 [History] Warfarin [Coumadin] 2.5 mg PO MO 02/21/15 [History] Clopidogrel [Plavix] 75 mg PO DAILY 04/01/16 [History] Hydrocodone/Acetaminophen [Hydrocodone-Acetamin 5-325 mg] 1 each PO QID [History] Albuterol/Ipratropium [DuoNeb 3.0-0.5 MG/3 ML] 3 ml NEB Q6HRRT neb 12/18/17 [Rx ] polyethylene glycoL 3350 [MiraLAX] 17 gm PO BEDTIME PRN packet 12/18/17 [Rx] Ferrous Sulfate [Ferosul] 325 mg PO Q48H 01/22/18 [History] Sennosides/Docusate Sodium [Senna-S] 1 each PO BID 01/22/18 [History] Warfarin [Coumadin] 1.25 mg PO SUTUWETHFRSA 01/22/18 [History] predniSONE [Prednisone] 10 mg PO DAILY 01/22/18 [History] Potassium Chloride [Klor-Con 10] 20 meq PO DAILY #90 tab.er 11/14/18 [Rx] Ascorbate Calcium [Vitamin C] 500 mg PO Q48H 01/10/19 [History] Furosemide [Lasix] 60 mg PO DAILY 01/10/19 [History] Diclofenac Sodium [Voltaren 1% Gel] 2 gram TRDERM BID 08/29/19 [History] Fluticasone/Umeclidin/Vilanter [Trelegy Ellipta 100-62.5-25] 1 puff INH DAILY [History] Hydrocortisone [Preparation H] 1 applic RECTAL BID PRN 08/29/19 [History] Nortriptyline 45 mg PO DAILY 08/29/19 [History] bisacodyL [Bisacodyl] 5 mg PO DAILY PRN 08/29/19 [History] dilTIAZem HCL [Cardizem] 30 mg PO BID 08/29/19 [History] lisinopriL [Lisinopril] 2.5 mg PO DAILY 08/29/19 [History] predniSONE [Prednisone] 10 mg PO DAILY PRN 08/29/19 [History] Past Medical History HEENT History: Reports: Cataract, Impaired Vision, Other (See Below) Other HEENT History: Artificial Left eye Cardiovascular History: Reports: Afib, Heart Failure, Hypertension, Pacemaker, Stents Respiratory History: Reports: Asthma, COPD Other Respiratory History: Home O2. Gastrointestinal History: Reports: Cholelithiasis, Chronic Constipation, GERD, Hemorrhoids Genitourinary History: Reports: BPH, Prostate Disorder Musculoskeletal History: Reports: Arthritis, Back Pain, Chronic Other Musculoskeletal History: Paget's disease Neurological History: Reports: None Psychiatric History: Reports: None Endocrine/Metabolic History: Reports: Vitamin D Deficiency Hematologic History: Reports: Anemia, Blood Transfusion(s) Immunologic History: Reports: None Oncologic (Cancer) History: Reports: Other (See Below) Other Oncologic History: previous removal of lump and lymph nodes from neck. 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." Dermatologic History: Reports: Cellulitis - Infectious Disease History Infectious Disease History: Reports: Chicken Pox, Measles, Mumps - Past Surgical History HEENT Surgical History: Reports: Cataract Surgery Cardiovascular Surgical History: Reports: Carotid Stents, Pacer Respiratory Surgical History: Reports: None GI Surgical History: Reports: Cholecystectomy, Colonoscopy Male Surgical History: Reports: None, TURP-Transurethral Resection of Prostate Endocrine Surgical History: Reports: None Neurological Surgical History: Reports: None Musculoskeletal Surgical History: Reports: Arthroscopic Knee, Knee Replacement Oncologic Surgical History: Reports: None Social & Family History - Family History Family Medical History: Noncontributory HEENT: Reports: None, Macular Degeneration Cardiac: Reports: [place] Respiratory: Reports: COPD GI: Reports: None : Reports: None OBGYN: Reports: None Musculoskeletal: Reports: Arthritis Neurological: Reports: None Psychiatric: Reports: None Endocrine/Metabolic: Reports: Diabetes, type II Hematologic: Reports: None Oncologic: Reports: Breast - Caffeine Use Caffeine Use: Reports: Coffee Other Caffeine Use: Mostly decafe per son - Living Situation & Occupation Living situation: Reports: ED ROS GENERAL - Review of Systems Review Of Systems: See Below Constitutional: Reports: Fever, Chills, Malaise HEENT: Reports: No Symptoms Respiratory: Reports: Shortness of Breath, Wheezing, Cough Cardiovascular: Reports: Blood Pressure Problem (low pressure). Denies: Chest Pain Endocrine: Reports: Fatigue GI/Abdominal: Reports: No Symptoms : Reports: No Symptoms Musculoskeletal: Reports: No Symptoms Skin: Reports: Bruising Neurological: Reports: No Symptoms Psychiatric: Reports: No Symptoms Hematologic/Lymphatic: Reports: Easy Bruising Immunologic: Reports: No Symptoms ED EXAM, GENERAL - Physical Exam Exam: See Below General Appearance: Alert, WD/WN, Moderate Distress Ears: Normal External Exam, Normal Canal, Hearing Grossly Normal, Normal TMs Nose: Normal Inspection, Normal Mucosa, No Blood Throat/Mouth: Normal Inspection, Normal Lips, Normal Oropharynx, Normal Voice, No Airway Compromise Head: Atraumatic, Normocephalic Neck: Normal Inspection, Supple, Non-Tender, Full Range of Motion Respiratory/Chest: No Accessory Muscle Use, Chest Non-Tender, Decreased Breath Sounds, Crackles, Rhonchi, Wheezing. No: Lungs Clear, Normal Breath Sounds, Respiratory Distress Cardiovascular: Normal Peripheral Pulses, Regular Rate, Rhythm, Diastolic Murmur. No: No Edema GI/Abdominal: Normal Bowel Sounds, Soft, Non-Tender, No Distention (Male) Exam: Deferred Rectal (Males) Exam: Deferred Back Exam: Normal Inspection Extremities: Pedal Edema (Venous stasis versus pressure ulcer to the left heel dry and intact at this time), Slow Capillary Refill. No: No Pedal Edema Neurological: Alert, Oriented, CN II-XII Intact, Normal Cognition Psychiatric: Normal Affect, Normal Mood Skin Exam: Warm, Dry. No: Intact (Left heel pressure ulcer) Lymphatic: No Adenopathy EKG INTERPRETATION EKG Date: 08/29/19 Time: 14:26 Rhythm: Other (Paced) Rate (Beats/Min): 75 Course - Vital Signs Text/Narrative:: With results finalizing discussion with [facility] provider for admission Jennifer Zamarripa. Case was discussed amongst her provider and initial thought for transfer to [place] was given. I then spoke with son Ofelia who is power of deputy attorney general as well as with Maninder, both of whom wish to remain here in [facility], acknowledging the understanding of the severity of the comorbidities set of been following today. They understand the significance and severity of the diagnosis and are willing to accept the outcome with appropriate treatment initiated here. After that discussion with family members including Maninder, Jennifer was contacted again to advise of there decision and will be admitted to [facility] service with Dr. Ellis. Last Recorded V/S: Last Vital Signs Temp 37.2 C 08/29/19 15:54 Pulse 75 08/29/19 15:54 Resp 21 H 05/12/20 15:54 BP 110/39 L 08/29/19 15:54 Pulse Ox 100 08/29/19 15:54 - Orders/Labs/Meds Orders: Active Orders 24 hr Category Date Time Status Patient Status Manage Transfer [TRANSFER] Routine ADT 08/29/19 16:51 Active Patient Status [ADT] Routine ADT 08/29/19 16:48 Active EKG Documentation Completion [RC] ASDIRECTED Care 08/29/19 14:13 Active CULTURE BLOOD [BC] Stat Lab 08/29/19 15:20 Received CULTURE BLOOD [BC] Stat Lab 08/29/19 15:35 Received Blood Culture x2 Reflex Set [OM.PC] Stat Oth 08/29/19 14:12 Ordered EKG 12 Lead [EK] Stat Ther 08/29/19 14:13 Ordered Labs: Laboratory Tests 08/29/19 08/29/19 08/29/19 Range/Units 13:50 13:50 13:50 WBC 20.03 H (5.00-10.00) 10^3/uL RBC 3.55 L (4.50-6.00) 10^6/uL Hgb 8.3 L (13.0-17.0) g/dL Hct 27.9 L (40.0-52.0) % MCV 78.6 L (82.0-92.0) fL MCH 23.4 L (27.0-31.0) pg MCHC 29.7 L (32.0-36.0) g/dL RDW 16.8 H (11.5-14.5) % Plt Count 211 (150-400) 10^3/uL MPV 10.7 H (7.4-10.4) fL Add Manual Diff Yes Neutrophils % (Manual) 92 H (50-70) % Band Neutrophils % 5 (4-12) % Lymphocytes % (Manual) 2 L (20-40) % Monocytes % (Manual) 1 L (2-8) % Absolute Neutrophils 18.43 Band Neutrophils # 1.00 Lymphocytes # (Manual) 0.40 Monocytes # (Manual) 0.20 PT 23.0 H (8.9-11.4) SEC INR 2.3 H (0.9-1.1) Sodium 141 (136-145) mmol/L Potassium 6.0 H D (3.3-5.3) mmol/L Chloride 103 (98-115) mmol/L Carbon Dioxide 25.0 (21.0-32.0) mmol/L Anion Gap 19.0 H (5-15) mmol/L BUN 50 H D (6-25) mg/dL Creatinine 1.50 H (0.51-1.17) mg/dL Est Cr Clr Drug Dosing 35.15 mL/min Estimated GFR (MDRD) 44 mL/min Glucose 97 (75 - 99) mg/dL Lactic Acid (0.4-2.0) mmol/L Calcium 8.6 L (8.7-10.3) mg/dL Total Bilirubin 0.4 (0.2-1.0) mg/dL AST 60 H (15-37) U/L ALT 35 (12-78) U/L Alkaline Phosphatase 59 (46-116) IU/L Troponin I 0.91 H* (0.00-0.070) ng/mL B-Natriuretic Peptide 657 H (0-100) pg/mL Total Protein 5.9 L (6.4-8.2) g/dL Albumin 2.39 L (3.00-4.80) g/dL SARS-CoV-2 RNA (RT-PCR) (NEGATIVE) 08/29/19 08/29/19 Range/Units 14:30 15:20 WBC (5.00-10.00) 10^3/uL RBC (4.50-6.00) 10^6/uL Hgb (13.0-17.0) g/dL Hct (40.0-52.0) % MCV (82.0-92.0) fL MCH (27.0-31.0) pg MCHC (32.0-36.0) g/dL RDW (11.5-14.5) % Plt Count (150-400) 10^3/uL MPV (7.4-10.4) fL Add Manual Diff Neutrophils % (Manual) (50-70) % Band Neutrophils % (4-12) % Lymphocytes % (Manual) (20-40) % Monocytes % (Manual) (2-8) % Absolute Neutrophils Band Neutrophils # Lymphocytes # (Manual) Monocytes # (Manual) PT (8.9-11.4) SEC INR (0.9-1.1) Sodium (136-145) mmol/L Potassium (3.3-5.3) mmol/L Chloride (98-115) mmol/L Carbon Dioxide (21.0-32.0) mmol/L Anion Gap (5-15) mmol/L BUN (6-25) mg/dL Creatinine (0.51-1.17) mg/dL Est Cr Clr Drug Dosing mL/min Estimated GFR (MDRD) mL/min Glucose (75 - 99) mg/dL Lactic Acid 2.9 H (0.4-2.0) mmol/L Calcium (8.7-10.3) mg/dL Total Bilirubin (0.2-1.0) mg/dL AST (15-37) U/L ALT (12-78) U/L Alkaline Phosphatase (46-116) IU/L Troponin I (0.00-0.070) ng/mL B-Natriuretic Peptide (0-100) pg/mL Total Protein (6.4-8.2) g/dL Albumin (3.00-4.80) g/dL SARS-CoV-2 RNA (RT-PCR) Negative (NEGATIVE) Meds: Medications Discontinued Medications Generic Name Dose Route Start Last Admin Trade Name Freq PRN Reason Stop Dose Admin Hydrocodone Bitart/Acetaminophen 1 tab 08/29/19 15:51 08/29/19 16:02 [place] 325-5 Mg PO 08/29/19 15:52 1 tab ONETIME ONE Administration Ceftriaxone Sodium 1 gm 08/29/19 15:10 08/29/19 15:40 Rocephin IVPUSH 08/29/19 15:11 1 gm ONETIME ONE Administration Lactated Ringer's 1,000 mls @ 999 mls/hr 08/29/19 14:19 08/29/19 14:30 Ringers, Lactated IV 08/29/19 15:19 999 mls/hr .BOLUS ONE Administration Azithromycin 500 mg/ Sodium 250 mls @ 250 mls/hr 08/29/19 15:09 08/29/19 15: 44 Chloride IV 08/29/19 16:08 250 mls/hr ONETIME ONE Administration - Re-Assessments/Exams Free Text/Narrative Re-Assessment/Exam: 08/29/19 17:01 Maninder did not receive his afternoon scheduled hydrocodone APAP which was provided here in the emergency department as he was experiencing increased discomfort of his chronic pain. 1 L normal saline was given secondary of hypotensive vitals with improvement systolically in the low teens. Further hydration will be evaluated for [facility] admission. 08/29/19 17:10 Departure - Departure Time of Disposition: 16:54 Disposition: Admitted As Inpatient 66 Condition: Serious Clinical Impression: Pneumonia involving right lung, Acute hyperkalemia, Acute renal failure, Leukocytosis, Elevated troponin, CAP (community acquired pneumonia) - Discharge Information *PRESCRIPTION DRUG MONITORING PROGRAM REVIEWED*: Not Applicable *COPY OF PRESCRIPTION DRUG MONITORING REPORT IN PATIENT [place]: Not Applicable Referrals: PCP,Unknown [Ordering Only Provider] - Forms: ED Department Discharge Additional Instructions: Plan for admission acute status [facility] provider Jennifer Zamarripa/Dr. Brett Man Sepsis Event Note - Focused Exam Vital Signs: Vital Signs Temp Pulse Resp BP Pulse Ox 08/29/19 15:54 37.2 C 75 21 H 110/39 L 100 08/29/19 14:00 38.1 C 78 29 H 104/37 L 95 Date Exam was Performed: 08/29/19 Time Exam was Performed: 17:10 ED Communication - Discussed Case With (1) Discussed Case With (1): Admitting Provider Person/s Notified (1): Jennifer Zamarripa - Conversation Summary Admitting Provider Agreed to Patient's Admission: Yes Outpatient Provider Agreed to Follow-up on this Patient: Yes Patient Aware of Amendments fo Care Plan: Yes Patient's POA/Guardian Aware of Amendments to Care Plan: Yes - Problem List & Annotations (1) Pneumonia involving right lung SNOMED Code(s): 493245853 Code(s): J18.9 - PNEUMONIA, UNSPECIFIED ORGANISM Status: Acute Priority: High Current Visit: Yes Qualifiers: Lung location: lower lobe of lung (2) Elevated troponin SNOMED Code(s): 948266911, 734842245, 644403052 Code(s): R79.89 - OTHER SPECIFIED ABNORMAL FINDINGS OF BLOOD CHEMISTRY Status: Acute Priority: High Current Visit: Yes (3) Pressure ulcer of heel, left, unstageable SNOMED Code(s): 784346434 Code(s): L89.620 - PRESSURE ULCER OF LEFT HEEL, UNSTAGEABLE Status: Chronic Priority: Medium Current Visit: Yes (4) CAP (community acquired pneumonia) SNOMED Code(s): 773717247 Code(s): J18.9 - PNEUMONIA, UNSPECIFIED ORGANISM Status: Acute Priority: High Current Visit: Yes Qualifiers: Laterality: right Lung location: lower lobe of lung Qualified Code(s): J18.9 - Pneumonia, unspecified organism (5) Acute hyperkalemia SNOMED Code(s): 5472704 Code(s): E87.5 - HYPERKALEMIA Status: Acute Current Visit: Yes (6) Acute renal failure SNOMED Code(s): 75355839 Code(s): N17.9 - ACUTE KIDNEY FAILURE, UNSPECIFIED Status: Acute Current Visit: Yes (7) Leukocytosis SNOMED Code(s): 195112916, 353843217 Code(s): D72.829 - ELEVATED WHITE BLOOD CELL COUNT, UNSPECIFIED Status: Acute Current Visit: Yes (8) Chronic combined systolic and diastolic CHF (congestive heart failure) SNOMED Code(s): 613237810031368, 808570197369115 Code(s): I50.42 - CHRONIC COMBINED SYSTOLIC AND DIASTOLIC HRT FAIL Status: Chronic Current Visit: No (9) Congestive heart failure SNOMED Code(s): 65031047 Code(s): I50.9 - HEART FAILURE, UNSPECIFIED Status: Chronic Priority: Medium Current Visit: No Qualifiers: Heart failure type: combined systolic and diastolic Heart failure chronicity: acute on chronic Qualified Code(s): I50.43 - Acute on chronic combined systolic (congestive) and diastolic (congestive) heart failure (10) Anemia SNOMED Code(s): 911479330 Code(s): D64.9 - ANEMIA, UNSPECIFIED Status: Chronic Priority: Medium Current Visit: Yes - Problem List Review Problem List Initiated/Reviewed/Updated: Yes - My Orders Last 24 Hours: My Active Orders 08/29/19 14:12 Blood Culture x2 Reflex Set [OM.PC] Stat 08/29/19 14:13 EKG Documentation Completion [RC] ASDIRECTED EKG 12 Lead [EK] Stat 08/29/19 15:20 CULTURE BLOOD [BC] Stat 08/29/19 15:35 CULTURE BLOOD [BC] Stat 08/29/19 16:48 Patient Status [ADT] Routine 08/29/19 16:51 Patient Status Manage Transfer [TRANSFER] Routine - Assessment/Plan Last 24 Hours: My Active Orders 08/29/19 14:12 Blood Culture x2 Reflex Set [OM.PC] Stat 08/29/19 14:13 EKG Documentation Completion [RC] ASDIRECTED EKG 12 Lead [EK] Stat 08/29/19 15:20 CULTURE BLOOD [BC] Stat 08/29/19 15:35 CULTURE BLOOD [BC] Stat 08/29/19 16:48 Patient Status [ADT] Routine 08/29/19 16:51 Patient Status Manage Transfer [TRANSFER] Routine Plan: Admit acute status to [facility] provider. CODE STATUS remains DNR
[2019-08-29] MEDS ORDERED: Lactated Ringers 1,000 ML IV ONE (14:19)
[2019-08-29] MEDS ORDERED: Azithromycin 500 MG in Sodium Chloride 0.9% 250 ML IV ONE (15:09)
[2019-08-29] MEDS ORDERED: cefTRIAXone 1 GM Vial IVPUSH ONE (15:10)
--- NOTE | 2019-08-29 15:10 | CR ---
[id number] RAD/RAD Chest PA or AP 1V EXAM: RAD Chest PA or AP 1V INDICATION: SOB. COMPARISON: November 11, 2018. DISCUSSION: Bibasal parenchymal opacities right greater than left. Blunting of the right costophrenic sulcus, suggesting small effusion. Cardiomegaly. Left chest wall cardiac conduction device. IMPRESSION: Possible changes of CHF exacerbation, described in detail above. Differential diagnosis includes pneumonia and/or atelectasis. Correlate for signs of infection. Surinder Kelley MD 08/29/19 0543 Thank you for allowing us to participate in the care of your patient.
[2019-08-29] MEDS ORDERED: Acetaminophen/HYDROcodone 325-5 MG Tab PO ONE (15:51)
[2019-08-29] MEDS ORDERED: Nitroglycerin 0.4 MG Tab.SL SL PRN (19:07)
[2019-08-29] MEDS ORDERED: Polyethylene Glycol 3350 Powder 17 GM Packet PO PRN (19:07)
[2019-08-29] MEDS ORDERED: Ferrous Sulfate 325 MG Tab PO SCH (19:15)
[2019-08-29 19:35] LABS: ANION GAP 18.2 mmol/L (5-15)
[2019-08-29] MEDS: Acetaminophen/HYDROcodone 325-5 MG Tab PO SCH (19:54)
[2019-08-29] MEDS: Diltiazem IR 30 MG Tab PO SCH ×2 (19:55→21:16)
[2019-08-29] MEDS ORDERED: Sodium Chloride 0.9% 1,000 ML IV SCH (20:45)
[2019-08-29] MEDS ORDERED: Sodium Polystyrene Sulfonate 15 GM/60 ML Susp 60 ML Bot PO ONE (21:30)
[2019-08-29] MEDS: Albuterol/Ipratropium 3.0-0.5 MG/3 ML Neb Soln NEB SCH (22:27)
[2019-08-30] MEDS: Acetaminophen/HYDROcodone 325-5 MG Tab PO SCH ×4 (02:31→21:13)
[2019-08-30] MEDS: Albuterol/Ipratropium 3.0-0.5 MG/3 ML Neb Soln NEB SCH ×4 (05:14→22:48)
[2019-08-30] MEDS: Diltiazem IR 30 MG Tab PO SCH ×2 (08:23→21:13)
[2019-08-30] MEDS: Tamsulosin 0.4 MG Cap.ER PO SCH (08:27)
[2019-08-30] MEDS: Clopidogrel 75 MG Tab PO SCH (08:27)
[2019-08-30] MEDS: predniSONE 10 MG Tab PO SCH (08:27)
[2019-08-30] MEDS: Ascorbic Acid 500 MG Tab PO SCH (08:28)
[2019-08-30] MEDS: Finasteride 5 MG Tab PO SCH (08:28)
[2019-08-30 08:31] LABS: ANION GAP 18.8 mmol/L (5-15)
--- NOTE | 2019-08-30 08:51 | PCM.HP.2 ---
H&P History of Present Illness - General Date of Service: 08/30/19 Admit Problem/Dx: Admission Diagnosis/Problem Admission Diagnosis/Problem Pneumonia Source of Information: Patient, Old Records, Provider, RN Leg Pain Score (Numeric/FACES): 5 - Related Data Allergies/Adverse Reactions: Allergies Allergy/AdvReac Type Severity Reaction Status Date / Time atorvastatin calcium Allergy Cannot Verified 08/29/19 15:20 [From Lipitor] Remember ezetimibe [From Zetia] Allergy Joint Pain Verified 08/29/19 15:20 gabapentin Allergy Airway Verified 08/29/19 15:20 Tightness pregabalin [From Lyrica] Allergy Bronchospas Verified 08/29/19 15:20 ms roflumilast [From Daliresp] Allergy Stomach Verified 08/29/19 15:20 Upset [id number] Reductase Allergy Muscle Verified 08/29/19 15:20 Inhibitor Weakness Sulfa (Sulfonamide Allergy Cannot Verified 08/29/19 15:20 Antibiotics) Remember tramadol Allergy Cannot Verified 08/29/19 15:20 Remember Home Medications: Home Meds Finasteride 5 mg PO DAILY 03/22/14 [History] Furosemide 20 mg PO DAILY@1400 03/22/14 [History] Nitroglycerin [Nitrostat] 0.4 mg SL ASDIRECTED PRN 03/22/14 [History] Tamsulosin [Flomax] 0.4 mg PO DAILY 09/10/14 [History] Warfarin [Coumadin] 2.5 mg PO MO@1800 02/21/15 [History] Clopidogrel [Plavix] 75 mg PO DAILY 04/01/16 [History] Hydrocodone/Acetaminophen [Hydrocodone-Acetamin 5-325 mg] 1 each PO QID@02,08,14 ,20 04/01/16 [History] Albuterol/Ipratropium [DuoNeb 3.0-0.5 MG/3 ML] 3 ml NEB Q6HRRT neb 12/18/17 [Rx ] polyethylene glycoL 3350 [MiraLAX] 17 gm PO BEDTIME PRN packet 12/18/17 [Rx] Ferrous Sulfate [Ferosul] 325 mg PO Q48H 01/22/18 [History] Sennosides/Docusate Sodium [Senna-S] 1 each PO BID 01/22/18 [History] Warfarin [Coumadin] 1.25 mg PO SUTUWETHFRSA@1800 01/22/18 [History] predniSONE [Prednisone] 10 mg PO DAILY 01/22/18 [History] Potassium Chloride [Klor-Con 10] 20 meq PO DAILY #90 tab.er 11/14/18 [Rx] Ascorbate Calcium [Vitamin C] 500 mg PO Q48H 01/10/19 [History] Furosemide [Lasix] 60 mg PO DAILY 01/10/19 [History] Diclofenac Sodium [Voltaren 1% Gel] 2 gram TRDERM BID 08/29/19 [History] Fluticasone/Umeclidin/Vilanter [Trelegy Ellipta 100-62.5-25] 1 puff INH DAILY [History] Hydrocortisone [Preparation H] 1 applic RECTAL BID PRN 08/29/19 [History] Nortriptyline 45 mg PO DAILY 08/29/19 [History] bisacodyL [Bisacodyl] 5 mg PO DAILY PRN 08/29/19 [History] dilTIAZem HCL [Cardizem] 30 mg PO BID 08/29/19 [History] lisinopriL [Lisinopril] 2.5 mg PO DAILY 08/29/19 [History] predniSONE [Prednisone] 10 mg PO DAILY PRN 08/29/19 [History] Past Medical History HEENT History: Reports: Cataract, Impaired Vision, Other (See Below) Other HEENT History: Artificial Left eye Cardiovascular History: Reports: Afib, Heart Failure, Hypertension, Pacemaker, PVD, Stents Other Cardiovascular History: stents x 8 Respiratory History: Reports: Asthma, COPD Other Respiratory History: Home O2. Gastrointestinal History: Reports: Cholelithiasis, Chronic Constipation, GERD, Hemorrhoids Genitourinary History: Reports: BPH, Prostate Disorder Musculoskeletal History: Reports: Arthritis, Back Pain, Chronic, Osteoarthritis Other Musculoskeletal History: Paget's disease Neurological History: Reports: None Psychiatric History: Reports: None Endocrine/Metabolic History: Reports: Vitamin D Deficiency Hematologic History: Reports: Anemia, Blood Transfusion(s), Iron Deficiency Immunologic History: Reports: None Oncologic (Cancer) History: Reports: Other (See Below) Other Oncologic History: previous removal of lump and lymph nodes from neck. 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." Dermatologic History: Reports: Cellulitis - Infectious Disease History Infectious Disease History: Reports: Chicken Pox, Measles, Mumps - Past Surgical History HEENT Surgical History: Reports: Cataract Surgery Cardiovascular Surgical History: Reports: Carotid Stents, Pacer Respiratory Surgical History: Reports: None GI Surgical History: Reports: Cholecystectomy, Colonoscopy Male Surgical History: Reports: None, TURP-Transurethral Resection of Prostate Endocrine Surgical History: Reports: None Neurological Surgical History: Reports: None Musculoskeletal Surgical History: Reports: Arthroscopic Knee, Knee Replacement Oncologic Surgical History: Reports: None Social & Family History - Family History Family Medical History: Noncontributory HEENT: Reports: None, Macular Degeneration Cardiac: Reports: [place] Respiratory: Reports: COPD GI: Reports: None : Reports: None OBGYN: Reports: None Musculoskeletal: Reports: Arthritis Neurological: Reports: None Psychiatric: Reports: None Endocrine/Metabolic: Reports: Diabetes, type II Hematologic: Reports: None Oncologic: Reports: Breast - Tobacco Use Smoking Status *Q: Unknown Ever Smoked - Caffeine Use Caffeine Use: Reports: Coffee Other Caffeine Use: Mostly decafe per son - Living Situation & Occupation Living situation: Reports: H&P Review of Systems - Review of Systems: Review Of Systems: See Below General: Reports: Malaise, Weakness, Fatigue. Denies: Fever, Chills, Night Sweats HEENT: Reports: No Symptoms Pulmonary: Reports: Shortness of Breath, Cough, Sputum Cardiovascular: Denies: Chest Pain, Palpitations, Orthopnea, Edema, Blood Pressure Problem Gastrointestinal: Reports: No Symptoms Genitourinary: Reports: Other (indwellling) Skin: Reports: Dryness, Bruising, Wound Psychiatric: Reports: Mood Lability Neurological: Reports: Trouble Speaking. Denies: Confusion Hematologic/Lymphatic: Reports: Anemia, Easy Bleeding, Easy Bruising Exam - Exam Exam: See Below - Vital Signs Vital Signs: Last Vital Signs Temp 99.0 F 08/30/19 06:55 Pulse 79 08/30/19 08:23 Resp 24 H 08/30/19 06:55 BP 121/60 08/30/19 08:23 Pulse Ox 92 L 08/30/19 06:55 Weight: 173 lb 4 oz - Exam Quality Assessment: Supplemental Oxygen, DVT Prophylaxis, Skin Breakdown General: Alert, Oriented, Cooperative, Mild Distress HEENT: Other. No: Mucosa Moist & [place] Neck: Supple, Trachea Midline. No: JVD Lungs: No: Crackles, Rales Cardiovascular: Regular Rhythm, Irregular Rhythm, Tachycardia GI/Abdominal Exam: Soft, No Distention (Male) Exam: Deferred Extremities: No Pedal Edema Peripheral Pulses: 2+: Radial (R), Femoral (L) Skin: Dry, Wound, Other (Poor skin integrity, skin tears left forearm, present on admission, ulcers on heels, present on admission, brawniness extreme) Neuro Extensive - Mental Status: Alert, Oriented x3 DTR: 2+: Bicep (L), Bicep (R) Psychiatric: Alert, Labile Mood - Patient Data Lab Results Last 24 hrs: Laboratory Results - last 24 hr 08/29/19 08/29/19 08/29/19 Range/Units 13:50 13:50 13:50 WBC 20.03 H (5.00-10.00) 10^3/uL RBC 3.55 L (4.50-6.00) 10^6/uL Hgb 8.3 L (13.0-17.0) g/dL Hct 27.9 L (40.0-52.0) % MCV 78.6 L (82.0-92.0) fL MCH 23.4 L (27.0-31.0) pg MCHC 29.7 L (32.0-36.0) g/dL RDW 16.8 H (11.5-14.5) % Plt Count 211 (150-400) 10^3/uL MPV 10.7 H (7.4-10.4) fL Add Manual Diff Yes Neutrophils % (Manual) 92 H (50-70) % Band Neutrophils % 5 (4-12) % Lymphocytes % (Manual) 2 L (20-40) % Monocytes % (Manual) 1 L (2-8) % Absolute Neutrophils 18.43 Band Neutrophils # 1.00 Lymphocytes # (Manual) 0.40 Monocytes # (Manual) 0.20 PT 23.0 H (8.9-11.4) SEC INR 2.3 H (0.9-1.1) Sodium 141 (136-145) mmol/L Potassium 6.0 H D (3.3-5.3) mmol/L Chloride 103 (98-115) mmol/L Carbon Dioxide 25.0 (21.0-32.0) mmol/L Anion Gap 19.0 H (5-15) mmol/L BUN 50 H D (6-25) mg/dL Creatinine 1.50 H (0.51-1.17) mg/dL Est Cr Clr Drug Dosing 35.15 mL/min Estimated GFR (MDRD) 44 mL/min Glucose 97 (75 - 99) mg/dL Lactic Acid (0.4-2.0) mmol/L Calcium 8.6 L (8.7-10.3) mg/dL Total Bilirubin 0.4 (0.2-1.0) mg/dL AST 60 H (15-37) U/L ALT 35 (12-78) U/L Alkaline Phosphatase 59 (46-116) IU/L Troponin I 0.91 H* (0.00-0.070) ng/mL B-Natriuretic Peptide 657 H (0-100) pg/mL Total Protein 5.9 L (6.4-8.2) g/dL Albumin 2.39 L (3.00-4.80) g/dL SARS-CoV-2 RNA (RT-PCR) (NEGATIVE) 08/29/19 08/29/19 08/29/19 Range/Units 14:30 15:20 19:00 WBC (5.00-10.00) 10^3/uL RBC (4.50-6.00) 10^6/uL Hgb (13.0-17.0) g/dL Hct (40.0-52.0) % MCV (82.0-92.0) fL MCH (27.0-31.0) pg MCHC (32.0-36.0) g/dL RDW (11.5-14.5) % Plt Count (150-400) 10^3/uL MPV (7.4-10.4) fL Add Manual Diff Neutrophils % (Manual) (50-70) % Band Neutrophils % (4-12) % Lymphocytes % (Manual) (20-40) % Monocytes % (Manual) (2-8) % Absolute Neutrophils Band Neutrophils # Lymphocytes # (Manual) Monocytes # (Manual) PT (8.9-11.4) SEC INR (0.9-1.1) Sodium 142 (136-145) mmol/L Potassium 6.1 H (3.3-5.3) mmol/L Chloride 104 (98-115) mmol/L Carbon Dioxide 25.9 (21.0-32.0) mmol/L Anion Gap 18.2 H (5-15) mmol/L BUN 50 H (6-25) mg/dL Creatinine 1.43 H (0.51-1.17) mg/dL Est Cr Clr Drug Dosing 36.87 mL/min Estimated GFR (MDRD) 47 mL/min Glucose 125 H (75 - 99) mg/dL Lactic Acid 2.9 H (0.4-2.0) mmol/L Calcium 8.3 L (8.7-10.3) mg/dL Total Bilirubin (0.2-1.0) mg/dL AST (15-37) U/L ALT (12-78) U/L Alkaline Phosphatase (46-116) IU/L Troponin I 0.78 H* (0.00-0.070) ng/mL B-Natriuretic Peptide (0-100) pg/mL Total Protein (6.4-8.2) g/dL Albumin (3.00-4.80) g/dL SARS-CoV-2 RNA (RT-PCR) Negative (NEGATIVE) 08/29/19 08/30/19 08/30/19 Range/Units 19:00 07:20 07:20 WBC (5.00-10.00) 10^3/uL RBC (4.50-6.00) 10^6/uL Hgb (13.0-17.0) g/dL Hct (40.0-52.0) % MCV (82.0-92.0) fL MCH (27.0-31.0) pg MCHC (32.0-36.0) g/dL RDW (11.5-14.5) % Plt Count (150-400) 10^3/uL MPV (7.4-10.4) fL Add Manual Diff Neutrophils % (Manual) (50-70) % Band Neutrophils % (4-12) % Lymphocytes % (Manual) (20-40) % Monocytes % (Manual) (2-8) % Absolute Neutrophils Band Neutrophils # Lymphocytes # (Manual) Monocytes # (Manual) PT (8.9-11.4) SEC INR (0.9-1.1) Sodium 144 (136-145) mmol/L Potassium 5.8 H (3.3-5.3) mmol/L Chloride 105 (98-115) mmol/L Carbon Dioxide 26.0 (21.0-32.0) mmol/L Anion Gap 18.8 H (5-15) mmol/L BUN 49 H (6-25) mg/dL Creatinine 1.25 H (0.51-1.17) mg/dL Est Cr Clr Drug Dosing 42.18 mL/min Estimated GFR (MDRD) 55 mL/min Glucose 99 (75 - 99) mg/dL Lactic Acid 4.1 H 3.8 H (0.4-2.0) mmol/L Calcium 8.6 L (8.7-10.3) mg/dL Total Bilirubin 0.3 (0.2-1.0) mg/dL AST 45 H (15-37) U/L ALT 31 (12-78) U/L Alkaline Phosphatase 57 (46-116) IU/L Troponin I 0.43 H* (0.00-0.070) ng/mL B-Natriuretic Peptide (0-100) pg/mL Total Protein 5.8 L (6.4-8.2) g/dL Albumin 2.24 L (3.00-4.80) g/dL SARS-CoV-2 RNA (RT-PCR) (NEGATIVE) Result Diagrams: 09/01/19 06:55 09/01/19 06:55 Anderson Results Last 24 hrs: Microbiology 08/29/19 15:20 Aerobic Blood Culture - Final Blood - Arm, Right Anaerobic Blood Culture - Final 08/29/19 15:35 Aerobic Blood Culture - Final Blood - Arm, Left Anaerobic Blood Culture - Final Sepsis Event Note - Evaluation Sepsis Screening Result: Severe Sepsis Risk - Focused Exam Vital Signs: Vital Signs Temp Pulse Pulse Resp BP BP Pulse Ox 08/30/19 08:23 79 121/60 08/30/19 06:55 99.0 F 74 24 H 121/57 L 92 L 08/30/19 06:37 08/30/19 05:50 08/30/19 05:14 75 08/30/19 05:12 08/30/19 03:00 99.5 F 75 24 H 107/57 L 93 L 08/29/19 23:00 99.7 F 72 24 H 105/57 L 89 L 08/29/19 22:27 72 Pulse Ox 08/30/19 08:23 08/30/19 06:55 08/30/19 06:37 94 L 08/30/19 05:50 94 L 08/30/19 05:14 100 08/30/19 05:12 100 08/30/19 03:00 08/29/19 23:00 08/29/19 22:27 Date Exam was Performed: 09/01/19 Time Exam was Performed: 08:33 Problem List Initiated/Reviewed/Updated: Yes Orders Last 24hrs: Active Orders 24 hr Category Date Time Status Patient Status [ADT] Routine ADT 08/29/19 16:48 Active Bedrest Bathroom Privileges [RC] DAILY Care 08/29/19 18:46 Active EKG Documentation Completion [RC] ASDIRECTED Care 08/29/19 14:13 Inactive Beyer Catheter Insertion [Insert Urinary Catheter] [OM. Care 08/29/19 20:45 Ordered PC] Q24H Oxygen Therapy [RC] ASDIRECTED Care 08/30/19 06:37 Active Telemetry Monitoring [Cardiac Monitoring] [RC] 2300, Care 08/29/19 20:37 Active 0300,0700 Vital Signs [RC] 0300,0700,1100,1500,1900,2300 Care 08/29/19 18:46 Active Heart Healthy Diet [DIET] Diet 08/29/19 Dinner Active AEROBIC IDENT [MREF] Stat Lab 08/29/19 15:20 Received AEROBIC IDENT [MREF] Stat Lab 08/29/19 15:35 Received CBC WITH AUTO DIFF [HEME] Routine Lab 08/30/19 07:20 Received Acetaminophen/HYDROcodone [Bronson 325-5 MG] Med 08/29/19 20:00 Active 1 tab PO QID@02,08,14,20 Albuterol/Ipratropium [DuoNeb 3.0-0.5 MG/3 ML] Med 08/29/19 23:00 Active 3 ml NEB Q6HRRT Ascorbic Acid [Vitamin C] Med 08/30/19 09:00 Active 500 mg PO Q48H Clopidogrel [Plavix] Med 08/30/19 09:00 Active 75 mg PO DAILY Diltiazem IR [Cardizem] Med 08/29/19 21:00 Active 30 mg PO BID Docusate Sodium/Sennosides [Senna Plus] Med 08/29/19 21:00 Active 1 tab PO BID Ferrous Sulfate Med 08/29/19 19:15 Active 325 mg PO Q48H Finasteride [Proscar] Med 08/30/19 09:00 Active 5 mg PO DAILY Furosemide [Lasix] Med 08/30/19 14:00 Active 20 mg PO DAILY@1400 Furosemide [Lasix] Med 08/30/19 09:00 Active 60 mg PO DAILY Nitroglycerin [Nitrostat] Med 08/29/19 19:07 Active 0.4 mg SL ASDIRECTED PRN Nortriptyline [Nortriptyline] Med 08/30/19 09:00 Pending 45 mg PO DAILY Sodium Chloride 0.9% [Normal Saline] 1,000 ml Med 08/29/19 20:45 Active IV ASDIRECTED Tamsulosin [Flomax] Med 08/30/19 09:00 Active 0.4 mg PO DAILY Warfarin [Coumadin] Med 08/30/19 18:00 Active 1.25 mg PO SUTUWETHFRSA@1800 Warfarin [Coumadin] Med 09/04/19 18:00 Active 2.5 mg PO MO@1800 polyethylene glycoL 3350 [MiraLAX] Med 08/29/19 19:07 Active 17 gm PO BEDTIME PRN predniSONE Med 08/30/19 09:00 Active 10 mg PO DAILY Code Status [Resuscitation Status] Stat Resus Stat 08/29/19 17:16 Ordered EKG 12 Lead [EK] Stat Ther 08/29/19 14:13 Stop Req Medication Orders Hydrocodone Bitart/Acetaminophen (Bronson 325-5 Mg) 1 tab PO QID@02,,,20 [facility] Last Admin: 08/30/19 08:22 Dose: 1 tab Admin: 08/30/19 02:31 Dose: 1 tab Admin: 08/29/19 19:54 Dose: 1 tab Albuterol/Ipratropium (Duoneb 3.0-0.5 Mg/3 Ml) 3 ml NEB Q6HRRT [facility] Last Admin: 08/30/19 05:14 Dose: 3 ml Admin: 08/29/19 22:27 Dose: 3 ml Ascorbic Acid (Vitamin C) 500 mg PO Q48H [facility] Last Admin: 08/30/19 08:28 Dose: 500 mg Clopidogrel Bisulfate (Plavix) 75 mg PO DAILY [facility] Last Admin: 08/30/19 08:27 Dose: 75 mg Diltiazem HCl (Cardizem) 30 mg PO BID [facility] Last Admin: 08/30/19 08:23 Dose: 30 mg Admin: 08/29/19 21:16 Dose: Not Given Admin: 08/29/19 19:55 Dose: 30 mg Ferrous Sulfate (Ferrous Sulfate) 325 mg PO Q48H [facility] Last Admin: 08/29/19 19:54 Dose: 325 mg Finasteride (Proscar) 5 mg PO DAILY [facility] Last Admin: 08/30/19 08:28 Dose: 5 mg Furosemide (Lasix) 20 mg PO DAILY@1400 [facility] Furosemide (Lasix) 60 mg PO DAILY [facility] Sodium Chloride (Normal Saline) 1,000 mls @ 75 mls/hr IV ASDIRECTED [facility] Last Admin: 08/29/19 21:23 Dose: 75 mls/hr Nitroglycerin (Nitrostat) 0.4 mg SL ASDIRECTED PRN PRN Reason: Chest Pain Non-Formulary Medication (Nortriptyline [Nortriptyline]) 45 mg PO DAILY [facility] Polyethylene Glycol (Miralax) 17 gm PO BEDTIME PRN PRN Reason: Constipation Prednisone (Prednisone) 10 mg PO DAILY [facility] Last Admin: 08/30/19 08:27 Dose: 10 mg Senna/Docusate Sodium (Senna Plus) 1 tab PO BID [facility] Last Admin: 08/30/19 08:28 Dose: 1 tab Admin: 08/29/19 21:16 Dose: Not Given Admin: 08/29/19 19:55 Dose: 1 tab Tamsulosin HCl (Flomax) 0.4 mg PO DAILY [facility] Last Admin: 08/30/19 08:27 Dose: 0.4 mg Warfarin Sodium (Coumadin) 1.25 mg PO SUTUWETHFRSA@1800 [facility] Warfarin Sodium (Coumadin) 2.5 mg PO MO@1800 [facility] Assessment/Plan Comment:: History of present illness Maninder is an 88 yo gentleman who resides at a local LTC was admitted through the ED due to worsening shortness of breath, and fatigue along with fever. Does have longstanding COPD and is on chronic glucocorticoid therapy with frequent hospitalizations due to COPD exacerbations and pneumonias in the past Pertinent ED work-up/findings CXR: Bilateral opacities R>L, CHF changes COVID 19 neg T: 100.6, BP; 104/37 MAP 59, RR 29 labored WBC 20,000, neutrophils percent Trop, 0.91 BNP, 657 BUN/creatinine 50/1.5 Lactate 2.9 ____ Hospital course Patient was admitted into inpatient patient and family wanted him treated locally despite critical condition, azithromycin and ceftriaxone were given on admission, placed on telemetry, No overnight calls to on-call provider Acute hospital conditions --Pneumonia HCAP; right lung, --Bacteremia/sepsis, --Leukocytosis --NSTEMI, suspect type 2 given infection, CHF exacerbation --COPD --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 --Acute hyperkalemia, mild --Acute renal failure --Anemia --Pressure ulcer of heel, left, unstageable Chronic Problems --Atrial fibrillation --CAD/PVD --HTN --pacemaker, hx AV node ablation --Obesity --BPH --OA, spinal stenosis, on COT and pain mgt contract --Vitamin D deficiency, Pagets Dz PULMONARY: Pulmonary status below baseline however improved since admission, no Rales, now on 2 L nasal cannula, pox 94%, Hold ABG assessment since somewhat improved, B2 agonist, Bilateral opacities R>L, CHF changes, will give low dose lasix given clinical picture, Hold LABA, Cont KAT/AARON, Will add Acapella device when he can tolerate CV: NSTEMI with trending troponin, A. fib, chronic [id number], DAPT, Rate control strategy with CCB, controlled, telemetry today, MAP improved since admission, BNP >600, Grade I diastolic dysfunction and EF 55%, Holding ACEI due to hyperkalemia, EKG reviewed no signs of cardiac toxicity, adequate pacer tracing. Continue with telemetry INFECTIOUS DISEASE: WBC trending down, neutrophilia 94%, without platelet thrombocytosis, Both BC gm positive cocci, since improved with ceftriaxone since admission suspect streptococcal pneumoniae cannot definitively rule out staph aureus. Skin tears POA high risk for invasiveness due to altered skin integrity. DC azithromycin, add pharmacy dose vancomycin and continue with ceftriaxone, CRP added and trend HEMATOLOGY: Hgb/Hct 8.3/28, Mixed ACD/SANTIAGO, on iron, FLUIDS, ELECTROLYTES, AND RENAL: Hold IV fluids given 7-lbs wt gain overnight, Encourage PO, Beyer to accurately assess I/O, no vomiting, Lasix low dose trial , acute hyperkalemia, mild, monitor electrolytes, BUN/Creat ration 33:1 suggest prerenal however likely effective, Calcium 8.6, sodium 144, Oral fluids despite diuretic therapy. ENDOCRINE: Non diabetic, however chronic glucocorticoid therapy, assess blood sugar levels BID to determine if insulin is needed. GI/: No vomiting, Heart Healthy/Low sodium diet, Finasteride, tamsulosin. Beyer for now, will DC soon given bacteremia HEALTH MAINTENANCE: DVT prophylaxis-- DAPT, Skin care, keep covered, Kade score, GI stress-add H2, Falls precautions, Ofelia Brown; POA, son was notified of patient's critical condition and agrees with treatment plan and desires to tx locally here. Patient is a DO NOT RESUSCITATE - Mortality Measure Prognosis:: Poor
[2019-08-30] MEDS ORDERED: NORTRIPTYLINE PO SCH (09:00)
[2019-08-30] MEDS ORDERED: Furosemide 40 MG/4 ML VIAL IVPUSH ONE (11:13)
[2019-08-30] MEDS: Furosemide 20 MG Tab PO SCH (11:18)
[2019-08-30] MEDS: Acetaminophen 325 MG Tab PO PRN (11:27)
[2019-08-30] MEDS: cefTRIAXone 1 GM Vial IVPUSH SCH (13:03)
[2019-08-30] MEDS ORDERED: Furosemide 20 MG Tab PO SCH (14:00)
[2019-08-30] MEDS ORDERED: Atropine 0.1 MG/ML 10 ML Syringe IVPUSH PRN (14:57)
[2019-08-30] MEDS ORDERED: EPINEPHrine 1:10,000 1 MG/10 ML Syringe IVPUSH PRN (14:57)
[2019-08-30] MEDS ORDERED: Lidocaine 2% 100 MG/5 ML Syringe IVPUSH PRN (14:57)
[2019-08-30] MEDS ORDERED: Nitroglycerin 0.4 MG Tab.SL SL PRN (14:57)
[2019-08-30] MEDS: Warfarin 2.5 MG Tab PO SCH (18:05)
[2019-08-30] MEDS: NORTRIPTYLINE 25 MG PO SCH (21:14)
[2019-08-30] MEDS: NORTRIPTYLINE 10 MG PO SCH (21:15)
[2019-08-31] MEDS: Acetaminophen/HYDROcodone 325-5 MG Tab PO SCH ×4 (02:23→20:29)
[2019-08-31] MEDS: Albuterol/Ipratropium 3.0-0.5 MG/3 ML Neb Soln NEB SCH ×2 (05:07→10:55)
[2019-08-31] MEDS: Diltiazem IR 30 MG Tab PO SCH ×2 (08:07→20:29)
[2019-08-31] MEDS: Tamsulosin 0.4 MG Cap.ER PO SCH (08:08)
[2019-08-31] MEDS: predniSONE 10 MG Tab PO SCH (08:08)
[2019-08-31] MEDS: Clopidogrel 75 MG Tab PO SCH (08:08)
[2019-08-31] MEDS: Finasteride 5 MG Tab PO SCH (08:08)
[2019-08-31 08:21] LABS: ANION GAP 14.6 mmol/L (5-15); CHLORIDE,CL 108 mmol/L (98-115); SODIUM,NA 145 mmol/L (136-145)
[2019-08-31] MEDS ORDERED: Furosemide 40 MG/4 ML VIAL IVPUSH STA (11:26)
--- NOTE | 2019-08-31 11:44 | PCM.PN ---
- General Info Date of Service: 08/31/19 Subjective Update: Mr. Brown reports feeling ongoing improvement in overall status and breathing since admission. Not yet to baseline breathing status, but feeling much better. No new concerns. Increasing toleration of diet. Voiding via Beyer catheter. BMs without difficulty. - Patient Data Vitals - Most Recent: Last Vital Signs Temp 37.2 C 08/31/19 06:10 Pulse 75 08/31/19 08:07 Resp 20 08/31/19 06:10 BP 110/58 L 08/31/19 08:07 Pulse Ox 99 08/31/19 09:00 Weight - Most Recent: 77.196 kg I&O - Last 24 Hours: Intake & Output 08/30/19 08/31/19 08/31/19 22:59 06:59 14:59 Intake Total 150 150 Output Total 300 300 Balance -150 -150 Lab Results Last 24 Hours: Laboratory Results - last 24 hr 08/30/19 08/31/19 08/31/19 Range/Units 07:00 07:15 07:15 WBC 11.27 H (5.00-10.00) 10^3/uL RBC 3.03 L (4.50-6.00) 10^6/uL Hgb 7.1 L (13.0-17.0) g/dL Hct 24.0 L (40.0-52.0) % MCV 79.2 L (82.0-92.0) fL MCH 23.4 L (27.0-31.0) pg MCHC 29.6 L (32.0-36.0) g/dL RDW 16.9 H (11.5-14.5) % Plt Count 168 (150-400) 10^3/uL MPV 10.5 H (7.4-10.4) fL Immature Gran % (Auto) 0.4 (0.0-5.0) % Neut % (Auto) 86.9 H (50.0-70.0) % Lymph % (Auto) 7.2 L (20.0-40.0) % [place] % (Auto) 5.2 (2.0-8.0) % Eos % (Auto) 0.2 L (1.0-3.0) % Baso % (Auto) 0.1 (0.0-1.0) % Neut # (Auto) 9.80 H (2.50-7.00) 10^3/uL Lymph # (Auto) 0.81 L (1.00-4.00) 10^3/uL [place] # (Auto) 0.59 (0.10-0.80) 10^3/uL Eos # (Auto) 0.02 L (0.10-0.30) 10^3/uL Baso # (Auto) 0.01 (0.00-0.10) 10^3/uL Immature Gran # (Auto) 0.04 (0.00-0.50) 10^3/uL PT 26.1 H (8.9-11.4) SEC INR 2.6 H (0.9-1.1) Sodium (136-145) mmol/L Potassium (3.3-5.3) mmol/L Chloride (98-115) mmol/L Carbon Dioxide (21.0-32.0) mmol/L Anion Gap (5-15) mmol/L BUN (6-25) mg/dL Creatinine (0.51-1.17) mg/dL Est Cr Clr Drug Dosing mL/min Estimated GFR (MDRD) mL/min Glucose (75 - 99) mg/dL Lactic Acid (0.4-2.0) mmol/L Calcium (8.7-10.3) mg/dL Total Bilirubin (0.2-1.0) mg/dL AST (15-37) U/L ALT (12-78) U/L Alkaline Phosphatase (46-116) IU/L C-Reactive Protein 30.9 H (0.0-0.9) mg/dL Total Protein (6.4-8.2) g/dL Albumin (3.00-4.80) g/dL 08/31/19 08/31/19 Range/Units 07:15 07:15 WBC (5.00-10.00) 10^3/uL RBC (4.50-6.00) 10^6/uL Hgb (13.0-17.0) g/dL Hct (40.0-52.0) % MCV (82.0-92.0) fL MCH (27.0-31.0) pg MCHC (32.0-36.0) g/dL RDW (11.5-14.5) % Plt Count (150-400) 10^3/uL MPV (7.4-10.4) fL Immature Gran % (Auto) (0.0-5.0) % Neut % (Auto) (50.0-70.0) % Lymph % (Auto) (20.0-40.0) % [place] % (Auto) (2.0-8.0) % Eos % (Auto) (1.0-3.0) % Baso % (Auto) (0.0-1.0) % Neut # (Auto) (2.50-7.00) 10^3/uL Lymph # (Auto) (1.00-4.00) 10^3/uL [place] # (Auto) (0.10-0.80) 10^3/uL Eos # (Auto) (0.10-0.30) 10^3/uL Baso # (Auto) (0.00-0.10) 10^3/uL Immature Gran # (Auto) (0.00-0.50) 10^3/uL PT (8.9-11.4) SEC INR (0.9-1.1) Sodium 145 (136-145) mmol/L Potassium 4.5 (3.3-5.3) mmol/L Chloride 108 (98-115) mmol/L Carbon Dioxide 26.9 (21.0-32.0) mmol/L Anion Gap 14.6 (5-15) mmol/L BUN 50 H (6-25) mg/dL Creatinine 1.15 (0.51-1.17) mg/dL Est Cr Clr Drug Dosing 45.85 mL/min Estimated GFR (MDRD) > 60 mL/min Glucose 89 (75 - 99) mg/dL Lactic Acid 1.2 (0.4-2.0) mmol/L Calcium 8.2 L (8.7-10.3) mg/dL Total Bilirubin 0.3 (0.2-1.0) mg/dL AST 33 (15-37) U/L ALT 29 (12-78) U/L Alkaline Phosphatase 50 (46-116) IU/L C-Reactive Protein (0.0-0.9) mg/dL Total Protein 5.2 L (6.4-8.2) g/dL Albumin 1.90 L (3.00-4.80) g/dL [place] Results Last 24 Hours: Microbiology 08/29/19 15:20 Aerobic Blood Culture - Final Blood - Arm, Right Anaerobic Blood Culture - Final 08/29/19 15:35 Aerobic Blood Culture - Final Blood - Arm, Left Anaerobic Blood Culture - Final Med Orders - Current: Current Medications Acetaminophen (Tylenol) 650 mg PO Q6H PRN PRN Reason: Fever Last Admin: 08/30/19 11:27 Dose: 650 mg Hydrocodone Bitart/Acetaminophen ([place] 325-5 Mg) 1 tab PO QID@02,08,,20 [facility] Last Admin: 08/31/19 08:08 Dose: 1 tab Albuterol/Ipratropium (Duoneb 3.0-0.5 Mg/3 Ml) 3 ml NEB Q6HRRT [facility] Last Admin: 08/31/19 10:55 Dose: 3 ml Ascorbic Acid (Vitamin C) 500 mg PO Q48H [facility] Last Admin: 08/30/19 08:28 Dose: 500 mg Ceftriaxone Sodium (Rocephin) 1 gm IVPUSH Q24H [facility] Last Admin: 08/30/19 13:03 Dose: 1 gm Clopidogrel Bisulfate (Plavix) 75 mg PO DAILY [facility] Last Admin: 08/31/19 08:08 Dose: 75 mg Diltiazem HCl (Cardizem) 30 mg PO BID [facility] Last Admin: 08/31/19 08:07 Dose: 30 mg Ferrous Sulfate (Ferrous Sulfate) 325 mg PO Q48H [facility] Finasteride (Proscar) 5 mg PO DAILY [facility] Last Admin: 08/31/19 08:08 Dose: 5 mg Furosemide (Lasix) 20 mg PO DAILY@1400 [facility] Furosemide (Lasix) 60 mg PO DAILY [facility] Last Admin: 08/30/19 11:18 Dose: Not Given Furosemide (Lasix) 20 mg IVPUSH NOW STA Stop: 08/31/19 11:27 Vancomycin HCl 1 gm/ Sodium (Chloride) 250 mls @ 150 mls/hr IV Q24H [facility] Last Admin: 08/30/19 13:24 Dose: 150 mls/hr Nitroglycerin (Nitrostat) 0.4 mg SL ASDIRECTED PRN PRN Reason: Chest Pain Nortriptyline 25mg * (Ptom*) 1 each PO BEDTIME [facility] Last Admin: 08/30/19 21:14 Dose: 1 each Nortriptyline 10mg * (Ptom*) 2 each PO BEDTIME [facility] Last Admin: 08/30/19 21:15 Dose: 2 each Non-Formulary Medication (Fluticasone/Umeclidin/Vilanter [Trelegy Ellipta 100- 62.5-25]) 1 puff INH DAILY [facility] Polyethylene Glycol (Miralax) 17 gm PO BEDTIME PRN PRN Reason: Constipation Last Admin: 08/31/19 08:07 Dose: 17 gm Prednisone (Prednisone) 10 mg PO DAILY [facility] Last Admin: 08/31/19 08:08 Dose: 10 mg Senna/Docusate Sodium (Senna Plus) 1 tab PO BID [facility] Last Admin: 08/31/19 08:08 Dose: 1 tab Tamsulosin HCl (Flomax) 0.4 mg PO DAILY [facility] Last Admin: 08/31/19 08:08 Dose: 0.4 mg Vancomycin HCl (Pharmacy To Dose - Vancomycin) 1 dose .XX ASDIRECTED [facility] Warfarin Sodium (Coumadin) 1.25 mg PO SUTUWETHFRSA@1800 [facility] Last Admin: 08/30/19 18:05 Dose: 1.25 mg Warfarin Sodium (Coumadin) 2.5 mg PO MO@1800 [facility] Warfarin Sodium (Pharmacy To Dose - Warfarin) 1 dose .XX ASDIRECTED [facility] Discontinued Medications Hydrocodone Bitart/Acetaminophen ([place] 325-5 Mg) 1 tab PO ONETIME ONE Stop: 08/29/19 15:52 Last Admin: 08/29/19 16:02 Dose: 1 tab Atropine Sulfate (Atropine 0.1 Mg/Ml) 0 mg IVPUSH ASDIRECTED PRN PRN Reason: Heart. Ceftriaxone Sodium (Rocephin) 1 gm IVPUSH ONETIME ONE Stop: 08/29/19 15:11 Last Admin: 08/29/19 15:40 Dose: 1 gm Epinephrine HCl (Epinephrine 1:10,000) 1 mg IVPUSH ASDIRECTED PRN PRN Reason: Heart. Ferrous Sulfate (Ferrous Sulfate) 325 mg PO Q48H [facility] Last Admin: 08/29/19 19:54 Dose: 325 mg Furosemide (Lasix) 20 mg IVPUSH NOW ONE Stop: 08/30/19 11:14 Last Admin: 08/30/19 11:28 Dose: 20 mg Lactated Ringer's (Ringers, Lactated) 1,000 mls @ 999 mls/hr IV .BOLUS ONE Stop: 08/29/19 15:19 Last Admin: 08/29/19 14:30 Dose: 999 mls/hr Azithromycin 500 mg/ Sodium (Chloride) 250 mls @ 250 mls/hr IV ONETIME ONE Stop: 08/29/19 16:08 Last Admin: 08/29/19 15:44 Dose: 250 mls/hr Sodium Chloride (Normal Saline) 1,000 mls @ 75 mls/hr IV ASDIRECTED [facility] Last Admin: 08/29/19 21:23 Dose: 75 mls/hr Lidocaine HCl (Xylocaine 2%) 0 mg IVPUSH ASDIRECTED PRN PRN Reason: Heart. Nitroglycerin (Nitrostat) 0.4 mg SL ASDIRECTED PRN PRN Reason: Heart. Sodium Polystyrene Sulfonate (Kayexalate) 7.5 gm PO ONETIME ONE Stop: 08/29/19 21:31 Last Admin: 08/29/19 21:24 Dose: 7.5 gm - Exam Physical Findings Comments:: GENERAL: Chronically ill-appearing elderly male lying in hospital bed in no acute distress. HEENT: Normocephalic, atraumatic. Conjunctiva clear. Nares patent without discharge. Mucous membranes moist. NECK: Supple. CV: Regular rate and rhythm, no murmurs, rubs, or gallops. 2+ radial pulses. PULMONARY: Normal effort, diffuse expiratory rhonchi, diminished in bases, no wheezes or rales. ABDOMEN: Positive bowel sounds, soft, nontender, nondistended. EXTREMITIES: Trace left ankle/leg, 1+ right ankle/leg. MUSCULOSKELETAL: Moves all extremities well. NEUROLOGICAL: No obvious deficits. DERMATOLOGIC: Diffuse ecchymosis. PSYCHIATRIC: Alert, interactive, appropriate affect. Sepsis Event Note - Evaluation Sepsis Screening Result: No Definite Risk - Focused Exam Vital Signs: Vital Signs Temp Pulse Pulse Pulse Resp BP BP 08/31/19 09:00 08/31/19 08:07 75 110/58 L 08/31/19 06:10 37.2 C 75 20 110/58 L 08/31/19 05:07 98 08/31/19 05:05 08/31/19 02:27 37.2 C 80 20 110/53 L Pulse Ox Pulse Ox 08/31/19 09:00 99 08/31/19 08:07 08/31/19 06:10 99 08/31/19 05:07 98 08/31/19 05:05 98 08/31/19 02:27 95 Date Exam was Performed: 08/31/19 Time Exam was Performed: 22:48 - Problem List Review Problem List Initiated/Reviewed/Updated: Yes - My Orders Last 24 Hours: My Active Orders 08/31/19 10:15 Fluticasone/Umeclidin/Vilanter [Trelegy Ellipta 100-62.5-25] 1 puff INH DAILY 08/31/19 11:26 Furosemide [Lasix] 20 mg IVPUSH NOW STA 09/01/19 05:11 BMP [BASIC METABOLIC PANEL,BMP] [CHEM] AM CBC WITH AUTO DIFF [HEME] AM CRP [C-REACTIVE PROTEIN] [CHEM] AM 09/02/19 12:30 VANCOMYCIN TROUGH [CHEM] Routine - Plan Plan:: HPI summary: Mr. Brown is an 88yoM with a history notable for severe COPD and HFpEF on chronic oxygen therapy who resides at [facility] who had fairly acute onset of progressive shortness of breath and fatigue along with fever. ED notable findings: T 100.6, BP 104/37, RR 29 labored WBC 20,000, neutrophil predominant BUN/creatinine 50/1.5 Trop 0.91 BNP 657 Lactate 2.9 CXR: Bilateral opacities R>L, CHF changes COVID-19 negative 1L NS Ceftriaxone 1g Azithromycin 500mg Hospital course: Patient was admitted into inpatient status as patient and family wanted him treated locally despite critical condition. 08/29: Status improving. Afebrile since admission. VS improving. WBC and troponin downtrending (peak 0.91 on admission). Culture growing gram positive cocci; vancomycin added. Furosemide 20mg IV given for presumed effective volume deficit. 08/30: Status continuing to improve. VS normalized. WBC downtrending (though along with hemoglobin and platelets to below baseline, suggestive of dilution as contributor), creatinine normalized, and lactic acid normalized. Blood culture speciation pending. Hospitalization problems and plan: # Acute on chronic hypoxic respiratory failure, acute increased oxygen requirements resolved # Pneumonia, right lower lung, likely bacterial # Bacteremia, gram positive cocci # Leukocytosis # Severe sepsis, resolved # Lactic acidosis, resolved # COPD, no evidence of acute exacerbation # NSTEMI, likely type 2 given infection and CHF exacerbation # CAD # Acute on chronic heart failure with preserved ejection fraction # Hypertension # Acute kidney injury, resolved # Hyperkalemia, resolved # Anemia, chronic, iron deficiency and anemia of chronic disease, with acute worsening due to dilution # Pressure ulcer of heel, left, unstageable # Palliative care status - Recheck H/H with plan for transfusion of 1unit PRBCs if hemoglobin persistently less than 7.5; cautiously not using typical transfusion hemoglobin threshold of 8 in setting of history of CAD given baseline hemoglobin 8-9 and primary contributor to decrease from baseline being dilutional and with risk of worsening fluid overload status with transfusion - CBC and BMP tomorrow - Await blood culture and sensitivity results to de-escalate antibiotic regimen - Continue ceftriaxone and vancomycin - Furosemide 20mg IV today; likely restart oral regimen tomorrow, possibly at reduced dose (outpatient regimen 60mg AM and 20mg 1400 daily along with KCl 20mEq daily) - Restart lisinopril 2.5mg daily - Continue diltiazem 30mg BID - Restart Trelegy - Change DuoNebs to prn - Continue prednisone 10mg daily - Continue Fe/vitC every other day - Continue oxygen, titrated to requirements - Discontinue telemetry - Discontinue Beyer catheter Chronic, stable conditions: # Atrial fibrillation: Rate controlled. Continue diltiazem 30mg BID and warfarin per pharmacy dosing. # Peripheral vascular disease: Stable. Continue clopidogrel. # Complete heart block s/p pacemaker # Constipation: Controlled. Continue Senna-docusate daily and PEG prn. # BPH: Stable. Continue finasteride 5mg and tamsulosin 0.4mg. # OA / Spinal stenosis: With chronic pain. Continue [place] four times daily and acetaminophen prn. Hospitalization details: # FEN: No IVF. Electrolytes normal. Cardiac/low sodium diet. # PPX: Warfarin with therapeutic INR for DVT ppx. # Code status: DNR/DNI. # Emergency contact: Ofelia Alves, who was updated by nursing staff after rounds. # Disposition: Continue inpatient status. Anticipate discharge back to SNF when culture and sensitivity results are received in order to appropriately de- escalate antibiotic therapy, assuming clinical status continues to improve.
[2019-08-31] MEDS ORDERED: Albuterol/Ipratropium 3.0-0.5 MG/3 ML Neb Soln NEB PRN (11:57)
[2019-08-31] MEDS: cefTRIAXone 1 GM Vial IVPUSH SCH (13:36)
[2019-08-31] MEDS: Glycopyrrolate 1 MG Tab PO PRN ×2 (13:47→20:33)
[2019-08-31] MEDS: TRELEGY ELLIPTA INH SCH (14:32)
[2019-08-31] MEDS: Warfarin 2.5 MG Tab PO SCH (17:57)
[2019-08-31] MEDS: NORTRIPTYLINE 25 MG PO SCH (20:30)
[2019-08-31] MEDS: NORTRIPTYLINE 10 MG PO SCH (20:30)
[2019-08-31] MEDS: Sodium Chloride 0.9% 10 ML Syringe FLUSH PRN (21:10)
[2019-09-01] MEDS: Acetaminophen/HYDROcodone 325-5 MG Tab PO SCH ×4 (02:51→20:03)
[2019-09-01 07:34] LABS: ANION GAP 14.1 mmol/L (5-15); CHLORIDE,CL 107 mmol/L (98-115); SODIUM,NA 144 mmol/L (136-145)
[2019-09-01] MEDS: Tamsulosin 0.4 MG Cap.ER PO SCH (08:15)
[2019-09-01] MEDS: Finasteride 5 MG Tab PO SCH (08:15)
[2019-09-01] MEDS: Diltiazem IR 30 MG Tab PO SCH ×2 (08:16→20:05)
[2019-09-01] MEDS: Clopidogrel 75 MG Tab PO SCH (08:16)
[2019-09-01] MEDS: predniSONE 10 MG Tab PO SCH (08:19)
[2019-09-01] MEDS: Ascorbic Acid 500 MG Tab PO SCH (08:19)
[2019-09-01] MEDS: Lisinopril 5 MG Tab PO SCH (08:20)
[2019-09-01] MEDS: TRELEGY ELLIPTA INH SCH (08:24)
[2019-09-01] MEDS ORDERED: Ferrous Sulfate 325 MG Tab PO SCH (09:00)
--- NOTE | 2019-09-01 09:20 | PCM.PN ---
- General Info Date of Service: 09/01/19 Functional Status: Reports: Ambulating, Urinating. Denies: Tolerating Diet ( too bland. ), New Symptoms, Incentive Spirometry - Review of Systems General: Denies: Fever, Weakness, Fatigue, Night Sweats, Appetite HEENT: Reports: No Symptoms Pulmonary: Reports: Shortness of Breath. Denies: Sputum, Wheezing Cardiovascular: Reports: Dyspnea on Exertion. Denies: Chest Pain, Palpitations , Orthopnea, Edema Gastrointestinal: Reports: No Symptoms Genitourinary: Reports: No Symptoms Musculoskeletal: Reports: No Symptoms Skin: Reports: Dryness, Bruising Neurological: Denies: Confusion Psychiatric: Reports: No Symptoms - Patient Data Vitals - Most Recent: Last Vital Signs Temp 98.9 F 09/01/19 06:20 Pulse 74 09/01/19 08:16 Resp 18 09/01/19 06:20 BP 129/65 09/01/19 08:20 Pulse Ox 97 09/01/19 08:37 Weight - Most Recent: 163 lb 9.6 oz I&O - Last 24 Hours: Intake & Output 08/31/19 09/01/19 09/01/19 22:59 06:59 14:59 Intake Total 90 100 Output Total 300 Balance -210 100 Lab Results Last 24 Hours: Laboratory Results - last 24 hr 08/30/19 08/30/19 08/31/19 Range/Units 12:20 18:29 14:40 WBC (5.00-10.00) 10^3/uL RBC (4.50-6.00) 10^6/uL Hgb 7.5 L (13.0-17.0) g/dL Hct 26.0 L (40.0-52.0) % MCV (82.0-92.0) fL MCH (27.0-31.0) pg MCHC (32.0-36.0) g/dL RDW (11.5-14.5) % Plt Count (150-400) 10^3/uL MPV (7.4-10.4) fL Immature Gran % (Auto) (0.0-5.0) % Neut % (Auto) (50.0-70.0) % Lymph % (Auto) (20.0-40.0) % Rock % (Auto) (2.0-8.0) % Eos % (Auto) (1.0-3.0) % Baso % (Auto) (0.0-1.0) % Neut # (Auto) (2.50-7.00) 10^3/uL Lymph # (Auto) (1.00-4.00) 10^3/uL Rock # (Auto) (0.10-0.80) 10^3/uL Eos # (Auto) (0.10-0.30) 10^3/uL Baso # (Auto) (0.00-0.10) 10^3/uL Immature Gran # (Auto) (0.00-0.50) 10^3/uL PT (8.9-11.4) SEC INR (0.9-1.1) Sodium (136-145) mmol/L Potassium (3.3-5.3) mmol/L Chloride (98-115) mmol/L Carbon Dioxide (21.0-32.0) mmol/L Anion Gap (5-15) mmol/L BUN (6-25) mg/dL Creatinine (0.51-1.17) mg/dL Est Cr Clr Drug Dosing mL/min Estimated GFR (MDRD) mL/min Glucose (75 - 99) mg/dL POC Glucose 85 136 H (74-106) mg/dl Calcium (8.7-10.3) mg/dL C-Reactive Protein (0.0-0.9) mg/dL 09/01/19 09/01/19 09/01/19 Range/Units 06:55 06:55 06:55 WBC 11.15 H (5.00-10.00) 10^3/uL RBC 3.40 L (4.50-6.00) 10^6/uL Hgb 7.7 L (13.0-17.0) g/dL Hct 26.9 L (40.0-52.0) % MCV 79.1 L (82.0-92.0) fL MCH 22.6 L (27.0-31.0) pg MCHC 28.6 L (32.0-36.0) g/dL RDW 16.9 H (11.5-14.5) % Plt Count 209 (150-400) 10^3/uL MPV 10.9 H (7.4-10.4) fL Immature Gran % (Auto) 1.2 (0.0-5.0) % Neut % (Auto) 84.9 H (50.0-70.0) % Lymph % (Auto) 7.7 L (20.0-40.0) % Rock % (Auto) 5.6 (2.0-8.0) % Eos % (Auto) 0.5 L (1.0-3.0) % Baso % (Auto) 0.1 (0.0-1.0) % Neut # (Auto) 9.47 H (2.50-7.00) 10^3/uL Lymph # (Auto) 0.86 L (1.00-4.00) 10^3/uL Rock # (Auto) 0.62 (0.10-0.80) 10^3/uL Eos # (Auto) 0.06 L (0.10-0.30) 10^3/uL Baso # (Auto) 0.01 (0.00-0.10) 10^3/uL Immature Gran # (Auto) 0.13 (0.00-0.50) 10^3/uL PT 33.4 H (8.9-11.4) SEC INR 3.4 H (0.9-1.1) Sodium 144 (136-145) mmol/L Potassium 4.7 (3.3-5.3) mmol/L Chloride 107 (98-115) mmol/L Carbon Dioxide 27.6 (21.0-32.0) mmol/L Anion Gap 14.1 (5-15) mmol/L BUN 45 H (6-25) mg/dL Creatinine 1.03 (0.51-1.17) mg/dL Est Cr Clr Drug Dosing 51.19 mL/min Estimated GFR (MDRD) > 60 mL/min Glucose 98 (75 - 99) mg/dL POC Glucose (74-106) mg/dl Calcium 8.3 L (8.7-10.3) mg/dL C-Reactive Protein (0.0-0.9) mg/dL [place] Results Last 24 Hours: Microbiology 08/29/19 15:35 Bacterial Identification - Preliminary Blood - Arm, Right Beta Streptococcus Group B 08/29/19 15:20 Bacterial Identification - Preliminary Blood - Arm, Left Beta Streptococcus Group B 08/30/19 21:32 Gram Stain - Final Wound - Heel, Unspecified 08/30/19 21:31 Gram Stain - Final Wound - Heel, Left 08/30/19 21:30 Gram Stain - Final Wound - Arm, Left Med Orders - Current: Current Medications Acetaminophen (Tylenol) 650 mg PO Q6H PRN PRN Reason: Fever Last Admin: 08/30/19 11:27 Dose: 650 mg Hydrocodone Bitart/Acetaminophen (Phoenix 325-5 Mg) 1 tab PO QID@02,08,,20 [facility] Last Admin: 09/01/19 08:14 Dose: 1 tab Albuterol/Ipratropium (Duoneb 3.0-0.5 Mg/3 Ml) 3 ml NEB Q6HRRT PRN PRN Reason: wheezing/shortness of breath Ascorbic Acid (Vitamin C) 500 mg PO Q48H [facility] Last Admin: 09/01/19 08:19 Dose: 500 mg Ceftriaxone Sodium (Rocephin) 1 gm IVPUSH Q24H [facility] Last Admin: 08/31/19 13:36 Dose: 1 gm Clopidogrel Bisulfate (Plavix) 75 mg PO DAILY [facility] Last Admin: 09/01/19 08:16 Dose: 75 mg Diltiazem HCl (Cardizem) 30 mg PO BID [facility] Last Admin: 09/01/19 08:16 Dose: 30 mg Ferrous Sulfate (Ferrous Sulfate) 325 mg PO Q48H [facility] Last Admin: 09/01/19 08:20 Dose: 325 mg Finasteride (Proscar) 5 mg PO DAILY [facility] Last Admin: 09/01/19 08:15 Dose: 5 mg Furosemide (Lasix) 20 mg PO DAILY@1400 [facility] Furosemide (Lasix) 60 mg PO DAILY [facility] Last Admin: 08/30/19 11:18 Dose: Not Given Glycopyrrolate (Robinul) 1 mg PO BID PRN PRN Reason: secretions Last Admin: 08/31/19 20:33 Dose: 1 mg Vancomycin HCl 1 gm/ Sodium (Chloride) 250 mls @ 150 mls/hr IV Q24H [facility] Last Admin: 08/31/19 14:32 Dose: 150 mls/hr Lisinopril (Prinivil) 2.5 mg PO DAILY [facility] Last Admin: 09/01/19 08:20 Dose: 2.5 mg Nitroglycerin (Nitrostat) 0.4 mg SL ASDIRECTED PRN PRN Reason: Chest Pain Nortriptyline 25mg * (Ptom*) 1 each PO BEDTIME [facility] Last Admin: 08/31/19 20:30 Dose: 1 each Nortriptyline 10mg * (Ptom*) 2 each PO BEDTIME [facility] Last Admin: 08/31/19 20:30 Dose: 2 each Trelegy Ellipta 100mcg-62.5mcg-25mcg Ptom 1 puff INH DAILY [facility] Last Admin: 09/01/19 08:24 Dose: 1 puff Polyethylene Glycol (Miralax) 17 gm PO BEDTIME PRN PRN Reason: Constipation Last Admin: 08/31/19 08:07 Dose: 17 gm Prednisone (Prednisone) 10 mg PO DAILY [facility] Last Admin: 09/01/19 08:19 Dose: 10 mg Senna/Docusate Sodium (Senna Plus) 1 tab PO BID [facility] Last Admin: 09/01/19 08:19 Dose: 1 tab Sodium Chloride (Saline Flush) 10 ml FLUSH Q8HR PRN PRN Reason: flush saline lock after use Last Admin: 08/31/19 21:10 Dose: 10 ml Tamsulosin HCl (Flomax) 0.4 mg PO DAILY [facility] Last Admin: 09/01/19 08:15 Dose: 0.4 mg Vancomycin HCl (Pharmacy To Dose - Vancomycin) 1 dose .XX ASDIRECTED [facility] Warfarin Sodium (Pharmacy To Dose - Warfarin) 1 dose .XX ASDIRECTED [facility] Discontinued Medications Hydrocodone Bitart/Acetaminophen (Phoenix 325-5 Mg) 1 tab PO ONETIME ONE Stop: 08/29/19 15:52 Last Admin: 08/29/19 16:02 Dose: 1 tab Albuterol/Ipratropium (Duoneb 3.0-0.5 Mg/3 Ml) 3 ml NEB Q6HRRT [facility] Last Admin: 08/31/19 10:55 Dose: 3 ml Atropine Sulfate (Atropine 0.1 Mg/Ml) 0 mg IVPUSH ASDIRECTED PRN PRN Reason: Heart. Ceftriaxone Sodium (Rocephin) 1 gm IVPUSH ONETIME ONE Stop: 08/29/19 15:11 Last Admin: 08/29/19 15:40 Dose: 1 gm Epinephrine HCl (Epinephrine 1:10,000) 1 mg IVPUSH ASDIRECTED PRN PRN Reason: Heart. Ferrous Sulfate (Ferrous Sulfate) 325 mg PO Q48H [facility] Last Admin: 08/29/19 19:54 Dose: 325 mg Furosemide (Lasix) 20 mg IVPUSH NOW ONE Stop: 08/30/19 11:14 Last Admin: 08/30/19 11:28 Dose: 20 mg Furosemide (Lasix) 20 mg IVPUSH NOW STA Stop: 08/31/19 11:27 Last Admin: 08/31/19 12:15 Dose: 20 mg Lactated Ringer's (Ringers, Lactated) 1,000 mls @ 999 mls/hr IV .BOLUS ONE Stop: 08/29/19 15:19 Last Admin: 08/29/19 14:30 Dose: 999 mls/hr Azithromycin 500 mg/ Sodium (Chloride) 250 mls @ 250 mls/hr IV ONETIME ONE Stop: 08/29/19 16:08 Last Admin: 08/29/19 15:44 Dose: 250 mls/hr Sodium Chloride (Normal Saline) 1,000 mls @ 75 mls/hr IV ASDIRECTED [facility] Last Admin: 08/29/19 21:23 Dose: 75 mls/hr Lidocaine HCl (Xylocaine 2%) 0 mg IVPUSH ASDIRECTED PRN PRN Reason: Heart. Nitroglycerin (Nitrostat) 0.4 mg SL ASDIRECTED PRN PRN Reason: Heart. Sodium Polystyrene Sulfonate (Kayexalate) 7.5 gm PO ONETIME ONE Stop: 08/29/19 21:31 Last Admin: 08/29/19 21:24 Dose: 7.5 gm Warfarin Sodium (Coumadin) 1.25 mg PO SUTUWETHFRSA@1800 [facility] Last Admin: 08/31/19 17:57 Dose: 1.25 mg Warfarin Sodium (Coumadin) 2.5 mg PO MO@1800 [facility] - Exam Quality Assessment: Supplemental Oxygen General: Alert, Oriented, Cooperative, No Acute Distress Neck: No JVD Lungs: Decreased Breath Sounds, Other (baseline pursed lip breathing). No: Rales, Rhonchi, Wheezing Cardiovascular: Regular Rate, Regular Rhythm (Male) Exam: Deferred Back Exam: No: CVA Tenderness (L), CVA Tenderness (R) Extremities: Other (1+ pitting edema right ankle. ) Peripheral Pulses: 2+: Radial (L), Radial (R) Skin: Other Psy/Mental Status: Alert, Normal Affect (BUE: extreme brawnisness, thin, dry, flaky, skin tear POA L upper forearm. ), Normal Mood Sepsis Event Note - Evaluation Sepsis Screening Result: No Definite Risk - Focused Exam Vital Signs: Vital Signs Temp Pulse Pulse Resp BP BP Pulse Ox 09/01/19 08:37 09/01/19 08:20 129/65 09/01/19 08:16 74 129/65 09/01/19 06:20 98.9 F 80 18 136/70 96 09/01/19 02:53 98.8 F 75 20 123/62 96 08/31/19 23:00 99.1 F 78 20 127/61 92 L Pulse Ox 09/01/19 08:37 97 09/01/19 08:20 09/01/19 08:16 09/01/19 06:20 09/01/19 02:53 08/31/19 23:00 Date Exam was Performed: 09/01/19 Time Exam was Performed: 09:24 - Problem List Review Problem List Initiated/Reviewed/Updated: Yes - My Orders Last 24 Hours: My Active Orders 09/02/19 05:11 INR,PT,PROTHROMBIN TIME [COAG] DAILY 09/03/19 05:11 INR,PT,PROTHROMBIN TIME [COAG] DAILY 09/04/19 05:11 INR,PT,PROTHROMBIN TIME [COAG] DAILY 09/05/19 05:11 INR,PT,PROTHROMBIN TIME [COAG] DAILY - Plan Plan:: History of present illness Maninder is an 88 yo gentleman who resides at a local LTC was admitted through the ED due to worsening shortness of breath, and fatigue along with fever. Does have longstanding COPD and is on chronic glucocorticoid therapy with frequent hospitalizations due to COPD exacerbations and pneumonias in the past Pertinent ED work-up/findings CXR: Bilateral opacities R>L, CHF changes COVID 19 neg T: 100.6, BP; 104/37 MAP 59, RR 29 labored WBC 20,000, neutrophils percent Trop, 0.91 BNP, 657 BUN/creatinine 50/1.5 Lactate 2.9 1L NS Ceftriaxone 1g Azithromycin 500mg ____ Hospital course Patient was admitted into inpatient patient and family wanted him treated locally despite critical condition, azithromycin and ceftriaxone were given on admission, placed on telemetry, No overnight calls to on-call provider Hospital course: Patient was admitted into inpatient status as patient and family wanted him treated locally despite critical condition. 08/29: Status improving. Afebrile since admission. VS improving. WBC and troponin downtrending (peak 0.91 on admission). Culture growing gram positive cocci; vancomycin added. Furosemide 20mg IV given for presumed effective volume deficit. 08/30: Status continuing to improve. VS normalized. WBC downtrending (though along with hemoglobin and platelets to below baseline, suggestive of dilution as contributor), creatinine normalized, and lactic acid normalized. Blood culture speciation pending. 08/31: Continues to improved in resp status however his baseline is poor. BC return Strep, Vancomycin will be DC'd. Yesterday he was given 20mg IV Lasix along with ACEI, Trelegy and was placed on PRN Duo nebs and [place] catheter was removed, urinating spontaneously. No fever throughout the night, elevated INR at 3.4, renal function continues to improve, with reduction in CRP today Hospitalization problems and plan: # Acute on chronic hypoxic respiratory failure, acute increased oxygen requirements resolved # Pneumonia, right lower lung, likely streptococcal # Bacteremia, gram positive cocci, blood cultures group B streptococcal # Leukocytosis, improving # Severe sepsis, resolved # Lactic acidosis, resolved # COPD, no evidence of acute exacerbation # NSTEMI, likely type 2 given infection and CHF exacerbation # CAD # Acute on chronic heart failure with preserved ejection fraction # Hypertension # Acute kidney injury, resolved # Hyperkalemia, resolved # Anemia, chronic, iron deficiency and anemia of chronic disease, with acute worsening due to dilution # Pressure ulcer of heel, left, unstageable # Palliative care status Chronic, stable conditions: # Atrial fibrillation: Rate controlled. Continue diltiazem 30mg BID and warfarin per pharmacy dosing. # Peripheral vascular disease: Stable. Continue clopidogrel. # Complete heart block s/p pacemaker # Constipation: Controlled. Continue Senna-docusate daily and PEG prn. # BPH: Stable. Continue finasteride 5mg and tamsulosin 0.4mg. # OA / Spinal stenosis: With chronic pain. Continue Phoenix four times daily and acetaminophen prn. Hospitalization details: # FEN: No IVF. Electrolytes normal. Cardiac/low sodium diet. # PPX: DAPT Warfarin, hold dose 2/2 increased INR. # Code status: DNR/DNI. # Emergency contact: SonOfelia, who was updated by nursing staff after rounds. Disposition overall plan --Continue with inpatient stay for further medication adjustment, respiratory status monitoring, --Discontinue vancomycin, continue ceftriaxone --Restart oral Lasix, initiate lower dose (20 mg BID) --Pharmacy c/s regarding doubtful allergy [facility]
[2019-09-01] MEDS: Furosemide 20 MG Tab PO SCH ×2 (09:43→16:39)
[2019-09-01] MEDS ORDERED: Furosemide 20 MG Tab PO SCH (09:45)
[2019-09-01] MEDS: Sodium Chloride 0.9% 10 ML Syringe FLUSH PRN (13:32)
[2019-09-01] MEDS: cefTRIAXone 1 GM Vial IVPUSH SCH (13:32)
[2019-09-01] MEDS: NORTRIPTYLINE 10 MG PO SCH (20:06)
[2019-09-01] MEDS: NORTRIPTYLINE 25 MG PO SCH (20:06)
[2019-09-01] MEDS: Acetaminophen 325 MG Tab PO PRN (23:10)
[2019-09-02] MEDS: Acetaminophen/HYDROcodone 325-5 MG Tab PO SCH ×2 (02:03→08:27)
[2019-09-02 08:02] LABS: ANION GAP 4.1 mmol/L (5-15); CHLORIDE,CL 106 mmol/L (98-115); SODIUM,NA 136 mmol/L (136-145)
[2019-09-02] MEDS: Clopidogrel 75 MG Tab PO SCH (08:28)
[2019-09-02] MEDS: predniSONE 10 MG Tab PO SCH (08:28)
[2019-09-02] MEDS: Furosemide 20 MG Tab PO SCH (08:28)
[2019-09-02] MEDS: Finasteride 5 MG Tab PO SCH (08:28)
[2019-09-02] MEDS: Diltiazem IR 30 MG Tab PO SCH (08:28)
[2019-09-02] MEDS: Tamsulosin 0.4 MG Cap.ER PO SCH (08:28)
[2019-09-02] MEDS: Lisinopril 5 MG Tab PO SCH (08:28)
[2019-09-02] MEDS: TRELEGY ELLIPTA INH SCH (08:29)
[2019-09-02] MEDS ORDERED: cefTRIAXone 1 GM Vial IVPUSH ONE (11:14)
--- NOTE | 2019-09-02 11:20 | PCM.DCSUM1 ---
Discharge Summary - Hospital Course Free Text/Narrative:: Date of admission: 08/29/19 Date of discharge: 09/02/19 Admission diagnoses: # Acute on chronic hypoxic respiratory failure # Pneumonia, right lower lung, likely bacterial # Leukocytosis # Severe sepsis # Lactic acidosis # COPD # NSTEMI # CAD # Acute on chronic heart failure with preserved ejection fraction # Hypertension # Acute kidney injury # Hyperkalemia # Anemia, chronic, iron deficiency and anemia of chronic disease # Pressure ulcer of heel, left, unstageable # Atrial fibrillation # Peripheral vascular disease # Complete heart block s/p pacemaker # Constipation # BPH # OA # Spinal stenosis # Palliative care status Discharge diagnoses: # Acute on chronic hypoxic respiratory failure, acute increased oxygen requirements resolved # Pneumonia, right lower lung, Streptococcus # Bacteremia, group B streptococcus # Leukocytosis, improved # Severe sepsis, resolved # Lactic acidosis, resolved # COPD, without acute exacerbation # NSTEMI, likely type 2 given infection and CHF exacerbation # CAD # Acute on chronic heart failure with preserved ejection fraction, acute exacerbation resolved # Hypertension # Acute kidney injury, resolved # Hyperkalemia, resolved # Anemia, chronic, iron deficiency and anemia of chronic disease, with acute worsening due to dilution now back to near baseline # Supratherapeutic INR # Pressure ulcer of heel, left, unstageable # Atrial fibrillation # Peripheral vascular disease # Complete heart block s/p pacemaker # Constipation # BPH # OA # Spinal stenosis # Palliative care status Consultations: None Procedures: None Hospital course: Mr. Brown is an 88yoM with a history notable for severe COPD and HFpEF on chronic oxygen therapy who resides at [facility] who had fairly acute onset of progressive shortness of breath and fatigue along with fever. ED notable findings: T 100.6, BP 104/37, RR 29 labored WBC 20,000, neutrophil predominant BUN/creatinine 50/1.5 Trop 0.91 BNP 657 Lactate 2.9 CXR: Bilateral opacities R>L, CHF changes COVID-19 negative Patient was admitted into inpatient status as patient and family wanted him treated locally despite critical condition. He was initially given ceftriaxone 1gm and azithromycin 500mg along with IVF. When blood cultures grew gram positive cocci, antibiotic regimen was changed to ceftriaxone and vancomycin; later when it grew streptococcus, vancomycin was discontinued; final culture grew GBS. Overall status improved gradually throughout stay. He remained afebrile since admission and VS normalized. Lactic acidosis and MALATHI resolved with gentle fluid resuscitation and diuretic regimen was restarted. WBC and CRP continued to improve. Troponin downtrended (peak 0.91 on admission), consistent with NSTEMI secondary to sepsis/CHF exacerbation. He did develop mild worsening of his baseline anemia, which was felt to be dilutional; no transfusions were given and his hemoglobin was 8.1 (baseline 8-9) on day of discharge. Home medication regimen (aside from adjustment of warfarin due to supratherapeutic INR likely due to antibiotics) was resumed late in hospital stay and he was close to his baseline status, though notably with baseline poor respiratory status. No other complications arose during stay. Discharge and follow-up recommendations: - Discharge to [facility] - Discharge with new IV in place; flush IV q8h; remove after 09/07/19 antibiotic dose; notify clinic or provider transplant nurse practitioner if concerns arise - Medication changes at discharge: - Ceftriaxone 1gm q24h (last dose 09/07/19) - Hold 09/02/19 warfarin and follow orders from Anticoagulation Clinic for further doing and repeat INRs - Follow-up on next SNF rounds - Discharge Data Discharge Date: 09/02/19 Discharge Disposition: DC/Tfer to SNF 03 Condition: Fair - Referral to Home Health Primary Care Physician: Kirstie Ellis MD - Patient Instructions Diet: Usual Diet as Tolerated Activity: As Tolerated Wound/Incision Care: Change Dressing Daily Notify Provider of: Fever, Increased Pain, Swelling and Redness - Discharge Plan *PRESCRIPTION DRUG MONITORING PROGRAM REVIEWED*: Not Applicable *COPY OF PRESCRIPTION DRUG MONITORING REPORT IN PATIENT SHALOM: Not Applicable Prescriptions/Med Rec: cefTRIAXone [Rocephin] 1 gm IVPUSH Q24H 6 Days #6 vial Home Medications: Home Meds Finasteride 5 mg PO DAILY 03/22/14 [History] Furosemide 20 mg PO DAILY@1400 03/22/14 [History] Nitroglycerin [Nitrostat] 0.4 mg SL ASDIRECTED PRN 03/22/14 [History] Tamsulosin [Flomax] 0.4 mg PO DAILY 09/10/14 [History] Warfarin [Coumadin] 2.5 mg PO MO@1800 02/21/15 [History] Clopidogrel [Plavix] 75 mg PO DAILY 04/01/16 [History] Hydrocodone/Acetaminophen [Hydrocodone-Acetamin 5-325 mg] 1 each PO QID@02,08,14 ,20 04/01/16 [History] Albuterol/Ipratropium [DuoNeb 3.0-0.5 MG/3 ML] 3 ml NEB Q6HRRT neb 12/18/17 [Rx ] polyethylene glycoL 3350 [MiraLAX] 17 gm PO BEDTIME PRN packet 12/18/17 [Rx] Ferrous Sulfate [Ferosul] 325 mg PO Q48H 01/22/18 [History] Sennosides/Docusate Sodium [Senna-S] 1 each PO BID 01/22/18 [History] Warfarin [Coumadin] 1.25 mg PO SUTUWETHFRSA@1800 01/22/18 [History] predniSONE [Prednisone] 10 mg PO DAILY 01/22/18 [History] Potassium Chloride [Klor-Con 10] 20 meq PO DAILY #90 tab.er 11/14/18 [Rx] Ascorbate Calcium [Vitamin C] 500 mg PO Q48H 01/10/19 [History] Furosemide [Lasix] 60 mg PO DAILY 01/10/19 [History] Fluticasone/Umeclidin/Vilanter [Trelegy Ellipta 100-62.5-25] 1 puff INH DAILY [History] Hydrocortisone [Preparation H] 1 applic RECTAL BID PRN 08/29/19 [History] Nortriptyline 45 mg PO DAILY 08/29/19 [History] bisacodyL [Bisacodyl] 5 mg PO DAILY PRN 08/29/19 [History] dilTIAZem HCL [Cardizem] 30 mg PO BID 08/29/19 [History] lisinopriL [Lisinopril] 2.5 mg PO DAILY 08/29/19 [History] predniSONE [Prednisone] 10 mg PO DAILY PRN 08/29/19 [History] Diclofenac Sodium [Voltaren 1% Gel] 2 gram TRDERM BID PRN #0 tube 09/02/19 [Rx] cefTRIAXone [Rocephin] 1 gm IVPUSH Q24H 6 Days #6 vial 09/02/19 [Rx] Referrals: Kirstie Ellis MD [Primary Care Provider] - (Next skilled nursing rounds) - Discharge Summary/Plan Comment DC Time >30 min.: Yes - General Info Subjective Update: Mr. Brown reports feeling ongoing improvement in overall status and breathing since admission. Feels he is close to baseline breathing status. No new concerns. Tolerating diet. Voiding and stooling without difficulty. No nursing concerns. - Patient Data Vitals - Most Recent: Last Vital Signs Temp 36.7 C 09/02/19 06:23 Pulse 77 09/02/19 08:28 Resp 20 09/02/19 06:23 BP 126/65 09/02/19 08:28 Pulse Ox 96 09/02/19 09:56 Weight - Most Recent: 74.616 kg I&O - Last 24 hours: Intake & Output 09/01/19 09/02/19 09/02/19 22:59 06:59 14:59 Intake Total 340 100 Output Total 500 Balance -160 100 Lab Results - Last 24 hrs: Laboratory Results - last 24 hr 09/02/19 09/02/19 09/02/19 Range/Units 07:30 07:30 07:30 WBC 12.17 H (5.00-10.00) 10^3/uL RBC 3.53 L (4.50-6.00) 10^6/uL Hgb 8.1 L (13.0-17.0) g/dL Hct 28.1 L (40.0-52.0) % MCV 79.6 L (82.0-92.0) fL MCH 22.9 L (27.0-31.0) pg MCHC 28.8 L (32.0-36.0) g/dL RDW 16.9 H (11.5-14.5) % Plt Count 251 (150-400) 10^3/uL MPV 10.6 H (7.4-10.4) fL Immature Gran % (Auto) 1.4 (0.0-5.0) % Neut % (Auto) 82.2 H (50.0-70.0) % Lymph % (Auto) 10.7 L (20.0-40.0) % [place] % (Auto) 4.8 (2.0-8.0) % Eos % (Auto) 0.8 L (1.0-3.0) % Baso % (Auto) 0.1 (0.0-1.0) % Neut # (Auto) 10.01 H (2.50-7.00) 10^3/uL Lymph # (Auto) 1.30 (1.00-4.00) 10^3/uL Dupage # (Auto) 0.58 (0.10-0.80) 10^3/uL Eos # (Auto) 0.10 (0.10-0.30) 10^3/uL Baso # (Auto) 0.01 (0.00-0.10) 10^3/uL Immature Gran # (Auto) 0.17 (0.00-0.50) 10^3/uL PT 42.0 H (8.9-11.4) SEC INR 4.3 H* (0.9-1.1) Sodium 136 (136-145) mmol/L Potassium 4.3 (3.3-5.3) mmol/L Chloride 106 (98-115) mmol/L Carbon Dioxide 30.2 (21.0-32.0) mmol/L Anion Gap 4.1 L (5-15) mmol/L BUN 38 H (6-25) mg/dL Creatinine 0.98 (0.51-1.17) mg/dL Est Cr Clr Drug Dosing 53.80 mL/min Estimated GFR (MDRD) > 60 mL/min Glucose 89 (75 - 99) mg/dL Calcium 8.3 L (8.7-10.3) mg/dL SLOANE Results - Last 24 hrs: Microbiology 08/29/19 15:35 Bacterial Identification - Final Blood - Arm, Right Beta Streptococcus Group B 08/29/19 15:20 Bacterial Identification - Final Blood - Arm, Left Beta Streptococcus Group B 08/30/19 21:32 Miscellaneous Reference Culture - Preliminary Wound - Heel, Unspecified Beta Streptococcus Group B Iso Consist W Cutaneous April Gram Stain - Final 08/30/19 21:30 Miscellaneous Reference Culture - Preliminary Wound - Arm, Left Gram Stain - Final 08/30/19 21:31 Gram Stain - Final Wound - Heel, Left Med Orders - Current: Current Medications Acetaminophen (Tylenol) 650 mg PO Q6H PRN PRN Reason: Fever Last Admin: 09/01/19 23:10 Dose: 650 mg Hydrocodone Bitart/Acetaminophen ([place] 325-5 Mg) 1 tab PO QID@02,08,,20 EMA Last Admin: 09/02/19 08:27 Dose: 1 tab Albuterol/Ipratropium (Duoneb 3.0-0.5 Mg/3 Ml) 3 ml NEB Q6HRRT PRN PRN Reason: wheezing/shortness of breath Last Admin: 09/01/19 20:06 Dose: 3 ml Ascorbic Acid (Vitamin C) 500 mg PO Q48H [facility] Last Admin: 09/01/19 08:19 Dose: 500 mg Ceftriaxone Sodium (Rocephin) 1 gm IVPUSH Q24H [facility] Last Admin: 09/01/19 13:32 Dose: 1 gm Ceftriaxone Sodium (Rocephin) 1 gm IVPUSH ONETIME ONE Stop: 09/02/19 11:15 Clopidogrel Bisulfate (Plavix) 75 mg PO DAILY [facility] Last Admin: 09/02/19 08:28 Dose: 75 mg Diltiazem HCl (Cardizem) 30 mg PO BID [facility] Last Admin: 09/02/19 08:28 Dose: 30 mg Ferrous Sulfate (Ferrous Sulfate) 325 mg PO Q48H [facility] Last Admin: 09/01/19 08:20 Dose: 325 mg Finasteride (Proscar) 5 mg PO DAILY [facility] Last Admin: 09/02/19 08:28 Dose: 5 mg Furosemide (Lasix) 20 mg PO BIDDIURETIC [facility] Last Admin: 09/02/19 08:28 Dose: 20 mg Glycopyrrolate (Robinul) 1 mg PO BID PRN PRN Reason: secretions Last Admin: 08/31/19 20:33 Dose: 1 mg Lisinopril (Prinivil) 2.5 mg PO DAILY [facility] Last Admin: 09/02/19 08:28 Dose: 2.5 mg Nitroglycerin (Nitrostat) 0.4 mg SL ASDIRECTED PRN PRN Reason: Chest Pain Nortriptyline 25mg * (Ptom*) 1 each PO BEDTIME [facility] Last Admin: 09/01/19 20:06 Dose: 1 each Nortriptyline 10mg * (Ptom*) 2 each PO BEDTIME [facility] Last Admin: 09/01/19 20:06 Dose: 2 each Trelegy Ellipta 100mcg-62.5mcg-25mcg Ptom 1 puff INH DAILY [facility] Last Admin: 09/02/19 08:29 Dose: 1 puff Polyethylene Glycol (Miralax) 17 gm PO BEDTIME PRN PRN Reason: Constipation Last Admin: 08/31/19 08:07 Dose: 17 gm Prednisone (Prednisone) 10 mg PO DAILY [facility] Last Admin: 09/02/19 08:28 Dose: 10 mg Senna/Docusate Sodium (Senna Plus) 1 tab PO BID [facility] Last Admin: 09/02/19 08:28 Dose: 1 tab Sodium Chloride (Saline Flush) 10 ml FLUSH Q8HR PRN PRN Reason: flush saline lock after use Last Admin: 09/01/19 13:32 Dose: 10 ml Tamsulosin HCl (Flomax) 0.4 mg PO DAILY [facility] Last Admin: 09/02/19 08:28 Dose: 0.4 mg Warfarin Sodium (Pharmacy To Dose - Warfarin) 1 dose .XX ASDIRECTED [facility] Discontinued Medications Hydrocodone Bitart/Acetaminophen ([place] 325-5 Mg) 1 tab PO ONETIME ONE Stop: 08/29/19 15:52 Last Admin: 08/29/19 16:02 Dose: 1 tab Albuterol/Ipratropium (Duoneb 3.0-0.5 Mg/3 Ml) 3 ml NEB Q6HRRT [facility] Last Admin: 08/31/19 10:55 Dose: 3 ml Atropine Sulfate (Atropine 0.1 Mg/Ml) 0 mg IVPUSH ASDIRECTED PRN PRN Reason: Heart. Ceftriaxone Sodium (Rocephin) 1 gm IVPUSH ONETIME ONE Stop: 08/29/19 15:11 Last Admin: 08/29/19 15:40 Dose: 1 gm Epinephrine HCl (Epinephrine 1:10,000) 1 mg IVPUSH ASDIRECTED PRN PRN Reason: Heart. Ferrous Sulfate (Ferrous Sulfate) 325 mg PO Q48H [facility] Last Admin: 08/29/19 19:54 Dose: 325 mg Furosemide (Lasix) 20 mg PO DAILY@1400 EMA Furosemide (Lasix) 60 mg PO DAILY [facility] Last Admin: 09/01/19 09:43 Dose: Not Given Furosemide (Lasix) 20 mg IVPUSH NOW ONE Stop: 08/30/19 11:14 Last Admin: 08/30/19 11:28 Dose: 20 mg Furosemide (Lasix) 20 mg IVPUSH NOW STA Stop: 08/31/19 11:27 Last Admin: 08/31/19 12:15 Dose: 20 mg Furosemide (Lasix) 20 mg PO BID [facility] Last Admin: 09/01/19 09:56 Dose: 20 mg Lactated Ringer's (Ringers, Lactated) 1,000 mls @ 999 mls/hr IV .BOLUS ONE Stop: 08/29/19 15:19 Last Admin: 08/29/19 14:30 Dose: 999 mls/hr Azithromycin 500 mg/ Sodium (Chloride) 250 mls @ 250 mls/hr IV ONETIME ONE Stop: 08/29/19 16:08 Last Admin: 08/29/19 15:44 Dose: 250 mls/hr Sodium Chloride (Normal Saline) 1,000 mls @ 75 mls/hr IV ASDIRECTED [facility] Last Admin: 08/29/19 21:23 Dose: 75 mls/hr Vancomycin HCl 1 gm/ Sodium (Chloride) 250 mls @ 150 mls/hr IV Q24H [facility] Last Admin: 08/31/19 14:32 Dose: 150 mls/hr Lidocaine HCl (Xylocaine 2%) 0 mg IVPUSH ASDIRECTED PRN PRN Reason: Heart. Nitroglycerin (Nitrostat) 0.4 mg SL ASDIRECTED PRN PRN Reason: Heart. Sodium Polystyrene Sulfonate (Kayexalate) 7.5 gm PO ONETIME ONE Stop: 08/29/19 21:31 Last Admin: 08/29/19 21:24 Dose: 7.5 gm Vancomycin HCl (Pharmacy To Dose - Vancomycin) 1 dose .XX ASDIRECTED [facility] Warfarin Sodium (Coumadin) 1.25 mg PO SUTUWETHFRSA@1800 [facility] Last Admin: 08/31/19 17:57 Dose: 1.25 mg Warfarin Sodium (Coumadin) 2.5 mg PO MO@1800 [facility] - Exam Physical Findings Comments:: GENERAL: Chronically ill-appearing elderly male sitting on edge of hospital bed in no acute distress. HEENT: Normocephalic, atraumatic. Conjunctiva clear. Nares patent without discharge. Mucous membranes moist. NECK: Supple. CV: Regular rate and rhythm, no murmurs, rubs, or gallops. 2+ radial pulses. PULMONARY: Normal effort, scattered expiratory rhonchi, diminished in bases, no wheezes or rales. ABDOMEN: Positive bowel sounds, soft, nontender, nondistended. EXTREMITIES: Trace left ankle/leg, 1+ right ankle/leg. MUSCULOSKELETAL: Moves all extremities well. NEUROLOGICAL: No obvious deficits. DERMATOLOGIC: Diffuse ecchymosis. PSYCHIATRIC: Alert, interactive, appropriate affect.
[2019-09-02] MEDS: Sodium Chloride 0.9% 10 ML Syringe FLUSH PRN (11:50)
[2019-09-02 12:07] VITALS: BP 106/63; PULSE 78
[2019-09-04] MEDS ORDERED: Warfarin 2.5 MG Tab PO SCH (18:00)
== END 2019-09-02 13:35 | DRG 871 ==
LOC: KA.ED 13:58 → KA.MS 16:48
PROVIDERS: ADMIT Physician Assistant Medical; ATTEND Family Medicine
DX: J18.9 Pneumonia, unspecified organism (principal); A40.1 Sepsis due to streptococcus, group B; J15.3 Pneumonia due to streptococcus, group B; R79.0 Abnormal level of blood mineral; J96.21 Acute and chronic respiratory failure with hypoxia; D64.9 Anemia, unspecified; I21.A1 Myocardial infarction type 2; H54.7 Unspecified visual loss; I50.43 Acute on chronic combined systolic (congestive) and diastolic (congestive) heart failure; J44.0 Chronic obstructive pulmonary disease with (acute) lower respiratory infection; Z95.5 Presence of coronary angioplasty implant and graft; Z66 Do not resuscitate; J44.9 Chronic obstructive pulmonary disease, unspecified; K59.09 Other constipation; K21.9 Gastro-esophageal reflux disease without esophagitis; Z51.5 Encounter for palliative care; Z20.828 Contact with and (suspected) exposure to other viral communicable diseases; G89.29 Other chronic pain; M54.9 Dorsalgia, unspecified; E55.9 Vitamin D deficiency, unspecified; Z85.89 Personal history of malignant neoplasm of other organs and systems; Z98.49 Cataract extraction status, unspecified eye; Z90.79 Acquired absence of other genital organ(s); Z96.659 Presence of unspecified artificial knee joint; N17.9 Acute kidney failure, unspecified; I44.2 Atrioventricular block, complete; R65.20 Severe sepsis without septic shock; Z79.02 Long term (current) use of antithrombotics/antiplatelets; I11.0 Hypertensive heart disease with heart failure; I25.10 Atherosclerotic heart disease of native coronary artery without angina pectoris; E87.5 Hyperkalemia; D50.9 Iron deficiency anemia, unspecified; L89.620 Pressure ulcer of left heel, unstageable; I48.91 Unspecified atrial fibrillation; I73.9 Peripheral vascular disease, unspecified; K59.00 Constipation, unspecified; N40.0 Benign prostatic hyperplasia without lower urinary tract symptoms; M19.90 Unspecified osteoarthritis, unspecified site; D63.8 Anemia in other chronic diseases classified elsewhere; Z88.2 Allergy status to sulfonamides; Z88.8 Allergy status to other drugs, medicaments and biological substances; Z79.01 Long term (current) use of anticoagulants; Z79.52 Long term (current) use of systemic steroids; Z79.899 Other long term (current) drug therapy; Z95.0 Presence of cardiac pacemaker
CPT/HCPCS: 36415; 51702; 71045; 80048; 80053; 82962; 83605; 83880; 84484; 85014; 85018; 85025; 85610; 86140; 87040; 87070; 87077; 87186; 87205; 93005; 94640; 99284; 99285-25; A9270-GY; J0456; J0696; J1940; J3370; J7030; J7050; J7120; J7512; J7620-GY; U0002

== ENCOUNTER 2019-10-04 14:23 | Inpatient (IN) | payer MEDICARE, MEDICAID ==
[2019-10-04] MEDS ORDERED: cefTRIAXone 1 GM Vial IVPUSH ONE (14:34)
[2019-10-04] MEDS ORDERED: Atropine 0.1 MG/ML 10 ML Syringe IVPUSH PRN (14:44)
[2019-10-04] MEDS ORDERED: Nitroglycerin 0.4 MG Tab.SL SL PRN ×2 (14:44→18:36)
[2019-10-04] MEDS ORDERED: Lidocaine 2% 100 MG/5 ML Syringe IVPUSH PRN (14:44)
[2019-10-04] MEDS ORDERED: EPINEPHrine 1:10,000 1 MG/10 ML Syringe IVPUSH PRN (14:44)
[2019-10-04] MEDS: Sodium Chloride 0.9% 1,000 ML IV SCH (15:14)
[2019-10-04 15:51] LABS: ANION GAP 21.6 mmol/L (5-15); CHLORIDE,CL 101 mmol/L (98-115); SODIUM,NA 141 mmol/L (136-145)
[2019-10-04] MEDS ORDERED: Sodium Chloride 0.9% 250 ML IV ONE (16:30)
[2019-10-04] MEDS ORDERED: Bisacodyl 5 MG Tab PO PRN (18:36)
[2019-10-04] MEDS ORDERED: Polyethylene Glycol 3350 Powder 17 GM Packet PO PRN (18:36)
[2019-10-04] MEDS ORDERED: Diclofenac Sodium 1% Gel 100 GM Tube TOP PRN (18:36)
[2019-10-04 19:35] LABS: ANION GAP 16.7 mmol/L (5-15)
[2019-10-04] MEDS: Albuterol/Ipratropium 3.0-0.5 MG/3 ML Neb Soln NEB SCH (20:08)
[2019-10-04] MEDS: Acetaminophen/HYDROcodone 325-5 MG Tab PO SCH (20:15)
[2019-10-04] MEDS ORDERED: Sodium Polystyrene Sulfonate 15 GM/60 ML Susp 60 ML Bot PO ONE (20:37)
[2019-10-04] MEDS ORDERED: Calcium Gluconate 10% 1 GM/10 ML SDV IVPUSH ONE (20:37)
[2019-10-04] MEDS: Diltiazem IR 30 MG Tab PO SCH (21:30)
[2019-10-04] MEDS: NORTRIPTYLINE 25 MG PO SCH (21:36)
[2019-10-04] MEDS: NORTRIPTYLINE 10 MG PO SCH (21:37)
[2019-10-05] MEDS: Sodium Chloride 0.9% 1,000 ML IV SCH (00:04)
[2019-10-05] MEDS ORDERED: Ascorbic Acid 500 MG Tab PO ONE (00:45)
[2019-10-05] MEDS: Albuterol/Ipratropium 3.0-0.5 MG/3 ML Neb Soln NEB SCH ×5 (01:18→23:53)
[2019-10-05] MEDS: Acetaminophen/HYDROcodone 325-5 MG Tab PO SCH ×4 (02:30→20:15)
[2019-10-05 08:11] LABS: ANION GAP 17.4 mmol/L (5-15)
[2019-10-05] MEDS: Ferrous Sulfate 325 MG Tab PO SCH (08:16)
[2019-10-05] MEDS: Finasteride 5 MG Tab PO SCH (08:16)
[2019-10-05] MEDS: Ascorbic Acid 500 MG Tab PO SCH (08:16)
[2019-10-05] MEDS: Clopidogrel 75 MG Tab PO SCH (08:17)
[2019-10-05] MEDS: predniSONE 10 MG Tab PO SCH (08:17)
[2019-10-05] MEDS: Tamsulosin 0.4 MG Cap.ER PO SCH (08:17)
[2019-10-05] MEDS: Diltiazem IR 30 MG Tab PO SCH ×2 (08:19→20:17)
[2019-10-05] MEDS ORDERED: Non-Formulary Medication 1 Each (Fluticasone/Umeclidin/Vilanter [Trelegy Ellipta 100-62.5- INH SCH (09:00)
[2019-10-05] MEDS: Formoterol/Mometasone 100-5 MCG 8.8 GM Inhaler IH SCH ×2 (09:13→20:00)
[2019-10-05] MEDS: Glycopyrrolate 15.6 MCG Cap.W.Dev Kit of 6 IH SCH ×2 (09:14→20:05)
--- NOTE | 2019-10-05 10:44 | PCM.PN ---
- General Info Date of Service: 10/05/19 Subjective Update: 88 year old male patient lying in bed. Dyspnea worse this AM, and does have c/o chest pain anterior left side. Functional Status: Reports: Tolerating Diet, Urinating - Review of Systems General: Reports: Weakness, Fatigue. Denies: Fever HEENT: Denies: Headaches, Sinus Congestion, Sore Throat Pulmonary: Reports: Shortness of Breath (slightly worse than baseline), Cough (productive), Sputum. Denies: Wheezing Cardiovascular: Reports: Chest Pain (left side anterior), Edema. Denies: Palpitations, Lightheadedness Gastrointestinal: Denies: Abdominal Pain, Constipation, Diarrhea, Nausea, Vomiting Genitourinary: Denies: Dysuria, Pain, Urgency Skin: Reports: Other (left heel sore, coccyx sore) Neurological: Denies: Confusion, Headache, Paresthesia Psychiatric: Denies: Confusion, Depression, Mood Lability - Patient Data Vitals - Most Recent: Last Vital Signs Temp 36.2 C 10/05/19 06:46 Pulse 80 10/05/19 09:14 Resp 20 10/05/19 06:46 BP 121/55 L 10/05/19 08:19 Pulse Ox 98 10/05/19 09:14 Weight - Most Recent: 74.389 kg I&O - Last 24 Hours: Intake & Output 10/04/19 10/05/19 10/05/19 22:59 06:59 14:59 Intake Total 1252 1028 Output Total 500 250 Balance 752 778 Lab Results Last 24 Hours: Laboratory Results - last 24 hr 10/04/19 10/04/19 10/04/19 Range/Units 15:20 15:20 15:20 WBC (5.00-10.00) 10^3/uL RBC (4.50-6.00) 10^6/uL Hgb (13.0-17.0) g/dL Hct (40.0-52.0) % MCV (82.0-92.0) fL MCH (27.0-31.0) pg MCHC (32.0-36.0) g/dL RDW (11.5-14.5) % Plt Count (150-400) 10^3/uL MPV (7.4-10.4) fL Immature Gran % (Auto) (0.0-5.0) % Neut % (Auto) (50.0-70.0) % Lymph % (Auto) (20.0-40.0) % [place] % (Auto) (2.0-8.0) % Eos % (Auto) (1.0-3.0) % Baso % (Auto) (0.0-1.0) % Neut # (Auto) (2.50-7.00) 10^3/uL Lymph # (Auto) (1.00-4.00) 10^3/uL [place] # (Auto) (0.10-0.80) 10^3/uL Eos # (Auto) (0.10-0.30) 10^3/uL Baso # (Auto) (0.00-0.10) 10^3/uL Immature Gran # (Auto) (0.00-0.50) 10^3/uL ESR PT 29.7 H (9.2-11.2) SEC INR 3.0 H (0.9-1.1) Sodium 141 (136-145) mmol/L Potassium 5.8 H D (3.3-5.3) mmol/L Chloride 101 (98-115) mmol/L Carbon Dioxide 24.2 (21.0-32.0) mmol/L Anion Gap 21.6 H (5-15) mmol/L BUN 57 H* (6-25) mg/dL Creatinine 1.48 H (0.51-1.17) mg/dL Est Cr Clr Drug Dosing TNP Estimated GFR (MDRD) 45 mL/min Glucose 127 H (75 - 99) mg/dL Lactic Acid 1.1 (0.4-2.0) mmol/L Calcium 8.5 L (8.7-10.3) mg/dL Total Bilirubin (0.2-1.0) mg/dL AST (15-37) U/L ALT (12-78) U/L Alkaline Phosphatase (46-116) IU/L Total Protein (6.4-8.2) g/dL Albumin (3.00-4.80) g/dL Specimen Type Urine Color (YELLOW) Urine Appearance (CLEAR) Urine pH (5.0-9.0) Ur Specific [place] (1.005-1.030) Urine Protein (NEGATIVE) mg/dL Urine Glucose (UA) (NEGATIVE) mg/dL Urine Ketones (NEGATIVE) mg/dL Urine Occult Blood (NEGATIVE) Urine Nitrite (NEGATIVE) Urine Bilirubin (NEGATIVE) Urine Urobilinogen (0.2-1.0) E.U./dL Ur Leukocyte Esterase (NEGATIVE) 10/04/19 10/04/19 10/05/19 Range/Units 16:45 19:02 07:37 WBC 17.64 H (5.00-10.00) 10^3/uL RBC 3.10 L (4.50-6.00) 10^6/uL Hgb 7.0 L (13.0-17.0) g/dL Hct 23.8 L (40.0-52.0) % MCV 76.8 L (82.0-92.0) fL MCH 22.6 L (27.0-31.0) pg MCHC 29.4 L (32.0-36.0) g/dL RDW 17.8 H (11.5-14.5) % Plt Count 249 (150-400) 10^3/uL MPV 10.2 (7.4-10.4) fL Immature Gran % (Auto) 0.4 (0.0-5.0) % Neut % (Auto) 88.6 H (50.0-70.0) % Lymph % (Auto) 6.7 L (20.0-40.0) % [place] % (Auto) 4.0 (2.0-8.0) % Eos % (Auto) 0.2 L (1.0-3.0) % Baso % (Auto) 0.1 (0.0-1.0) % Neut # (Auto) 15.64 H (2.50-7.00) 10^3/uL Lymph # (Auto) 1.19 (1.00-4.00) 10^3/uL [place] # (Auto) 0.70 (0.10-0.80) 10^3/uL Eos # (Auto) 0.03 L (0.10-0.30) 10^3/uL Baso # (Auto) 0.01 (0.00-0.10) 10^3/uL Immature Gran # (Auto) 0.07 (0.00-0.50) 10^3/uL ESR 84 PT (9.2-11.2) SEC INR (0.9-1.1) Sodium 140 (136-145) mmol/L Potassium 6.0 H (3.3-5.3) mmol/L Chloride 106 (98-115) mmol/L Carbon Dioxide 23.3 (21.0-32.0) mmol/L Anion Gap 16.7 H (5-15) mmol/L BUN 54 H* (6-25) mg/dL Creatinine 1.36 H (0.51-1.17) mg/dL Est Cr Clr Drug Dosing 38.77 Estimated GFR (MDRD) 49 mL/min Glucose 117 H (75 - 99) mg/dL Lactic Acid (0.4-2.0) mmol/L Calcium 8.3 L (8.7-10.3) mg/dL Total Bilirubin (0.2-1.0) mg/dL AST (15-37) U/L ALT (12-78) U/L Alkaline Phosphatase (46-116) IU/L Total Protein (6.4-8.2) g/dL Albumin (3.00-4.80) g/dL Specimen Type Urine cath Urine Color Yellow (YELLOW) Urine Appearance Clear (CLEAR) Urine pH 5.0 (5.0-9.0) Ur Specific [place] 1.020 (1.005-1.030) Urine Protein Negative (NEGATIVE) mg/dL Urine Glucose (UA) Negative (NEGATIVE) mg/dL Urine Ketones Negative (NEGATIVE) mg/dL Urine Occult Blood Negative (NEGATIVE) Urine Nitrite Negative (NEGATIVE) Urine Bilirubin Negative (NEGATIVE) Urine Urobilinogen 0.2 (0.2-1.0) E.U./dL Ur Leukocyte Esterase Negative (NEGATIVE) 10/05/19 10/05/19 Range/Units 07:37 07:37 WBC (5.00-10.00) 10^3/uL RBC (4.50-6.00) 10^6/uL Hgb (13.0-17.0) g/dL Hct (40.0-52.0) % MCV (82.0-92.0) fL MCH (27.0-31.0) pg MCHC (32.0-36.0) g/dL RDW (11.5-14.5) % Plt Count (150-400) 10^3/uL MPV (7.4-10.4) fL Immature Gran % (Auto) (0.0-5.0) % Neut % (Auto) (50.0-70.0) % Lymph % (Auto) (20.0-40.0) % [place] % (Auto) (2.0-8.0) % Eos % (Auto) (1.0-3.0) % Baso % (Auto) (0.0-1.0) % Neut # (Auto) (2.50-7.00) 10^3/uL Lymph # (Auto) (1.00-4.00) 10^3/uL [place] # (Auto) (0.10-0.80) 10^3/uL Eos # (Auto) (0.10-0.30) 10^3/uL Baso # (Auto) (0.00-0.10) 10^3/uL Immature Gran # (Auto) (0.00-0.50) 10^3/uL ESR PT 30.6 H (9.2-11.2) SEC INR 3.1 H (0.9-1.1) Sodium 142 (136-145) mmol/L Potassium 4.9 (3.3-5.3) mmol/L Chloride 108 (98-115) mmol/L Carbon Dioxide 21.5 (21.0-32.0) mmol/L Anion Gap 17.4 H (5-15) mmol/L BUN 54 H* (6-25) mg/dL Creatinine 1.18 H (0.51-1.17) mg/dL Est Cr Clr Drug Dosing 44.68 Estimated GFR (MDRD) 58 mL/min Glucose 97 (75 - 99) mg/dL Lactic Acid (0.4-2.0) mmol/L Calcium 8.2 L (8.7-10.3) mg/dL Total Bilirubin 0.2 (0.2-1.0) mg/dL AST 37 (15-37) U/L ALT 31 (12-78) U/L Alkaline Phosphatase 69 (46-116) IU/L Total Protein 5.8 L (6.4-8.2) g/dL Albumin 2.09 L (3.00-4.80) g/dL Specimen Type Urine Color (YELLOW) Urine Appearance (CLEAR) Urine pH (5.0-9.0) Ur Specific [place] (1.005-1.030) Urine Protein (NEGATIVE) mg/dL Urine Glucose (UA) (NEGATIVE) mg/dL Urine Ketones (NEGATIVE) mg/dL Urine Occult Blood (NEGATIVE) Urine Nitrite (NEGATIVE) Urine Bilirubin (NEGATIVE) Urine Urobilinogen (0.2-1.0) E.U./dL Ur Leukocyte Esterase (NEGATIVE) Med Orders - Current: Current Medications Hydrocodone Bitart/Acetaminophen ([place] 325-5 Mg) 2 tab PO QID@02,08,,20 [facility] Last Admin: 10/05/19 08:17 Dose: 2 tab Documented by: Albuterol/Ipratropium (Duoneb 3.0-0.5 Mg/3 Ml) 3 ml NEB Q6HRRT [facility] Last Admin: 10/05/19 05:50 Dose: 3 ml Documented by: Ascorbic Acid (Vitamin C) 500 mg PO Q48H [facility] Last Admin: 10/05/19 08:16 Dose: 500 mg Documented by: Atropine Sulfate (Atropine 0.1 Mg/Ml) 0 mg IVPUSH ASDIRECTED PRN PRN Reason: Heart. Bisacodyl (Dulcolax) 5 mg PO DAILY PRN PRN Reason: Constipation Clopidogrel Bisulfate (Plavix) 75 mg PO DAILY [facility] Last Admin: 10/05/19 08:17 Dose: 75 mg Documented by: Diltiazem HCl (Cardizem) 30 mg PO BID [facility] Last Admin: 10/05/19 08:19 Dose: 30 mg Documented by: Epinephrine HCl (Epinephrine 1:10,000) 1 mg IVPUSH ASDIRECTED PRN PRN Reason: Heart. Ferrous Sulfate (Ferrous Sulfate) 325 mg PO Q48H [facility] Last Admin: 10/05/19 08:16 Dose: 325 mg Documented by: Finasteride (Proscar) 5 mg PO DAILY [facility] Last Admin: 10/05/19 08:16 Dose: 5 mg Documented by: Glycopyrrolate (Seebri Neohaler) 15.6 mcg IH BIDRT [facility] Last Admin: 10/05/19 09:14 Dose: 1 inhalation Documented by: Sodium Chloride (Normal Saline) 1,000 mls @ 125 mls/hr IV ASDIRECTED [facility] Last Admin: 10/05/19 00:04 Dose: 125 mls/hr Documented by: Lidocaine HCl (Xylocaine 2%) 0 mg IVPUSH ASDIRECTED PRN PRN Reason: Heart. Mometasone Furoate/Formoterol Fumar (Dulera 100-5 Mcg) 2 puff IH BIDRT [facility] Last Admin: 10/05/19 09:13 Dose: 2 puff Documented by: Nitroglycerin (Nitrostat) 0.4 mg SL ASDIRECTED PRN PRN Reason: Chest Pain Nortriptyline 25 Mg (Own Med) 0 mg PO BEDTIME [facility] Last Admin: 10/04/19 21:36 Dose: 25 mg Documented by: Nortriptyline 10 Mg (Own Med) 0 mg PO BEDTIME [facility] Last Admin: 10/04/19 21:37 Dose: 20 mg Documented by: Polyethylene Glycol (Miralax) 17 gm PO BEDTIME PRN PRN Reason: Constipation Prednisone (Prednisone) 10 mg PO DAILY [facility] Last Admin: 10/05/19 08:17 Dose: 10 mg Documented by: Senna/Docusate Sodium (Senna Plus) 1 tab PO BID [facility] Last Admin: 10/05/19 08:16 Dose: 1 tab Documented by: Sodium Chloride (Saline Flush) 10 ml FLUSH Q8HR PRN PRN Reason: keep vein open Tamsulosin HCl (Flomax) 0.4 mg PO DAILY [facility] Last Admin: 10/05/19 08:17 Dose: 0.4 mg Documented by: Warfarin Sodium (Pharmacy To Dose - Warfarin) 1 dose .XX ASDIRECTED [facility] Discontinued Medications Ceftriaxone Sodium (Rocephin) 1 gm IVPUSH ONETIME ONE Stop: 10/04/19 14:35 Last Admin: 10/04/19 15:16 Dose: 1 gm Documented by: Diclofenac Sodium (Voltaren 1% Gel) 2 gm TOP BID PRN PRN Reason: Pain Sodium Chloride (Normal Saline) 250 mls @ 999 mls/hr IV ONETIME ONE Stop: 10/04/19 16:45 Last Admin: 10/04/19 16:41 Dose: 999 mls/hr Documented by: Calcium Gluconate 1 gm/ Sodium (Chloride) 60 mls @ 100 mls/hr IV ONETIME ONE Stop: 10/04/19 21:50 Last Admin: 10/04/19 21:26 Dose: 100 mls/hr Documented by: Nitroglycerin (Nitrostat) 0.4 mg SL ASDIRECTED PRN PRN Reason: Heart. Sodium Polystyrene Sulfonate (Kayexalate) 15 gm PO ONETIME ONE Stop: 10/04/19 20:38 Last Admin: 10/04/19 21:29 Dose: 15 gm Documented by: Warfarin Sodium (Coumadin) 1 mg PO ONETIME ONE Stop: 10/04/19 21:16 Last Admin: 10/04/19 21:38 Dose: 1 mg Documented by: - Exam Physical Findings Comments:: GENERAL: Ill appearing adult in no acute distress. HEENT: Normocephalic, atraumatic. Conjunctiva clear. Nares patent without discharge. Mucous membranes moist, posterior pharynx unremarkable. NECK: Supple, no masses. CV: Regular rate and rhythm, no murmurs, rubs, or gallops. 2+ radial pulses. Mild pain on palpation of left anterior chest, however pain not reproducible PULMONARY: Normal effort, rales bilateral bases with rhonchi noted mid to bilateral bases, uppers clear. ABDOMEN: Positive bowel sounds, soft, nontender, nondistended. EXTREMITIES: No edema, cyanosis, or clubbing. MUSCULOSKELETAL: Moves all extremities well. NEUROLOGICAL: No obvious deficits. DERMATOLOGIC: No rashes. Tunnelling decubitus noted to left heel, see photos; coccyx decub PSYCHIATRIC: Alert, interactive, appropriate affect. Sepsis Event Note - Evaluation Sepsis Screening Result: No Definite Risk - Focused Exam Vital Signs: Vital Signs Temp Pulse Pulse Resp BP BP Pulse Ox 10/05/19 09:14 80 10/05/19 08:19 78 121/55 L 10/05/19 06:46 36.2 C 78 20 121/55 L 99 10/05/19 05:50 84 10/05/19 05:48 10/05/19 02:54 36.3 C 83 20 105/49 L 98 10/04/19 22:56 36.9 C 77 20 102/47 L 92 L Pulse Ox 10/05/19 09:14 98 10/05/19 08:19 10/05/19 06:46 10/05/19 05:50 97 10/05/19 05:48 97 10/05/19 02:54 10/04/19 22:56 Date Exam was Performed: 10/05/19 Time Exam was Performed: 15:54 - Problem List Review Problem List Initiated/Reviewed/Updated: Yes - Plan Plan:: HPI summary: Maninder Brown is a 88yr male, resident of [facility] for whom report was received earlier 10/04/2019 noting that patient has been increasingly fatigued and complaining of generalized malaise and fatigue. Noted no new focal symptoms, but ROS notable for dysuria which he states he's had off and on for the past few days to weeks, though denies any other urinary symptoms. Noted that he hasn't been eating or drinking well in the past few days. He felt his respiratory status was at baseline without any change in shortness of breath or cough. Most recent facility mass testing for COVID-19 was 10/04/2019 and resulted negative. 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 Additionally, has an ulcer on his coccyx. Clinic course: -Labs: significant leukocytosis with WBC 26 with L shift; ESR 118; creatinine 1.53 (baseline 1), and potassium 5.7 (baseline 4.5); Hemoglobin is 7.5, which is similar to last check 1 month ago at [facility] when it was 8 and near baseline of 8-9 -CXR shows no significant abnormality aside from small R pleural fluid, which has been present in the past and though noted by radiology to be increased from prior exam in this system, is improved since prior exam at [facility] 1 month ago when he had RLL pneumonia -VS BP 98/48 Pulse 68 Temp 98.4 F (36.9 C) (Temporal) Resp 20 SpO2 91% -COVID negative Hospital course: Day 1: Afebrile overnight with improvement noted in leukocytosis to 17.64, neutrophils 15.64; ESR 84, creatinine 1.18, potassium 4.9 after dose of kayexalate last evening (10/04/2019). Procalcitonin 1.1. UA clear. Patient notes mild worsening of his baseline shortness of breath with crackles in bilateral bases. Edema 3+ BLE. BNP 628 (baseline 184). Reports anterior left sided chest pain, however, upon discussion of options with patient he declines troponin or EKG as he states he "does not want to know" and would not pursue treatment. clinical specialist vascular has reviewed wounds on heel and coccyx and has ordered therapies for these. Cultures have been obtained and will await report. Hospitalization problems and plan: # Leukocytosis, suspect secondary to arterial ulcer on left heel -continue ceftriaxone 1gm IV daily -CBC in the AM (10/06/2019). -blood cultures x 2 # Acute kidney injury -saline lock IVF for now -push oral fluids -BMP in the AM (10/06/2019). # Hyperkalemia -BMP in the AM (10/06/2019) # Anemia of chronic disease -Continue to monitor with CBC in the AM (10/06/2019) # Malaise # Fluid overload -saline lock IVF -furosemide 20mg IV x 1 # Chest pain -monitor for now due to patient preference # Left heel arterial ulcer -Aquacel with foam, change every three days # Coccyx ulcer -Aquacel with foam, change every three days Chronic, stable conditions: #Chronic hypoxic respiratory failure: At baseline. Continue oxygen at baseline 2.5lpm. # COPD: No evidence of acute exacerbation. Continue Trelegy, DuoNebs prn, prednisone 10mg daily. # CAD: Continue nitro prn. #Chronic heart failure with preserved ejection fraction: Hold potassium and lisinopril. # Atrial fibrillation: Rate controlled. Continue diltiazem 30mg BID and warfarin per pharmacy dosing. # Peripheral vascular disease: Stable. Continue clopidogrel. # Complete heart block s/p pacemaker # Constipation: Controlled. Continue Senna-docusate daily and PEG prn. # BPH: Stable. Continue finasteride 5mg and tamsulosin 0.4mg. # Anemia, chronic, iron deficiency and anemia of chronic disease: Continue Fe/vitC every other day. # OA / Spinal stenosis: With chronic pain. Continue [place] four times daily, nortriptyline 45mg daily. # Palliative care status Hospitalization details: # FEN: SL IVF, push oral fluids; Electrolytes stable, Cardiac/low potassium diet # PPX: Warfarin with therapeutic INR for DVT ppx. # Code status: DNR/DNI with overall focus on comfort. Agreeable to treatment for acute infection. # Emergency contact: Ofelia Alves, updated by nursing # Disposition: Continue inpatient, anticipate two to three midnights with subsequent discharge back to SNF upon improvement in clinical status
[2019-10-05] MEDS ORDERED: Furosemide 40 MG/4 ML VIAL IVPUSH ONE (14:41)
[2019-10-05] MEDS ORDERED: cefTRIAXone 1 GM Vial IVPUSH SCH (15:00)
[2019-10-05] MEDS: NORTRIPTYLINE 10 MG PO SCH (20:18)
[2019-10-05] MEDS: NORTRIPTYLINE 25 MG PO SCH (20:19)
[2019-10-06] MEDS: Acetaminophen/HYDROcodone 325-5 MG Tab PO SCH ×4 (03:00→20:38)
[2019-10-06] MEDS: Albuterol/Ipratropium 3.0-0.5 MG/3 ML Neb Soln NEB SCH ×4 (05:55→22:48)
[2019-10-06] MEDS: Formoterol/Mometasone 100-5 MCG 8.8 GM Inhaler IH SCH ×2 (07:47→20:14)
[2019-10-06] MEDS: Glycopyrrolate 15.6 MCG Cap.W.Dev Kit of 6 IH SCH ×2 (07:48→20:38)
[2019-10-06] MEDS: Diltiazem IR 30 MG Tab PO SCH ×2 (08:15→20:38)
[2019-10-06] MEDS: Clopidogrel 75 MG Tab PO SCH (08:17)
[2019-10-06] MEDS: predniSONE 10 MG Tab PO SCH (08:17)
[2019-10-06] MEDS: Tamsulosin 0.4 MG Cap.ER PO SCH (08:17)
[2019-10-06] MEDS: Finasteride 5 MG Tab PO SCH (08:17)
[2019-10-06 08:27] LABS: ANION GAP 15.4 mmol/L (5-15); CHLORIDE,CL 109 mmol/L (98-115); SODIUM,NA 144 mmol/L (136-145)
--- NOTE | 2019-10-06 11:19 | PCM.PN ---
- General Info Date of Service: 10/06/19 Subjective Update: 88 year old male patient lying in bed. He states his breathing is back to baseline and he is feeling better. Functional Status: Reports: Pain Controlled, Tolerating Diet, Urinating - Review of Systems General: Reports: Weakness. Denies: Fever, Fatigue, Chills HEENT: Reports: Glasses. Denies: Headaches, Sinus Congestion, Sore Throat Pulmonary: Reports: Shortness of Breath (at baseline), Cough (improved). Denies: Sputum Cardiovascular: Reports: Edema. Denies: Chest Pain, Palpitations Gastrointestinal: Denies: Abdominal Pain, Constipation, Diarrhea Genitourinary: Denies: Dysuria, Frequency, Urgency Skin: Reports: Bruising. Denies: Pruritis, Rash Neurological: Reports: Weakness. Denies: Confusion, Headache Psychiatric: Denies: Confusion, Depression, Anxiety - Patient Data Vitals - Most Recent: Last Vital Signs Temp 36.7 C 10/06/19 06:40 Pulse 75 10/06/19 08:15 Resp 20 10/06/19 06:40 BP 123/50 L 10/06/19 08:15 Pulse Ox 98 10/06/19 06:40 Weight - Most Recent: 74.021 kg I&O - Last 24 Hours: Intake & Output 10/05/19 10/06/19 10/06/19 22:59 06:59 14:59 Intake Total 300 100 Output Total 500 600 Balance -200 -500 Lab Results Last 24 Hours: Laboratory Results - last 24 hr 10/05/19 10/06/19 10/06/19 Range/Units 13:20 07:00 07:00 WBC 18.14 H (5.00-10.00) 10^3/uL RBC 3.08 L (4.50-6.00) 10^6/uL Hgb 7.0 L (13.0-17.0) g/dL Hct 23.9 L (40.0-52.0) % MCV 77.6 L (82.0-92.0) fL MCH 22.7 L (27.0-31.0) pg MCHC 29.3 L (32.0-36.0) g/dL RDW 17.8 H (11.5-14.5) % Plt Count 258 (150-400) 10^3/uL MPV 10.3 (7.4-10.4) fL Immature Gran % (Auto) 0.3 (0.0-5.0) % Neut % (Auto) 90.8 H (50.0-70.0) % Lymph % (Auto) 5.0 L (20.0-40.0) % [place]arro % (Auto) 3.7 (2.0-8.0) % Eos % (Auto) 0.2 L (1.0-3.0) % Baso % (Auto) 0.0 (0.0-1.0) % Neut # (Auto) 16.47 H (2.50-7.00) 10^3/uL Lymph # (Auto) 0.90 L (1.00-4.00) 10^3/uL Navarro # (Auto) 0.68 (0.10-0.80) 10^3/uL Eos # (Auto) 0.03 L (0.10-0.30) 10^3/uL Baso # (Auto) 0.00 (0.00-0.10) 10^3/uL Immature Gran # (Auto) 0.06 (0.00-0.50) 10^3/uL PT 49.8 H D (9.2-11.2) SEC INR 5.1 H* (0.9-1.1) Sodium (136-145) mmol/L Potassium (3.3-5.3) mmol/L Chloride (98-115) mmol/L Carbon Dioxide (21.0-32.0) mmol/L Anion Gap (5-15) mmol/L BUN (6-25) mg/dL Creatinine (0.51-1.17) mg/dL Est Cr Clr Drug Dosing mL/min Estimated GFR (MDRD) mL/min Glucose (75 - 99) mg/dL Calcium (8.7-10.3) mg/dL B-Natriuretic Peptide 628 H (0-100) pg/mL 10/06/19 Range/Units 07:00 WBC (5.00-10.00) 10^3/uL RBC (4.50-6.00) 10^6/uL Hgb (13.0-17.0) g/dL Hct (40.0-52.0) % MCV (82.0-92.0) fL MCH (27.0-31.0) pg MCHC (32.0-36.0) g/dL RDW (11.5-14.5) % Plt Count (150-400) 10^3/uL MPV (7.4-10.4) fL Immature Gran % (Auto) (0.0-5.0) % Neut % (Auto) (50.0-70.0) % Lymph % (Auto) (20.0-40.0) % Navarro % (Auto) (2.0-8.0) % Eos % (Auto) (1.0-3.0) % Baso % (Auto) (0.0-1.0) % Neut # (Auto) (2.50-7.00) 10^3/uL Lymph # (Auto) (1.00-4.00) 10^3/uL Navarro # (Auto) (0.10-0.80) 10^3/uL Eos # (Auto) (0.10-0.30) 10^3/uL Baso # (Auto) (0.00-0.10) 10^3/uL Immature Gran # (Auto) (0.00-0.50) 10^3/uL PT (9.2-11.2) SEC INR (0.9-1.1) Sodium 144 (136-145) mmol/L Potassium 4.1 (3.3-5.3) mmol/L Chloride 109 (98-115) mmol/L Carbon Dioxide 23.7 (21.0-32.0) mmol/L Anion Gap 15.4 H (5-15) mmol/L BUN 46 H (6-25) mg/dL Creatinine 1.06 (0.51-1.17) mg/dL Est Cr Clr Drug Dosing 49.74 mL/min Estimated GFR (MDRD) > 60 mL/min Glucose 108 H (75 - 99) mg/dL Calcium 8.3 L (8.7-10.3) mg/dL B-Natriuretic Peptide (0-100) pg/mL Anderson Results Last 24 Hours: Microbiology 10/04/19 15:55 Gram Stain - Final Wound - Heel, Left Med Orders - Current: Current Medications Hydrocodone Bitart/Acetaminophen ([place] 325-5 Mg) 2 tab PO QID@02,08,14,20 [facility] Last Admin: 10/06/19 07:47 Dose: 2 tab Documented by: Albuterol/Ipratropium (Duoneb 3.0-0.5 Mg/3 Ml) 3 ml NEB Q6HRRT [facility] Last Admin: 10/06/19 05:55 Dose: 3 ml Documented by: Ascorbic Acid (Vitamin C) 500 mg PO Q48H [facility] Last Admin: 10/05/19 08:16 Dose: 500 mg Documented by: Atropine Sulfate (Atropine 0.1 Mg/Ml) 0 mg IVPUSH ASDIRECTED PRN PRN Reason: Heart. Bisacodyl (Dulcolax) 5 mg PO DAILY PRN PRN Reason: Constipation Ceftriaxone Sodium (Rocephin) 1 gm IVPUSH Q24H [facility] Last Admin: 10/05/19 14:29 Dose: 1 gm Documented by: Clopidogrel Bisulfate (Plavix) 75 mg PO DAILY [facility] Last Admin: 10/06/19 08:17 Dose: 75 mg Documented by: Diltiazem HCl (Cardizem) 30 mg PO BID [facility] Last Admin: 10/06/19 08:15 Dose: 30 mg Documented by: Epinephrine HCl (Epinephrine 1:10,000) 1 mg IVPUSH ASDIRECTED PRN PRN Reason: Heart. Ferrous Sulfate (Ferrous Sulfate) 325 mg PO Q48H [facility] Last Admin: 10/05/19 08:16 Dose: 325 mg Documented by: Finasteride (Proscar) 5 mg PO DAILY [facility] Last Admin: 10/06/19 08:17 Dose: 5 mg Documented by: Glycopyrrolate (Seebri Neohaler) 15.6 mcg IH BIDRT [facility] Last Admin: 10/06/19 07:48 Dose: 1 inhalation Documented by: Lidocaine HCl (Xylocaine 2%) 0 mg IVPUSH ASDIRECTED PRN PRN Reason: Heart. Mometasone Furoate/Formoterol Fumar (Dulera 100-5 Mcg) 2 puff IH BIDRT [facility] Last Admin: 10/06/19 07:47 Dose: 2 puff Documented by: Nitroglycerin (Nitrostat) 0.4 mg SL ASDIRECTED PRN PRN Reason: Chest Pain Nortriptyline 25 Mg (Own Med) 0 mg PO BEDTIME [facility] Last Admin: 10/05/19 20:19 Dose: 25 mg Documented by: Nortriptyline 10 Mg (Own Med) 0 mg PO BEDTIME [facility] Last Admin: 10/05/19 20:18 Dose: 20 mg Documented by: Polyethylene Glycol (Miralax) 17 gm PO BEDTIME PRN PRN Reason: Constipation Prednisone (Prednisone) 10 mg PO DAILY [facility] Last Admin: 10/06/19 08:17 Dose: 10 mg Documented by: Senna/Docusate Sodium (Senna Plus) 1 tab PO BID [facility] Last Admin: 10/06/19 08:17 Dose: 1 tab Documented by: Sodium Chloride (Saline Flush) 10 ml FLUSH Q8HR PRN PRN Reason: keep vein open Tamsulosin HCl (Flomax) 0.4 mg PO DAILY [facility] Last Admin: 10/06/19 08:17 Dose: 0.4 mg Documented by: Warfarin Sodium (Pharmacy To Dose - Warfarin) 1 dose .XX ASDIRECTED [facility] Discontinued Medications Ceftriaxone Sodium (Rocephin) 1 gm IVPUSH ONETIME ONE Stop: 10/04/19 14:35 Last Admin: 10/04/19 15:16 Dose: 1 gm Documented by: Diclofenac Sodium (Voltaren 1% Gel) 2 gm TOP BID PRN PRN Reason: Pain Furosemide (Lasix) 20 mg IVPUSH NOW ONE Stop: 10/05/19 14:42 Last Admin: 10/05/19 15:00 Dose: 20 mg Documented by: Sodium Chloride (Normal Saline) 1,000 mls @ 125 mls/hr IV ASDIRECTED [facility] Last Admin: 10/05/19 00:04 Dose: 125 mls/hr Documented by: Sodium Chloride (Normal Saline) 250 mls @ 999 mls/hr IV ONETIME ONE Stop: 10/04/19 16:45 Last Admin: 10/04/19 16:41 Dose: 999 mls/hr Documented by: Calcium Gluconate 1 gm/ Sodium (Chloride) 60 mls @ 100 mls/hr IV ONETIME ONE Stop: 10/04/19 21:50 Last Admin: 10/04/19 21:26 Dose: 100 mls/hr Documented by: Nitroglycerin (Nitrostat) 0.4 mg SL ASDIRECTED PRN PRN Reason: Heart. Sodium Polystyrene Sulfonate (Kayexalate) 15 gm PO ONETIME ONE Stop: 10/04/19 20:38 Last Admin: 10/04/19 21:29 Dose: 15 gm Documented by: Warfarin Sodium (Coumadin) 1 mg PO ONETIME ONE Stop: 10/04/19 21:16 Last Admin: 10/04/19 21:38 Dose: 1 mg Documented by: Warfarin Sodium (Coumadin) 0.5 mg PO DAILY@1800 EMA Stop: 10/05/19 18:01 Last Admin: 10/05/19 17:48 Dose: 0.5 mg Documented by: - Exam Physical Findings Comments:: GENERAL: Well-appearing adult in no acute distress. HEENT: Normocephalic, atraumatic. Conjunctiva clear. Nares patent without discharge. Mucous membranes moist, posterior pharynx unremarkable. NECK: Supple, no masses. CV: Regular rate and rhythm, no murmurs, rubs, or gallops. 2+ radial pulses. PULMONARY: Normal effort, rhonchi noted mid to bases, no rales, improved from previous. ABDOMEN: Positive bowel sounds, soft, nontender, nondistended. EXTREMITIES: 2-3+ BLE edema, cyanosis, or clubbing. MUSCULOSKELETAL: Moves all extremities well. NEUROLOGICAL: No obvious deficits. DERMATOLOGIC: No rashes or suspicious lesions in exposed areas. PSYCHIATRIC: Alert, interactive, appropriate affect. Sepsis Event Note - Evaluation Sepsis Screening Result: No Definite Risk - Focused Exam Vital Signs: Vital Signs Temp Pulse Pulse Resp BP BP Pulse Ox 10/06/19 08:15 75 123/50 L 10/06/19 06:40 36.7 C 82 20 109/54 L 98 10/06/19 05:55 83 10/06/19 03:00 36.5 C 74 20 108/54 L 94 L 10/05/19 23:53 77 Pulse Ox 10/06/19 08:15 10/06/19 06:40 10/06/19 05:55 96 10/06/19 03:00 10/05/19 23:53 95 Date Exam was Performed: 10/06/19 Time Exam was Performed: 21:49 - Problem List Review Problem List Initiated/Reviewed/Updated: Yes - My Orders Last 24 Hours: My Active Orders 10/05/19 13:18 Blood Culture x2 Reflex Set [OM.PC] Stat 10/05/19 13:20 CULTURE BLOOD [BC] Stat 10/05/19 13:40 CULTURE BLOOD [BC] Stat 10/05/19 15:00 cefTRIAXone [Rocephin] 1 gm IVPUSH Q24H 10/06/19 09:00 Communication Order [RC] [id number] - Plan Plan:: HPI summary: Maninder Brown is a 88yr male, resident of [facility] for whom report was received earlier 10/04/2019 noting that patient has been increasingly fatigued and complaining of generalized malaise and fatigue. Noted no new focal symptoms, but ROS notable for dysuria which he states he's had off and on for the past few days to weeks, though denies any other urinary symptoms. Noted that he hasn't been eating or drinking well in the past few days. He felt his respiratory status was at baseline without any change in shortness of breath or cough. Most recent facility mass testing for COVID-19 was 10/04/2019 and resulted negative. 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 Additionally, has an ulcer on his coccyx. Clinic course: -Labs: significant leukocytosis with WBC 26 with L shift; ESR 118; creatinine 1.53 (baseline 1), and potassium 5.7 (baseline 4.5); Hemoglobin is 7.5, which is similar to last check 1 month ago [address] [facility] when it was 8 and near baseline of 8-9 -CXR shows no significant abnormality aside from small R pleural fluid, which has been present in the past and though noted by radiology to be increased from prior exam in this system, is improved since prior exam at [facility] 1 month ago when he had RLL pneumonia -VS BP 98/48 Pulse 68 Temp 98.4 F (36.9 C) (Temporal) Resp 20 SpO2 91% -COVID negative Hospital course: Day 1: Afebrile overnight with improvement noted in leukocytosis to 17.64, neutrophils 15.64; ESR 84, creatinine 1.18, potassium 4.9 after dose of kayexalate last evening (10/04/2019). Procalcitonin 1.1. UA clear. Patient notes mild worsening of his baseline shortness of breath with crackles in bilateral bases. Edema 3+ BLE. BNP 628 (baseline 184). Reports anterior left sided chest pain, however, upon discussion of options with patient he declines troponin or EKG as he states he "does not want to know" and would not pursue treatment. learning solutions specialist has reviewed wounds on heel and coccyx and has ordered therapies for these. Cultures have been obtained and will await report. Day 2: Afebrile overnight with noted improvement in dyspnea after IV Furosemide yesterday. VSS. WBC 18.14, neutrophils 16.47, RBC 3.08, Hgb 7, Hct 23.9. INR 5.1. BUN 46, Cr 1.06, GFR >60, creatinine clearance 49.74, Ca 8.3. Hemoglobin remains stable, but close to patient baseline. Pharmacy managing increased INR. Preliminary heel culture shows many gram positive cocci, few gram negative bacilli, few gram positive bacilli resembling diphtheroids, and no PMNs. IV antibiotic therapy escalated to Vancomycin to cover for MRSA and Flagyl to cover for gram negative. Order placed in [facility] for podiatry and wound care to be set up next week. Hospitalization problems and plan: # Leukocytosis, suspect secondary to arterial ulcer on left heel -escalate to Vancomycin dosed by pharmacy and Flagyl 500 IV q8h -CBC in the AM (10/07/2019). -blood cultures pending # Acute kidney injury, improved -saline lock IVF for now -push oral fluids -BMP in the AM (10/07/2019) # Hyperkalemia, resolved -BMP in the AM (10/07/2019) # Anemia of chronic disease -Continue to monitor with CBC in the AM (10/07/2019) # Malaise # Fluid overload -saline lock IVF -furosemide 40mg orally daily # Chest pain, resolved -discontinue telemetry # Left heel arterial ulcer -Aquacel with foam, change every three days -podiatry and wound care referral # Coccyx ulcer -Aquacel with foam, change every three days Chronic, stable conditions: #Chronic hypoxic respiratory failure: At baseline. Continue oxygen at baseline 2.5lpm. # COPD: No evidence of acute exacerbation. Continue Trelegy, DuoNebs prn, predni sone 10mg daily. # CAD: Continue nitro prn. #Chronic heart failure with preserved ejection fraction: Hold potassium and lisinopril. # Atrial fibrillation: Rate controlled. Continue diltiazem 30mg BID and warfarin per pharmacy dosing. # Peripheral vascular disease: Stable. Continue clopidogrel. # Complete heart block s/p pacemaker # Constipation: Controlled. Continue Senna-docusate daily and PEG prn. # BPH: Stable. Continue finasteride 5mg and tamsulosin 0.4mg. # Anemia, chronic, iron deficiency and anemia of chronic disease: Continue Fe/vitC every other day. # OA / Spinal stenosis: With chronic pain. Continue [place] four times daily, nortriptyline 45mg daily. # Palliative care status Hospitalization details: # FEN: SL IVF, push oral fluids; Electrolytes stable, Cardiac/low potassium diet # PPX: Warfarin for DVT ppx, pharmacy to dose # Code status: DNR/DNI with overall focus on comfort. Agreeable to treatment for acute infection. # Emergency contact: Ofelia Alves, updated by nursing # Disposition: Continue inpatient, anticipate two to three additional midnights with subsequent discharge back to SNF upon improvement in clinical status
[2019-10-06] MEDS: Furosemide 40 MG Tab PO SCH (12:19)
[2019-10-06] MEDS: Sodium Chloride 0.9% 250 ML IV SCH (12:30)
[2019-10-06] MEDS: Sodium Chloride 0.9% 10 ML Syringe FLUSH PRN (12:36)
[2019-10-06] MEDS: metroNIDAZOLE/Normal Saline 500 MG in Premix Bag 1 BAG IV SCH ×2 (12:37→20:15)
[2019-10-06] MEDS: NORTRIPTYLINE 25 MG PO SCH (20:40)
[2019-10-06] MEDS: NORTRIPTYLINE 10 MG PO SCH (20:41)
[2019-10-07] MEDS: Acetaminophen/HYDROcodone 325-5 MG Tab PO SCH ×4 (02:17→20:26)
[2019-10-07] MEDS: metroNIDAZOLE/Normal Saline 500 MG in Premix Bag 1 BAG IV SCH ×4 (02:55→20:36)
[2019-10-07] MEDS: Albuterol/Ipratropium 3.0-0.5 MG/3 ML Neb Soln NEB SCH ×4 (06:01→22:34)
[2019-10-07 08:01] LABS: CHLORIDE,CL 110 mmol/L (98-115); SODIUM,NA 143 mmol/L (136-145)
[2019-10-07] MEDS: Formoterol/Mometasone 100-5 MCG 8.8 GM Inhaler IH SCH ×2 (08:42→20:25)
[2019-10-07] MEDS: Glycopyrrolate 15.6 MCG Cap.W.Dev Kit of 6 IH SCH ×2 (08:43→20:30)
[2019-10-07] MEDS: Diltiazem IR 30 MG Tab PO SCH ×2 (08:46→20:27)
[2019-10-07] MEDS: Ferrous Sulfate 325 MG Tab PO SCH (08:46)
[2019-10-07] MEDS: Tamsulosin 0.4 MG Cap.ER PO SCH (08:47)
[2019-10-07] MEDS: Furosemide 40 MG Tab PO SCH (08:47)
[2019-10-07] MEDS: Finasteride 5 MG Tab PO SCH (08:47)
[2019-10-07] MEDS: predniSONE 10 MG Tab PO SCH (08:47)
[2019-10-07] MEDS: Clopidogrel 75 MG Tab PO SCH (08:47)
[2019-10-07] MEDS: Ascorbic Acid 500 MG Tab PO SCH (08:47)
--- NOTE | 2019-10-07 08:58 | PCM.PN ---
- General Info Date of Service: 10/07/19 Subjective Update: 88 year old male patient seated in the chair. Patient reports respiratory status near baseline. complaints of increased generalized weakness and fatigue today. Mild worsening of swelling. - Review of Systems General: Reports: Weakness, Fatigue, Malaise. Denies: Fever, Chills, Appetite HEENT: Denies: Headaches Pulmonary: Reports: Shortness of Breath (per baseline), Cough (per baseline) Cardiovascular: Reports: Dyspnea on Exertion, Edema. Denies: Chest Pain, Lightheadedness Gastrointestinal: Denies: Abdominal Pain, Constipation, Diarrhea, Nausea, Vomiting Genitourinary: Reports: No Symptoms Musculoskeletal: Reports: No Symptoms Skin: Reports: Other (wound) Neurological: Reports: Weakness. Denies: Dizziness, Headache, Numbness, Tingling, Trouble Speaking Psychiatric: Reports: No Symptoms - Patient Data Vitals - Most Recent: Last Vital Signs Temp 98.7 F 10/07/19 06:07 Pulse 74 10/07/19 08:46 Resp 20 10/07/19 06:07 BP 110/42 L 10/07/19 08:46 Pulse Ox 97 10/07/19 06:11 Weight - Most Recent: 163 lb 3 oz I&O - Last 24 Hours: Intake & Output 10/06/19 10/07/19 10/07/19 22:59 06:59 14:59 Intake Total 275 380 Output Total 500 200 Balance -225 180 Lab Results Last 24 Hours: Laboratory Results - last 24 hr 10/07/19 10/07/19 10/07/19 Range/Units 07:30 07:30 07:30 WBC 16.98 H (5.00-10.00) 10^3/uL RBC 3.01 L (4.50-6.00) 10^6/uL Hgb 6.8 L* (13.0-17.0) g/dL Hct 23.4 L (40.0-52.0) % MCV 77.7 L (82.0-92.0) fL MCH 22.6 L (27.0-31.0) pg MCHC 29.1 L (32.0-36.0) g/dL RDW 17.7 H (11.5-14.5) % Plt Count 244 (150-400) 10^3/uL MPV 9.8 (7.4-10.4) fL Immature Gran % (Auto) 0.4 (0.0-5.0) % Neut % (Auto) 90.0 H (50.0-70.0) % Lymph % (Auto) 5.2 L (20.0-40.0) % [place] % (Auto) 4.2 (2.0-8.0) % Eos % (Auto) 0.1 L (1.0-3.0) % Baso % (Auto) 0.1 (0.0-1.0) % Neut # (Auto) 15.30 H (2.50-7.00) 10^3/uL Lymph # (Auto) 0.88 L (1.00-4.00) 10^3/uL [place] # (Auto) 0.71 (0.10-0.80) 10^3/uL Eos # (Auto) 0.02 L (0.10-0.30) 10^3/uL Baso # (Auto) 0.01 (0.00-0.10) 10^3/uL Immature Gran # (Auto) 0.06 (0.00-0.50) 10^3/uL PT 66.8 H D (9.2-11.2) SEC INR 6.9 H* (0.9-1.1) Sodium 143 (136-145) mmol/L Potassium 4.5 (3.3-5.3) mmol/L Chloride 110 (98-115) mmol/L Carbon Dioxide 24.5 (21.0-32.0) mmol/L Anion Gap 13.0 (5-15) mmol/L BUN 47 H (6-25) mg/dL Creatinine 1.07 (0.51-1.17) mg/dL Est Cr Clr Drug Dosing 49.27 mL/min Estimated GFR (MDRD) > 60 mL/min Glucose 112 H (75 - 99) mg/dL Calcium 8.3 L (8.7-10.3) mg/dL [place] Results Last 24 Hours: Microbiology 10/05/19 13:20 Aerobic Blood Culture - Preliminary Blood - Venous Anaerobic Blood Culture - Preliminary NO GROWTH AFTER 1 DAY 10/05/19 13:40 Aerobic Blood Culture - Preliminary Blood - Venous - Lab Draw NO GROWTH AFTER 1 DAY Anaerobic Blood Culture - Preliminary NO GROWTH AFTER 1 DAY 10/04/19 15:55 Gram Stain - Final Wound - Heel, Left Med Orders - Current: Current Medications Hydrocodone Bitart/Acetaminophen (Hillman 325-5 Mg) 2 tab PO QID@02,08,, [facility] Last Admin: 10/07/19 08:46 Dose: 2 tab Documented by: Albuterol/Ipratropium (Duoneb 3.0-0.5 Mg/3 Ml) 3 ml NEB Q6HRRT [facility] Last Admin: 10/07/19 06:01 Dose: 3 ml Documented by: Ascorbic Acid (Vitamin C) 500 mg PO Q48H [facility] Last Admin: 10/07/19 08:47 Dose: 500 mg Documented by: Bisacodyl (Dulcolax) 5 mg PO DAILY PRN PRN Reason: Constipation Clopidogrel Bisulfate (Plavix) 75 mg PO DAILY [facility] Last Admin: 10/07/19 08:47 Dose: 75 mg Documented by: Diltiazem HCl (Cardizem) 30 mg PO BID [facility] Last Admin: 10/07/19 08:46 Dose: 30 mg Documented by: Ferrous Sulfate (Ferrous Sulfate) 325 mg PO Q48H [facility] Last Admin: 10/07/19 08:46 Dose: 325 mg Documented by: Finasteride (Proscar) 5 mg PO DAILY [facility] Last Admin: 10/07/19 08:47 Dose: 5 mg Documented by: Furosemide (Lasix) 40 mg PO DAILY [facility] Last Admin: 10/07/19 08:47 Dose: 40 mg Documented by: Glycopyrrolate (Seebri Neohaler) 15.6 mcg IH BIDRT [facility] Last Admin: 10/07/19 08:43 Dose: 1 inhalation Documented by: Metronidazole 500 mg/ Premix 100 mls @ 100 mls/hr IV Q8H [facility] Last Admin: 10/07/19 03:00 Dose: Not Given Documented by: Vancomycin HCl 1.25 gm/ Sodium (Chloride) 250 mls @ 166.667 mls/hr IV Q24H [facility] Last Admin: 10/06/19 14:00 Dose: 166.667 mls/hr Documented by: Sodium Chloride (Normal Saline) 250 mls @ 125 mls/hr IV ASDIRECTED [facility] Last Admin: 10/06/19 12:30 Dose: 125 mls/hr Documented by: Mometasone Furoate/Formoterol Fumar (Dulera 100-5 Mcg) 2 puff IH BIDRT [facility] Last Admin: 10/07/19 08:42 Dose: 2 puff Documented by: Nortriptyline 25 Mg (Own Med) 0 mg PO BEDTIME [facility] Last Admin: 10/06/19 20:40 Dose: 25 mg Documented by: Nortriptyline 10 Mg (Own Med) 0 mg PO BEDTIME [facility] Last Admin: 10/06/19 20:41 Dose: 20 mg Documented by: Polyethylene Glycol (Miralax) 17 gm PO BEDTIME PRN PRN Reason: Constipation Prednisone (Prednisone) 10 mg PO DAILY [facility] Last Admin: 10/07/19 08:47 Dose: 10 mg Documented by: Senna/Docusate Sodium (Senna Plus) 1 tab PO BID [facility] Last Admin: 10/07/19 08:46 Dose: 1 tab Documented by: Sodium Chloride (Saline Flush) 10 ml FLUSH Q8HR PRN PRN Reason: keep vein open Last Admin: 10/06/19 12:36 Dose: 10 ml Documented by: Tamsulosin HCl (Flomax) 0.4 mg PO DAILY [facility] Last Admin: 10/07/19 08:47 Dose: 0.4 mg Documented by: Vancomycin HCl (Pharmacy To Dose - Vancomycin) 1 dose .XX ASDIRECTED [facility] Warfarin Sodium (Pharmacy To Dose - Warfarin) 1 dose .XX ASDIRECTED [facility] Discontinued Medications Atropine Sulfate (Atropine 0.1 Mg/Ml) 0 mg IVPUSH ASDIRECTED PRN PRN Reason: Heart. Ceftriaxone Sodium (Rocephin) 1 gm IVPUSH ONETIME ONE Stop: 10/04/19 14:35 Last Admin: 10/04/19 15:16 Dose: 1 gm Documented by: Ceftriaxone Sodium (Rocephin) 1 gm IVPUSH Q24H [facility] Last Admin: 10/05/19 14:29 Dose: 1 gm Documented by: Diclofenac Sodium (Voltaren 1% Gel) 2 gm TOP BID PRN PRN Reason: Pain Epinephrine HCl (Epinephrine 1:10,000) 1 mg IVPUSH ASDIRECTED PRN PRN Reason: Heart. Furosemide (Lasix) 20 mg IVPUSH NOW ONE Stop: 10/05/19 14:42 Last Admin: 10/05/19 15:00 Dose: 20 mg Documented by: Sodium Chloride (Normal Saline) 1,000 mls @ 125 mls/hr IV ASDIRECTED [facility] Last Admin: 10/05/19 00:04 Dose: 125 mls/hr Documented by: Sodium Chloride (Normal Saline) 250 mls @ 999 mls/hr IV ONETIME ONE Stop: 10/04/19 16:45 Last Admin: 10/04/19 16:41 Dose: 999 mls/hr Documented by: Calcium Gluconate 1 gm/ Sodium (Chloride) 60 mls @ 100 mls/hr IV ONETIME ONE Stop: 10/04/19 21:50 Last Admin: 10/04/19 21:26 Dose: 100 mls/hr Documented by: Lidocaine HCl (Xylocaine 2%) 0 mg IVPUSH ASDIRECTED PRN PRN Reason: Heart. Nitroglycerin (Nitrostat) 0.4 mg SL ASDIRECTED PRN PRN Reason: Heart. Nitroglycerin (Nitrostat) 0.4 mg SL ASDIRECTED PRN PRN Reason: Chest Pain Sodium Polystyrene Sulfonate (Kayexalate) 15 gm PO ONETIME ONE Stop: 10/04/19 20:38 Last Admin: 10/04/19 21:29 Dose: 15 gm Documented by: Warfarin Sodium (Coumadin) 1 mg PO ONETIME ONE Stop: 10/04/19 21:16 Last Admin: 10/04/19 21:38 Dose: 1 mg Documented by: Warfarin Sodium (Coumadin) 0.5 mg PO DAILY@1800 [facility] Stop: 10/05/19 18:01 Last Admin: 10/05/19 17:48 Dose: 0.5 mg Documented by: - Exam Quality Assessment: Supplemental Oxygen, DVT Prophylaxis, Skin Breakdown General: Alert, Oriented, No Acute Distress HEENT: Other (lips dry) Neck: Supple Lungs: Rhonchi, Other (mild coarse crackles to LLL) Cardiovascular: Regular Rate, Irregular Rhythm GI/Abdominal Exam: Normal Bowel Sounds, Soft, Non-Tender, Other (abdomen mildly distended patient states this is per normal.). No: Rebound (Male) Exam: Deferred Extremities: Pedal Edema, Pallor, Other (2-3+ edema to BLE; 2+ pitting edema to LUE 1+ to RUE; generalized weakness) Skin: Warm, Ecchymosis Wound/Incisions: Other (dressings intact) Neurological: No New Focal Deficit Psy/Mental Status: Alert Sepsis Event Note - Evaluation Sepsis Screening Result: No Definite Risk - Focused Exam Vital Signs: Vital Signs Temp Pulse Pulse Resp BP BP Pulse Ox 10/07/19 08:46 74 110/42 L 10/07/19 06:11 74 10/07/19 06:07 98.7 F 76 20 109/50 L 98 10/07/19 06:00 10/07/19 02:53 98.3 F 76 20 117/57 L 93 L 10/06/19 23:01 75 10/06/19 23:00 98.1 F 75 16 116/50 L 98 Pulse Ox 10/07/19 08:46 10/07/19 06:11 97 10/07/19 06:07 10/07/19 06:00 97 10/07/19 02:53 10/06/19 23:01 96 10/06/19 23:00 Date Exam was Performed: 10/08/19 Time Exam was Performed: 11:18 - Problem List Review Problem List Initiated/Reviewed/Updated: Yes - Plan Plan:: HPI summary: Maninder Brown is a 88yr male, resident of [facility] for whom report was received earlier 10/04/2019 noting that patient has been increasingly fatigued and complaining of generalized malaise and fatigue. Noted no new focal symptoms, but ROS notable for dysuria which he states he's had off and on for the past few days to weeks, though denies any other urinary symptoms. Noted that he hasn't been eating or drinking well in the past few days. He felt his respiratory status was at baseline without any change in shortness of breath or cough. Most recent facility mass testing for COVID-19 was 10/04/2019 and resulted negative. 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 Additionally, has an ulcer on his coccyx. Clinic course: -Labs: significant leukocytosis with WBC 26 with L shift; ESR 118; creatinine 1.53 (baseline 1), and potassium 5.7 (baseline 4.5); Hemoglobin is 7.5, which is similar to last check 1 month ago at [facility] when it was 8 and near baseline of 8-9 -CXR shows no significant abnormality aside from small R pleural fluid, which has been present in the past and though noted by radiology to be increased from prior exam in this system, is improved since prior exam at [facility] 1 month ago when he had RLL pneumonia -VS BP 98/48 Pulse 68 Temp 98.4 F (36.9 C) (Temporal) Resp 20 SpO2 91% -COVID negative Hospital course: Day 1: Afebrile overnight with improvement noted in leukocytosis to 17.64, neutrophils 15.64; ESR 84, creatinine 1.18, potassium 4.9 after dose of kayexalate last evening (10/04/2019). Procalcitonin 1.1. UA clear. Patient notes mild worsening of his baseline shortness of breath with crackles in bilateral bases. Edema 3+ BLE. BNP 628 (baseline 184). Reports anterior left sided chest pain, however, upon discussion of options with patient he declines troponin or EKG as he states he "does not want to know" and would not pursue treatment. manipulative therapy specialist has reviewed wounds on heel and coccyx and has ordered therapies for these. Cultures have been obtained and will await report. Day 2: Afebrile overnight with noted improvement in dyspnea after IV Furosemide yesterday. VSS. WBC 18.14, neutrophils 16.47, RBC 3.08, Hgb 7, Hct 23.9. INR 5.1. BUN 46, Cr 1.06, GFR >60, creatinine clearance 49.74, Ca 8.3. Hemoglobin remains stable, but close to patient baseline. Pharmacy managing increased INR. Preliminary heel culture shows many gram positive cocci, few gram negative bacilli, few gram positive bacilli resembling diphtheroids, and no PMNs. IV antibiotic therapy escalated to Vancomycin to cover for MRSA and Flagyl to cover for gram negative. Order placed in [facility] for podiatry and wound care to be set up next week. Day 3: No overnight calls or concerns. afebrile overnight. VSS. WBC with slight improvement from 18.14 to 16.89. Hemoglobin 6.8 today down from 7.0. Baseline hemoglobin 8-9. Renal function is stable. Hyperkalemia, resolved. INR is increased at 6.9 up from 5.1. pharmacy has been managing with Coumadin being on hold. Preliminary heel culture shows many gram positive cocci, few gram negative bacilli, few gram positive bacilli resembling diphtheroids, and no PMNs. IV antibiotic therapy escalated 10/06/19 to Vancomycin to cover for MRSA and Flagyl to cover for gram negative. Hospitalization problems and plan: # Leukocytosis, suspect secondary to arterial ulcer on left heel -Abx escalation on 10/07/19 to Vancomycin dosed by pharmacy and Flagyl 500 IV q8h -blood cultures no growth after 24 hours -improving leukocytosis, recheck in the AM -Plan for outpatient follow-up with podiatry/wound in [place] # Acute on chronic anemia -Hgb 6.8 today. Baseline 8-9 - Transfuse 1 U PRBC, close monitoring for fluid overload. 20mg IV lasix with transfusion - Start BID PPI - Defer further anemia work-up/GI bleed evaluation as patient has refused further intervention. # Left heel arterial ulcer -Aquacel with foam, change every three days -podiatry and wound care referral # Coccyx ulcer -Aquacel with foam, change every three days # Acute on chronic diastolic heart failure / fluid overload - BNP 628 -furosemide 40mg orally daily - extra 20mg IV Lasix today. -recheck renal and electrolytes tomorrow. Potassium 4.5 today. - daily weights # Malaise #Supratherapeutic INR - Coumadin continues to be on hold with pharmacy management - Increase in INR from 5.1 to 6.9 today. - No active signs of bleeding though noted drop in hemoglobin from baseline. - Give Vitamin K 2.5mg PO today. Resolved Hospital Problems # Acute kidney injury, improved -saline lock IVF -push oral fluids - Recheck panel tomorrow # Hyperkalemia, resolved # Chest pain, resolved - refused work-up. Telemetry discontinued 10/06/19 Chronic, stable conditions: #Chronic hypoxic respiratory failure: At baseline. Continue oxygen at baseline 2.5lpm. # COPD: No evidence of acute exacerbation. Continue Dulera/glycopyrrolate (hospital substitution for home trelegy), DuoNebs prn, prednisone 10mg daily. # CAD: Continue nitro prn. # Atrial fibrillation: Rate controlled. Continue diltiazem 30mg BID and warfarin per pharmacy dosing. # Peripheral vascular disease: Stable. Continue clopidogrel. # Complete heart block s/p pacemaker # Constipation: Controlled. Continue Senna-docusate daily and PEG prn. # BPH: Stable. Continue finasteride 5mg and tamsulosin 0.4mg. # Anemia, chronic, iron deficiency and anemia of chronic disease: Continue Fe/vitC every other day. # OA / Spinal stenosis: With chronic pain. Continue Hillman four times daily, nortriptyline 45mg daily. # Palliative care status Hospitalization details: # FEN: SL IVF, push oral fluids; Electrolytes stable, Cardiac/low potassium diet, I/O today +[phone] # PPX: Warfarin for DVT ppx- supratherapeutic INR. PPI stress ulcer ppx # Code status: DNR/DNI with overall focus on comfort. Agreeable to treatment for acute infection. agreeable to blood transfusion # Emergency contact: Ofelia Alves, updated by nursing # Disposition: Continue inpatient status. Patient meets continued inpatient cr iteria for hemodynamic monitoring, blood transfusion, and IV antimicrobial therap and care coordination. He refuses transfer to outside facility. Plan for discharge back to SNF upon improvement in clinical status
[2019-10-07] MEDS ORDERED: Ascorbic Acid 500 MG Tab PO SCH (09:00)
[2019-10-07] MEDS ORDERED: Furosemide 40 MG/4 ML VIAL IVPUSH ONE (13:30)
[2019-10-07] MEDS: Pantoprazole 40 MG Tab.CR PO SCH (17:30)
[2019-10-07] MEDS ORDERED: [UNRECOGNIZED DRUG - REMARK] PO ONE (18:00)
[2019-10-07] MEDS: NORTRIPTYLINE 25 MG PO SCH (20:28)
[2019-10-07] MEDS: NORTRIPTYLINE 10 MG PO SCH (20:28)
[2019-10-07] MEDS: Sodium Chloride 0.9% 250 ML IV SCH (20:35)
[2019-10-08] MEDS: Acetaminophen/HYDROcodone 325-5 MG Tab PO SCH ×4 (02:58→20:38)
[2019-10-08] MEDS: metroNIDAZOLE/Normal Saline 500 MG in Premix Bag 1 BAG IV SCH ×3 (03:00→20:43)
[2019-10-08] MEDS: Albuterol/Ipratropium 3.0-0.5 MG/3 ML Neb Soln NEB SCH ×4 (06:06→22:29)
[2019-10-08] MEDS: Pantoprazole 40 MG Tab.CR PO SCH ×3 (06:16→18:23)
[2019-10-08 08:29] LABS: ANION GAP 13.9 mmol/L (5-15); CHLORIDE,CL 110 mmol/L (98-115); SODIUM,NA 144 mmol/L (136-145)
[2019-10-08] MEDS: Glycopyrrolate 15.6 MCG Cap.W.Dev Kit of 6 IH SCH ×2 (08:49→20:40)
[2019-10-08] MEDS: Formoterol/Mometasone 100-5 MCG 8.8 GM Inhaler IH SCH ×2 (08:49→20:36)
[2019-10-08] MEDS: Diltiazem IR 30 MG Tab PO SCH ×2 (08:51→20:38)
[2019-10-08] MEDS: Furosemide 40 MG Tab PO SCH (08:51)
[2019-10-08] MEDS: predniSONE 10 MG Tab PO SCH (08:51)
[2019-10-08] MEDS: Finasteride 5 MG Tab PO SCH (08:51)
[2019-10-08] MEDS: Clopidogrel 75 MG Tab PO SCH (08:51)
[2019-10-08] MEDS: Tamsulosin 0.4 MG Cap.ER PO SCH (08:51)
--- NOTE | 2019-10-08 10:21 | PCM.PN ---
- General Info Date of Service: 10/08/19 Subjective Update: 88 year old male patient seated in the chair. Patient continues to note near baseline respiratory status. Continued weakness and fatigue. Patient reports mild worsening of swelling from yesterday. Functional Status: Reports: Pain Controlled - Review of Systems General: Reports: Weakness, Fatigue, Malaise. Denies: Fever, Chills, Night Sweats, Appetite HEENT: Reports: Other (dry mouth) Pulmonary: Reports: Shortness of Breath (chronic), Cough (chronic). Denies: Sputum, Wheezing Cardiovascular: Reports: Edema. Denies: Chest Pain, Palpitations Gastrointestinal: Reports: Constipation. Denies: Diarrhea, Nausea, Vomiting Genitourinary: Reports: No Symptoms Musculoskeletal: Reports: Back Pain (chronic, stable) Skin: Reports: Pallor, Dryness, Bruising, Other (wound left heel) Neurological: Reports: Weakness. Denies: Confusion, Dizziness, Numbness, Tingling Psychiatric: Reports: No Symptoms - Patient Data Vitals - Most Recent: Last Vital Signs Temp 98.0 F 10/08/19 06:11 Pulse 85 10/08/19 08:51 Resp 20 10/08/19 06:11 BP 107/45 L 10/08/19 08:51 Pulse Ox 96 10/08/19 06:26 Weight - Most Recent: 167 lb 1.6 oz I&O - Last 24 Hours: Intake & Output 10/07/19 10/08/19 10/08/19 22:59 06:59 14:59 Intake Total 862 280 Output Total 650 150 Balance 212 130 Lab Results Last 24 Hours: Laboratory Results - last 24 hr 10/07/19 10/08/19 10/08/19 Range/Units 07:30 07:16 07:16 WBC 16.37 H (5.00-10.00) 10^3/uL RBC 3.53 L (4.50-6.00) 10^6/uL Hgb 8.3 L D (13.0-17.0) g/dL Hct 27.3 L (40.0-52.0) % MCV 77.3 L (82.0-92.0) fL MCH 23.5 L (27.0-31.0) pg MCHC 30.4 L (32.0-36.0) g/dL RDW 17.4 H (11.5-14.5) % Plt Count 261 (150-400) 10^3/uL MPV 10.0 (7.4-10.4) fL Immature Gran % (Auto) 0.5 (0.0-5.0) % Neut % (Auto) 90.1 H (50.0-70.0) % Lymph % (Auto) 5.4 L (20.0-40.0) % Major % (Auto) 3.9 (2.0-8.0) % Eos % (Auto) 0.1 L (1.0-3.0) % Baso % (Auto) 0.0 (0.0-1.0) % Neut # (Auto) 14.75 H (2.50-7.00) 10^3/uL Lymph # (Auto) 0.88 L (1.00-4.00) 10^3/uL Major # (Auto) 0.64 (0.10-0.80) 10^3/uL Eos # (Auto) 0.02 L (0.10-0.30) 10^3/uL Baso # (Auto) 0.00 (0.00-0.10) 10^3/uL Immature Gran # (Auto) 0.08 (0.00-0.50) 10^3/uL PT 21.9 H D (9.2-11.2) SEC INR 2.2 H (0.9-1.1) Sodium (136-145) mmol/L Potassium (3.3-5.3) mmol/L Chloride (98-115) mmol/L Carbon Dioxide (21.0-32.0) mmol/L Anion Gap (5-15) mmol/L BUN (6-25) mg/dL Creatinine (0.51-1.17) mg/dL Est Cr Clr Drug Dosing mL/min Estimated GFR (MDRD) mL/min Glucose (75 - 99) mg/dL Calcium (8.7-10.3) mg/dL Total Bilirubin (0.2-1.0) mg/dL AST (15-37) U/L ALT (12-78) U/L Alkaline Phosphatase (46-116) IU/L Total Protein (6.4-8.2) g/dL Albumin (3.00-4.80) g/dL Blood Type A POSITIVE Gel Antibody Screen Negative Crossmatch See Detail 10/08/19 Range/Units 07:16 WBC (5.00-10.00) 10^3/uL RBC (4.50-6.00) 10^6/uL Hgb (13.0-17.0) g/dL Hct (40.0-52.0) % MCV (82.0-92.0) fL MCH (27.0-31.0) pg MCHC (32.0-36.0) g/dL RDW (11.5-14.5) % Plt Count (150-400) 10^3/uL MPV (7.4-10.4) fL Immature Gran % (Auto) (0.0-5.0) % Neut % (Auto) (50.0-70.0) % Lymph % (Auto) (20.0-40.0) % Major % (Auto) (2.0-8.0) % Eos % (Auto) (1.0-3.0) % Baso % (Auto) (0.0-1.0) % Neut # (Auto) (2.50-7.00) 10^3/uL Lymph # (Auto) (1.00-4.00) 10^3/uL Major # (Auto) (0.10-0.80) 10^3/uL Eos # (Auto) (0.10-0.30) 10^3/uL Baso # (Auto) (0.00-0.10) 10^3/uL Immature Gran # (Auto) (0.00-0.50) 10^3/uL PT (9.2-11.2) SEC INR (0.9-1.1) Sodium 144 (136-145) mmol/L Potassium 4.5 (3.3-5.3) mmol/L Chloride 110 (98-115) mmol/L Carbon Dioxide 24.6 (21.0-32.0) mmol/L Anion Gap 13.9 (5-15) mmol/L BUN 46 H (6-25) mg/dL Creatinine 1.05 (0.51-1.17) mg/dL Est Cr Clr Drug Dosing 50.21 mL/min Estimated GFR (MDRD) > 60 mL/min Glucose 108 H (75 - 99) mg/dL Calcium 8.3 L (8.7-10.3) mg/dL Total Bilirubin 0.5 (0.2-1.0) mg/dL AST 13 L (15-37) U/L ALT 27 (12-78) U/L Alkaline Phosphatase 71 (46-116) IU/L Total Protein 5.7 L (6.4-8.2) g/dL Albumin 1.88 L (3.00-4.80) g/dL Blood Type Gel Antibody Screen Crossmatch Anderson Results Last 24 Hours: Microbiology 10/04/19 15:55 Miscellaneous Reference Culture - Preliminary Wound - Heel, Left Staphylococcus Aureus Klebsiella Pneumonia Ss Pneumo Gram Negative Rods Iso Consist W Cutaneous April Gram Stain - Final 10/05/19 13:40 Aerobic Blood Culture - Preliminary Blood - Venous - Lab Draw Anaerobic Blood Culture - Preliminary NO GROWTH AFTER 2 DAYS 10/05/19 13:20 Aerobic Blood Culture - Preliminary Blood - Venous Anaerobic Blood Culture - Preliminary NO GROWTH AFTER 2 DAYS Med Orders - Current: Current Medications Hydrocodone Bitart/Acetaminophen ([place] 325-5 Mg) 2 tab PO QID@02,08,, [facility] Last Admin: 10/08/19 08:51 Dose: 2 tab Documented by: Albuterol/Ipratropium (Duoneb 3.0-0.5 Mg/3 Ml) 3 ml NEB Q6HRRT [facility] Last Admin: 10/08/19 06:06 Dose: 3 ml Documented by: Ascorbic Acid (Vitamin C) 500 mg PO Q48H [facility] Last Admin: 10/07/19 08:47 Dose: 500 mg Documented by: Bisacodyl (Dulcolax) 5 mg PO DAILY PRN PRN Reason: Constipation Clopidogrel Bisulfate (Plavix) 75 mg PO DAILY [facility] Last Admin: 10/08/19 08:51 Dose: 75 mg Documented by: Diltiazem HCl (Cardizem) 30 mg PO BID [facility] Last Admin: 10/08/19 08:51 Dose: 30 mg Documented by: Ferrous Sulfate (Ferrous Sulfate) 325 mg PO Q48H [facility] Last Admin: 10/07/19 08:46 Dose: 325 mg Documented by: Finasteride (Proscar) 5 mg PO DAILY [facility] Last Admin: 10/08/19 08:51 Dose: 5 mg Documented by: Furosemide (Lasix) 40 mg PO DAILY [facility] Last Admin: 10/08/19 08:51 Dose: 40 mg Documented by: Glycopyrrolate (Seebri Neohaler) 15.6 mcg IH BIDRT [facility] Last Admin: 10/08/19 08:49 Dose: 1 inhalation Documented by: Metronidazole 500 mg/ Premix 100 mls @ 100 mls/hr IV Q8H [facility] Last Admin: 10/08/19 03:00 Dose: 100 mls/hr Documented by: Vancomycin HCl 1.25 gm/ Sodium (Chloride) 250 mls @ 166.667 mls/hr IV Q24H [facility] Last Admin: 10/07/19 12:33 Dose: 166.667 mls/hr Documented by: Sodium Chloride (Normal Saline) 250 mls @ 125 mls/hr IV ASDIRECTED [facility] Last Admin: 10/07/19 20:35 Dose: 125 mls/hr Documented by: Mometasone Furoate/Formoterol Fumar (Dulera 100-5 Mcg) 2 puff IH BIDRT [facility] Last Admin: 10/08/19 08:49 Dose: 2 puff Documented by: Nortriptyline 25 Mg (Own Med) 0 mg PO BEDTIME [facility] Last Admin: 10/07/19 20:28 Dose: 25 mg Documented by: Nortriptyline 10 Mg (Own Med) 0 mg PO BEDTIME [facility] Last Admin: 10/07/19 20:28 Dose: 20 mg Documented by: Pantoprazole Sodium (Protonix) 40 mg PO BIDAC [facility] Last Admin: 10/08/19 06:31 Dose: Not Given Documented by: Polyethylene Glycol (Miralax) 17 gm PO BEDTIME PRN PRN Reason: Constipation Last Admin: 10/08/19 08:49 Dose: 17 gm Documented by: Prednisone (Prednisone) 10 mg PO DAILY [facility] Last Admin: 10/08/19 08:51 Dose: 10 mg Documented by: Senna/Docusate Sodium (Senna Plus) 1 tab PO BID [facility] Last Admin: 10/08/19 08:51 Dose: 1 tab Documented by: Sodium Chloride (Saline Flush) 10 ml FLUSH Q8HR PRN PRN Reason: keep vein open Last Admin: 10/06/19 12:36 Dose: 10 ml Documented by: Tamsulosin HCl (Flomax) 0.4 mg PO DAILY [facility] Last Admin: 10/08/19 08:51 Dose: 0.4 mg Documented by: Vancomycin HCl (Pharmacy To Dose - Vancomycin) 1 dose .XX ASDIRECTED [facility] Warfarin Sodium (Pharmacy To Dose - Warfarin) 1 dose .XX ASDIRECTED [facility] Warfarin Sodium (Coumadin) 1.25 mg PO ONETIME ONE Stop: 10/08/19 18:01 Discontinued Medications Atropine Sulfate (Atropine 0.1 Mg/Ml) 0 mg IVPUSH ASDIRECTED PRN PRN Reason: Heart. Ceftriaxone Sodium (Rocephin) 1 gm IVPUSH ONETIME ONE Stop: 10/04/19 14:35 Last Admin: 10/04/19 15:16 Dose: 1 gm Documented by: Ceftriaxone Sodium (Rocephin) 1 gm IVPUSH Q24H [facility] Last Admin: 10/05/19 14:29 Dose: 1 gm Documented by: Diclofenac Sodium (Voltaren 1% Gel) 2 gm TOP BID PRN PRN Reason: Pain Epinephrine HCl (Epinephrine 1:10,000) 1 mg IVPUSH ASDIRECTED PRN PRN Reason: Heart. Furosemide (Lasix) 20 mg IVPUSH NOW ONE Stop: 10/05/19 14:42 Last Admin: 10/05/19 15:00 Dose: 20 mg Documented by: Furosemide (Lasix) 20 mg IVPUSH NOW ONE Stop: 10/07/19 13:31 Last Admin: 10/07/19 14:34 Dose: 20 mg Documented by: Sodium Chloride (Normal Saline) 1,000 mls @ 125 mls/hr IV ASDIRECTED [facility] Last Admin: 10/05/19 00:04 Dose: 125 mls/hr Documented by: Sodium Chloride (Normal Saline) 250 mls @ 999 mls/hr IV ONETIME ONE Stop: 10/04/19 16:45 Last Admin: 10/04/19 16:41 Dose: 999 mls/hr Documented by: Calcium Gluconate 1 gm/ Sodium (Chloride) 60 mls @ 100 mls/hr IV ONETIME ONE Stop: 10/04/19 21:50 Last Admin: 10/04/19 21:26 Dose: 100 mls/hr Documented by: Lidocaine HCl (Xylocaine 2%) 0 mg IVPUSH ASDIRECTED PRN PRN Reason: Heart. Nitroglycerin (Nitrostat) 0.4 mg SL ASDIRECTED PRN PRN Reason: Heart. Nitroglycerin (Nitrostat) 0.4 mg SL ASDIRECTED PRN PRN Reason: Chest Pain Warfarin, No Dose (Needed) 0 each PO ONETIME ONE Stop: 10/07/19 18:01 Last Admin: 10/07/19 18:42 Dose: Not Given Documented by: Phytonadione (Aquamephyton) 2.5 mg PO ONETIME ONE Stop: 10/07/19 12:03 Last Admin: 10/07/19 12:39 Dose: 2.5 mg Documented by: Sodium Polystyrene Sulfonate (Kayexalate) 15 gm PO ONETIME ONE Stop: 10/04/19 20:38 Last Admin: 10/04/19 21:29 Dose: 15 gm Documented by: Warfarin Sodium (Coumadin) 1 mg PO ONETIME ONE Stop: 10/04/19 21:16 Last Admin: 10/04/19 21:38 Dose: 1 mg Documented by: Warfarin Sodium (Coumadin) 0.5 mg PO DAILY@1800 EMA Stop: 10/05/19 18:01 Last Admin: 10/05/19 17:48 Dose: 0.5 mg Documented by: - Exam Quality Assessment: Supplemental Oxygen, DVT Prophylaxis, Skin Breakdown General: Alert, Oriented HEENT: Other (dry oral mucus membranes) Neck: Supple Lungs: Crackles, Rhonchi Cardiovascular: Regular Rate, Irregular Rhythm, Murmurs GI/Abdominal Exam: Normal Bowel Sounds, Distended, Other (mild generalized tenderness ) Extremities: Pedal Edema, Leg Pain, Pallor Skin: Dry, Ecchymosis, Other (ecchymosis to BUE, beto skin color per baseline. bilateral lower extremities with peripheral cyansosis and beto color unchanged) Wound/Incisions: Dressing Dry and Intact (left heel ulceration with dressing intact, left lower extremity dressing intact, mepilex dressing to left side/back intact.) Neurological: No New Focal Deficit Psy/Mental Status: Alert Sepsis Event Note - Evaluation Sepsis Screening Result: Severe Sepsis Risk - Focused Exam Vital Signs: Vital Signs Temp Pulse Pulse Resp BP BP BP 10/08/19 08:51 85 107/45 L 10/08/19 06:26 76 10/08/19 06:11 98.0 F 74 20 121/74 10/08/19 03:00 98.0 F 76 20 115/56 L 10/07/19 22:50 75 10/07/19 22:41 97.7 F 75 20 126/56 L Pulse Ox Pulse Ox 10/08/19 08:51 10/08/19 06:26 96 10/08/19 06:11 96 10/08/19 03:00 99 10/07/19 22:50 98 10/07/19 22:41 98 Date Exam was Performed: 10/09/19 Time Exam was Performed: 18:16 - Problem List Review Problem List Initiated/Reviewed/Updated: Yes - My Orders Last 24 Hours: My Active Orders 10/07/19 11:04 Transfuse PRBC [Transfuse Red Blood Cells] [COMM] Routine 10/07/19 13:41 Daily Weight [Height and Weight] [RC] DAILY 10/07/19 17:30 Pantoprazole [ProTONIX] 40 mg PO BIDAC 10/08/19 18:00 Warfarin [Coumadin] 1.25 mg PO ONETIME ONE - Plan Plan:: HPI summary: Maninder Brown is a 88yr male, resident of [facility] for whom report was received earlier 10/04/2019 noting that patient has been increasingly fatigued and complaining of generalized malaise and fatigue. Noted no new focal symptoms, but ROS notable for dysuria which he states he's had off and on for the past few days to weeks, though denies any other urinary symptoms. Noted that he hasn't been eating or drinking well in the past few days. He felt his respiratory status was at baseline without any change in shortness of breath or cough. Most recent facility mass testing for COVID-19 was 10/04/2019 and resulted negative. 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 Additionally, has an ulcer on his coccyx. Clinic course: -Labs: significant leukocytosis with WBC 26 with L shift; ESR 118; creatinine 1.53 (baseline 1), and potassium 5.7 (baseline 4.5); Hemoglobin is 7.5, which is similar to last check 1 month ago at [facility] when it was 8 and near baseline of 8-9 -CXR shows no significant abnormality aside from small R pleural fluid, which has been present in the past and though noted by radiology to be increased from prior exam in this system, is improved since prior exam at [facility] 1 month ago when he had RLL pneumonia -VS BP 98/48 Pulse 68 Temp 98.4 F (36.9 C) (Temporal) Resp 20 SpO2 91% -COVID negative Hospital course: Day 1: Afebrile overnight with improvement noted in leukocytosis to 17.64, neutrophils 15.64; ESR 84, creatinine 1.18, potassium 4.9 after dose of kayexalate last evening (10/04/2019). Procalcitonin 1.1. UA clear. Patient notes mild worsening of his baseline shortness of breath with crackles in bilateral bases. Edema 3+ BLE. BNP 628 (baseline 184). Reports anterior left sided chest pain, however, upon discussion of options with patient he declines troponin or EKG as he states he "does not want to know" and would not pursue treatment. data collection specialist has reviewed wounds on heel and coccyx and has ordered therapies for these. Cultures have been obtained and will await report. Day 2: Afebrile overnight with noted improvement in dyspnea after IV Furosemide yesterday. VSS. WBC 18.14, neutrophils 16.47, RBC 3.08, Hgb 7, Hct 23.9. INR 5.1. BUN 46, Cr 1.06, GFR >60, creatinine clearance 49.74, Ca 8.3. Hemoglobin remains stable, but close to patient baseline. Pharmacy managing increased INR. Preliminary heel culture shows many gram positive cocci, few gram negative bacilli, few gram positive bacilli resembling diphtheroids, and no PMNs. IV antibiotic therapy escalated to Vancomycin to cover for MRSA and Flagyl to cover for gram negative. Order placed in [facility] for podiatry and wound care to be set up next week. Day 3: No overnight calls or concerns. afebrile overnight. VSS. WBC with slight improvement from 18.14 to 16.89. Hemoglobin 6.8 today down from 7.0. Baseline hemoglobin 8-9. Renal function is stable. Hyperkalemia, resolved. INR is increased at 6.9 up from 5.1. pharmacy has been managing with Coumadin being on hold. Preliminary heel culture shows many gram positive cocci, few gram negative bacilli, few gram positive bacilli resembling diphtheroids, and no PMNs. IV an tibiotic therapy escalated 10/06/19 to include Vancomycin to cover for MRSA and Flagyl to cover for gram negative. Day 4: No overnight calls or concerns. afebrile overnight. VSS. WBC with again slight improvement from 16.98 to 16.37. neutrophils 15.30 to 14.75. Patient received 1U PRBC yesterday with improvement in hemoglobin from 6.8 to 8.3 (baseline hemoglobin 8-9). Renal function at baseline. patient with generalized weakness and overall malaise. Preliminary wound culture showing MRSA and klebsiella pneumonia. Additional gram negative roger strain pending culture and sensitivity. Hospitalization problems and plan: # Leukocytosis, suspect secondary to arterial ulcer on left heel -Abx escalation on 10/07/19 to Vancomycin dosed by pharmacy and Flagyl 500 IV q8h - Restart Rocephin 1 G IV daily for klebsiella coverage -blood cultures no growth after 2 days - improving leukocytosis though anticipated extended iv antimicrobial therapy. - Further consultation with podiatry/wound and possibly ID tomorrow for long- term management and coordination of care # Left heel arterial ulcer -Aquacel with foam, change every three days -podiatry and wound care referral - Continue antimicrobial therapy as noted above - wound culture showing- oxacillin resistant staphylococcus aureus, klebsiella pneumonia # Acute on chronic anemia - 1U PRBC received 10/07/19 - Hemoglobin improved today at 8.3. Baseline 8-9 - Continue on BID PPI - Defer further anemia work-up/GI bleed evaluation as patient has refused further intervention. # Coccyx ulcer -Aquacel with foam, change every three days # Acute on chronic diastolic heart failure / fluid overload - BNP 628 previously -Continue furosemide 40mg orally daily - Restart home Furosemide 20mg at 1400 - recheck renal and electrolytes stable- recheck tomorrow - daily weights- weight today unchanged from yesterday. weight up yesterday 4 pound but patient was switched from standing scale to lift scale. # Malaise/weakness # Constipation - last bowel movement 10/05/19. - Continue home senna-docusate - PRN miralax given per staff this AM. Additional management recommended if no BM by this afternoon Resolved Hospital Problems #Supratherapeutic INR - Vitamin K 2.5 mg PO given 10/07/19 for INR 6.9. - INR improved to 2.2 - Pharmacy managing coumadin - No active signs of bleeding. # Acute kidney injury, improved -saline lock IVF - Recheck panel tomorrow # Hyperkalemia, resolved # Chest pain, resolved - refused work-up. Telemetry discontinued 10/06/19 Chronic, stable conditions: #Chronic hypoxic respiratory failure: At baseline. Continue oxygen at baseline 2.5lpm. # COPD: No evidence of acute exacerbation. Continue Dulera/glycopyrrolate (hospital substitution for home trelegy), DuoNebs prn, prednisone 10mg daily. # CAD: Continue nitro prn. # Atrial fibrillation: Rate controlled. Continue diltiazem 30mg BID and warfarin per pharmacy dosing. # Peripheral vascular disease: Stable. Continue clopidogrel. # Complete heart block s/p pacemaker # BPH: Stable. Continue finasteride 5mg and tamsulosin 0.4mg. # Anemia, chronic, iron deficiency and anemia of chronic disease: Continue Fe/vitC every other day. # OA / Spinal stenosis: With chronic pain. Continue [place] four times daily, nortriptyline 45mg daily. # Palliative care status Hospitalization details: # FEN: SL IVF, push oral fluids; Electrolytes stable, Cardiac/low potassium diet, I/O today +[phone] # PPX: Warfarin for DVT ppx- therapeutic INR. PPI stress ulcer ppx # Code status: DNR/DNI with overall focus on comfort. Agreeable to treatment for acute infection. # Emergency contact: Ofelia Alves, updated by nursing Disposition: Continue inpatient status. Patient meets continued inpatient criteria given weekend status and need for IV antibiotic therapy and antibiotic coordination. Patient declines transfer to outside facility. Anticipate likely continued need for IV antimicrobial therapy at discharge. Plan for consult with Podiatry/wound tomorrow (wednesday) for further management and detailed wound care. Plan for discharge back to SNF upon improvement in clinical status and further coordination of care
[2019-10-08] MEDS ORDERED: Bisacodyl 10 MG Supp RECTAL PRN (11:00)
[2019-10-08] MEDS ORDERED: Bisacodyl 10 MG Supp ONE (11:13)
[2019-10-08] MEDS: cefTRIAXone 1 GM Vial IVPUSH SCH (11:36)
[2019-10-08] MEDS: Furosemide 20 MG Tab PO SCH (13:05)
[2019-10-08] MEDS ORDERED: Warfarin 2.5 MG Tab PO ONE (18:00)
[2019-10-08] MEDS: NORTRIPTYLINE 10 MG PO SCH (20:37)
[2019-10-08] MEDS: NORTRIPTYLINE 25 MG PO SCH (20:37)
[2019-10-09] MEDS: Acetaminophen/HYDROcodone 325-5 MG Tab PO SCH ×3 (02:57→13:16)
[2019-10-09] MEDS: metroNIDAZOLE/Normal Saline 500 MG in Premix Bag 1 BAG IV SCH ×2 (03:00→11:10)
[2019-10-09] MEDS: Sodium Chloride 0.9% 250 ML IV SCH (03:00)
[2019-10-09] MEDS: Albuterol/Ipratropium 3.0-0.5 MG/3 ML Neb Soln NEB SCH ×2 (05:26→10:27)
[2019-10-09] MEDS: Pantoprazole 40 MG Tab.CR PO SCH ×2 (06:12→06:29)
[2019-10-09] MEDS: Formoterol/Mometasone 100-5 MCG 8.8 GM Inhaler IH SCH (08:05)
[2019-10-09] MEDS: Tamsulosin 0.4 MG Cap.ER PO SCH (08:05)
[2019-10-09] MEDS: Ascorbic Acid 500 MG Tab PO SCH (08:06)
[2019-10-09] MEDS: Glycopyrrolate 15.6 MCG Cap.W.Dev Kit of 6 IH SCH (08:06)
[2019-10-09] MEDS: Finasteride 5 MG Tab PO SCH (08:07)
[2019-10-09] MEDS: Ferrous Sulfate 325 MG Tab PO SCH (08:07)
[2019-10-09] MEDS: Diltiazem IR 30 MG Tab PO SCH (08:07)
[2019-10-09] MEDS: Furosemide 40 MG Tab PO SCH (08:07)
[2019-10-09] MEDS: predniSONE 10 MG Tab PO SCH (08:07)
[2019-10-09] MEDS: Clopidogrel 75 MG Tab PO SCH (08:07)
[2019-10-09 08:16] LABS: ANION GAP 13.5 mmol/L (5-15); CHLORIDE,CL 110 mmol/L (98-115); SODIUM,NA 143 mmol/L (136-145)
--- NOTE | 2019-10-09 10:59 | PCM.DCSUM1 ---
Discharge Summary - Hospital Course Free Text/Narrative:: Date of admission: 10/04/19 Date of discharge: 10/09/19 Discharge Diagnoses: Active Problems: # Leukocytosis # Left Heel Arterial Ulcer # MRSA infection, Klebsiella infection of the left heel # Coccyx ulcer # Anemia # Malaise # Chronic hypoxic respiratory failure: # COPD # CAD # Atrial fibrillation # Peripheral vascular disease # Complete heart block s/p pacemaker # BPH # OA / Spinal stenosis # Palliative care status Resolved Problems #Acute Kidney Injury #Hyperkalemia #Supratherapeutic INR #Chest pain #Constipation #Acute on chronic CHF exacerbation Hospital course: Maninder Brown is a pleasant 88yr male, resident of [facility]. On 10/04/2019 [facility] staff noted that patient had been increasingly fatigued and complaining of generalized malaise. Noted no new focal symptoms, but ROS notable for dysuria. He felt his respiratory status was at baseline without any change in shortness of breath or cough. Most recent facility mass testing for COVID-19 on 10/04/2019 and resulted negative. Initial clinical work-up notable for leukocytosis WBC 26 with left shift. ESR 118. Creatinine 1.53 (baseline 1) and potassium 5.7 (baseline 4.5), hemoglobin 7.5 (baseline 8-9). Procalcitonin 1.1. COVID negative. CXR showed no significant abnormality aside from small R pleural fluid improved since prior exam at [facility] 1 month ago. Leukocytosis initially thought to be secondary to acute cystitis upon admission, however urine negative. Thorough skin examination on admission revealed a significant arterial ulcer to the left heel and coccyx ulcer which were felt to be the likely source of leukocytosis. Patient was started on Rocephin on admission with escalation 10/06/19 to include Vancomycin and Flagyl. Preliminary wound culture of the left heel at discharge showing organism 1: Staphylcoccus aureus (methicillin (oxacillin) resistant), Organism 2: klebsiella pneumonia, organism 3: Gram negative Rods, Organism 4: isolate consistent with with cutaneous guille. Blood cultures continue to show no growth. Patient was given small volume fluid bolus and IVF d/t MALATHI with improvement in renal function to baseline. Potassium normalized following Kayexalate and calcium gluconate administration. On admission patient was hypovolemic and volume depleted, questionably due to overdiuresis. He did become hypervolemic/volume overload with increased BNP 628 (baseline 180s) and was restarted on oral lasix and given IV Lasix with return to baseline fluid status. Patient did receive 1 U PRBCs for drop of hemoglobin to 6.8 (baseline 8-9). Further anemia/GI bleed work-up not pursued as patient refuses further intervention. INR Supratherapeutic at 6.8, PO Vitamin K 2.5mg given. no overt signs of bleeding were noted. patient also had an episode of chest pain but deferred any further work up including EKG or lab. Patient is in need of detailed wound care/management. Call placed to Dr. Smith's (podiatry) office with coordination for follow-up tomorrow. WBC at discharge is 16.4 with neutrophilia. Patient to receive IV Vancomycin (Q24H), IV rocephin (1g Q24H) prior to discharge back to [facility]. Will switch Flagyl to PO. IV SL to remain in place for further antimicrobial therapy guidance/recommendations following podiatry/wound evaluation. Discharge: Discharge back to [facility] Follow-up: - coordinated follow-up planned for tomorrow 10/10/[address] Smith (Podiatry) at in [place] followed by wound clinic follow-up - Continued antimicrobial therapy pending podiatry examination and guidance/recommendation. - Follow-up on retirement rounds. Medication changes at discharge: - Change/decrease in Lasix to 40mg PO in the AM and 20mg PO evening - Stop PO Potassium - Flagyl 500mg 1 dose tonight and one in the AM until podiatry follow-up. - Discharge Data Discharge Date: 10/09/19 Discharge Disposition: DC/Tfer to [facility] 63 Condition: Fair - Referral to Home Health Primary Care Physician: Kirstie Ellis MD - Discharge Diagnosis/Problem(s) (1) Leukocytosis SNOMED Code(s): 634683729, 743099619 ICD Code: D72.829 - ELEVATED WHITE BLOOD CELL COUNT, UNSPECIFIED Status: Acute (2) Pressure ulcer of heel, left, unstageable SNOMED Code(s): 552280923 ICD Code: L89.620 - PRESSURE ULCER OF LEFT HEEL, UNSTAGEABLE Status: Chronic Priority: Medium (3) MRSA infection SNOMED Code(s): 703649568 ICD Code: A49.02 - METHICILLIN RESIS STAPH INFECTION, UNSP SITE Status: Acute (4) Klebsiella infection SNOMED Code(s): 880685849 ICD Code: A49.8 - OTHER BACTERIAL INFECTIONS OF UNSPECIFIED SITE Status: Acute (5) Decubitus ulcer of coccyx SNOMED Code(s): 751985580 ICD Code: L89.159 - PRESSURE ULCER OF SACRAL REGION, UNSPECIFIED STAGE Status: Acute (6) Acute kidney injury SNOMED Code(s): 24252771, 41889748 ICD Code: N17.9 - ACUTE KIDNEY FAILURE, UNSPECIFIED Status: Acute (7) Acute hyperkalemia SNOMED Code(s): 2654673 ICD Code: E87.5 - HYPERKALEMIA Status: Acute (8) Anemia SNOMED Code(s): 672659757 ICD Code: D64.9 - ANEMIA, UNSPECIFIED Status: Chronic Priority: Medium (9) Chronic combined systolic and diastolic CHF (congestive heart failure) SNOMED Code(s): 676942390918630, 521610355316883 ICD Code: I50.42 - CHRONIC COMBINED SYSTOLIC AND DIASTOLIC HRT FAIL Status: Chronic - Patient Summary/Data Consults: Consultations 10/04/19 15:44 Consult to Wound Care Services [CONS] Routine - Discharge Plan *PRESCRIPTION DRUG MONITORING PROGRAM REVIEWED*: Not Applicable *COPY OF PRESCRIPTION DRUG MONITORING REPORT IN PATIENT SHALOM: Not Applicable Prescriptions/Med Rec: metroNIDAZOLE [Flagyl] 500 mg PO Q8H #2 tablet Furosemide [Lasix] 40 mg PO DAILY #30 tablet Home Medications: Home Meds Finasteride 5 mg PO DAILY 03/22/14 [History] Furosemide 20 mg PO DAILY@1400 03/22/14 [History] Nitroglycerin [Nitrostat] 0.4 mg SL ASDIRECTED PRN 03/22/14 [History] Tamsulosin [Flomax] 0.4 mg PO DAILY 09/10/14 [History] Warfarin [Coumadin] 2.5 mg PO MOFR@1800 02/21/15 [History] Clopidogrel [Plavix] 75 mg PO DAILY 04/01/16 [History] Hydrocodone/Acetaminophen [Hydrocodone-Acetamin 5-325 mg] 2 each PO QID@02,,,04/01/16 [History] polyethylene glycoL 3350 [MiraLAX] 17 gm PO BEDTIME PRN packet 12/18/17 [Rx] Ferrous Sulfate [Ferosul] 325 mg PO Q48H 01/22/18 [History] Sennosides/Docusate Sodium [Senna-S] 1 each PO BID 01/22/18 [History] Warfarin [Coumadin] 1.25 mg PO SUTUWETHSA@1800 01/22/18 [History] predniSONE [Prednisone] 10 mg PO DAILY 01/22/18 [History] Fluticasone/Umeclidin/Vilanter [Trelegy Ellipta 100-62.5-25] 1 puff INH DAILY 08/29/19 [History] Hydrocortisone [Preparation H] 1 applic RECTAL BID PRN 08/29/19 [History] Nortriptyline 45 mg PO BEDTIME 08/29/19 [History] bisacodyL [Bisacodyl] 5 mg PO DAILY PRN 08/29/19 [History] dilTIAZem HCL [Cardizem] 30 mg PO BID 08/29/19 [History] lisinopriL [Lisinopril] 2.5 mg PO DAILY 08/29/19 [History] predniSONE [Prednisone] 10 mg PO DAILY PRN 08/29/19 [History] Diclofenac Sodium [Voltaren 1% Gel] 2 gram TRDERM BID PRN #0 tube 09/02/19 [Rx] Albuterol/Ipratropium [DuoNeb 3.0-0.5 MG/3 ML] 3 ml NEB Q6H 10/04/19 [History] Ascorbic Acid 500 mg PO Q48H 10/04/19 [History] Furosemide [Lasix] 40 mg PO DAILY #30 tablet 10/09/19 [Rx] metroNIDAZOLE [Flagyl] 500 mg PO Q8H #2 tablet 10/09/19 [Rx] Oxygen Therapy Mode: Nasal Cannula Referrals: Nikos Smith [Ordering Only Provider] - 10/10/19 9:15 am (Appt in [place]. Followed with wound appt.) - Discharge Summary/Plan Comment DC Time >30 min.: Yes - General Info Date of Service: 10/09/19 Functional Status: Reports: Pain Controlled - Review of Systems General: Reports: Weakness, Fatigue, Malaise, Appetite (patient reports poor appetite due to denture pain. ) Pulmonary: Reports: Shortness of Breath (per baseline), Cough (per baseline). Denies: Sputum Cardiovascular: Reports: Edema. Denies: Chest Pain Gastrointestinal: Denies: Abdominal Pain, Constipation, Diarrhea, Nausea, Vomiting Genitourinary: Reports: No Symptoms Musculoskeletal: Reports: Back Pain (chronic), Leg Pain, Foot Pain Skin: Reports: Bruising, Other (wound) Neurological: Reports: Weakness, Gait Disturbance Psychiatric: Reports: No Symptoms - Patient Data Vitals - Most Recent: Last Vital Signs Temp 98.0 F 10/09/19 05:54 Pulse 75 10/09/19 08:07 Resp 20 10/09/19 05:54 BP 109/57 L 10/09/19 08:07 Pulse Ox 97 10/09/19 10:25 Weight - Most Recent: 167 lb 3 oz I&O - Last 24 hours: Intake & Output 10/08/19 10/09/19 10/09/19 22:59 06:59 14:59 Intake Total 530 280 Output Total 500 700 Balance 30 -420 Lab Results - Last 24 hrs: Laboratory Results - last 24 hr 10/09/19 10/09/19 10/09/19 Range/Units 07:26 07:26 07:26 WBC 16.41 H (5.00-10.00) 10^3/uL RBC 3.58 L (4.50-6.00) 10^6/uL Hgb 8.4 L (13.0-17.0) g/dL Hct 27.8 L (40.0-52.0) % MCV 77.7 L (82.0-92.0) fL MCH 23.5 L (27.0-31.0) pg MCHC 30.2 L (32.0-36.0) g/dL RDW 18.1 H (11.5-14.5) % Plt Count 234 (150-400) 10^3/uL MPV 10.2 (7.4-10.4) fL Add Manual Diff Yes Neutrophils % (Manual) 92 H (50-70) % Lymphocytes % (Manual) 6 L (20-40) % Monocytes % (Manual) 2 (2-8) % Absolute Neutrophils 15.0972 Lymphocytes # (Manual) 0.9846 Monocytes # (Manual) 0.3282 Hypersegmented Neuts Few Ovalocytes 1+ slight Schistocytes 1+ slight PT 17.2 H (9.2-11.2) SEC INR 1.7 H (0.9-1.1) Sodium 143 (136-145) mmol/L Potassium 4.5 (3.3-5.3) mmol/L Chloride 110 (98-115) mmol/L Carbon Dioxide 24.0 (21.0-32.0) mmol/L Anion Gap 13.5 (5-15) mmol/L BUN 40 H (6-25) mg/dL Creatinine 0.94 (0.51-1.17) mg/dL Est Cr Clr Drug Dosing 56.09 mL/min Estimated GFR (MDRD) > 60 mL/min Glucose 103 H (75 - 99) mg/dL Calcium 8.0 L (8.7-10.3) mg/dL SLOANE Results - Last 24 hrs: Microbiology 10/05/19 13:40 Aerobic Blood Culture - Preliminary Blood - Venous - Lab Draw Anaerobic Blood Culture - Preliminary NO GROWTH AFTER 3 DAYS 10/05/19 13:20 Aerobic Blood Culture - Preliminary Blood - Venous Anaerobic Blood Culture - Preliminary NO GROWTH AFTER 3 DAYS 10/04/19 15:55 Miscellaneous Reference Culture - Preliminary Wound - Heel, Left Staphylococcus Aureus Klebsiella Pneumonia Ss Pneumo Gram Negative Rods Iso Consist W Cutaneous Guille Gram Stain - Final Med Orders - Current: Current Medications Hydrocodone Bitart/Acetaminophen ([place] 325-5 Mg) 2 tab PO QID@02,08,14,20 [facility] Last Admin: 10/09/19 08:04 Dose: 2 tab Documented by: Albuterol/Ipratropium (Duoneb 3.0-0.5 Mg/3 Ml) 3 ml NEB Q6HRRT [facility] Last Admin: 10/09/19 10:27 Dose: 3 ml Documented by: Ascorbic Acid (Vitamin C) 500 mg PO Q48H [facility] Last Admin: 10/09/19 08:06 Dose: 500 mg Documented by: Bisacodyl (Dulcolax) 5 mg PO DAILY PRN PRN Reason: Constipation Bisacodyl (Dulcolax) 10 mg RECTAL BID PRN PRN Reason: Constipation Last Admin: 10/08/19 12:55 Dose: 10 mg Documented by: Ceftriaxone Sodium (Rocephin) 1 gm IVPUSH Q24H [facility] Last Admin: 10/08/19 11:36 Dose: 1 gm Documented by: Clopidogrel Bisulfate (Plavix) 75 mg PO DAILY [facility] Last Admin: 10/09/19 08:07 Dose: 75 mg Documented by: Diltiazem HCl (Cardizem) 30 mg PO BID [facility] Last Admin: 10/09/19 08:07 Dose: 30 mg Documented by: Ferrous Sulfate (Ferrous Sulfate) 325 mg PO Q48H [facility] Last Admin: 10/09/19 08:07 Dose: 325 mg Documented by: Finasteride (Proscar) 5 mg PO DAILY [facility] Last Admin: 10/09/19 08:07 Dose: 5 mg Documented by: Furosemide (Lasix) 40 mg PO DAILY [facility] Last Admin: 10/09/19 08:07 Dose: 40 mg Documented by: Furosemide (Lasix) 20 mg PO DAILY@1400 [facility] Last Admin: 10/08/19 13:05 Dose: 20 mg Documented by: Glycopyrrolate (Seebri Neohaler) 15.6 mcg IH BIDRT [facility] Last Admin: 10/09/19 08:06 Dose: 1 inhalation Documented by: Metronidazole 500 mg/ Premix 100 mls @ 100 mls/hr IV Q8H [facility] Last Admin: 10/09/19 03:00 Dose: 100 mls/hr Documented by: Vancomycin HCl 1.25 gm/ Sodium (Chloride) 250 mls @ 166.667 mls/hr IV Q24H [facility] Last Admin: 10/08/19 12:56 Dose: 166.667 mls/hr Documented by: Sodium Chloride (Normal Saline) 250 mls @ 125 mls/hr IV ASDIRECTED [facility] Last Admin: 10/09/19 03:00 Dose: 125 mls/hr Documented by: Mometasone Furoate/Formoterol Fumar (Dulera 100-5 Mcg) 2 puff IH BIDRT [facility] Last Admin: 10/09/19 08:05 Dose: 2 puff Documented by: Nortriptyline 25 Mg (Own Med) 0 mg PO BEDTIME [facility] Last Admin: 10/08/19 20:37 Dose: 25 mg Documented by: Nortriptyline 10 Mg (Own Med) 0 mg PO BEDTIME [facility] Last Admin: 10/08/19 20:37 Dose: 20 mg Documented by: Pantoprazole Sodium (Protonix) 40 mg PO BIDAC [facility] Last Admin: 10/09/19 06:29 Dose: Not Given Documented by: Polyethylene Glycol (Miralax) 17 gm PO BEDTIME PRN PRN Reason: Constipation Last Admin: 10/08/19 08:49 Dose: 17 gm Documented by: Prednisone (Prednisone) 10 mg PO DAILY [facility] Last Admin: 10/09/19 08:07 Dose: 10 mg Documented by: Senna/Docusate Sodium (Senna Plus) 1 tab PO BID [facility] Last Admin: 10/09/19 08:07 Dose: 1 tab Documented by: Sodium Chloride (Saline Flush) 10 ml FLUSH Q8HR PRN PRN Reason: keep vein open Last Admin: 10/06/19 12:36 Dose: 10 ml Documented by: Tamsulosin HCl (Flomax) 0.4 mg PO DAILY [facility] [place] Last Admin: 10/09/19 08:05 Dose: 0.4 mg Documented by: Vancomycin HCl (Pharmacy To Dose - Vancomycin) 1 dose .XX ASDIRECTED [facility] Warfarin Sodium (Pharmacy To Dose - Warfarin) 1 dose .XX ASDIRECTED [facility] Discontinued Medications Atropine Sulfate (Atropine 0.1 Mg/Ml) 0 mg IVPUSH ASDIRECTED PRN PRN Reason: Heart. Bisacodyl (Dulcolax) Confirm Administered Dose 10 mg .ROUTE .STK-MED ONE Stop: 10/08/19 11:14 Last Admin: 10/08/19 11:34 Dose: Not Given Documented by: Ceftriaxone Sodium (Rocephin) 1 gm IVPUSH ONETIME ONE Stop: 10/04/19 14:35 Last Admin: 10/04/19 15:16 Dose: 1 gm Documented by: Ceftriaxone Sodium (Rocephin) 1 gm IVPUSH Q24H [facility] Last Admin: 10/05/19 14:29 Dose: 1 gm Documented by: Diclofenac Sodium (Voltaren 1% Gel) 2 gm TOP BID PRN PRN Reason: Pain Epinephrine HCl (Epinephrine 1:10,000) 1 mg IVPUSH ASDIRECTED PRN PRN Reason: Heart. Furosemide (Lasix) 20 mg IVPUSH NOW ONE Stop: 10/05/19 14:42 Last Admin: 10/05/19 15:00 Dose: 20 mg Documented by: Furosemide (Lasix) 20 mg IVPUSH NOW ONE Stop: 10/07/19 13:31 Last Admin: 10/07/19 14:34 Dose: 20 mg Documented by: Sodium Chloride (Normal Saline) 1,000 mls @ 125 mls/hr IV ASDIRECTED [facility] Last Admin: 10/05/19 00:04 Dose: 125 mls/hr Documented by: Sodium Chloride (Normal Saline) 250 mls @ 999 mls/hr IV ONETIME ONE Stop: 10/04/19 16:45 Last Admin: 10/04/19 16:41 Dose: 999 mls/hr Documented by: Calcium Gluconate 1 gm/ Sodium (Chloride) 60 mls @ 100 mls/hr IV ONETIME ONE Stop: 10/04/19 21:50 Last Admin: 10/04/19 21:26 Dose: 100 mls/hr Documented by: Lidocaine HCl (Xylocaine 2%) 0 mg IVPUSH ASDIRECTED PRN PRN Reason: Heart. Nitroglycerin (Nitrostat) 0.4 mg SL ASDIRECTED PRN PRN Reason: Heart. Nitroglycerin (Nitrostat) 0.4 mg SL ASDIRECTED PRN PRN Reason: Chest Pain Warfarin, No Dose (Needed) 0 each PO ONETIME ONE Stop: 10/07/19 18:01 Last Admin: 10/07/19 18:42 Dose: Not Given Documented by: Phytonadione (Aquamephyton) 2.5 mg PO ONETIME ONE Stop: 10/07/19 12:03 Last Admin: 10/07/19 12:39 Dose: 2.5 mg Documented by: Sodium Polystyrene Sulfonate (Kayexalate) 15 gm PO ONETIME ONE Stop: 10/04/19 20:38 Last Admin: 10/04/19 21:29 Dose: 15 gm Documented by: Warfarin Sodium (Coumadin) 1 mg PO ONETIME ONE Stop: 10/04/19 21:16 Last Admin: 10/04/19 21:38 Dose: 1 mg Documented by: Warfarin Sodium (Coumadin) 0.5 mg PO DAILY@1800 [facility] Stop: 10/05/19 18:01 Last Admin: 10/05/19 17:48 Dose: 0.5 mg Documented by: Warfarin Sodium (Coumadin) 1.25 mg PO ONETIME ONE Stop: 10/08/19 18:01 Last Admin: 10/08/19 18:23 Dose: 1.25 mg Documented by: - Exam Quality Assessment: Reports: Supplemental Oxygen, DVT Prophylaxis, Skin Breakdown General: Reports: Alert, Oriented, No Acute Distress Neck: Reports: Supple, No JVD Lungs: Reports: Rhonchi. Denies: Crackles, Wheezing Cardiovascular: Reports: Regular Rate, Irregular Rhythm, Murmurs GI/Abdominal Exam: Normal Bowel Sounds, Soft, Non-Tender, Other (abdomen mildly rounded/distended per reportednormal but soft). No: Guarding (Male) Exam: Deferred Rectal (Males) Exam: Deferred Extremities: Pedal Edema (2-3+ pitting edema to BLE, improved from yesterday. 2+ edema LUE (improved), 1+ RUE,), Leg Pain, Other (generalized weakness) Skin: Reports: Warm, Dry, Ecchymosis Wound/Incisions: Reports: Other (left heel ulceration (dressing intact), left mack (dressing intact), coccyx dressing intact. mepilex dressing to left side intact. peripheral cyanosis and beto skin color. skin dry/flaking. upper extremities with notable ecchymosis per baseline. ) Psy/Mental Status: Reports: Alert
[2019-10-09] MEDS: Sodium Chloride 0.9% 10 ML Syringe FLUSH PRN (11:02)
[2019-10-09] MEDS: cefTRIAXone 1 GM Vial IVPUSH SCH (11:02)
[2019-10-09] MEDS: Furosemide 20 MG Tab PO SCH (13:16)
[2019-10-09 15:08] VITALS: BP 110/56; PULSE 76
[2019-10-09] MEDS ORDERED: metroNIDAZOLE 500 MG Tab PO SCH (21:00)
== END 2019-10-09 15:40 | DRG 592 ==
LOC: KA.MS 14:30
PROVIDERS: ADMIT Family Medicine; ATTEND Family Medicine
PROC: 30233N1 Transfusion of Nonautologous Red Blood Cells into Peripheral Vein, Percutaneous Approach (ICD-10-PCS; principal; 2019-10-07)
DX: L89.620 Pressure ulcer of left heel, unstageable (principal); I50.33 Acute on chronic diastolic (congestive) heart failure; N17.9 Acute kidney failure, unspecified; J96.11 Chronic respiratory failure with hypoxia; D64.9 Anemia, unspecified; Z51.5 Encounter for palliative care; Z66 Do not resuscitate; B96.1 Klebsiella pneumoniae [K. pneumoniae] as the cause of diseases classified elsewhere; A49.02 Methicillin resistant Staphylococcus aureus infection, unspecified site; L89.159 Pressure ulcer of sacral region, unspecified stage; K59.00 Constipation, unspecified; E87.5 Hyperkalemia; I25.10 Atherosclerotic heart disease of native coronary artery without angina pectoris; I48.91 Unspecified atrial fibrillation; D50.9 Iron deficiency anemia, unspecified; D63.8 Anemia in other chronic diseases classified elsewhere; M19.90 Unspecified osteoarthritis, unspecified site; I73.9 Peripheral vascular disease, unspecified; J44.9 Chronic obstructive pulmonary disease, unspecified; N40.0 Benign prostatic hyperplasia without lower urinary tract symptoms; Z87.891 Personal history of nicotine dependence
CPT/HCPCS: 36415; 36430; 80048; 80053; 80202; 81003; 83605; 83880; 85025; 85610; 85652; 86850; 86900; 86901; 86920; 86922; 87040; 87070; 87077; 87186; 87205; 93005; 94640; 97163-GP; A9270-GY; J0610; J0696; J1940; J3370; J3430; J3490; J7030; J7050; J7512; J7620-GY; P9016

== ENCOUNTER 2019-10-13 10:00 | Emergency (ER) | payer MEDICARE, MEDICAID ==
--- NOTE | 2019-10-13 10:48 | EDM.PDOC ---
ED HPI GENERAL MEDICAL PROBLEM - General Chief Complaint: Respiratory Problem Stated Complaint: Short of breath Time Seen by Provider: 10/13/19 10:40 Source of Information: Reports: Patient, Retirement Records, Provider History Limitations: Reports: No Limitations - History of Present Illness INITIAL COMMENTS - FREE TEXT/NARRATIVE: Patient is an 88-year-old gentleman who presents to the emergency department this morning from [facility] with a complaint of shortness of breath. Patient was transported here for PICC line placement, and patient was asked to be evaluated emergency department. Discussed case with Dr. Carmencita rivera, although patient has chronic medical conditions, shortness of breath is worsening. PICC line has been placed and lab work and evaluation will be performed emergency department. Currently, patient denies chest pain. Patient was discharged from [facility] on October 08 following a 6 day stay. Patient does have history of peripheral vascular disease and left heel ulceration with MRSA infection and required a PICC line for IV antibiotic therapy. Onset: Gradual Duration: Chronic Severity: Mild Improves with: Reports: None Worsens with: Reports: None Associated Symptoms: Reports: Shortness of Breath. Denies: Chest Pain, Cough - Related Data Allergies Allergy/AdvReac Type Severity Reaction Status Date / Time atorvastatin calcium Allergy Cannot Verified 08/29/19 15:20 [From Lipitor] Remember duloxetine Allergy Cannot Verified 10/04/19 15:09 Remember ezetimibe [From Zetia] Allergy Joint Pain Verified 08/29/19 15:20 gabapentin Allergy Airway Verified 08/29/19 15:20 Tightness pregabalin [From Lyrica] Allergy Bronchospas Verified 08/29/19 15:20 ms roflumilast [From Daliresp] Allergy Stomach Verified 08/29/19 15:20 Upset Ydzyuvg-[id number]-Fdv Reductase Allergy Muscle Verified 08/29/19 15:20 Inhibitor Weakness Sulfa (Sulfonamide Allergy Cannot Verified 08/29/19 15:20 Antibiotics) Remember tramadol Allergy Cannot Verified 08/29/19 15:20 Remember Home Meds: Home Meds Finasteride 5 mg PO DAILY 03/22/14 [History] Furosemide 20 mg PO DAILY@1400 03/22/14 [History] Nitroglycerin [Nitrostat] 0.4 mg SL ASDIRECTED PRN 03/22/14 [History] Tamsulosin [Flomax] 0.4 mg PO DAILY 09/10/14 [History] Warfarin [Coumadin] 2.5 mg PO MOFR@1800 02/21/15 [History] Clopidogrel [Plavix] 75 mg PO DAILY 04/01/16 [History] Hydrocodone/Acetaminophen [Hydrocodone-Acetamin 5-325 mg] 2 each PO QID@02,08,14,20 04/01/16 [History] polyethylene glycoL 3350 [MiraLAX] 17 gm PO BEDTIME PRN packet 12/18/17 [Rx] Ferrous Sulfate [Ferosul] 325 mg PO Q48H 01/22/18 [History] Sennosides/Docusate Sodium [Senna-S] 1 each PO BID 01/22/18 [History] Warfarin [Coumadin] 1.25 mg PO SUTUWETHSA@1800 01/22/18 [History] predniSONE [Prednisone] 10 mg PO DAILY 01/22/18 [History] Fluticasone/Umeclidin/Vilanter [Trelegy Ellipta 100-62.5-25] 1 puff INH DAILY 08/29/19 [History] Hydrocortisone [Preparation H] 1 applic RECTAL BID PRN 08/29/19 [History] Nortriptyline 45 mg PO BEDTIME 08/29/19 [History] bisacodyL [Bisacodyl] 5 mg PO DAILY PRN 08/29/19 [History] dilTIAZem HCL [Cardizem] 30 mg PO BID 08/29/19 [History] lisinopriL [Lisinopril] 2.5 mg PO DAILY 08/29/19 [History] predniSONE [Prednisone] 10 mg PO DAILY PRN 08/29/19 [History] Diclofenac Sodium [Voltaren 1% Gel] 2 gram TRDERM BID PRN #0 tube 09/02/19 [Rx] Albuterol/Ipratropium [DuoNeb 3.0-0.5 MG/3 ML] 3 ml NEB Q6H 10/04/19 [History] Ascorbic Acid 500 mg PO Q48H 10/04/19 [History] Furosemide [Lasix] 40 mg PO DAILY #30 tablet 10/09/19 [Rx] metroNIDAZOLE [Flagyl] 500 mg PO Q8H #2 tablet 10/09/19 [Rx] Past Medical History HEENT History: Reports: Cataract, Impaired Vision, Other (See Below) Other HEENT History: Artificial Left eye Cardiovascular History: Reports: Afib, Heart Failure, Hypertension, Pacemaker, PVD, Stents Other Cardiovascular History: stents x 8 Respiratory History: Reports: Asthma, COPD Other Respiratory History: Home O2. Gastrointestinal History: Reports: Cholelithiasis, Chronic Constipation, GERD, Hemorrhoids Genitourinary History: Reports: BPH, Prostate Disorder Musculoskeletal History: Reports: Arthritis, Back Pain, Chronic, Osteoarthritis Other Musculoskeletal History: Paget's disease Neurological History: Reports: None Psychiatric History: Reports: None Endocrine/Metabolic History: Reports: Vitamin D Deficiency Hematologic History: Reports: Anemia, Blood Transfusion(s), Iron Deficiency Immunologic History: Reports: None Oncologic (Cancer) History: Reports: Other (See Below) Other Oncologic History: previous removal of lump and lymph nodes from neck. 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." Dermatologic History: Reports: Cellulitis - Infectious Disease History Infectious Disease History: Reports: None - Past Surgical History HEENT Surgical History: Reports: Cataract Surgery Cardiovascular Surgical History: Reports: Carotid Stents, Pacer Respiratory Surgical History: Reports: None GI Surgical History: Reports: Cholecystectomy, Colonoscopy Male Surgical History: Reports: TURP-Transurethral Resection of Prostate Endocrine Surgical History: Reports: None Neurological Surgical History: Reports: None Musculoskeletal Surgical History: Reports: Arthroscopic Knee, Knee Replacement Oncologic Surgical History: Reports: None Social & Family History - Family History Family Medical History: Noncontributory HEENT: Reports: None, Macular Degeneration Cardiac: Reports: ID Respiratory: Reports: COPD GI: Reports: None : Reports: None OBGYN: Reports: None Musculoskeletal: Reports: Arthritis Neurological: Reports: None Psychiatric: Reports: None Endocrine/Metabolic: Reports: Diabetes, type II Hematologic: Reports: None Oncologic: Reports: Breast - Caffeine Use Caffeine Use: Reports: None Other Caffeine Use: Mostly decafe per son - Living Situation & Occupation Living situation: Reports: ED ROS GENERAL - Review of Systems Review Of Systems: See Below Constitutional: Reports: No Symptoms HEENT: Reports: No Symptoms Respiratory: Reports: Shortness of Breath Cardiovascular: Reports: No Symptoms Endocrine: Reports: No Symptoms GI/Abdominal: Reports: No Symptoms : Reports: No Symptoms Musculoskeletal: Reports: No Symptoms Skin: Reports: Other (Left heel ulceration to bone) Neurological: Reports: No Symptoms Psychiatric: Reports: No Symptoms Hematologic/Lymphatic: Reports: No Symptoms Immunologic: Reports: No Symptoms ED EXAM, GENERAL - Physical Exam Exam: See Below Exam Limited By: No Limitations General Appearance: No Apparent Distress, Lethargic, Cachetic Throat/Mouth: Normal Inspection, Normal Oropharynx, No Airway Compromise Respiratory/Chest: No Respiratory Distress, Decreased Breath Sounds, Rales (Bibasilar) Cardiovascular: Regular Rate, Rhythm Course - Orders/Labs/Meds Orders: Active Orders 24 hr Category Date Time Status CBC WITH AUTO DIFF [HEME] Stat Lab 10/13/19 10:40 Ordered MANUAL DIFFERENTIAL QA/NC [HEME] Stat Lab 10/13/19 10:46 Results Labs: Laboratory Tests 10/13/19 10/13/19 Range/Units 10:46 10:46 WBC 15.72 H (5.00-10.00) 10^3/uL RBC 3.54 L (4.50-6.00) 10^6/uL Hgb 8.2 L (13.0-17.0) g/dL Hct 27.8 L (40.0-52.0) % MCV 78.5 L (82.0-92.0) fL MCH 23.2 L (27.0-31.0) pg MCHC 29.5 L (32.0-36.0) g/dL RDW 19.6 H (11.5-14.5) % Plt Count 262 (150-400) 10^3/uL MPV 9.4 (7.4-10.4) fL Add Manual Diff Yes Sodium 145 (136-145) mmol/L Potassium 4.2 (3.3-5.3) mmol/L Chloride 109 (98-115) mmol/L Carbon Dioxide 27.8 (21.0-32.0) mmol/L Anion Gap 12.4 (5-15) mmol/L BUN 46 H (6-25) mg/dL Creatinine 0.99 (0.51-1.17) mg/dL Est Cr Clr Drug Dosing TNP Estimated GFR (MDRD) > 60 mL/min Glucose 131 H (75 - 99) mg/dL Calcium 8.2 L (8.7-10.3) mg/dL Total Bilirubin 0.3 (0.2-1.0) mg/dL AST 14 L (15-37) U/L ALT 15 (12-78) U/L Alkaline Phosphatase 70 (46-116) IU/L Total Protein 5.4 L (6.4-8.2) g/dL Albumin 1.74 L (3.00-4.80) g/dL - Radiology Interpretation Free Text/Narrative:: Chest x-ray shows small right profusion of chronic nature. No other acute cardiopulmonary process - Re-Assessments/Exams Free Text/Narrative Re-Assessment/Exam: 10/13/19 11:23 Patient afebrile, vital signs stable. PICC line inserted with good placement per chest x-ray. Patient will be returned to [facility] Departure - Departure Time of Disposition: 11:24 Disposition: DC/Tfer to Medicaid N[facility] Condition: Fair Clinical Impression: MRSA (methicillin resistant staph aureus) culture positive, Generalized weakness COPD (chronic obstructive pulmonary disease) Qualifiers: COPD type: emphysema Emphysema type: unspecified Qualified Code(s): J43.9 - Emphysema, unspecified - Discharge Information Instructions: Chronic Obstructive Pulmonary Disease Exacerbation, [id number] Referrals: Kirstie Ellis MD [Primary Care Provider] - Forms: ED Department Discharge Additional Instructions: Follow-up with PCP. Return to emergency department if symptoms continue or worsen. - My Orders Last 24 Hours: My Active Orders 10/13/19 10:40 CBC WITH AUTO DIFF [HEME] Stat 10/13/19 10:46 MANUAL DIFFERENTIAL QA/NC [HEME] Stat - Assessment/Plan Last 24 Hours: My Active Orders 10/13/19 10:40 CBC WITH AUTO DIFF [HEME] Stat 10/13/19 10:46 MANUAL DIFFERENTIAL QA/NC [HEME] Stat Assessment:: Chronic shortness of breath Plan: Return to [facility]
[2019-10-13 11:14] LABS: ANION GAP 12.4 mmol/L (5-15); CHLORIDE,CL 109 mmol/L (98-115); SODIUM,NA 145 mmol/L (136-145)
[2019-10-13 13:28] VITALS: BP 110/55; PULSE 76
--- NOTE | 2019-10-13 13:39 | OR ---
DATE OF SURGERY: 10/13/2019 SURGEON: Nidhi Baker CRNA PROCEDURE: PICC line placement. The patient here today for a PICC line placement for antibiotics. This order is via Dr. Kirstie Ellis. DESCRIPTION OF PROCEDURE: He was brought to the procedure room. We did assist him with positioning to the cart. I did use ultrasound for placement of the PICC line. We did use a ChloraPrep solution on the skin prior to the procedure. Sterile draping was obtained as well prior to the procedure. The patient continued on his oxygen via nasal cannula. Vital signs were all stable and documented per Nursing with in the EMR. We did use ultrasound to assist in the placement. I did find the basilic vein in the right upper extremity. Following observation of that location, he did get 2 mL of 1% lidocaine for skin infiltration. Following that, I did do a 20-gauge IV catheter into the vein without any difficulty with good blood flow. Following that, I was able to thread the guidewire without any difficulty. Upon guidewire being threaded, the IV was removed. I did do 1 mL of lidocaine at the skin prior to placing the dilator. I was able to advance over the guidewire with the sheath without any difficulty. Following that, the PICC line was able to advance without any difficulty. Good blood flow in both of the double lumens. This was a 55 cm long 5-Uzbek Groshong double-lumen catheter that was placed. I did use the Sherlock for placement prior to the x-ray. Chest x-ray was completed that did show good placement, but it wanted the catheter retracted 4 cm. It was retracted 4 cm for a final location of 41 cm at the skin. The catheter was secured and flushed at the time of the placement with a Tegaderm placed. All of the discharge instructions back to the shelter were placed with in the folder that the shelter wanted. They also wanted him seen by the ER provider, so the ER provider is seeing him as well for shortness of breath and excessive potential fluid overload and weeping of the lower extremities. That was being done after I completed my PICC line placement. PICC line placement was in good location when I left the room. I did inform the primary care provider that this task was completed and done without any patient's difficulty or any complications. /[id number]/MODL
== END 2019-10-13 12:00 ==
LOC: KA.ED 10:00
DX: J43.9 Emphysema, unspecified (principal); R53.1 Weakness; A49.02 Methicillin resistant Staphylococcus aureus infection, unspecified site; I11.0 Hypertensive heart disease with heart failure; I50.9 Heart failure, unspecified; I48.91 Unspecified atrial fibrillation; N40.0 Benign prostatic hyperplasia without lower urinary tract symptoms; M19.90 Unspecified osteoarthritis, unspecified site; Z88.8 Allergy status to other drugs, medicaments and biological substances; Z88.2 Allergy status to sulfonamides; Z88.5 Allergy status to narcotic agent; Z79.899 Other long term (current) drug therapy; Z79.02 Long term (current) use of antithrombotics/antiplatelets; Z45.2 Encounter for adjustment and management of vascular access device
CPT/HCPCS: 36569; 71045; 80053; 85025; 99284; 99285